=== PATIENT | female | born 1940 ===

== ENCOUNTER 2020-08-08 08:00 | Outpatient (REF) | payer MEDICARE, SELFPAY ==
--- NOTE | 2020-08-08 09:08 | XR_ITS ---
EXAMINATION: XR KNEE, LEFT XR KNEE, RIGHT CLINICAL INFORMATION: Pain in the knees COMPARISON: 08/18/2018 TECHNIQUE: 3 upright views of each knee FINDINGS: Left knee: No fracture or subluxation. There is mild medial compartment joint space narrowing. Small marginal osteophytes of the medial and patellofemoral compartments. No joint effusion. Vascular calcifications noted. Right knee: No fracture or subluxation. There is moderate medial compartment joint space narrowing. Tricompartmental marginal osteophytes. No joint effusion. The soft tissues are unremarkable. XR/XR knee RT 3V IMPRESSION: Degenerative changes of both knees as detailed above. Most prominently at the right knee with moderate medial compartment joint space narrowing.
--- NOTE | 2020-08-08 09:08 | XR_ITS ---
EXAMINATION: XR KNEE, LEFT XR KNEE, RIGHT CLINICAL INFORMATION: Pain in the knees COMPARISON: 08/18/2018 TECHNIQUE: 3 upright views of each knee FINDINGS: Left knee: No fracture or subluxation. There is mild medial compartment joint space narrowing. Small marginal osteophytes of the medial and patellofemoral compartments. No joint effusion. Vascular calcifications noted. Right knee: No fracture or subluxation. There is moderate medial compartment joint space narrowing. Tricompartmental marginal osteophytes. No joint effusion. The soft tissues are unremarkable. XR/XR knee LT 3V IMPRESSION: Degenerative changes of both knees as detailed above. Most prominently at the right knee with moderate medial compartment joint space narrowing.
[2020-08-08 09:41] LABS: MANUAL DIFF FLAG NO
[2020-08-08 09:43] LABS: Basophils Percent Auto 0.3 % (0-2); Eosinophils Absolute Auto 0.1 X10*3/uL (0.0-0.4); Eosinophils Percent Auto 1.7 % (0-4); Hematocrit 34.6 % (37-47); Hemoglobin 10.8 g/dl (12.0-16.0); Imm Gran Abs Auto 0.01 X10*3/uL (0.00-0.03); Imm Gran Pct Auto 0.1 % (0.0-0.4); Lymphocytes Absolute Auto 2.4 X10*3/uL (1.2-4.9); Lymphocytes Percent Auto 30.8 % (20-40); Mean Corpuscular HGB Conc 31.2 g/dl (31.0-35.0); Mean Corpuscular Hemoglobin 28.6 pg (27.0-33.0); Mean Corpuscular Volume 91.5 fL (80-98); Monocytes Absolute Auto 0.6 X10*3/uL (0.1-1.2); Neutrophils Absolute Auto 4.7 X10*3/uL (2.0-8.3); Neutrophils Percent Auto 59.1 % (45-73); Platelet Count 295 X10*3/uL (160-400); Red Blood Count 3.78 X10*6/uL (4.20-5.50); Red Cell Distribution Width 14.8 % (11.0-16.0); White Blood Count 7.9 X10*3/uL (4.8-10.8)
[2020-08-08 10:40] LABS: Erythrocyte Sedimentation Rate 32 MM/HR (0-20)
[2020-08-08 10:46] LABS: Alanine Aminotransferase 21 U/L (0-31); Albumin Level 4.1 g/dL (3.5-5.0); Alkaline Phosphatase 90 U/L (39-117); Anion Gap 13 (12-20); Aspartate Amino Transferase 16 U/L (5-31); Bilirubin Total 0.3 mg/dL (0.0-1.0); Blood Urea Nitrogen 25 mg/dL (9-16); C Reactive Protein 0.19 mg/dL (< or = 0.50); Calcium 8.7 mg/dL (8.4-10.2); Carbon Dioxide 24 mmol/L (22-29); Chloride 109 mmol/L (96-108); Estimated Glomerular Filt Rate 39; Glucose Random 129 mg/dL (60-115); Potassium 4.5 mmol/l (3.3-5.1); Rheumatoid Factor < 15.0 IU/mL (<15.0); Sodium 141 mmol/L (135-145); Total Protein 7.4 g/dL (6.5-8.0)
[2020-08-09 08:51] LABS: Lyme Abs Screen <0.90 index
[2020-08-09 15:21] LABS: Cyclic Citrullinated Peptide 19 UNITS
== END 2020-08-08 08:01 | disposition home or self-care (01) ==
LOC: HO.LAB 08:00
PROVIDERS: PCP Internal Medicine Geriatric Medicine; Referring Provider Internal Medicine Geriatric Medicine; Visit Provider Student in an Organized Health Care Education/Training Program
DX: M25.561 Pain in right knee (principal); M25.562 Pain in left knee; G89.29 Other chronic pain; M25.50 Pain in unspecified joint
CPT/HCPCS: 36415; 73562; 80053; 85025; 85652; 86140; 86200; 86431; 86618; 99202

== ENCOUNTER → 2020-08-22 10:39 | Outpatient (BNVA) | payer MEDICARE, SELFPAY | PROVIDERS: PCP Internal Medicine Geriatric Medicine; Visit Provider Student in an Organized Health Care Education/Training Program | DX: M17.11 Unilateral primary osteoarthritis, right knee (principal) | CPT/HCPCS: 20610; 99211 ==

== ENCOUNTER → 2020-08-27 09:44 | Outpatient (BNVA) | payer MEDICARE, SELFPAY | PROVIDERS: PCP Internal Medicine Geriatric Medicine; Visit Provider Surgery | DX: L72.11 Pilar cyst (principal) | CPT/HCPCS: 99202 ==

== ENCOUNTER 2020-08-29 09:42 | Outpatient (REF) | payer MEDICARE, SELFPAY ==
[2020-08-29 09:56] VITALS: BP 154/83; PULSE 99; RESP 16; TEMP 36.9; O2SAT 99
[2020-08-29 10:06] VITALS: BMI 35.0
[2020-08-29 10:22] VITALS: BP 136/69; PULSE 90; RESP 16; O2SAT 98
--- NOTE | 2020-08-29 11:58 | PM.OP ---
Brief Operative Note Date of Service: 08/29/20 Pre-op diagnosis: Cyst left scalp Post-op diagnosis: same Procedure: Excision of cyst left scalp Implants: None Surgeon: Gregory Erickson MD Anesthesia: local Estimated blood loss (mL): 2 Pathology: other (Cyst left scalp) Condition: stable Disposition: other (Home)
--- NOTE | 2020-08-29 11:59 | W.PM.OPN ---
Operative Note Operative Note Date of Service: 08/29/20 Narrative: Preoperative diagnosis: Cyst left scalp Postoperative diagnosis: Same Procedure: Excision of cyst left scalp Surgeon: Gregory Erickson MD Anesthesia: Local Indications for procedure: 80-year-old female with a cyst of the left scalp located above the left ear which is increasing in size and causing irritation with her classes. Operative findings: 1.5 cm round noninfected Pilar cyst Specimen: Cyst left scalp Estimated blood loss: 2 mL Complications: None Procedure details: Patient was brought to the minor surgery suite and placed in a supine position. The site of surgery was confirmed by the patient and informed consent confirmed. The patient's left scalp was prepped with Betadine directly over the cyst. This was then draped in a sterile fashion. Local anesthesia consisting 1% lidocaine with epinephrine was then infiltrated over the cyst in a transverse fashion. Incision was then made with a 15 blade and carried out through subcutaneous tissue up to the cyst wall. Sharp dissection was then used to dissect the cyst from the surrounding subcutaneous tissue. The specimen was sent to pathology for further examination. Skin was closed using interrupted 4 0 nylon sutures. Bacitracin was then applied. The patient tolerated the procedure well and was discharged to home in stable condition.
== END 2020-08-29 09:43 | disposition home or self-care (01) ==
LOC: HO.MS 09:42
PROVIDERS: PCP Internal Medicine Geriatric Medicine; Visit Provider Surgery
PROC: (CPT 11422; principal; 2020-08-29 10:00)
DX: L72.11 Pilar cyst (principal)
CPT/HCPCS: 11422; 88304

== ENCOUNTER → 2020-09-05 15:19 | Outpatient (BNVA) | payer MEDICARE, SELFPAY | PROVIDERS: PCP Internal Medicine Geriatric Medicine; Visit Provider Surgery | DX: L72.11 Pilar cyst (principal) | CPT/HCPCS: 99212 ==

== ENCOUNTER 2020-10-02 09:01 | Outpatient (REF) | payer MEDICARE, SELFPAY ==
--- NOTE | 2020-10-02 09:07 | MM_ITS ---
EXAMINATION: MM SCREENING DIGITAL MAMMOGRAPHY, BILATERAL CLINICAL INFORMATION: Screening. Asymptomatic. Due for yearly exam. History right breast cancer 2008. COMPARISON: Mammography: 07/20/2019, 07/07/2018, 07/05/2017 TECHNIQUE: Digital mammography is performed in craniocaudal and mediolateral oblique views along with computer-aided detection (CAD). Additional exaggerated right CC view is provided. Technically challenging exam, tailored to patient capabilities and with full field digital mammography. FINDINGS: There are scattered areas of fibroglandular density (ACR BI-RADS breast composition Category b). There are post therapy changes on the right with reduced breast size and chronic stable scarring and dystrophic calcification in the scar. There is minor motion artifact on the right MLO view. The left breast parenchymal pattern is similar to prior exams. Neither breast shows interval mass or developing density or abnormal calcifications. Left axillary node stable. No significant changes from prior exams. MM/MM screening mammo BI IMPRESSION: No significant changes from prior study. Post therapy changes right breast. ASSESSMENT: BI-RADS 2: Benign RECOMMENDATION: Routine annual mammography screening. This patient's information was entered into a reminder system with a target due date for their next mammogram.
== END 2020-10-02 09:02 | disposition home or self-care (01) ==
LOC: HO.MAMMO 09:01
PROVIDERS: Visit Provider Internal Medicine Geriatric Medicine
DX: Z12.31 Encounter for screening mammogram for malignant neoplasm of breast (principal)
CPT/HCPCS: 77067

== ENCOUNTER → 2021-01-07 09:09 | Outpatient (BNVA) | payer MEDICARE, SELFPAY | PROVIDERS: Visit Provider Student in an Organized Health Care Education/Training Program | DX: M17.11 Unilateral primary osteoarthritis, right knee (principal) | CPT/HCPCS: 20610; 99212 ==

== ENCOUNTER → 2021-05-06 09:08 | Outpatient (BNVA) | payer MEDICARE, SELFPAY | PROVIDERS: PCP Internal Medicine Geriatric Medicine; Visit Provider Student in an Organized Health Care Education/Training Program | DX: M17.11 Unilateral primary osteoarthritis, right knee (principal) | CPT/HCPCS: 99212 ==

== ENCOUNTER 2021-10-16 09:44 | Outpatient (REF) | payer MEDICARE, SELFPAY ==
--- NOTE | ~2021-10-16 | MM_ITS ---
MM/MM tomosynthesis screening BI IMPRESSION: There are no significant changes from prior study. ASSESSMENT: BI-RADS 2: Benign RECOMMENDATION: Routine annual mammography screening. This patient's information was entered into a reminder system with a target due date for their next mammogram. EXAMINATION: MM SCREENING DIGITAL BREAST TOMOSYNTHESIS, BILATERAL CLINICAL INFORMATION: Screening. Asymptomatic. Status post right breast lumpectomy. COMPARISON: Mammography: October 02, 2020 and studies dating back to March 21, 2014 TECHNIQUE: Digital breast tomosynthesis is performed in both the craniocaudal and mediolateral oblique views along with computer-aided detection (CAD). Synthesized 2D images are generated from the tomosynthesis. FINDINGS: There are scattered areas of fibroglandular density (ACR BI-RADS breast composition Category b). There are no new significant masses, abnormal calcifications, or other abnormalities. Postsurgical change is noted within the upper outer aspect of the right breast.
== END 2021-10-16 09:45 | disposition home or self-care (01) ==
LOC: HO.MAMMO 09:44
PROVIDERS: PCP Internal Medicine; Visit Provider Internal Medicine
DX: Z12.31 Encounter for screening mammogram for malignant neoplasm of breast (principal)
CPT/HCPCS: 77063; 77067

== ENCOUNTER 2022-08-03 09:31 | Outpatient (REF) | payer OTHER, SELFPAY ==
[2022-08-03 10:12] LABS: MANUAL DIFF FLAG NO
[2022-08-03 10:53] LABS: Basophils Percent Auto 0.4 % (0-2); Eosinophils Absolute Auto 0.3 X10*3/uL (0.0-0.4); Eosinophils Percent Auto 2.9 % (0-4); Hematocrit 40.3 % (37.0-47.0); Hemoglobin 12.7 g/dl (12.0-16.0); Imm Gran Abs Auto 0.03 X10*3/uL (0.00-0.03); Imm Gran Pct Auto 0.3 % (0.0-0.4); Lymphocytes Absolute Auto 3.2 X10*3/uL (1.2-4.9); Lymphocytes Percent Auto 34.7 % (20-40); Mean Corpuscular HGB Conc 31.5 g/dl (31.0-35.0); Mean Corpuscular Hemoglobin 28.3 pg (27.0-33.0); Mean Corpuscular Volume 89.8 fL (80.0-98.0); Mean Platelet Volume 10.4 fL (9.4-12.3); Monocytes Absolute Auto 0.8 X10*3/uL (0.1-1.2); Monocytes Percent Auto 8.5 % (2-11); Neutrophils Absolute Auto 4.9 x10*3/uL (2.0-8.3); Neutrophils Percent Auto 53.2 % (45-73); Platelet Count 290 X10*3/uL (160-400); Red Blood Count 4.49 X10*6/uL (4.20-5.50); Red Cell Distribution Width 14.4 % (11.0-16.0); White Blood Count 9.3 X10*3/uL (4.8-10.8)
[2022-08-03 10:59] LABS: Appearance Urine Hazy; Color Urine Yellow; Glucose Urine UA Negative (Negative); Leukocyte Esterase Urine Small (1+) (Negative); Nitrite Urine Positive (Negative); Specific Gravity - Urine 1.015 (1.005-1.025); UMIC TRIGGER UA YES; Urine Blood Negative (Negative); Urine Ketones Negative (Negative); Urine Protein Trace mg/dL (Neg-Trace)
[2022-08-03 11:04] LABS: Estimated Average Glucose 123 mg/dL; Hemoglobin A1c % 5.9 %
[2022-08-03 11:20] LABS: Creatinine Urine 83.86 mg/dL; Total Protein Urine Random 25 mg/dL (<12)
[2022-08-03 11:21] LABS: Bacteria Urine 4+ (None Seen); Hyaline Casts Urine 0-2 /LPF (0-2); RBC Urine 0-2 /HPF (0-2); WBC Urine >50 /HPF (0-5)
[2022-08-03 11:37] LABS: Anion Gap 18 (12-20); Blood Urea Nitrogen 30 mg/dL (9-16); Calcium 9.4 mg/dL (8.4-10.2); Carbon Dioxide 23 mmol/L (22-29); Chloride 107 mmol/L (96-108); Estimated Glomerular Filt Rate 33; Iron 93 mcg/dL (30-160); Percent Iron Saturation 27 % (15-50); Potassium 4.5 mmol/L (3.3-5.1); Sodium 143 mmol/L (135-145); Total Iron Binding Capacity 342 mcg/dL (228-428); Unsaturated Iron Binding 249 ug/dL; Uric Acid 7.5 mg/dL (2.4-5.7)
[2022-08-03 12:09] LABS: Ferritin 36 ng/mL (10-250)
[2022-08-03 13:36] LABS: Vitamin D 25-OH Total 52.1 ng/mL (>30)
[2022-08-04 12:16] LABS: Calcium (PTHI) 9.3 mg/dL (8.6-10.4); PTHI 114 pg/mL (16-77)
== END 2022-08-03 09:32 | disposition home or self-care (01) ==
LOC: HO.LAB 09:31
PROVIDERS: PCP Internal Medicine; Visit Provider Physician Assistant
DX: N18.31 Chronic kidney disease, stage 3a (principal); D63.1 Anemia in chronic kidney disease; E55.9 Vitamin D deficiency, unspecified; E11.29 Type 2 diabetes mellitus with other diabetic kidney complication
CPT/HCPCS: 36415; 80051; 81001; 82306; 82310; 82565; 82728; 83036; 83540; 83970; 84156; 84520; 84550; 85025

== ENCOUNTER 2022-10-09 12:28 | Inpatient (IN) | payer OTHER, SELFPAY ==
--- NOTE | ~2022-10-09 | XR_ITS ---
EXAMINATION: XR CHEST CLINICAL INFORMATION: Cough, shortness of breath COMPARISON: None TECHNIQUE: 2 views of the chest were obtained. FINDINGS: Linear streaky opacities at each lung base have the appearance of subsegmental atelectasis. The right lower border of the cardiomediastinal silhouette is slightly ill-defined, likely from presence of the paracardiac fat pad and atelectasis within the middle lobe. The right diaphragm is mildly elevated. No pleural effusion. There is a somewhat vague subpleural opacity of the right lateral lung base. There appear to be calcified lymph nodes at the right hilum. Cardiac silhouette is mildly enlarged. There is atherosclerotic calcification of the aorta. Pulmonary vascular pattern is normal. Moderate multilevel discovertebral degenerative change of the thoracolumbar spine. XR/XR chest 2V IMPRESSION: * Subsegmental atelectasis within the lung bases. Also, there is a nonspecific vague opacity of the lateral right lung base. If the patient has Covid infection, then this could be a manifestation of viral pneumonia. * Mild cardiomegaly. * There are likely old calcified lymph nodes at the right hilum.
--- NOTE | 2022-10-09 13:13 | ED_ITS ---
HPI - URI/Sore Throat General Chief Complaint: Upper Respiratory Symptoms <Zahida Steele CNP - Last Filed: 10/09/22 13:20> Stated Complaint: cough <Zahida Steele CNP - Last Filed: 10/09/22 13:20> Time Seen by Provider: 10/09/22 13:25 <Zahida Steele CNP - Last Filed: 10/09/22 13:20> Source: patient, family and metal furrer <Marcia Gusman NP - Last Filed: 16:47> Mode of arrival: ambulatory <Marcia Gusman NP - Last Filed: 10/09/22 16:47> Limitations: language barrier <Marcia Gusman NP - Last Filed: 10/09/22 16:47> History of Present Illness HPI Narrative: 82 yo female with history of hypertension, chronic kidney disease, diabetes who presents with cough for 6 weeks. Patient tried [id number] medications 1st with no relief. Patient was seen by her primary care doctor and prescribed azithromycin and Augmentin on September 23. Patient completed the azithromycin. She has been taking the Augmentin once daily since September 23. She was unaware that it was supposed to be twice daily. She did follow-up with her primary on October 03 and was prescribed doxycycline b.i.d.. Patient has been taking this once daily. Patient reports continued cough with chest congestion. No shortness of breath, fevers, leg swelling, leg pain, chest pain. <Marcia Gusman NP - Last Filed: 10/09/22 16:47> Related Data Home Medications: Home Medications Medication Instructions Recorded Confirmed aspirin 81 mg tablet,delayed 81 mg PO DAILY 08/08/20 05/06/21 release (Enteric Coated Aspirin) atorvastatin 10 mg tablet 10 mg PO DAILY 08/08/20 05/06/21 carvedilol 25 mg tablet 25 mg PO BID 08/08/20 05/06/21 cholecalciferol (vitamin D3) 25 25 mcg PO DAILY 08/08/20 05/06/21 mcg (1,000 unit) capsule diltiazem HCl 90 mg tablet 90 mg PO TID 08/08/20 05/06/21 fluticasone propionate 50 1 spray intranasal DAILY 08/08/20 05/06/21 mcg/actuation nasal spray,suspension (Allergy Relief (fluticasone)) lisinopril 40 mg tablet (Zestril) 40 mg PO DAILY 08/08/20 05/06/21 pantoprazole 20 mg tablet,delayed 20 mg PO DAILY 08/08/20 05/06/21 release blood sugar diagnostic #10 ea 08/27/20 08/27/20 lancets 28 gauge #100 ea 08/27/20 08/27/20 meclizine 12.5 mg tablet 12.5 mg PO DAILY PRN 05/06/21 05/06/21 torsemide 5 mg tablet 5 mg PO DAILY 05/06/21 05/06/21 acetaminophen 325 mg tablet 650 mg PO Q6H PRN Pain 10/09/22 10/09/22 albuterol sulfate 90 mcg/actuation 2 puff inhalation Q6H PRN 10/09/22 10/09/22 aerosol inhaler (ProAir HFA) Shortness Of Breath aspirin 81 mg tablet,delayed 81 mg PO DAILY 10/09/22 10/09/22 release atorvastatin 20 mg tablet 20 mg PO DAILY 10/09/22 10/09/22 carvedilol 25 mg tablet 25 mg PO BID 10/09/22 10/09/22 diltiazem HCl 90 mg tablet 90 mg PO TID 10/09/22 10/09/22 doxycycline hyclate 100 mg tablet 100 mg PO BID 10/09/22 10/09/22 empagliflozin 10 mg tablet 10 mg PO DAILY 10/09/22 10/09/22 (Jardiance) ferrous sulfate 324 mg (65 mg 324 mg PO DAILY 10/09/22 10/09/22 iron) tablet,delayed release lisinopril 40 mg tablet 40 mg PO DAILY 10/09/22 10/09/22 omeprazole 20 mg tablet,delayed 20 mg PO DAILY@0630 10/09/22 10/09/22 release Previous Rx's Medication Instructions Recorded acetaminophen 650 mg 650 mg PO Q8H PRN pain #90 tabs 05/06/21 tablet,extended release (Tylenol Arthritis Pain) cefuroxime axetil 500 mg tablet 500 mg PO BID 4 days #8 tabs 10/12/22 guaifenesin 600 mg tablet, 600 mg PO BID #10 tabs 10/12/22 extended release 12 hr (Mucus Relief ER) <Zahida Steele CNP - Last Filed: 10/09/22 13:20> Allergies/Adverse Reactions: Allergies Allergy/AdvReac Type Severity Reaction Status Date / Time No Known Allergies Allergy Verified 10/12/22 16:59 [No Known Allergies*] <Zahida Steele CNP - Last Filed: 10/09/22 13:20> Review of Systems Review of Systems: Yes all other systems are reviewed and are negative <Marcia Gusman NP - Last Filed: 10/09/22 16:47> Constitutional: Constitutional: Reports no additional constitutional complaints, Denies body ache(s), Denies chills, Denies fever(s), Denies hea dache(s) and Denies weakness <Marcia Gusman NP - Last Filed: 10/09/22 16:47> Eyes: Eyes: Reports no additional eye complaints and Denies change in vision <Marcia Gusman NP - Last Filed: 10/09/22 16:47> ENT: Reports system reviewed and no additional complaints, except as documented, Denies dizziness, Denies headache(s), Denies nasal congestion, Denies nasal discharge and Denies neck pain <Marcia Gusman NP - Last Filed: 10/09/22 16:47> Cardiovascular: Cardiovascular: Reports no additional cardiovascular complaints, Denies chest pain, Denies leg edema and Denies dyspnea <Marcia Gusman NP - Last Filed: 10/09/22 16:47> Respiratory: Respiratory: Reports no additional respiratory complaints, Reports cough and Denies dyspnea <Marcia Gusman NP - Last Filed: 10/09/22 16:47> Gastrointestinal: Gastrointestinal: Reports no additional gastrointestinal complaints, Denies abdominal pain, Denies diarrhea, Denies nausea and Denies vomiting <Marcia Gusman NP - Last Filed: 10/09/22 16:47> Genitourinary: Genitourinary: Reports no additional female genitourinary complaints and Denies urinary incontinence <Marcia Gusman NP - Last Filed: 10/09/22 16:47> Musculoskeletal: Musculoskeletal: Reports no additional musculoskeletal complaints, Denies back pain, Denies arthralgias, Denies joint swelling, Denies neck pain, Denies numbness and Denies tingling <Marcia Gusman NP - Last Filed: 10/09/22 16:47> Integumentary/Breasts: Skin/Breast: Reports system reviewed and no additional complaints, except as docu and Denies rash <Marcia Gusman NP - Last Filed: 10/09/22 16:47> Neurologic: Reports system reviewed and no additional complaints, except as documented, Denies Abnormal speech present, Denies dizziness, Denies headache(s), Denies numbness, Denies tingling and Denies weakness <Marcia Gusman NP - Last Filed: 10/09/22 16:47> [facility] Past Medical History Attestation statement: The following information was validated with the patient. <Marcia Gusman NP - Last Filed: 10/09/22 16:47> Source: old records reviewed and nursing notes reviewed <Marcia Gusman NP - Last Filed: 10/09/22 16:47> Medical History: Medical History Bilateral knee pain Breast cancer Depression Hypertension <Zahida Steele CNP - Last Filed: 10/09/22 13:20> Surgical History: Surgical History History of partial mastectomy of right breast Hx of cataract surgery <Zahida Steele CNP - Last Filed: 10/09/22 13:20> Family History Family History: Family History Father No problems noted. Mother No problems noted. <Zahida Steele CNP - Last Filed: 10/09/22 13:20> Social History Social History: Social History (System 10/12/22 @ 16:59 by Ekaterina Kemp) Household Members: None Housing: Apartment Do you presently have visiting nurse or other home services: Yes Alcohol intake: never Patient Tobacco Use Status: Never used Tobacco e-Cigarette/Vaping Use: Never Used service: No Current occupational status: retired <Zahida Steele CNP - Last Filed: 10/09/22 13:20> Physical Exam Vital Signs: Vital Signs: Last Vital Signs Temp 97.6 F 10/12/22 08:00 Pulse 81 10/12/22 08:00 Resp 18 10/12/22 08:00 BP 166/83 H 10/12/22 08:00 Pulse Ox 96 10/12/22 08:00 O2 Del Method 10/12/22 08:00 O2 Flow Rate 1 10/12/22 04:00 BMI result Body Mass Index 32.2 <Zahida Steele CNP - Last Filed: 10/09/22 13:20> Vital Signs: Last Vital Signs Temp 97.6 F 10/12/22 08:00 Pulse 81 10/12/22 08:00 Resp 18 10/12/22 08:00 BP 166/83 H 10/12/22 08:00 Pulse Ox 96 10/12/22 08:00 O2 Del Method 10/12/22 08:00 O2 Flow Rate 1 10/12/22 04:00 BMI result Body Mass Index 32.2 <Marcia Gusman NP - Last Filed: 10/09/22 16:47> Vital Signs: Last Vital Signs Temp 97.6 F 10/12/22 08:00 Pulse 81 10/12/22 08:00 Resp 18 10/12/22 08:00 BP 166/83 H 10/12/22 08:00 Pulse Ox 96 10/12/22 08:00 O2 Del Method 10/12/22 08:00 O2 Flow Rate 1 10/12/22 04:00 BMI result Body Mass Index 32.2 <Calderon Laureano MD - Last Filed: 10/19/22 18:51> Const: General: cooperative, healthy appearing, comfortable and no acute distress <Marcia Gusman NP - Last Filed: 10/09/22 16:47> Orientation/consciousness: patient oriented x3 <Marcia Gusman NP - Last Filed: 10/09/22 16:47> Limitations: no limitations <Marcia Gusman NP - Last Filed: 10/09/22 16:47> HEENT: Head: Yes normal to inspection <Marcia Gusman INDUSTRIAL ROOFER HELPER - Last Filed: 10/09/22 16:47> Ears: hearing grossly normal bilaterally <Marcia Gusman INDUSTRIAL ROOFER HELPER - Last Filed: 10/09/22 16:47> General nose exam: Normal external nose present <Marcia Gusman INDUSTRIAL ROOFER HELPER - Last Filed: 10/09/22 16:47> Face and sinus: Yes normal facial exam <Marcia Gusman, INDUSTRIAL ROOFER HELPER - Last Filed: 10/09/22 16:47> Mouth: Normal oral and palatal mucosa present <Marcia Gusman INDUSTRIAL ROOFER HELPER - Last Filed: 10/09/22 16:47> Throat: Yes posterior oropharynx normal <Marcia Gusman INDUSTRIAL ROOFER HELPER - Last Filed: 10/09/22 16:47> Eyes: General: appearance normal, both eyes and all related structures <Marcia Gusman INDUSTRIAL ROOFER HELPER - Last Filed: 10/09/22 16:47> Pupils: Equal, round and reactive pupils present <Marcia Gusman INDUSTRIAL ROOFER HELPER - Last Filed: 10/09/22 16:47> Neck: Neck: Yes normal visual inspection <Marcia Gusman INDUSTRIAL ROOFER HELPER - Last Filed: 10/09/22 16:47> Chest: Chest palpation & inspection: normal inspection of the chest <Marcia Gusman INDUSTRIAL ROOFER HELPER - Last Filed: 10/09/22 16:47> Resp: Other: + congested cough <Marcia Gusman INDUSTRIAL ROOFER HELPER - Last Filed: 10/09/22 16:47> Effort & Inspection: normal respiratory effort and Actively coughing <Marcia Gusman INDUSTRIAL ROOFER HELPER - Last Filed: 10/09/22 16:47> Auscultation: rhonchi <Marcia Gusman INDUSTRIAL ROOFER HELPER - Last Filed: 10/09/22 16:47> Cardio: Rate: regular rate <Marcia Gusman INDUSTRIAL ROOFER HELPER - Last Filed: 10/09/22 16:47> Rhythm: regular rhythm <Marcia Gusman INDUSTRIAL ROOFER HELPER - Last Filed: 10/09/22 16:47> Peripheral pulses: Peripheral pulses 2+ throughout <Marcia Gusman INDUSTRIAL ROOFER HELPER - Last Filed: 10/09/22 16:47> GI: Inspection: Yes normal to inspection <Marciamarcia Gusman INDUSTRIAL ROOFER HELPER - Last Filed: 10/09/22 16:47> Palpation (GI): Soft to palpation and nontender <Marcia Gusman, INDUSTRIAL ROOFER HELPER - Last Filed: 10/09/22 16:47> Auscultation: normal bowel sounds <Marcia Gusman INDUSTRIAL ROOFER HELPER - Last Filed: 10/09/22 16:47> Back/Spine/Pelvis: Thoracic/Lumbar Spine: thoracic and lumbar spine normal to inspection <Marciaawlly Gusman, INDUSTRIAL ROOFER HELPER - Last Filed: 10/09/22 16:47> Skin: General skin exam: no rashes or lesions noted <Marcia Gusman INDUSTRIAL ROOFER HELPER - Last Filed: 10/09/22 16:47> Neuro: General: patient oriented x3, no focal motor deficits and normal sensation to monofilament <Marcia Gusman INDUSTRIAL ROOFER HELPER - Last Filed: 10/09/22 16:47> Cranial nerves: Yes Equal, round and reactive pupils present <Marcia Gusman, INDUSTRIAL ROOFER HELPER - Last Filed: 10/09/22 16:47> Cognition (Neuro): normal cognition <Marcia Gusman INDUSTRIAL ROOFER HELPER - Last Filed: 10/09/22 16:47> Speech: No Abnormal speech present <Marciawally Gusman INDUSTRIAL ROOFER HELPER - Last Filed: 10/09/22 16:47> Gait exam (Neuro): Normal gait present <Marcia Gusman INDUSTRIAL ROOFER HELPER - Last Filed: 10/09/22 16:47> Motor exam (neuro): 5/5 motor strength present throughout <Marciamarcia Gusman, INDUSTRIAL ROOFER HELPER - Last Filed: 10/09/22 16:47> Extrem: General: Yes normal to inspection, Yes no pedal edema and Yes no calf tenderness <Marcia Gusman INDUSTRIAL ROOFER HELPER - Last Filed: 10/09/22 16:47> Course Course Course Narrative: This is an RME: Additional HPI, ROS, PE not included below will be deferred to primary provider. Patient is an 82-year-old female who presents emergency department for evaluation of cough. Onset was 7 weeks ago. She has been to the doctor's twice a since this started, states she has had blood work, urinalysis, and chest x-ray. At the first visit she was given antibiotics. Associated with chills and intermittent shortness of breath. Denies fevers, chest pain. Denies sick contacts. Denies vaccination for COVID-19 or influenza. Plan: viral testing, chest x-ray, labs, ekg <Zahida Steele CNP - Last Filed: 10/09/22 13:20> Reevaluation(s) Reevaluation #1: 1440-labs show creatinine 1.8, BUN 40. Hemoglobin 9.2/28.7. Previous on other patient record (patient with multiple account numbers-pedro wong) hgb 12.7/hct 40.3, BUN 30, creatinine 1.50. Slightly worsened renal function which may be secondary to mild dehydration or multiple antibiotic use. Patient be given 500 mL of normal saline and will reassess renal function. Mild anemia likely iron deficient. Per daughter patient was informed of this several weeks ago by her primary care doctor and iron tablets were sent into the pharmacy but she has not started this yet. Patient does report her stools are black at times. Rectal exam was done which shows brown stool. Will send occult card. <Marcia Gusman NP - Last Filed: 10/09/22 16:47> Reevaluation #2: 1500- Will perform ambulatory pulse oximeter <Marcia Gusman NP - Last Filed: 10/09/22 16:47> Reevaluation #3: 1515-patient ambulated several steps and desaturated to 88-89% on room air. Patient brought back to the room and placed on supplemental oxygen. Plan for admission to the hospital. At this time infection is suspected. Blood cultures and lactic acid ordered. Antibiotics ordered. <Marcia uGsman NP - Last Filed: 10/09/22 16:47> Medications Administered Discontinued Medications Generic Name Dose Route Start Last Admin Trade Name Irvingq PRN Reason Stop Dose Admin Aspirin 81 mg 10/10/22 09:00 10/12/22 08:58 Aspirin Enteric Coated 81 Mg Tablet. PO 81 mg DAILY ZACH Administration Atorvastatin Calcium 20 mg 10/10/22 09:00 10/12/22 08:58 Atorvastatin Calcium 20 Mg Tablet PO 20 mg DAILY ZACH Administration Carvedilol 25 mg 10/09/22 21:00 10/12/22 08:59 Carvedilol 25 Mg Tablet PO 25 mg BID ZACH Administration Protocol Diltiazem HCl 90 mg 10/09/22 21:00 10/12/22 08:59 Diltiazem Hcl 30 Mg Tablet PO 90 mg TID ZACH Administration Protocol Docusate Sodium 100 mg 10/09/22 17:12 10/10/22 09:22 Docusate Sodium 100 Mg Capsule PO 100 mg DAILY PRN Administration Constipation Empagliflozin 10 mg 10/10/22 09:00 10/12/22 08:58 Empagliflozin 10 Mg Tablet PO 10 mg DAILY ZACH Administration Ferrous Sulfate 324 mg 10/10/22 09:00 10/12/22 08:59 Ferrous Sulfate 324 Mg Tablet. PO 324 mg DAILY ZACH Administration Guaifenesin 5 ml 10/10/22 08:52 10/12/22 08:59 Guaifenesin 100 Mg/5 Ml Liquid PO 5 ml Q4H PRN Administration Cough Heparin Sodium (Porcine) 5,000 unit 10/09/22 18:00 10/12/22 06:02 Heparin Sodium,Porcine 5,000 Unit/Ml Vial SUBCUT 5,000 unit Q12H ZACH Administration Sodium Chloride 500 mls @ 999 mls/hr 10/09/22 14:33 10/09/22 15:20 Ns IV 10/09/22 15:03 Infused .Q31M STA Infusion Ceftriaxone Sodium 2 gm/ 50 mls @ 100 mls/hr 10/09/22 15:12 10/09/22 16:41 Sodium Chloride IV 10/09/22 15:41 Infused ONCE ONE Infusion Azithromycin 500 mg/ Sodium 250 mls @ 125 mls/hr 10/09/22 15:12 10/09/22 18: 41 Chloride IV 10/09/22 17:11 Infused ONCE ONE Infusion Ceftriaxone Sodium 1 gm/ 50 mls @ 100 mls/hr 10/10/22 16:00 10/11/22 16:42 Sodium Chloride IV Infused Q24H ZACH Infusion Insulin Human Lispro 0 unit 10/09/22 21:00 10/12/22 07:35 Insulin Lispro 100 Unit/Ml 3 Ml Vial SUBCUT Not Given QIDACHS [facility] Protocol Omeprazole 20 mg 10/10/22 06:30 10/12/22 06:03 Omeprazole 20 Mg Capsule. PO 20 mg DAILY@0630 ZACH Administration Sodium Chloride 3 ml 10/10/22 00:00 10/12/22 07:35 0.9 % Sodium Chloride Flush 3 Ml Syringe IVFLUSH Not Given QSHIFT [facility] <Zahida Kaplan Ivette, COMMUNITY OUTREACH COORDINATOR - Last Filed: 10/09/22 13:20> Medications Administered Discontinued Medications Generic Name Dose Route Start Last Admin Trade Name Maged PRN Reason Stop Dose Admin Aspirin 81 mg 10/10/22 09:00 10/12/22 08:58 Aspirin Enteric Coated 81 Mg Tablet. PO 81 mg DAILY ZACH Administration Atorvastatin Calcium 20 mg 10/10/22 09:00 10/12/22 08:58 Atorvastatin Calcium 20 Mg Tablet PO 20 mg DAILY ZACH Administration Carvedilol 25 mg 10/09/22 21:00 10/12/22 08:59 Carvedilol 25 Mg Tablet PO 25 mg BID ZACH Administration Protocol Diltiazem HCl 90 mg 10/09/22 21:00 10/12/22 08:59 Diltiazem Hcl 30 Mg Tablet PO 90 mg TID ZACH Administration Protocol Docusate Sodium 100 mg 10/09/22 17:12 10/10/22 09:22 Docusate Sodium 100 Mg Capsule PO 100 mg DAILY PRN Administration Constipation Empagliflozin 10 mg 10/10/22 09:00 10/12/22 08:58 Empagliflozin 10 Mg Tablet PO 10 mg DAILY ZACH Administration Ferrous Sulfate 324 mg 10/10/22 09:00 10/12/22 08:59 Ferrous Sulfate 324 Mg Tablet. PO 324 mg DAILY ZACH Administration Guaifenesin 5 ml 10/10/22 08:52 10/12/22 08:59 Guaifenesin 100 Mg/5 Ml Liquid PO 5 ml Q4H PRN Administration Cough Heparin Sodium (Porcine) 5,000 unit 10/09/22 18:00 10/12/22 06:02 Heparin Sodium,Porcine 5,000 Unit/Ml Vial SUBCUT 5,000 unit Q12H ZACH Administration Sodium Chloride 500 mls @ 999 mls/hr 10/09/22 14:33 10/09/22 15:20 Ns IV 10/09/22 15:03 Infused .Q31M STA Infusion Ceftriaxone Sodium 2 gm/ 50 mls @ 100 mls/hr 10/09/22 15:12 10/09/22 16:41 Sodium Chloride IV 10/09/22 15:41 Infused ONCE ONE Infusion Azithromycin 500 mg/ Sodium 250 mls @ 125 mls/hr 10/09/22 15:12 10/09/22 18:41 Chloride IV 10/09/22 17:11 Infused ONCE ONE Infusion Ceftriaxone Sodium 1 gm/ 50 mls @ 100 mls/hr 10/10/22 16:00 10/11/22 16:42 Sodium Chloride IV Infused Q24H ZACH Infusion Insulin Human Lispro 0 unit 10/09/22 21:00 10/12/22 07:35 Insulin Lispro 100 Unit/Ml 3 Ml Vial SUBCUT Not Given QIDACHS [facility] Protocol Omeprazole 20 mg 10/10/22 06:30 10/12/22 06:03 Omeprazole 20 Mg Capsule. PO 20 mg DAILY@0630 [facility] Administration Sodium Chloride 3 ml 10/10/22 00:00 10/12/22 07:35 0.9 % Sodium Chloride Flush 3 Ml Syringe IVFLUSH Not Given QSHIFT [facility] <Marcia Gusman INDUSTRIAL ROOFER HELPER - Last Filed: 10/09/22 16:47> Medications Administered Discontinued Medications Generic Name Dose Route Start Last Admin Trade Name Freq PRN Reason Stop Dose Admin Aspirin 81 mg 10/10/22 09:00 10/12/22 08:58 Aspirin Enteric Coated 81 Mg Tablet. PO 81 mg DAILY ZACH Administration Atorvastatin Calcium 20 mg 10/10/22 09:00 10/12/22 08:58 Atorvastatin Calcium 20 Mg Tablet PO 20 mg DAILY ZACH Administration Carvedilol 25 mg 10/09/22 21:00 10/12/22 08:59 Carvedilol 25 Mg Tablet PO 25 mg BID ZACH Administration Protocol Diltiazem HCl 90 mg 10/09/22 21:00 10/12/22 08:59 Diltiazem Hcl 30 Mg Tablet PO 90 mg TID [facility] Administration Protocol Docusate Sodium 100 mg 10/09/22 17:12 10/10/22 09:22 Docusate Sodium 100 Mg Capsule PO 100 mg DAILY PRN Administration Constipation Empagliflozin 10 mg 10/10/22 09:00 10/12/22 08:58 Empagliflozin 10 Mg Tablet PO 10 mg DAILY [facility] Administration Ferrous Sulfate 324 mg 10/10/22 09:00 01/23/23 08:59 Ferrous Sulfate 324 Mg Tablet. PO 324 mg DAILY ZACH Administration Guaifenesin 5 ml 10/10/22 08:52 10/12/22 08:59 Guaifenesin 100 Mg/5 Ml Liquid PO 5 ml Q4H PRN Administration Cough Heparin Sodium (Porcine) 5,000 unit 10/09/22 18:00 10/12/22 06:02 Heparin Sodium,Porcine 5,000 Unit/Ml Vial SUBCUT 5,000 unit Q12H ZACH Administration Sodium Chloride 500 mls @ 999 mls/hr 10/09/22 14:33 10/09/22 15:20 Ns IV 10/09/22 15:03 Infused .Q31M STA Infusion Ceftriaxone Sodium 2 gm/ 50 mls @ 100 mls/hr 10/09/22 15:12 10/09/22 16:41 Sodium Chloride IV 10/09/22 15:41 Infused ONCE ONE Infusion Azithromycin 500 mg/ Sodium 250 mls @ 125 mls/hr 10/09/22 15:12 10/09/22 18: 41 Chloride IV 10/09/22 17:11 Infused ONCE ONE Infusion Ceftriaxone Sodium 1 gm/ 50 mls @ 100 mls/hr 10/10/22 16:00 10/11/22 16:42 Sodium Chloride IV Infused Q24H ZACH Infusion Insulin Human Lispro 0 unit 10/09/22 21:00 10/12/22 07:35 Insulin Lispro 100 Unit/Ml 3 Ml Vial SUBCUT Not Given QIDACHS [facility] Protocol Omeprazole 20 mg 10/10/22 06:30 10/12/22 06:03 Omeprazole 20 Mg Capsule. PO 20 mg DAILY@0630 ZACH Administration Sodium Chloride 3 ml 10/10/22 00:00 10/12/22 07:35 0.9 % Sodium Chloride Flush 3 Ml Syringe IVFLUSH Not Given QSHIFT [facility] <Calderon Laureano MD - Last Filed: 10/19/22 18:51> Medical Decision Making Medical Decision Making MDM Narrative: 82-year-old female here with several weeks of cough despite multiple courses of antibiotics. Patient is still on Augmentin 875 and doxycycline 100 mg. Prescribes twice daily but patient has been taking once daily. No fever, shortness of breath, chest pain, leg swelling or leg pain. On arrival vital stable. Congested cough with rhonchi noted. Will obtain labs, EKG, chest x- ray, COVID and flu testing <Marcia Gusman NP - Last Filed: 10/09/22 16:47> Differential Diagnosis Differential Diagnoses: The differential diagnosis associated with the presentation includes <Marcia Gusman NP - Last Filed: 10/09/22 16:47> congestive heart failure Low concern for PE <Marcia Gusman NP - Last Filed: 10/09/22 16:47> Admission/Observation Consideration of admission/observation: Escalation of care including admission/observation considered <Marcia Gusman NP - Last Filed: 10/09/22 16:47> Patient with multiple rounds of antibiotics with continued pneumonia on x- ray, continued symptoms and with hypoxia with ambulation. Anticipate admission <Marcia Gusman NP - Last Filed: 10/09/22 16:47> Consult Healthcare Provider Management of the patient was discussed with: Hospitalist <Marcia Gusman NP - Last Filed: 10/09/22 16:47> Spoke to Hospitalist who accepted admission ([facility]) <Marcia Gusman NP - Last Filed: 10/09/22 16:47> Lab Data MDM Lab Attestation statement: I reviewed the patient's lab results. <Marcia Gusman NP - Last Filed: 10/09/22 16:47> Result Diagrams: 10/09/22 13:32 10/09/22 13:32 <Zahida Steele CNP - Last Filed: 10/09/22 13:20> Labs: Lab Results 10/09/22 10/09/22 10/09/22 Range/Units 13:32 13:32 13:32 WBC 7.4 (4.8-10.8) X10*3/uL RBC 3.29 L (4.20-5.50) X10*6/uL Hgb 9.2 L (12.0-16.0) g/dl Hct 28.7 L (37.0-47.0) % MCV 87.2 (80.0-98.0) fL MCH 28.0 (27.0-33.0) pg MCHC 32.1 (31.0-35.0) g/dl RDW 15.5 (11.0-16.0) % Plt Count 466 H (160-400) X10*3/uL MPV 9.7 (9.4-12.3) fL Immature Gran % (Auto) 0.4 (0.0-0.4) % Neut % (Auto) 55.0 (45-73) % Lymph % (Auto) 31.1 (20-40) % [place] % (Auto) 11.5 H (2-11) % Eos % (Auto) 1.6 (0-4) % Baso % (Auto) 0.4 (0-2) % Lymph # (Auto) 2.3 (1.2-4.9) X10*3/uL [place] # (Auto) 0.9 (0.1-1.2) X10*3/uL Eos # (Auto) 0.1 (0.0-0.4) X10*3/uL Baso # (Auto) 0.0 (0.0-0.2) X10*3/uL Abs Immat Gran (auto) 0.03 (0.00-0.03) X10*3/uL Absolute Neuts (auto) 4.0 (2.0-8.3) x10*3/uL Absolute Nucleated RBC 0.000 (0.0-0.012) X10*3/uL Nucleated RBC % (auto) 0.0 (0.0-0.2) /100WBC Sodium 138 (135-145) mmol/L Potassium 4.2 (3.3-5.1) mmol/L Chloride 109 H (96-108) mmol/L Carbon Dioxide 22 (22-29) mmol/L Anion Gap 11 L (12-20) BUN 41 H (9-16) mg/dL Creatinine 1.83 H (0.5-1.4) mg/dL Estim Creat Clear Calc 18.1 Estimated GFR 26 POC Glucose (60-115) mg/dL Random Glucose 176 H (60-115) mg/dL Lactic Acid (0.5-2.0) mmol/L Calcium 8.7 (8.4-10.2) mg/dL Total Bilirubin 0.3 (0.0-1.0) mg/dL AST 13 (5-31) U/L ALT 14 (0-31) U/L Alkaline Phosphatase 55 (39-117) U/L Troponin I High Sens (<3.5-17.0) ng/L B-Natriuretic Peptide 27 (<100) pg/mL Total Protein 7.0 (6.5-8.0) g/dL Albumin 3.2 L (3.5-5.0) g/dL Stool Occult Blood (NEGATIVE) COVID-19 ([place]) (Negative) COVID-19 Clin Com Influenza Type A ([facility]REC[facility]) (Negative) Influenza Type B ([facility]RECIA) (Negative) Influenza A & B Note 10/09/22 10/09/22 10/09/22 Range/Units 13:32 13:32 13:32 WBC (4.8-10.8) X10*3/uL RBC (4.20-5.50) X10*6/uL Hgb (12.0-16.0) g/dl Hct (37.0-47.0) % MCV (80.0-98.0) fL MCH (27.0-33.0) pg MCHC (31.0-35.0) g/dl RDW (11.0-16.0) % Plt Count (160-400) X10*3/uL MPV (9.4-12.3) fL Immature Gran % (Auto) (0.0-0.4) % Neut % (Auto) (45-73) % Lymph % (Auto) (20-40) % [place] % (Auto) (2-11) % Eos % (Auto) (0-4) % Baso % (Auto) (0-2) % Lymph # (Auto) (1.2-4.9) X10*3/uL [place] # (Auto) (0.1-1.2) X10*3/uL Eos # (Auto) (0.0-0.4) X10*3/uL Baso # (Auto) (0.0-0.2) X10*3/uL Abs Immat Gran (auto) (0.00-0.03) X10*3/uL Absolute Neuts (auto) (2.0-8.3) x10*3/uL Absolute Nucleated RBC (0.0-0.012) X10*3/uL Nucleated RBC % (auto) (0.0-0.2) /100WBC Sodium (135-145) mmol/L Potassium (3.3-5.1) mmol/L Chloride (96-108) mmol/L Carbon Dioxide (22-29) mmol/L Anion Gap (12-20) BUN (9-16) mg/dL Creatinine (0.5-1.4) mg/dL Estim Creat Clear Calc Estimated GFR POC Glucose (60-115) mg/dL Random Glucose (60-115) mg/dL Lactic Acid (0.5-2.0) mmol/L Calcium (8.4-10.2) mg/dL Total Bilirubin (0.0-1.0) mg/dL AST (5-31) U/L ALT (0-31) U/L Alkaline Phosphatase (39-117) U/L Troponin I High Sens < 3.5 (<3.5-17.0) ng/L B-Natriuretic Peptide (<100) pg/mL Total Protein (6.5-8.0) g/dL Albumin (3.5-5.0) g/dL Stool Occult Blood (NEGATIVE) COVID-19 ([place]) Negative (Negative) COVID-19 Clin Com See Note Influenza Type A ([facility]) Negative (Negative) Influenza Type B ([facility]) Negative (Negative) Influenza A & B Note See Note 10/09/22 10/09/22 10/09/22 Range/Units 15:04 15:33 16:01 WBC (4.8-10.8) X10*3/uL RBC (4.20-5.50) X10*6/uL Hgb (12.0-16.0) g/dl Hct (37.0-47.0) % MCV (80.0-98.0) fL MCH (27.0-33.0) pg MCHC (31.0-35.0) g/dl RDW (11.0-16.0) % Plt Count (160-400) X10*3/uL MPV (9.4-12.3) fL Immature Gran % (Auto) (0.0-0.4) % Neut % (Auto) (45-73) % Lymph % (Auto) (20-40) % [place] % (Auto) (2-11) % Eos % (Auto) (0-4) % Baso % (Auto) (0-2) % Lymph # (Auto) (1.2-4.9) X10*3/uL [place] # (Auto) (0.1-1.2) X10*3/uL Eos # (Auto) (0.0-0.4) X10*3/uL Baso # (Auto) (0.0-0.2) X10*3/uL Abs Immat Gran (auto) (0.00-0.03) X10*3/uL Absolute Neuts (auto) (2.0-8.3) x10*3/uL Absolute Nucleated RBC (0.0-0.012) X10*3/uL Nucleated RBC % (auto) (0.0-0.2) /100WBC Sodium (135-145) mmol/L Potassium (3.3-5.1) mmol/L Chloride (96-108) mmol/L Carbon Dioxide (22-29) mmol/L Anion Gap (12-20) BUN (9-16) mg/dL Creatinine (0.5-1.4) mg/dL Estim Creat Clear Calc Estimated GFR POC Glucose 100 (60-115) mg/dL Random Glucose (60-115) mg/dL Lactic Acid 0.6 (0.5-2.0) mmol/L Calcium (8.4-10.2) mg/dL Total Bilirubin (0.0-1.0) mg/dL AST (5-31) U/L ALT (0-31) U/L Alkaline Phosphatase (39-117) U/L Troponin I High Sens (<3.5-17.0) ng/L B-Natriuretic Peptide (<100) pg/mL Total Protein (6.5-8.0) g/dL Albumin (3.5-5.0) g/dL Stool Occult Blood NEGATIVE (NEGATIVE) COVID-19 ([place]) (Negative) COVID-19 Clin Com Influenza Type A ([facility]) (Negative) Influenza Type B ([facility]) (Negative) Influenza A & B Note <Zahida Steele CNP - Last Filed: 10/09/22 13:20> Lab Results 10/09/22 10/09/22 10/09/22 Range/Units 13:32 13:32 13:32 WBC 7.4 (4.8-10.8) X10*3/uL RBC 3.29 L (4.20-5.50) X10*6/uL Hgb 9.2 L (12.0-16.0) g/dl Hct 28.7 L (37.0-47.0) % MCV 87.2 (80.0-98.0) fL MCH 28.0 (27.0-33.0) pg MCHC 32.1 (31.0-35.0) g/dl RDW 15.5 (11.0-16.0) % Plt Count 466 H (160-400) X10*3/uL MPV 9.7 (9.4-12.3) fL Immature Gran % (Auto) 0.4 (0.0-0.4) % Neut % (Auto) 55.0 (45-73) % Lymph % (Auto) 31.1 (20-40) % [place] % (Auto) 11.5 H (2-11) % Eos % (Auto) 1.6 (0-4) % Baso % (Auto) 0.4 (0-2) % Lymph # (Auto) 2.3 (1.2-4.9) X10*3/uL [place] # (Auto) 0.9 (0.1-1.2) X10*3/uL Eos # (Auto) 0.1 (0.0-0.4) X10*3/uL Baso # (Auto) 0.0 (0.0-0.2) X10*3/uL Abs Immat Gran (auto) 0.03 (0.00-0.03) X10*3/uL Absolute Neuts (auto) 4.0 (2.0-8.3) x10*3/uL Absolute Nucleated RBC 0.000 (0.0-0.012) X10*3/uL Nucleated RBC % (auto) 0.0 (0.0-0.2) /100WBC Sodium 138 (135-145) mmol/L Potassium 4.2 (3.3-5.1) mmol/L Chloride 109 H (96-108) mmol/L Carbon Dioxide 22 (22-29) mmol/L Anion Gap 11 L (12-20) BUN 41 H (9-16) mg/dL Creatinine 1.83 H (0.5-1.4) mg/dL Estim Creat Clear Calc 18.1 Estimated GFR 26 POC Glucose (60-115) mg/dL Random Glucose 176 H (60-115) mg/dL Lactic Acid (0.5-2.0) mmol/L Calcium 8.7 (8.4-10.2) mg/dL Total Bilirubin 0.3 (0.0-1.0) mg/dL AST 13 (5-31) U/L ALT 14 (0-31) U/L Alkaline Phosphatase 55 (39-117) U/L Troponin I High Sens (<3.5-17.0) ng/L B-Natriuretic Peptide 27 (<100) pg/mL Total Protein 7.0 (6.5-8.0) g/dL Albumin 3.2 L (3.5-5.0) g/dL Stool Occult Blood (NEGATIVE) COVID-19 ([place]) (Negative) COVID-19 Clin Com Influenza Type A ([facility]) (Negative) Influenza Type B ([place]) (Negative) Influenza A & B Note 10/09/22 10/09/22 10/09/22 Range/Units 13:32 13:32 13:32 WBC (4.8-10.8) X10*3/uL RBC (4.20-5.50) X10*6/uL Hgb (12.0-16.0) g/dl Hct (37.0-47.0) % MCV (80.0-98.0) fL MCH (27.0-33.0) pg MCHC (31.0-35.0) g/dl RDW (11.0-16.0) % Plt Count (160-400) X10*3/uL MPV (9.4-12.3) fL Immature Gran % (Auto) (0.0-0.4) % Neut % (Auto) (45-73) % Lymph % (Auto) (20-40) % [place] % (Auto) (2-11) % Eos % (Auto) (0-4) % Baso % (Auto) (0-2) % Lymph # (Auto) (1.2-4.9) X10*3/uL [place] # (Auto) (0.1-1.2) X10*3/uL Eos # (Auto) (0.0-0.4) X10*3/uL Baso # (Auto) (0.0-0.2) X10*3/uL Abs Immat Gran (auto) (0.00-0.03) X10*3/uL Absolute Neuts (auto) (2.0-8.3) x10*3/uL Absolute Nucleated RBC (0.0-0.012) X10*3/uL Nucleated RBC % (auto) (0.0-0.2) /100WBC Sodium (135-145) mmol/L Potassium (3.3-5.1) mmol/L Chloride (96-108) mmol/L Carbon Dioxide (22-29) mmol/L Anion Gap (12-20) BUN (9-16) mg/dL Creatinine (0.5-1.4) mg/dL Estim Creat Clear Calc Estimated GFR POC Glucose (60-115) mg/dL Random Glucose (60-115) mg/dL Lactic Acid (0.5-2.0) mmol/L Calcium (8.4-10.2) mg/dL Total Bilirubin (0.0-1.0) mg/dL AST (5-31) U/L ALT (0-31) U/L Alkaline Phosphatase (39-117) U/L Troponin I High Sens < 3.5 (<3.5-17.0) ng/L B-Natriuretic Peptide (<100) pg/mL Total Protein (6.5-8.0) g/dL Albumin (3.5-5.0) g/dL Stool Occult Blood (NEGATIVE) COVID-19 ([place]) Negative (Negative) COVID-19 Clin Com See Note Influenza Type A ([facility]) Negative (Negative) Influenza Type B ([place]) Negative (Negative) Influenza A & B Note See Note 10/09/22 10/09/22 10/09/22 Range/Units 15:04 15:33 16:01 WBC (4.8-10.8) X10*3/uL RBC (4.20-5.50) X10*6/uL Hgb (12.0-16.0) g/dl Hct (37.0-47.0) % MCV (80.0-98.0) fL MCH (27.0-33.0) pg MCHC (31.0-35.0) g/dl RDW (11.0-16.0) % Plt Count (160-400) X10*3/uL MPV (9.4-12.3) fL Immature Gran % (Auto) (0.0-0.4) % Neut % (Auto) (45-73) % Lymph % (Auto) (20-40) % [place] % (Auto) (2-11) % Eos % (Auto) (0-4) % Baso % (Auto) (0-2) % Lymph # (Auto) (1.2-4.9) X10*3/uL [place] # (Auto) (0.1-1.2) X10*3/uL Eos # (Auto) (0.0-0.4) X10*3/uL Baso # (Auto) (0.0-0.2) X10*3/uL Abs Immat Gran (auto) (0.00-0.03) X10*3/uL Absolute Neuts (auto) (2.0-8.3) x10*3/uL Absolute Nucleated RBC (0.0-0.012) X10*3/uL Nucleated RBC % (auto) (0.0-0.2) /100WBC Sodium (135-145) mmol/L Potassium (3.3-5.1) mmol/L Chloride (96-108) mmol/L Carbon Dioxide (22-29) mmol/L Anion Gap (12-20) BUN (9-16) mg/dL Creatinine (0.5-1.4) mg/dL Estim Creat Clear Calc Estimated GFR POC Glucose 100 (60-115) mg/dL Random Glucose (60-115) mg/dL Lactic Acid 0.6 (0.5-2.0) mmol/L Calcium (8.4-10.2) mg/dL Total Bilirubin (0.0-1.0) mg/dL AST (5-31) U/L ALT (0-31) U/L Alkaline Phosphatase (39-117) U/L Troponin I High Sens (<3.5-17.0) ng/L B-Natriuretic Peptide (<100) pg/mL Total Protein (6.5-8.0) g/dL Albumin (3.5-5.0) g/dL Stool Occult Blood NEGATIVE (NEGATIVE) COVID-19 ([place]) (Negative) COVID-19 Clin Com Influenza Type A ([place]) (Negative) Influenza Type B ([place]) (Negative) Influenza A & B Note <Marcia Highesvin, [employer] - Last Filed: 10/09/22 16:47> Lab Results 10/09/22 10/09/22 10/09/22 Range/Units 13:32 13:32 13:32 WBC 7.4 (4.8-10.8) X10*3/uL RBC 3.29 L (4.20-5.50) X10*6/uL Hgb 9.2 L (12.0-16.0) g/dl Hct 28.7 L (37.0-47.0) % MCV 87.2 (80.0-98.0) fL MCH 28.0 (27.0-33.0) pg MCHC 32.1 (31.0-35.0) g/dl RDW 15.5 (11.0-16.0) % Plt Count 466 H (160-400) X10*3/uL MPV 9.7 (9.4-12.3) fL Immature Gran % (Auto) 0.4 (0.0-0.4) % Neut % (Auto) 55.0 (45-73) % Lymph % (Auto) 31.1 (20-40) % [place] % (Auto) 11.5 H (2-11) % Eos % (Auto) 1.6 (0-4) % Baso % (Auto) 0.4 (0-2) % Lymph # (Auto) 2.3 (1.2-4.9) X10*3/uL [place] # (Auto) 0.9 (0.1-1.2) X10*3/uL Eos # (Auto) 0.1 (0.0-0.4) X10*3/uL Baso # (Auto) 0.0 (0.0-0.2) X10*3/uL Abs Immat Gran (auto) 0.03 (0.00-0.03) X10*3/uL Absolute Neuts (auto) 4.0 (2.0-8.3) x10*3/uL Absolute Nucleated RBC 0.000 (0.0-0.012) X10*3/uL Nucleated RBC % (auto) 0.0 (0.0-0.2) /100WBC Sodium 138 (135-145) mmol/L Potassium 4.2 (3.3-5.1) mmol/L Chloride 109 H (96-108) mmol/L Carbon Dioxide 22 (22-29) mmol/L Anion Gap 11 L (12-20) BUN 41 H (9-16) mg/dL Creatinine 1.83 H (0.5-1.4) mg/dL Estim Creat Clear Calc 18.1 Estimated GFR 26 POC Glucose (60-115) mg/dL Random Glucose 176 H (60-115) mg/dL Lactic Acid (0.5-2.0) mmol/L Calcium 8.7 (8.4-10.2) mg/dL Total Bilirubin 0.3 (0.0-1.0) mg/dL AST 13 (5-31) U/L ALT 14 (0-31) U/L Alkaline Phosphatase 55 (39-117) U/L Troponin I High Sens (<3.5-17.0) ng/L B-Natriuretic Peptide 27 (<100) pg/mL Total Protein 7.0 (6.5-8.0) g/dL Albumin 3.2 L (3.5-5.0) g/dL Stool Occult Blood (NEGATIVE) COVID-19 ([place]) (Negative) COVID-19 Clin Com Influenza Type A ([place]) (Negative) Influenza Type B ([place]) (Negative) Influenza A & B Note 10/09/22 10/09/22 10/09/22 Range/Units 13:32 13:32 13:32 WBC (4.8-10.8) X10*3/uL RBC (4.20-5.50) X10*6/uL Hgb (12.0-16.0) g/dl Hct (37.0-47.0) % MCV (80.0-98.0) fL MCH (27.0-33.0) pg MCHC (31.0-35.0) g/dl RDW (11.0-16.0) % Plt Count (160-400) X10*3/uL MPV (9.4-12.3) fL Immature Gran % (Auto) (0.0-0.4) % Neut % (Auto) (45-73) % Lymph % (Auto) (20-40) % [place] % (Auto) (2-11) % Eos % (Auto) (0-4) % Baso % (Auto) (0-2) % Lymph # (Auto) (1.2-4.9) X10*3/uL [place] # (Auto) (0.1-1.2) X10*3/uL Eos # (Auto) (0.0-0.4) X10*3/uL Baso # (Auto) (0.0-0.2) X10*3/uL Abs Immat Gran (auto) (0.00-0.03) X10*3/uL Absolute Neuts (auto) (2.0-8.3) x10*3/uL Absolute Nucleated RBC (0.0-0.012) X10*3/uL Nucleated RBC % (auto) (0.0-0.2) /100WBC Sodium (135-145) mmol/L Potassium (3.3-5.1) mmol/L Chloride (96-108) mmol/L Carbon Dioxide (22-29) mmol/L Anion Gap (12-20) BUN (9-16) mg/dL Creatinine (0.5-1.4) mg/dL Estim Creat Clear Calc Estimated GFR POC Glucose (60-115) mg/dL Random Glucose (60-115) mg/dL Lactic Acid (0.5-2.0) mmol/L Calcium (8.4-10.2) mg/dL Total Bilirubin (0.0-1.0) mg/dL AST (5-31) U/L ALT (0-31) U/L Alkaline Phosphatase (39-117) U/L Troponin I High Sens < 3.5 (<3.5-17.0) ng/L B-Natriuretic Peptide (<100) pg/mL Total Protein (6.5-8.0) g/dL Albumin (3.5-5.0) g/dL Stool Occult Blood (NEGATIVE) COVID-19 ([place]) Negative (Negative) COVID-19 Clin Com See Note Influenza Type A ([place]) Negative (Negative) Influenza Type B ([place]) Negative (Negative) Influenza A & B Note See Note 10/09/22 10/09/22 10/09/22 Range/Units 15:04 15:33 16:01 WBC (4.8-10.8) X10*3/uL RBC (4.20-5.50) X10*6/uL Hgb (12.0-16.0) g/dl Hct (37.0-47.0) % MCV (80.0-98.0) fL MCH (27.0-33.0) pg MCHC (31.0-35.0) g/dl RDW (11.0-16.0) % Plt Count (160-400) X10*3/uL MPV (9.4-12.3) fL Immature Gran % (Auto) (0.0-0.4) % Neut % (Auto) (45-73) % Lymph % (Auto) (20-40) % [place] % (Auto) (2-11) % Eos % (Auto) (0-4) % Baso % (Auto) (0-2) % Lymph # (Auto) (1.2-4.9) X10*3/uL [place] # (Auto) (0.1-1.2) X10*3/uL Eos # (Auto) (0.0-0.4) X10*3/uL Baso # (Auto) (0.0-0.2) X10*3/uL Abs Immat Gran (auto) (0.00-0.03) X10*3/uL Absolute Neuts (auto) (2.0-8.3) x10*3/uL Absolute Nucleated RBC (0.0-0.012) X10*3/uL Nucleated RBC % (auto) (0.0-0.2) /100WBC Sodium (135-145) mmol/L Potassium (3.3-5.1) mmol/L Chloride (96-108) mmol/L Carbon Dioxide (22-29) mmol/L Anion Gap (12-20) BUN (9-16) mg/dL Creatinine (0.5-1.4) mg/dL Estim Creat Clear Calc Estimated GFR POC Glucose 100 (60-115) mg/dL Random Glucose (60-115) mg/dL Lactic Acid 0.6 (0.5-2.0) mmol/L Calcium (8.4-10.2) mg/dL Total Bilirubin (0.0-1.0) mg/dL AST (5-31) U/L ALT (0-31) U/L Alkaline Phosphatase (39-117) U/L Troponin I High Sens (<3.5-17.0) ng/L B-Natriuretic Peptide (<100) pg/mL Total Protein (6.5-8.0) g/dL Albumin (3.5-5.0) g/dL Stool Occult Blood NEGATIVE (NEGATIVE) COVID-19 ([place]) (Negative) COVID-19 Clin Com Influenza Type A ([place]) (Negative) Influenza Type B ([place]) (Negative) Influenza A & B Note <Calderon Laureano MD - Last Filed: 10/19/22 18:51> Independent Interpretation I performed an independent interpretation of an: EKG and Plain X-Ray (X-ray consistent with pneumonia-independently interpreted) <Marcia Gusman NP - Last Filed: 10/09/22 16:47> Interpretation: I independently reviewed the EKG which shows normal sinus rhythm with a rate of 70, normal FL interval, normal QRS, normal QT <Marcia Gusman NP - Last Filed: 10/09/22 16:47> Radiology Impression Discussion of test interpretation with radiology: I have reviewed the radiologist's reading. <Marcia Gusman NP - Last Filed: 10/09/22 16:47> Radiologist Impression: FINDINGS: Linear streaky opacities at each lung base have the appearance of subsegmental atelectasis. The right lower border of the cardiomediastinal silhouette is slightly ill-defined, likely from presence of the paracardiac fat pad and atelectasis within the middle lobe. The right diaphragm is mildly elevated. No pleural effusion. There is a somewhat vague subpleural opacity of the right lateral lung base. There appear to be calcified lymph nodes at the right hilum. Cardiac silhouette is mildly enlarged. There is atherosclerotic calcification of the aorta. Pulmonary vascular pattern is normal. Moderate multilevel discovertebral degenerative change of the thoracolumbar spine. XR/XR chest 2V IMPRESSION: *? Subsegmental atelectasis within the lung bases. Also, there is a nonspecific vague opacity of the lateral right lung base. If the patient has Covid infection, then this could be a manifestation of viral pneumonia. *? Mild cardiomegaly. *? There are likely old calcified lymph nodes at the right hilum. <Marcia Gusman NP - Last Filed: 10/09/22 16:47> Attestation Attending Attestation: Her review the documentation in chart for this patient and was seen primarily by the nurse practitioner/PA. I agree with the assessment and plan. <Calderon Laureano MD - Last Filed: 10/19/22 18:51> Discharge Plan Discharge Clinical Impression: Pneumonia, Hypoxia, Anemia, Acute on chronic renal failure <Zahida Steele CNP - Last Filed: 10/09/22 13:20> Patient Disposition: Admitted As Inpatient <Zahida Steele CNP - Last Filed: 10/09/22 13:20> Interventions: Admission Worksheet (ED) Last Done: 10/09/22 18:47 <Zahida Steele CNP - Last Filed: 10/09/22 13:20> Discharge Date/Time: 10/09/22 18:48 <Zahida Steele CNP - Last Filed: 10/09/22 13:20>
[2022-10-09 13:14] VITALS: BP 131/56; PULSE 74; RESP 20; TEMP 36.8; O2SAT 96; BMI 32.2
--- NOTE | 2022-10-09 13:19 | ECG_ITS ---
Test Reason : SHORTNESS OF BREATH Blood Pressure : / mmHG Vent. Rate : 070 BPM Atrial Rate : 070 BPM P-R Int : 164 ms QRS Dur : 088 ms QT Int : 400 ms P-R-T Axes : 022 -06 018 degrees QTc Int : 432 ms Normal sinus rhythm Moderate voltage criteria for LVH, may be normal variant ( R in aVL , Tee product ) Borderline ECG No previous ECGs available Referred By: Zahida Steele Electronically Signed By:VICENTE BELTRAN MD
[2022-10-09 13:43] LABS: MANUAL DIFF FLAG NO
[2022-10-09 13:46] LABS: Basophils Percent Auto 0.4 % (0-2); Eosinophils Absolute Auto 0.1 X10*3/uL (0.0-0.4); Eosinophils Percent Auto 1.6 % (0-4); Hematocrit 28.7 % (37.0-47.0); Hemoglobin 9.2 g/dl (12.0-16.0); Imm Gran Abs Auto 0.03 X10*3/uL (0.00-0.03); Imm Gran Pct Auto 0.4 % (0.0-0.4); Lymphocytes Absolute Auto 2.3 X10*3/uL (1.2-4.9); Lymphocytes Percent Auto 31.1 % (20-40); Mean Corpuscular HGB Conc 32.1 g/dl (31.0-35.0); Mean Corpuscular Volume 87.2 fL (80.0-98.0); Mean Platelet Volume 9.7 fL (9.4-12.3); Monocytes Absolute Auto 0.9 X10*3/uL (0.1-1.2); Monocytes Percent Auto 11.5 % (2-11); Platelet Count 466 X10*3/uL (160-400); Red Blood Count 3.29 X10*6/uL (4.20-5.50); Red Cell Distribution Width 15.5 % (11.0-16.0); White Blood Count 7.4 X10*3/uL (4.8-10.8)
[2022-10-09 14:00] LABS: COVID-19 Test Negative (Negative); IDNOW Serial# 16C4AD1C; IDNOW Serial# BCCEAD1C; Influenza A Negative (Negative); Influenza B2 Negative (Negative)
--- NOTE | 2022-10-09 14:00 | PC.NURSE ---
pt reports non-productive cough with chest congestion x6 wks. she was started on Augmentin on 09/23. she was seen by pcp on 10/03 and was started on Doxycycline. pt has hx of ckd, htn, diabetes. she denies sob/fever. no leg swelling/leg pain, no cp. pt is accompanied by her grand-daughter. 20g iv inserted to RAC. meds given as documented.
[2022-10-09 14:05] VITALS: BP 141/71; PULSE 68; RESP 20; TEMP 36.9; O2SAT 95
[2022-10-09 14:17] LABS: Alanine Aminotransferase 14 U/L (0-31); Albumin Level 3.2 g/dL (3.5-5.0); Alkaline Phosphatase 55 U/L (39-117); Anion Gap 11 (12-20); Aspartate Amino Transferase 13 U/L (5-31); Bilirubin Total 0.3 mg/dL (0.0-1.0); Blood Urea Nitrogen 41 mg/dL (9-16); Calcium 8.7 mg/dL (8.4-10.2); Carbon Dioxide 22 mmol/L (22-29); Chloride 109 mmol/L (96-108); Creatinine Clr Calc Pharmacy 18.1; Estimated Glomerular Filt Rate 26; Glucose Random 176 mg/dL (60-115); Potassium 4.2 mmol/L (3.3-5.1); Sodium 138 mmol/L (135-145)
[2022-10-09 14:22] LABS: B Type Natriuretic Peptide 27 pg/mL (<100)
[2022-10-09 14:25] LABS: Troponin-I High Sensitivity < 3.5 ng/L (<3.5-17.0)
[2022-10-09] MEDS: 0.9 % Sodium Chloride 500 ML 999 ML IV (14:48)
[2022-10-09 15:15] LABS: OBS Int Ctl Valid YES; OBS1 NEGATIVE (NEGATIVE)
[2022-10-09 15:37] LABS: Glucose, Whole Blood 100 mg/dL (60-115)
[2022-10-09] MEDS: cefTRIAXone sodium 2 GM in 0.9 % Sodium Chloride 50 ML IV (16:06)
--- NOTE | 2022-10-09 16:06 | PM.IMHP ---
History of Present Illness Date of Service: 10/09/22 Attending physician on admission: [facility] Chief Complaint: Cough x6 weeks Pt is a 82-year-old female with a PMH significant for?CKD, HTN, asthma, and adg-rzypszr-azpxtbqax diabetes who presents to the ED with?6 weeks of persistent, productive cough and SOB with exertion. Pt is Albanian speaking only, translation services used. Patient states that her symptoms began around the middle of August of last year when she developed a wet, occasionally-productive cough. Patient initially tried geee-oah-djcmpkz therapies to no effect. Patient then visited her PCP who diagnosed her with pneumonia and prescribed azithromycin and Augmentin. Patient completed her azithromycin without a problem, however she was only taking her Augmentin once a day rather than twice a day. Her symptoms did not improve but persisted. Patient return to her PCP on 10/03 and was then prescribed doxycycline, however she was again confused with her medication instructions and was only taking her pills once a day rather than twice a day. Pt again did not receive any relief from this course of abx. Pt does not complain of any other acute concerns. No chest pain/pressure, palpitations. No lightheadness or dizziness. No fever, chills, nausea, vomiting. No abdominal pain. In the ED patient was afebrile with RR of 20, satting 96% on RA. Labs were significant for WBC WNL, 9.2/28.7 (below baseline of 11/34), creatinine of 1.83 (above baseline of 1.5), lactic acid WNL. Patient tested negative for COVID, and influenza types A and B. stool was negative for occult blood. CXR showed subsegmental atelectasis within the lung bases and nonspecific vague opacity in the lateral right lung base. EKG showed normal sinus rhythm without any evidence of acute ischemia. Pt was treated with IVF and ceftriaxone. Pt will be admitted to the hospital for IV abx treatment of pneumonia that failed outpatient therapy x2. Review of Systems Review of Systems: Productive cough x6 weeks Shortness of breath No chest pain/pressure, palpitations Denies fever, chills, nausea, vomiting No abdominal pain Yes all other systems are reviewed and are negative [facility] Social History Patient Tobacco Use Status: Never used Tobacco Smoked in Last 30 Days: No Use of substances other than those prescribed or required for medical reasons: No Advance Directives: No Advance Directives Information Provided: Yes Nutrition Risks: No Nutritional Risk Meds Allergies Allergy/AdvReac Type Severity Reaction Status Date / Time No Known Allergies Allergy Verified 10/09/22 13:20 Active Medications: Current Medications Azithromycin 500 mg/ Sodium (Chloride) 250 mls @ 125 mls/hr IV ONCE ONE Stop: 10/09/22 17:11 Pharmacy Consult (Consult Rx Perform Med Rec) 1 each MISCELLANE ONCE PRN PRN Reason: Consult order Home Medications Medication Instructions Recorded Confirmed Last Taken Type acetaminophen 325 mg tablet 650 mg PO Q6H PRN Pain 10/09/22 10/09/22 Unknown History albuterol sulfate 90 mcg/actuation 2 puff inhalation Q6H PRN 10/09/22 10/09/22 Unknown History aerosol inhaler (ProAir HFA) Shortness Of Breath amoxicillin 875 mg-potassium 1 tab PO BID 10/09/22 10/09/22 Unknown History clavulanate 125 mg tablet aspirin 81 mg tablet,delayed 81 mg PO DAILY 10/09/22 10/09/22 Unknown History release atorvastatin 20 mg tablet 20 mg PO DAILY 10/09/22 10/09/22 Unknown History carvedilol 25 mg tablet 25 mg PO BID 10/09/22 10/09/22 Unknown History diltiazem HCl 90 mg tablet 90 mg PO TID 10/09/22 10/09/22 Unknown History doxycycline hyclate 100 mg tablet 100 mg PO BID 10/09/22 10/09/22 Unknown History empagliflozin 10 mg tablet 10 mg PO DAILY 10/09/22 10/09/22 Unknown History (Jardiance) ferrous sulfate 324 mg (65 mg 324 mg PO DAILY 10/09/22 10/09/22 Unknown History iron) tablet,delayed release lisinopril 40 mg tablet 40 mg PO DAILY 10/09/22 10/09/22 Unknown History omeprazole 20 mg tablet,delayed 20 mg PO DAILY@0630 10/09/22 10/09/22 Unknown History release Physical Exam Vital Signs and Narrative: Vital Signs: Last Vital Signs Temp 98.4 F 10/09/22 14:05 Pulse 68 10/09/22 14:05 Resp 20 10/09/22 14:05 BP 141/71 H 10/09/22 14:05 Pulse Ox 95 10/09/22 14:05 O2 Del Method 10/09/22 14:05 BMI result Body Mass Index 32.2 Constitutional: Alert, in no acute distress. Mental Status: Oriented to person, place and time. Eyes: Pupils are equal, round, and reactive to light. Ear, Nose, and Throat: Oropharynx clear, mucous membranes moist. Ears and nose without deformities. Trachea midline. Respiratory: Diffuse expiratory rhonchi throughout lung scruggs. Cardiovascular: S1, S2 regular. No murmurs, rubs, or gallops. Gastrointestinal: Abdomen soft, non-tender, non-distended. Normal bowel sounds. Neurologic: Cranial nerves II-XI are grossly intact. No focal neurological deficits. Moves all extremities spontaneously. Skin: No rashes or lesions noted. Musculoskeletal: No cyanosis or clubbing. Extremities: No edema. Psychiatric: Normal mood and affect. Results Labs 10/09/22 13:32 10/09/22 13:32 Labs: Laboratory Results - last 24 hr 10/09/22 10/09/22 10/09/22 13:32 13:32 13:32 MCV 87.2 MCH 28.0 MCHC 32.1 RDW 15.5 Plt Count 466 H MPV 9.7 Immature Gran % (Auto) 0.4 Neut % (Auto) 55.0 Lymph % (Auto) 31.1 [place] % (Auto) 11.5 H Eos % (Auto) 1.6 Baso % (Auto) 0.4 Lymph # (Auto) 2.3 [place] # (Auto) 0.9 Eos # (Auto) 0.1 Baso # (Auto) 0.0 Abs Immat Gran (auto) 0.03 Absolute Neuts (auto) 4.0 Absolute Nucleated RBC 0.000 Nucleated RBC % (auto) 0.0 Anion Gap 11 L Estim Creat Clear Calc 18.1 Estimated GFR 26 POC Glucose Random Glucose 176 H Calcium 8.7 Total Bilirubin 0.3 AST 13 ALT 14 Alkaline Phosphatase 55 Troponin I High Sens B-Natriuretic Peptide 27 Total Protein 7.0 Albumin 3.2 L Stool Occult Blood COVID-19 ([place]) COVID-19 Clin Com Influenza Type A ([place]) Influenza Type B ([place]REC[place]) Influenza A & B Note 10/09/22 10/09/22 10/09/22 13:32 13:32 13:32 MCV MCH MCHC RDW Plt Count MPV Immature Gran % (Auto) Neut % (Auto) Lymph % (Auto) [place] % (Auto) Eos % (Auto) Baso % (Auto) Lymph # (Auto) [place] # (Auto) Eos # (Auto) Baso # (Auto) Abs Immat Gran (auto) Absolute Neuts (auto) Absolute Nucleated RBC Nucleated RBC % (auto) Anion Gap Estim Creat Clear Calc Estimated GFR POC Glucose Random Glucose Calcium Total Bilirubin AST ALT Alkaline Phosphatase Troponin I High Sens < 3.5 B-Natriuretic Peptide Total Protein Albumin Stool Occult Blood COVID-19 ([place]) Negative COVID-19 Clin Com See Note Influenza Type A ([place]) Negative Influenza Type B ([place]) Negative Influenza A & B Note See Note 10/09/22 10/09/22 15:04 15:33 MCV MCH MCHC RDW Plt Count MPV Immature Gran % (Auto) Neut % (Auto) Lymph % (Auto) [place] % (Auto) Eos % (Auto) Baso % (Auto) Lymph # (Auto) [place] # (Auto) Eos # (Auto) Baso # (Auto) Abs Immat Gran (auto) Absolute Neuts (auto) Absolute Nucleated RBC Nucleated RBC % (auto) Anion Gap Estim Creat Clear Calc Estimated GFR POC Glucose 100 Random Glucose Calcium Total Bilirubin AST ALT Alkaline Phosphatase Troponin I High Sens B-Natriuretic Peptide Total Protein Albumin Stool Occult Blood NEGATIVE COVID-19 ([place]) COVID-19 Clin Com Influenza Type A ([place]) Influenza Type B ([place]) Influenza A & B Note Imaging Radiologist's Impressions: Impressions Chest X-Ray 10/09/22 14:08 IMPRESSION: * Subsegmental atelectasis within the lung bases. Also, there is a nonspecific vague opacity of the lateral right lung base. If the patient has Covid infection, then this could be a manifestation of viral pneumonia. * Mild cardiomegaly. * There are likely old calcified lymph nodes at the right hilum. Assessment and Plan (1) Pneumonia: Status: Acute (2) Acute on chronic renal failure: Status: Acute Plan Pt is a 82-year-old female with a PMH significant for?CKD, HTN, asthma, and hxf-dosbfvi-zbuhqwgyf diabetes who presents to the ED with?6 weeks of persistent, productive cough and SOB with exertion. Pt was treated with IVF and ceftriaxone. Pt will be admitted to the hospital for IV abx treatment of pneumonia that failed outpatient therapy x2. Pneumonia Patient failed two outpatient courses of antibiotics due to noncompliance with correct dosing Ceftriaxone 1g qd, day 09/24 Titrate nasal cannula O2>90, wean as tolerated CKD Creatinine at 1.83, slightly above baseline of 1.6 Patient received IVF in ED Hold lisinopril Monitor labs in a.m. Anemia, chronic Current H&H 9.2/28.7, slightly below baseline of Stool negative for occult blood Patient denies lightheadedness, dizziness Monitor labs in the a.m. [id number] DM Continue Jardiance GERD Continue omeprazole HLD Continue home meds HTN Hold lisinopril, continue all other meds Full Code Attending:?Dr. Dockery DVT Prophylaxis: Heparin Pt will require a hospitalization of at least two nights for treatment of?pneumonia wiht IV abx that failed 2 rounds of outpatient therapy. Time Spent With Patient Time: Total time managing care of this patient today ____ minutes. Quality Stroke Does the patient have a stroke diagnosis?: No VTE Prior VTE?: No VTE Risk Level:: Medical - moderate - high VTE Device Contraindication: Treatment Not Indicated VTE Drug Contraindication: N/A - Med Ordered
--- NOTE | 2022-10-09 16:19 | PC.NURSE ---
azithromycin late, awaiting ceftriaxone to be finished
[2022-10-09 16:24] LABS: Lactic Acid 0.6 mmol/L (0.5-2.0)
--- NOTE | 2022-10-09 16:30 | PHA.MEDREC ---
Pharmacy Consult ? Medication Reconciliation Pharmacy has completed the medication reconciliation. Packing Machine Inspector services used. Patient poor historian. Knew what some meds are for but unable to name them. Had antibiotic and proair inhaler at bedside. Got number for her MANAGER PROTEIN Mary (sp?) [phone] who was able to name some medications but not all because she was not at her house with the bottles. I asked about what pharmacy she uses and she told me [facility] but nothing came up on the claim history. I called [facility] and they found a similar profile with a different as 38 under Vivian Tapia but address matched. Pharmacist went through list with current medications and strengths.
[2022-10-09] MEDS: Azithromycin 500 MG in 0.9 % Sodium Chloride 250 ML 125 MG IV (16:45)
[2022-10-09 17:26] VITALS: BP 140/64; PULSE 78; RESP 18; TEMP 37.1; O2SAT 94
[2022-10-09 19:46] VITALS: BP 140/72; PULSE 69; RESP 17; TEMP 36.3; O2SAT 98
[2022-10-09 20:37] LABS: Glucose, Whole Blood 89 mg/dL (60-115)
[2022-10-09] MEDS: Heparin Sodium,Porcine 5,000 UNIT/ML VIAL 5000 UNIT SUBCUT (20:53)
[2022-10-09] MEDS: carvediloL 25 MG TABLET PO (20:54)
[2022-10-09] MEDS: dilTIAZem HCL 30 MG TABLET 90 MG PO (20:54)
[2022-10-10] VITALS (7 sets, daily range): BP systolic 132–157; BP diastolic 61–71; PULSE 65–80; RESP 15–18; TEMP 36.3–36.9; O2SAT 95–98
[2022-10-10 06:19] LABS: Hematocrit 29.6 % (37.0-47.0); Hemoglobin 9.5 g/dl (12.0-16.0); Mean Corpuscular HGB Conc 32.1 g/dl (31.0-35.0); Mean Corpuscular Hemoglobin 27.6 pg (27.0-33.0); Mean Platelet Volume 9.8 fL (9.4-12.3); Platelet Count 450 X10*3/uL (160-400); Red Blood Count 3.44 X10*6/uL (4.20-5.50); Red Cell Distribution Width 15.8 % (11.0-16.0); White Blood Count 7.2 X10*3/uL (4.8-10.8)
[2022-10-10] MEDS: Heparin Sodium,Porcine 5,000 UNIT/ML VIAL 5000 UNIT SUBCUT ×2 (06:33→17:33)
[2022-10-10] MEDS: Omeprazole 20 MG CAPSULE.DR PO (06:33)
[2022-10-10 06:37] LABS: Anion Gap 14 (12-20); Blood Urea Nitrogen 33 mg/dL (9-16); Calcium 8.7 mg/dL (8.4-10.2); Carbon Dioxide 22 mmol/L (22-29); Chloride 113 mmol/L (96-108); Creatinine Clr Calc Pharmacy 22.4; Estimated Glomerular Filt Rate 34; Glucose Random 95 mg/dL (60-115); Potassium 4.6 mmol/L (3.3-5.1); Sodium 144 mmol/L (135-145)
[2022-10-10] MEDS: 0.9 % Sodium Chloride Flush 3 ML SYRINGE IVFLUSH ×3 (06:38→15:30)
--- NOTE | 2022-10-10 07:39 | HO.PM.IMPN ---
Subjective Subjective Date of Service: 10/10/22 Interval History: F/u on PNA interval history: no sob, no fever, productive cough Review of Systems no fever no sob Physical Exam Vital Signs: Vital Signs: Last Vital Signs Temp 97.4 F 10/10/22 04:00 Pulse 70 10/10/22 04:00 Resp 17 10/10/22 04:00 BP 134/70 10/10/22 04:00 Pulse Ox 95 10/10/22 04:00 O2 Del Method 10/10/22 04:00 O2 Flow Rate 2 10/10/22 04:00 BMI result Body Mass Index 32.2 Const: Other: General: AO X 3, no acute distress Resp: CTA bilateral CVS: S1,S2,RRR GI: +BS, NT, no distention Skin: No rash Neuro: motor grossly intact Psych: appropriate affect Objective Data Active Medications Albuterol Sulfate (Albuterol Sulfate 90 Mcg 8 Gm Inhaler) 2 puff INHALE Q6H PRN PRN Reason: Shortness Of Breath Aspirin (Aspirin Enteric Coated 81 Mg Tablet.) 81 mg PO DAILY [facility] Atorvastatin Calcium (Atorvastatin Calcium 20 Mg Tablet) 20 mg PO DAILY [facility] Carvedilol (Carvedilol 25 Mg Tablet) 25 mg PO BID [facility]; Protocol Last Admin: 10/09/22 20:54 Dose: 25 mg Documented By: LINA Dextrose (Dextrose 50 % 25 Gm/50 Ml Syringe) 25 gm IVPUSH Q15M PRN; Protocol PRN Reason: per Hypoglycemia Standing Ord. Diltiazem HCl (Diltiazem Hcl 30 Mg Tablet) 90 mg PO TID [facility]; Protocol Last Admin: 10/09/22 20:54 Dose: 90 mg Documented By: LINA Docusate Sodium (Docusate Sodium 100 Mg Capsule) 100 mg PO DAILY PRN PRN Reason: Constipation Empagliflozin (Empagliflozin 10 Mg Tablet) 10 mg PO DAILY [facility] Ferrous Sulfate (Ferrous Sulfate 324 Mg Tablet.) 324 mg PO DAILY [facility] Glucose (Glucose Gel 15 Gm Gel..Gram.) 15 gm PO Q15M PRN; Protocol PRN Reason: per Hypoglycemia Standing Ord. Heparin Sodium (Porcine) (Heparin Sodium,Porcine 5,000 Unit/Ml Vial) 5,000 unit SUBCUT Q12H [facility] Last Admin: 10/10/22 06:33 Dose: 5,000 unit Documented By: HERON Ceftriaxone Sodium 1 gm/ (Sodium Chloride) 50 mls @ 100 mls/hr IV Q24H [facility] Insulin Human Lispro (Insulin Lispro 100 Unit/Ml 3 Ml Vial) 0 unit SUBCUT QIDACHS [facility]; Protocol Last Admin: 10/09/22 20:48 Dose: Not Given Documented By: LINA Non-Admin Reason: No Insulin Coverage Omeprazole (Omeprazole 20 Mg Capsule.) 20 mg PO DAILY@0630 [facility] Last Admin: 10/10/22 06:33 Dose: 20 mg Documented By: HERON Ondansetron HCl (Ondansetron Hcl 4 Mg/2 Ml Vial) 4 mg IVPUSH Q8H PRN PRN Reason: Nausea and Vomiting Pharmacy Consult (Consult Rx Perform Med Rec) 1 each MISCELLANE ONCE PRN PRN Reason: Consult order Sodium Chloride (0.9 % Sodium Chloride Flush 3 Ml Syringe) 3 ml IVFLUSH QSHIFT [facility] Last Admin: 10/10/22 06:38 Dose: 3 ml Documented By: HERON Labs 10/10/22 05:52 10/10/22 05:52 Labs: Laboratory Results - last 24 hr 10/09/22 10/09/22 10/09/22 13:32 13:32 13:32 MCV 87.2 MCH 28.0 MCHC 32.1 RDW 15.5 Plt Count 466 H MPV 9.7 Immature Gran % (Auto) 0.4 Neut % (Auto) 55.0 Lymph % (Auto) 31.1 [place] % (Auto) 11.5 H Eos % (Auto) 1.6 Baso % (Auto) 0.4 Lymph # (Auto) 2.3 [place] # (Auto) 0.9 Eos # (Auto) 0.1 Baso # (Auto) 0.0 Abs Immat Gran (auto) 0.03 Absolute Neuts (auto) 4.0 Absolute Nucleated RBC 0.000 Nucleated RBC % (auto) 0.0 Anion Gap 11 L Estim Creat Clear Calc 18.1 Estimated GFR 26 POC Glucose Random Glucose 176 H Lactic Acid Calcium 8.7 Total Bilirubin 0.3 AST 13 ALT 14 Alkaline Phosphatase 55 Troponin I High Sens B-Natriuretic Peptide 27 Total Protein 7.0 Albumin 3.2 L Stool Occult Blood COVID-19 ([place]) COVID-19 Clin Com Influenza Type A ([place]) Influenza Type B ([place]) Influenza A & B Note 10/09/22 10/09/22 10/09/22 13:32 13:32 13:32 MCV MCH MCHC RDW Plt Count MPV Immature Gran % (Auto) Neut % (Auto) Lymph % (Auto) [place] % (Auto) Eos % (Auto) Baso % (Auto) Lymph # (Auto) [place] # (Auto) Eos # (Auto) Baso # (Auto) Abs Immat Gran (auto) Absolute Neuts (auto) Absolute Nucleated RBC Nucleated RBC % (auto) Anion Gap Estim Creat Clear Calc Estimated GFR POC Glucose Random Glucose Lactic Acid Calcium Total Bilirubin AST ALT Alkaline Phosphatase Troponin I High Sens < 3.5 B-Natriuretic Peptide Total Protein Albumin Stool Occult Blood COVID-19 ([place]) Negative COVID-19 Clin Com See Note Influenza Type A ([place]) Negative Influenza Type B ([place]) Negative Influenza A & B Note See Note 10/09/22 10/09/22 10/09/22 15:04 15:33 16:01 MCV MCH MCHC RDW Plt Count MPV Immature Gran % (Auto) Neut % (Auto) Lymph % (Auto) [place] % (Auto) Eos % (Auto) Baso % (Auto) Lymph # (Auto) [place] # (Auto) Eos # (Auto) Baso # (Auto) Abs Immat Gran (auto) Absolute Neuts (auto) Absolute Nucleated RBC Nucleated RBC % (auto) Anion Gap Estim Creat Clear Calc Estimated GFR POC Glucose 100 Random Glucose Lactic Acid 0.6 Calcium Total Bilirubin AST ALT Alkaline Phosphatase Troponin I High Sens B-Natriuretic Peptide Total Protein Albumin Stool Occult Blood NEGATIVE COVID-19 ([place]) COVID-19 Clin Com Influenza Type A ([place]) Influenza Type B ([place]) Influenza A & B Note 10/09/22 10/10/22 10/10/22 20:33 05:52 05:52 MCV 86.0 MCH 27.6 MCHC 32.1 RDW 15.8 Plt Count 450 H MPV 9.8 Immature Gran % (Auto) Neut % (Auto) Lymph % (Auto) [place] % (Auto) Eos % (Auto) Baso % (Auto) Lymph # (Auto) [place] # (Auto) Eos # (Auto) Baso # (Auto) Abs Immat Gran (auto) Absolute Neuts (auto) Absolute Nucleated RBC 0.000 Nucleated RBC % (auto) 0.0 Anion Gap 14 Estim Creat Clear Calc 22.4 Estimated GFR 34 POC Glucose 89 Random Glucose 95 Lactic Acid Calcium 8.7 Total Bilirubin AST ALT Alkaline Phosphatase Troponin I High Sens B-Natriuretic Peptide Total Protein Albumin Stool Occult Blood COVID-19 ([place]) COVID-19 Clin Com Influenza Type A ([place]) Influenza Type B ([place]) Influenza A & B Note Assessment and Plan (1) Pneumonia: Status: Acute (2) Hypoxia: Status: Acute (3) Acute on chronic renal failure: Status: Acute Plan Pt is a 82-year-old female with a PMH significant for?CKD, HTN, asthma, and vqv-sssdltt-pefaukoga diabetes who presents to the ED with?6 weeks of persistent, productive cough and SOB with exertion. Pt was treated with IVF and ceftriaxone. Pt will be admitted to the hospital for IV abx treatment of pneumonia that failed outpatient therapy x2. Pneumonia Patient failed two outpatient courses of antibiotics due notfollowing directions properly Ceftriaxone 1g qd, day 2 Titrate nasal cannula O2>90, wean as tolerated CKD 3 with MEGAN Creatinine at 1.83, slightly above baseline of 1.6 and now 1.4 Patient received IVF in ED Hold lisinopril Anemia, chronic Current H&H 9.2/28.7, slightly below baseline of Stool negative for occult blood [id number] DM Continue Jardiance, SSI GERD Continue omeprazole HLD Continue home meds HTN Hold lisinopril, continue all other meds Full Code DVT Prophylaxis: Heparin Need for inpatient: treatment of?pneumonia wiht IV abx that failed 2 rounds of outpatient therapy. Time Spent With Patient Time: Total time managing care of this patient today ____ minutes. Quality Stroke Does the patient have a stroke diagnosis?: No VTE Prior VTE?: No VTE Risk Level:: Medical - moderate - high VTE Device Contraindication: Treatment Not Indicated VTE Drug Contraindication: N/A - Med Ordered
[2022-10-10 08:07] LABS: Glucose, Whole Blood 104 mg/dL (60-115)
[2022-10-10] MEDS: guaiFENesin 100 MG/5 ML LIQUID PO ×2 (09:12→15:24)
[2022-10-10] MEDS: Aspirin Enteric Coated 81 MG TABLET.DR PO (09:12)
[2022-10-10] MEDS: dilTIAZem HCL 30 MG TABLET 90 MG PO ×3 (09:12→21:24)
[2022-10-10] MEDS: Empagliflozin 10 MG TABLET PO (09:13)
[2022-10-10] MEDS: Ferrous Sulfate 324 MG TABLET.DR PO (09:13)
[2022-10-10] MEDS: Atorvastatin Calcium 20 MG TABLET PO (09:13)
[2022-10-10] MEDS: carvediloL 25 MG TABLET PO ×2 (09:13→21:24)
[2022-10-10] MEDS: Docusate Sodium 100 MG CAPSULE PO (09:22)
[2022-10-10 11:28] LABS: Glucose, Whole Blood 144 mg/dL (60-115)
[2022-10-10] MEDS: cefTRIAXone sodium 1 GM in 0.9 % Sodium Chloride 50 ML IV (15:24)
[2022-10-10 15:43] LABS: Glucose, Whole Blood 127 mg/dL (60-115)
[2022-10-10 20:53] LABS: Glucose, Whole Blood 130 mg/dL (60-115)
[2022-10-11] VITALS (7 sets, daily range): BP systolic 132–186; BP diastolic 60–88; PULSE 63–72; RESP 16–18; TEMP 36.4–37.1; O2SAT 96–97
[2022-10-11] MEDS: 0.9 % Sodium Chloride Flush 3 ML SYRINGE IVFLUSH ×4 (00:23→19:56)
[2022-10-11] MEDS: Omeprazole 20 MG CAPSULE.DR PO (05:39)
[2022-10-11] MEDS: Heparin Sodium,Porcine 5,000 UNIT/ML VIAL 5000 UNIT SUBCUT ×2 (05:39→17:59)
[2022-10-11 08:32] LABS: Glucose, Whole Blood 95 mg/dL (60-115)
[2022-10-11] MEDS: carvediloL 25 MG TABLET PO ×2 (08:52→19:56)
[2022-10-11] MEDS: dilTIAZem HCL 30 MG TABLET 90 MG PO ×3 (08:52→19:56)
[2022-10-11] MEDS: Aspirin Enteric Coated 81 MG TABLET.DR PO (08:52)
[2022-10-11] MEDS: Atorvastatin Calcium 20 MG TABLET PO (08:52)
[2022-10-11] MEDS: Empagliflozin 10 MG TABLET PO (08:52)
[2022-10-11] MEDS: Ferrous Sulfate 324 MG TABLET.DR PO (08:52)
[2022-10-11 11:44] LABS: Glucose, Whole Blood 169 mg/dL (60-115)
[2022-10-11] MEDS: Insulin Lispro 100 UNIT/ML 3 ML VIAL SUBCUT (11:59)
[2022-10-11] MEDS: guaiFENesin 100 MG/5 ML LIQUID PO ×3 (12:02→19:56)
[2022-10-11] MEDS: cefTRIAXone sodium 1 GM in 0.9 % Sodium Chloride 50 ML IV (15:37)
--- NOTE | 2022-10-11 15:58 | MHC.CM.PN ---
CM MET WITH PT, SON AND INVESTOR RELATIONS ASSOCIATE/PRIMARY CONTACT, ANANTH. LYE PEEL OPERATOR OFFERED AND DECLINED PT LIVES ALONE AND HAS DAILY INVESTOR RELATIONS ASSOCIATE SERVICES PT USES A ROLLATOR AND HAS GRAB BARS, A COMMODE, AND SHOWER CHAIR PT IS NOT COVID VAX PCP: HAKEEM GOEL PER INVESTOR RELATIONS ASSOCIATE, PT HAS COMPLETED A HCP AND MOLST - COPIES REQUESTED IMM DELIVERED CURRENT DC PLAN IS HOME WITH RESUMPTION OF INVESTOR RELATIONS ASSOCIATE SERVICES INVESTOR RELATIONS ASSOCIATE TO TRANSPORT
[2022-10-11 16:29] LABS: Glucose, Whole Blood 107 mg/dL (60-115)
[2022-10-11 20:29] LABS: Glucose, Whole Blood 150 mg/dL (60-115)
[2022-10-12 04:00] VITALS: BP 140/67; PULSE 68; RESP 15; TEMP 36.9; O2SAT 95
[2022-10-12] MEDS: Heparin Sodium,Porcine 5,000 UNIT/ML VIAL 5000 UNIT SUBCUT (06:02)
[2022-10-12] MEDS: Omeprazole 20 MG CAPSULE.DR PO (06:03)
--- NOTE | 2022-10-12 07:07 | P.DS_ITS ---
DS: Providers Provider Date of Service: 10/12/22 Date of admission: 10/09/22 17:00 Primary care physician: Unknown Physician DS: Diagnosis Discharge Diagnosis (1) Pneumonia: Status: Acute (2) Hypoxia: Status: Acute (3) Acute on chronic renal failure: Status: Acute DS: Summary Hospital Course Hospital Course: Chief Complaint: Cough x6 weeks Pt is a 82-year-old female with a PMH significant for?CKD, HTN, asthma, and zvw-rwbagjf-eookwefrh diabetes who presents to the ED with?6 weeks of persistent, productive cough and SOB with exertion. Pt is Upper Sorbian speaking only, translation services used. Patient states that her symptoms began around the middle of August of last year when she developed a wet, occasionally- productive cough.? Patient initially tried udey-tzw-rdpafrs therapies to no effect.? Patient then visited her PCP who diagnosed her with pneumonia and prescribed azithromycin and Augmentin.? Patient completed her azithromycin without a problem, however she was only taking her Augmentin once a day rather than twice a day.? Her symptoms did not improve but persisted.? Patient return to her PCP on 10/03 and was then prescribed doxycycline, however she was again confused with her medication instructions and was only taking her pills once a day rather than twice a day. Pt again did not receive any relief from this course of abx. Pt does not complain of any other acute concerns. No chest pain/pressure, palpitations. No lightheadness or dizziness. No fever, chills, nausea, vomiting. No abdominal pain. In the ED patient was afebrile with RR of 20, satting 96% on RA. Labs were significant for WBC WNL, 9.2/28.7 (below baseline of 11/34), creatinine of 1.83 (above baseline of 1.5), lactic acid WNL.? Patient tested negative for COVID, and influenza types A and B. stool was negative for occult blood. CXR showed subsegmental atelectasis within the lung bases and nonspecific vague opacity in the lateral right lung base.? EKG showed normal sinus rhythm without any evidence of acute ischemia. Pt was treated with IVF and ceftriaxone. Pt will be admitted to the hospital for IV abx treatment of pneumonia that failed outpatient therapy x2. Hospital course:Essentially this 82-year-old female with a PMH significant for?CKD, HTN, asthma, and swb-yruddil-ostpgyfqa diabetes who presents to the ED with?6 weeks of persistent, productive cough and SOB, worse with exertion. She has been for pneumonia on outpatient basis twice with Augmentin and Doxycyline but failed to take them twice daily and was taken it daily. CXR showed persistent pneumonia so she was treated with IV Ceftriaxone and admitted, she was also noted to have acute on chronic renal failure insuficiencyh. Pneumonia--Treated with IV ceftriaxone and for 3 days and will change to Ceftin for 4 more day and additional should complete the course of Doxycyline. She is not hypoxic, no fever, there is persistent cough and will be given Mucinex . CKD 3 with MEGAN--resolvedd after IVF Creatinine was 1.83, slightly above baseline of 1.6 and now 1.48, Lisinopril was on hold but will be restarted. chronic iron deficiency Anemia, chronic Current H&H 9.2/28.7, slightly below baseline of Stool negative for occult blood Wfe-pobpnuw-eodmwuejj DM resume home meds GERD Continue omeprazole HLD Continue home meds HTN restart Lisinopril Time Spent with Patient Time attestation: Total time managing care of this patient today ____ minutes. Discharge coordination time: Greater than 30 minutes Quality: Safe Use of Opioids Does Pt have an Active Cancer Diagnosis on the Problem List?: No Quality: Stroke Does the patient have a stroke diagnosis?: No Physical Exam Vital Signs: Vital Signs: Last Vital Signs Temp 98.4 F 10/12/22 04:00 Pulse 68 10/12/22 04:00 Resp 15 10/12/22 04:00 BP 140/67 H 10/12/22 04:00 Pulse Ox 95 10/12/22 04:00 O2 Del Method 10/12/22 04:00 O2 Flow Rate 1 10/12/22 04:00 BMI result Body Mass Index 32.2 DS: Data Data Completed and Pending Labs on day of discharge: Laboratory Results - last 24 hr 10/11/22 10/11/22 10/11/22 08:06 11:35 16:19 POC Glucose 95 169 H 107 10/11/22 20:08 POC Glucose 150 H Preliminary micro results at discharge 10/09/22 16:01 Blood Culture - Preliminary Blood - Venous No growth after 48 hours. 10/09/22 16:02 Blood Culture - Preliminary Blood - Venous No growth after 48 hours. Discharge Plan Discharge Anticipated Discharge Date/Time: 10/12/22 07:04 Patient Disposition: Home Health Service Discharge Diagnosis: Pneumonia, acute on chronic renal failure Referrals: Physician,Unknown J [Primary Care Provider] - 1 Week Discharge Medications: New cefuroxime axetil 500 mg tablet 500 mg PO BID 4 Days Qty: 8 0RF guaifenesin [Mucus Relief ER] 600 mg tablet extended release 12hr 600 mg PO BID Qty: 10 0RF Continued carvedilol 25 mg Tablet 25 mg PO BID Rx Instructions: must administer with a meal/food acetaminophen 325 mg Tablet 650 mg PO Q6H PRN (Reason: Pain) atorvastatin 20 mg Tablet 20 mg PO DAILY aspirin 81 mg Tablet,Delayed Release (Dr/Ec) 81 mg PO DAILY lisinopril 40 mg Tablet 40 mg PO DAILY doxycycline hyclate 100 mg Tablet 100 mg PO BID diltiazem HCl 90 mg Tablet 90 mg PO TID ferrous sulfate 324 mg (65 mg iron) Tablet,Delayed Release (Dr/Ec) 324 mg PO DAILY omeprazole 20 mg Tablet,Delayed Release (Dr/Ec) 20 mg PO DAILY@0630 Jardiance 10 mg Tablet 10 mg PO DAILY albuterol sulfate [ProAir HFA] 90 mcg/actuation Hfa Aerosol Inhaler 2 puff INHALATION Q6H PRN (Reason: Shortness Of Breath) Discontinued amoxicillin-pot clavulanate [Augmentin] 875-125 mg Tablet 1 tab PO BID Discharge Orders: Discharge Order (Routine); Ordered 10/12/22 Ordered By: Mart Dockery Diet: Advance to usual diet Activity on Discharge: As tolerated Stand Alone Forms: Patient Portal Discharge page Care Plan Goals: recovery from pneumonia Health Concerns: pneumonia, renal failure, Plan of Treatment: continue taking doxycyline as directed, take Cefuroxime as directed to treat pneumonia and follow up with your Doctor in a week Assessment: as above Discharge Date/Time: 10/12/22 10:34
[2022-10-12 07:33] LABS: Glucose, Whole Blood 84 mg/dL (60-115)
[2022-10-12 08:00] VITALS: BP 166/83; PULSE 81; RESP 18; TEMP 36.4; O2SAT 96
[2022-10-12 08:05] LABS: Anion Gap 13 (12-20); Blood Urea Nitrogen 26 mg/dL (9-16); Calcium 9.1 mg/dL (8.4-10.2); Carbon Dioxide 22 mmol/L (22-29); Chloride 111 mmol/L (96-108); Creatinine Clr Calc Pharmacy 23.2; Estimated Glomerular Filt Rate 35; Glucose Random 88 mg/dL (60-115); Potassium 4.4 mmol/L (3.3-5.1); Sodium 142 mmol/L (135-145)
[2022-10-12] MEDS: Aspirin Enteric Coated 81 MG TABLET.DR PO (08:58)
[2022-10-12] MEDS: Empagliflozin 10 MG TABLET PO (08:58)
[2022-10-12] MEDS: Atorvastatin Calcium 20 MG TABLET PO (08:58)
[2022-10-12] MEDS: carvediloL 25 MG TABLET PO (08:59)
[2022-10-12] MEDS: guaiFENesin 100 MG/5 ML LIQUID PO (08:59)
[2022-10-12] MEDS: Ferrous Sulfate 324 MG TABLET.DR PO (08:59)
[2022-10-12] MEDS: dilTIAZem HCL 30 MG TABLET 90 MG PO (08:59)
== END 2022-10-12 10:34 | disposition home health service (06) | DRG 194 ==
LOC: HO.ED 15:20 → HO.EDOVER 17:24 → HO.S3 17:29
PROVIDERS: Nurse Practitioner Family; Admitting Provider Student in an Organized Health Care Education/Training Program; Emergency Provider Emergency Medicine; PCP Internal Medicine; Visit Provider Internal Medicine
DX: J18.9 Pneumonia, unspecified organism (principal); N17.9 Acute kidney failure, unspecified; T36.0X6A Underdosing of penicillins, initial encounter; T36.1X6A Underdosing of cephalosporins and other beta-lactam antibiotics, initial encounter; I12.9 Hypertensive chronic kidney disease with stage 1 through stage 4 chronic kidney disease, or unspecified chronic kidney disease; N18.30 Chronic kidney disease, stage 3 unspecified; K21.9 Gastro-esophageal reflux disease without esophagitis; E78.5 Hyperlipidemia, unspecified; D63.1 Anemia in chronic kidney disease; D50.9 Iron deficiency anemia, unspecified; R09.02 Hypoxemia; E11.22 Type 2 diabetes mellitus with diabetic chronic kidney disease; Z20.822 Contact with and (suspected) exposure to COVID-19; Z91.138 Patient's unintentional underdosing of medication regimen for other reason; Z28.310 Unvaccinated for COVID-19; Z79.82 Long term (current) use of aspirin; Z79.51 Long term (current) use of inhaled steroids; Z79.84 Long term (current) use of oral hypoglycemic drugs; Z79.899 Other long term (current) drug therapy
CPT/HCPCS: 36415; 71046; 80048; 80053; 82272; 82947; 83605; 83880; 84484; 85025; 85027; 87040; 87502; 87635; 93005; 99285; J0456; J0696; J1643

== ENCOUNTER 2022-10-20 09:51 | Outpatient (REF) | payer OTHER, SELFPAY ==
--- NOTE | ~2022-10-20 | MM_ITS ---
EXAMINATION: MM SCREENING DIGITAL BREAST TOMOSYNTHESIS, BILATERAL CLINICAL INFORMATION: Screening. Asymptomatic. Right breast cancer status post lumpectomy, 2006. COMPARISON: Mammography: 10/16/2021, 10/02/2020, 07/20/2019 07/07/2018, 07/05/2017 TECHNIQUE: Digital breast tomosynthesis is performed in both the craniocaudal and mediolateral oblique views along with computer-aided detection (CAD). Synthesized 2D images are generated from the tomosynthesis. Additional exaggerated right CC view is provided. FINDINGS: There are scattered areas of fibroglandular density (ACR BI-RADS breast composition Category b). There are post therapy changes on the right with reduced breast size, chronic scarring, and benign dystrophic calcification within the scar. Bilateral vascular calcifications are again seen. There is no significant mass or interval architectural abnormality or developing density. Small circumscribed nodular asymmetry central left breast on MLO view is similar to prior remote studies. The axilla are unremarkable. No significant changes. MM/MM tomosynthesis screening BI IMPRESSION: -No mammographic evidence of malignancy. -Post therapy changes right breast. ASSESSMENT: BI-RADS 2: Benign RECOMMENDATION: Routine annual mammography screening. This patient's information was entered into a reminder system with a target due date for their next mammogram.
== END 2022-10-20 09:52 | disposition home or self-care (01) ==
LOC: HO.MAMMO 09:51
PROVIDERS: Visit Provider Internal Medicine
DX: Z12.31 Encounter for screening mammogram for malignant neoplasm of breast (principal)
CPT/HCPCS: 77063; 77067

== ENCOUNTER 2023-06-15 11:32 | Outpatient (REF) | payer OTHER, SELFPAY ==
[2023-06-15 13:04] LABS: MANUAL DIFF FLAG NO
[2023-06-15 13:13] LABS: Basophils Percent Auto 0.3 % (0-2); Eosinophils Absolute Auto 0.1 X10*3/uL (0.0-0.4); Eosinophils Percent Auto 1.4 % (0-4); Hematocrit 35.8 % (37.0-47.0); Hemoglobin 11.4 g/dl (12.0-16.0); Imm Gran Abs Auto 0.01 X10*3/uL (0.00-0.03); Imm Gran Pct Auto 0.1 % (0.0-0.4); Lymphocytes Absolute Auto 2.7 X10*3/uL (1.2-4.9); Lymphocytes Percent Auto 33.5 % (20-40); Mean Corpuscular HGB Conc 31.8 g/dl (31.0-35.0); Mean Corpuscular Hemoglobin 27.8 pg (27.0-33.0); Mean Corpuscular Volume 87.3 fL (80.0-98.0); Mean Platelet Volume 10.8 fL (9.4-12.3); Monocytes Absolute Auto 0.7 X10*3/uL (0.1-1.2); Monocytes Percent Auto 9.1 % (2-11); Neutrophils Absolute Auto 4.4 x10*3/uL (2.0-8.3); Neutrophils Percent Auto 55.6 % (45-73); Platelet Count 283 X10*3/uL (160-400); Red Cell Distribution Width 15.8 % (11.0-16.0); White Blood Count 7.9 X10*3/uL (4.8-10.8)
[2023-06-15 14:04] LABS: Erythrocyte Sedimentation Rate 87 MM/HR (0-20)
[2023-06-15 14:06] LABS: Alanine Aminotransferase 18 U/L (0-31); Albumin Level 3.9 g/dL (3.5-5.0); Alkaline Phosphatase 50 U/L (39-117); Anion Gap 14 (12-20); Aspartate Amino Transferase 18 U/L (5-31); Bilirubin Total 0.4 mg/dL (0.0-1.0); Blood Urea Nitrogen 26 mg/dL (9-16); C Reactive Protein 9.49 mg/dL (< or = 0.50); Calcium 9.2 mg/dL (8.4-10.2); Carbon Dioxide 25 mmol/L (22-29); Chloride 107 mmol/L (96-108); Estimated Glomerular Filt Rate 32; Glucose Random 127 mg/dL (60-115); Potassium 4.6 mmol/L (3.3-5.1); Sodium 141 mmol/L (135-145); Total Protein 7.8 g/dL (6.5-8.0); Uric Acid 5.9 mg/dL (2.4-5.7)
== END 2023-06-15 11:33 | disposition home or self-care (01) ==
LOC: HO.HHCL 11:32
PROVIDERS: Visit Provider General Practice
DX: M1A.0710 Idiopathic chronic gout, right ankle and foot, without tophus (tophi) (principal)
CPT/HCPCS: 36415; 80053; 84550; 85025; 85652; 86140

== ENCOUNTER 2023-07-27 14:00 | Inpatient (IN) | payer OTHER, SELFPAY ==
[2023-07-27 14:09] VITALS: BP 142/82; BP 152/73; PULSE 64; PULSE 67; RESP 15; TEMP 36.7; O2SAT 98; BMI 30.3
[2023-07-27 14:22] LABS: MANUAL DIFF FLAG NO
[2023-07-27 14:23] LABS: Basophils Percent Auto 0.1 % (0-2); Hematocrit 43.7 % (37.0-47.0); Hemoglobin 12.2 g/dl (12.0-16.0); Imm Gran Abs Auto 0.04 X10*3/uL (0.00-0.03); Imm Gran Pct Auto 0.4 % (0.0-0.4); Lymphocytes Absolute Auto 2.1 X10*3/uL (1.2-4.9); Lymphocytes Percent Auto 23.4 % (20-40); Mean Corpuscular HGB Conc 27.9 g/dl (31.0-35.0); Mean Corpuscular Hemoglobin 27.9 pg (27.0-33.0); Mean Corpuscular Volume 99.8 fL (80.0-98.0); Monocytes Absolute Auto 0.7 X10*3/uL (0.1-1.2); Monocytes Percent Auto 7.5 % (2-11); Neutrophils Absolute Auto 6.3 x10*3/uL (2.0-8.3); Neutrophils Percent Auto 68.6 % (45-73); Red Blood Count 4.38 X10*6/uL (4.20-5.50); Red Cell Distribution Width 16.1 % (11.0-16.0); White Blood Count 9.2 X10*3/uL (4.8-10.8)
--- NOTE | 2023-07-27 14:28 | ED_ITS ---
HPI - Recheck/Abnormal Lab/Rx General Chief Complaint: Recheck/Abnormal Lab/Rx Stated Complaint: ABN LABS PER EMS Time Seen by Provider: 07/27/23 14:14 Source: patient and family Mode of arrival: EMS Limitations: other (Poor historian) History of Present Illness HPI narrative: Patient comes to the emergency room via ambulance from home. Patient comes in accompanied by her VNA. For the last 2 days, patient has been having diarrhea, no abdominal pain, no nausea vomiting or diarrhea, no fever chills, patient complaining of chronic dysuria for several weeks. Patient has VNA called the patient's physician who sent a animal care technician to the patient's home to do lab work. They receive a phone call to inform them that her sodium is 126 and they recommended to bring the patient to the hospital. Patient states a lower than the diarrhea, she feels well. Denies bloody stools. Patient has not taking any medication for diarrhea Related Data Home Medications Medication Instructions Recorded Confirmed aspirin 81 mg tablet,delayed 81 mg PO DAILY 08/08/20 05/06/21 release (Enteric Coated Aspirin) atorvastatin 10 mg tablet 10 mg PO DAILY 08/08/20 05/06/21 carvedilol 25 mg tablet 25 mg PO BID 08/08/20 05/06/21 cholecalciferol (vitamin D3) 25 25 mcg PO DAILY 08/08/20 05/06/21 mcg (1,000 unit) capsule diltiazem HCl 90 mg tablet 90 mg PO TID 08/08/20 05/06/21 fluticasone propionate 50 1 spray intranasal DAILY 08/08/20 05/06/21 mcg/actuation nasal spray,suspension (Allergy Relief (fluticasone)) lisinopril 40 mg tablet (Zestril) 40 mg PO DAILY 08/08/20 05/06/21 pantoprazole 20 mg tablet,delayed 20 mg PO DAILY 08/08/20 05/06/21 release blood sugar diagnostic #10 ea 08/27/20 08/27/20 lancets 28 gauge #100 ea 08/27/20 08/27/20 meclizine 12.5 mg tablet 12.5 mg PO DAILY PRN 05/06/21 05/06/21 torsemide 5 mg tablet 5 mg PO DAILY 05/06/21 05/06/21 acetaminophen 325 mg tablet 650 mg PO Q6H PRN Pain 01/20/23 01/20/23 albuterol sulfate 90 mcg/actuation 2 puff inhalation Q6H PRN 10/09/22 10/09/22 aerosol inhaler (ProAir HFA) Shortness Of Breath aspirin 81 mg tablet,delayed 81 mg PO DAILY 10/09/22 10/09/22 release atorvastatin 20 mg tablet 20 mg PO DAILY 10/09/22 10/09/22 carvedilol 25 mg tablet 25 mg PO BID 10/09/22 10/09/22 diltiazem HCl 90 mg tablet 90 mg PO TID 10/09/22 10/09/22 doxycycline hyclate 100 mg tablet 100 mg PO BID 10/09/22 10/09/22 empagliflozin 10 mg tablet 10 mg PO DAILY 10/09/22 10/09/22 (Jardiance) ferrous sulfate 324 mg (65 mg 324 mg PO DAILY 10/09/22 10/09/22 iron) tablet,delayed release lisinopril 40 mg tablet 40 mg PO DAILY 10/09/22 10/09/22 omeprazole 20 mg tablet,delayed 20 mg PO DAILY@0630 10/09/22 10/09/22 release Previous Rx's Medication Instructions Recorded acetaminophen 650 mg 650 mg PO Q8H PRN pain #90 tabs 05/06/21 tablet,extended release (Tylenol Arthritis Pain) cefuroxime axetil 500 mg tablet 500 mg PO BID 4 days #8 tabs 10/12/22 guaifenesin 600 mg tablet, 600 mg PO BID #10 tabs 10/12/22 extended release 12 hr (Mucus Relief ER) Allergies Allergy/AdvReac Type Severity Reaction Status Date / Time No Known Allergies Allergy Verified 10/12/22 16:59 [No Known Allergies*] Review of Systems 2 Review of Systems: Constitutional : No Weight loss, No Fever, No Chills, No Night Sweats, No Fatigue, No Malaise ENT/Mouth : No Hearing loss, No Ear Pain, No Nasal Congestion, No Sinus Pain, No Hoarseness, No sore throat, No Rhinorrhea, No Swallowing Difficulty Eyes: No Eye Pain, No Swelling, No Redness, No Foreign Body, No Discharge, No Vision Changes Cardiovascular : No Chest Pain, No SOB, No Dyspnea on Exertion, No Orthopnea, No Edema, No Palpitations Respiratory : No Cough, No Sputum, No Wheezing, No Smoke Exposure, No Dyspnea Gastrointestinal : No Nausea, No Vomiting, complaining of Diarrhea, No Constipation, No abdominal Pain, No Hematochezia, No Melena Genitourinary : no irregular bleeding, No Dysuria, No Urinary Frequency, No Hematuria, No Urinary Incontinence, No Urgency, No Flank Pain, No Urinary Flow Changes, No Hesitancy Musculoskeletal : No joint pain, No Myalgias, No Joint Swelling Skin : No Skin Lesions, No rash Neuro : No Weakness, No Numbness, No Paresthesias, No Loss of Consciousness, No Dizziness, No Headache Psych : No Anxiety/Panic, No Depression, No SI/HI/AH/VH, No Social Issues, Heme/Lymph: No Bruising, No Bleeding,No Lymphadenopathy Endocrine : No Polyuria, No Polydipsia, No Temperature Intolerance PMFSH Past Medical History Medical History Breast CA Vertigo Diabetes HTN (hypertension) CKD (chronic kidney disease) Breast CA Vertigo Diabetes HTN (hypertension) CKD (chronic kidney disease) Breast cancer Depression Hypertension Bilateral knee pain Surgical History History of partial mastectomy of right breast Hx of cataract surgery Family History Family History Father No problems noted. Mother No problems noted. Social History Social History (System 10/12/22 @ 16:59 by Ekaterina Kemp) Household Members: None Housing: Apartment Do you presently have visiting nurse or other home services: Yes Alcohol intake: never Patient Tobacco Use Status: Never used Tobacco Smoked in Last 30 Days: No e-Cigarette/Vaping Use: Never Used Use of substances other than those prescribed or required for medical reasons: No Advance Directives: No service: No Current occupational status: retired Physical Exam 2 Vital Signs: Vital Signs: Last Vital Signs Temp 98.7 F 07/27/23 15:49 Pulse 57 07/27/23 15:49 Resp 18 07/27/23 15:49 BP 107/62 07/27/23 15:49 Pulse Ox 98 07/27/23 15:49 O2 Del Method Room Air 07/27/23 15:49 BMI result Body Mass Index 30.3 Const: Other: Appearance: Alert. Oriented X3. No acute distress. Well-appearing Eyes: Pupils equal, round and reactive to light. ENT: Pharynx normal. Neck: Normal inspection. Neck supple. No lymph nodes noted. No crepitus CVS: Normal heart rate and rhythm. Pulses normal. Normal S1 and S2 Respiratory: No respiratory distress. Breath sounds normal. No Wheezing. No rales Abdomen: Soft and nontender. No rigidity. No distention. Skin: Skin warm and dry. Normal skin color. Normal skin turgor. Extremities: No lower extremity edema. No Lacerations. No Rash Neuro: Oriented X 3. No motor deficit. No sensory deficit. Moving all extremities. No slurred speech. CN 2 through 12 grossly intact Psych: calm, cooperative, normal affect Course Course Course Narrative: -all of patient's labs pending -patient receiving IV fluids, p.o. loperamide Medications Administered Generic Name Dose Route Start Last Admin Trade Name Freq PRN Reason Stop Dose Admin Sodium Chloride 1,000 mls @ 250 mls/hr 07/27/23 14:45 07/27/23 15:56 Ns IVCONT 07/27/23 18:44 250 mls/hr .Q4H ZACH Administration Discontinued Medications Generic Name Dose Route Start Last Admin Trade Name Freq PRN Reason Stop Dose Admin Loperamide HCl 4 mg 07/27/23 14:33 07/27/23 15:56 Loperamide Hcl 2 Mg Capsule PO 07/27/23 14:34 4 mg ONCE ONE Administration Medical Decision Making Medical Decision Making [facility] Narrative: -my interpretation of labs: Patient's creatinine is at baseline. However, patient's sodium is 126. Patient is slowly being hydrated. Patient will be admitted -I discussed the patient with Dr. Cordero Differential Diagnosis Differential Diagnoses: The differential diagnosis associated with the presentation includes (Diarrhea, dehydration, hyponatremia) Admission/Observation Consideration of admission/observation: Escalation of care including admission/observation considered Consult Healthcare Provider Management of the patient was discussed with: Hospitalist Lab Data [facility] Lab Attestation statement: I reviewed the patient's lab results. 07/27/23 14:18 07/27/23 14:54 Labs: Lab Results 07/27/23 07/27/23 07/27/23 Range/Units 14:18 14:54 15:58 WBC 9.2 (4.8-10.8) X10*3/uL RBC 4.38 (4.20-5.50) X10*6/uL Hgb 12.2 (12.0-16.0) g/dl Hct 43.7 D (37.0-47.0) % MCV 99.8 H (80.0-98.0) fL MCH 27.9 (27.0-33.0) pg MCHC 27.9 L (31.0-35.0) g/dl RDW 16.1 H (11.0-16.0) % Plt Count TNP MPV TNP Immature Gran % (Auto) 0.4 (0.0-0.4) % Neut % (Auto) 68.6 (45-73) % Lymph % (Auto) 23.4 (20-40) % [place] % (Auto) 7.5 (2-11) % Eos % (Auto) 0.0 (0-4) % Baso % (Auto) 0.1 (0-2) % Lymph # (Auto) 2.1 (1.2-4.9) X10*3/uL [place] # (Auto) 0.7 (0.1-1.2) X10*3/uL Eos # (Auto) 0.0 (0.0-0.4) X10*3/uL Baso # (Auto) 0.0 (0.0-0.2) X10*3/uL Abs Immat Gran (auto) 0.04 H (0.00-0.03) X10*3/uL Absolute Neuts (auto) 6.3 (2.0-8.3) x10*3/uL Absolute Nucleated RBC 0.000 (0.0-0.012) X10*3/uL Nucleated RBC % (auto) 0.0 (0.0-0.2) /100WBC Sodium 126 L (135-145) mmol/L Potassium 5.0 (3.3-5.1) mmol/L Chloride 103 (96-108) mmol/L Carbon Dioxide 13 L (22-29) mmol/L Anion Gap 15 (12-20) BUN 56 H (9-16) mg/dL Creatinine 1.69 H (0.5-1.4) mg/dL Estim Creat Clear Calc 18.6 Estimated GFR 29 Random Glucose 129 H (60-115) mg/dL Calcium 9.3 (8.4-10.2) mg/dL Magnesium 2.3 (1.6-2.6) mg/dL Total Bilirubin 0.6 (0.0-1.0) mg/dL AST 25 (5-31) U/L ALT 66 H (0-31) U/L Alkaline Phosphatase 38 L (39-117) U/L Total Protein 6.7 (6.5-8.0) g/dL Albumin 3.6 (3.5-5.0) g/dL Lipase 173 H (8-78) U/L Urine Color Yellow Urine Appearance Clear Urine pH 6.0 (5.0-9.0) Ur Specific [place] 1.020 (1.005-1.025) Urine Protein Negative (Neg-Trace) mg/dL Urine Glucose (UA) 250 H (Negative) mg/dL Urine Ketones Negative (Negative) mg/dL Urine Blood Negative (Negative) Urine Nitrite Negative (Negative) Ur Leukocyte Esterase Negative (Negative) Independent Historian Clinical information obtained from an independent historian. History obtained from or confirmed by: Other (VNA) Critical Care Time Critical Care Time Critical Care Time: Yes Total Critical Care Time: 60 Attestation: I have personally provided critical care time. Time includes review of lab data, radiology results, discussion with consultants, and monitoring for potential decompensation. Intervention performed as documented. Discharge Plan Discharge Clinical Impression: Acute hyponatremia, Acute dehydration, Diarrhea Patient Disposition: Admitted As Inpatient Prescriptions: No Action carvedilol 25 mg Tablet 25 mg PO BID Rx Instructions: must administer with a meal/food acetaminophen 325 mg Tablet 650 mg PO Q6H PRN (Reason: Pain) atorvastatin 20 mg Tablet 20 mg PO DAILY aspirin 81 mg Tablet,Delayed Release (Dr/Ec) 81 mg PO DAILY lisinopril 40 mg Tablet 40 mg PO DAILY doxycycline hyclate 100 mg Tablet 100 mg PO BID diltiazem HCl 90 mg Tablet 90 mg PO TID ferrous sulfate 324 mg (65 mg iron) Tablet,Delayed Release (Dr/Ec) 324 mg PO DAILY omeprazole 20 mg Tablet,Delayed Release (Dr/Ec) 20 mg PO DAILY@0630 Jardiance 10 mg Tablet 10 mg PO DAILY albuterol sulfate [ProAir HFA] 90 mcg/actuation Hfa Aerosol Inhaler 2 puff INHALATION Q6H PRN (Reason: Shortness Of Breath) cefuroxime axetil 500 mg tablet 500 mg PO BID 4 Days Qty: 8 0RF guaifenesin [Mucus Relief ER] 600 mg tablet extended release 12hr 600 mg PO BID Qty: 10 0RF fluticasone propionate [Allergy Relief (fluticasone)] 50 mcg/actuation spray,suspension 1 spray intranasal DAILY Rx Instructions: administer into each nostril diltiazem HCl 90 mg tablet 90 mg PO TID cholecalciferol (vitamin D3) 25 mcg (1,000 unit) capsule 25 mcg PO DAILY pantoprazole 20 mg tablet,delayed release (DR/EC) 20 mg PO DAILY aspirin [Enteric Coated Aspirin] 81 mg tablet,delayed release (DR/EC) 81 mg PO DAILY lisinopril [Zestril] 40 mg tablet 40 mg PO DAILY carvedilol 25 mg tablet 25 mg PO BID Rx Instructions: must administer with a meal/food atorvastatin 10 mg tablet 10 mg PO DAILY (DME) FreeStyle Lite Strips Strip See Rx Instructions Not Applicable .MEDSUPPLY Qty: 10 Rx Instructions: As directed (DME) lancets 28 gauge misc See Rx Instructions topical DAILY Qty: 100 Rx Instructions: As directed torsemide 5 mg tablet 5 mg PO DAILY meclizine 12.5 mg tablet 12.5 mg PO DAILY PRN acetaminophen [Tylenol Arthritis Pain] 650 mg tablet extended release 650 mg PO Q8H PRN (Reason: pain) Qty: 90 3RF
[2023-07-27 15:25] LABS: Alanine Aminotransferase 66 U/L (0-31); Albumin Level 3.6 g/dL (3.5-5.0); Alkaline Phosphatase 38 U/L (39-117); Anion Gap 15 (12-20); Aspartate Amino Transferase 25 U/L (5-31); Bilirubin Total 0.6 mg/dL (0.0-1.0); Blood Urea Nitrogen 56 mg/dL (9-16); Calcium 9.3 mg/dL (8.4-10.2); Carbon Dioxide 13 mmol/L (22-29); Chloride 103 mmol/L (96-108); Creatinine Clr Calc Pharmacy 18.6; Estimated Glomerular Filt Rate 29; Glucose Random 129 mg/dL (60-115); Lipase 173 U/L (8-78); Magnesium 2.3 mg/dL (1.6-2.6); Sodium 126 mmol/L (135-145); Total Protein 6.7 g/dL (6.5-8.0)
[2023-07-27 15:49] VITALS: BP 107/62; PULSE 57; RESP 18; TEMP 37.1; O2SAT 98
[2023-07-27] MEDS: 0.9 % Sodium Chloride 1,000 ML 250 ML IVCONT (15:56)
[2023-07-27] MEDS: Loperamide HCl 2 MG CAPSULE 4 MG PO (15:56)
--- NOTE | 2023-07-27 16:01 | PC.NURSE ---
pt transported from ED11 to ED17. this RN resumed care of pt at this time. vss and up to date at this time. medications administered per provider order. urine obtained and sent to lab by tech. respirations remain even and unlabored at this time. call rm placed within reach.
[2023-07-27 16:14] LABS: Appearance Urine Clear; Color Urine Yellow; Glucose Urine UA 250 mg/dL (Negative); Leukocyte Esterase Urine Negative (Negative); Nitrite Urine Negative (Negative); Urine Blood Negative (Negative); Urine Ketones Negative (Negative); Urine Protein Negative (Neg-Trace)
[2023-07-27 18:15] VITALS: BP 152/84; PULSE 83; RESP 16; O2SAT 99
[2023-07-27 18:21] LABS: Osmolality Urine 520 mosm/kg (373-1093)
--- NOTE | 2023-07-27 18:22 | PC.NURSE ---
labs obtained and sent to lab. family bedside. call rm placed within reach.
--- NOTE | 2023-07-27 18:28 | PM.IMHP ---
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 The patient reports feeling well until yesterday when she started to have multiple watery bowel movements with No chest pain, palpitations, SOB, nausea, vomiting, but she reported urinary symptoms of dysurea for few weeks now. In ED she was found to have low sodium level with signs of dehydration. admitted for further evaluation and treatment. Review of Systems Review of Systems: Yes all other systems are reviewed and are negative [facility], [facility] Medical History Breast CA Vertigo Diabetes HTN (hypertension) CKD (chronic kidney disease) Breast CA Vertigo Diabetes HTN (hypertension) CKD (chronic kidney disease) Breast cancer Depression Hypertension Bilateral knee pain Family History Father No problems noted. Mother No problems noted. Surgical History History of partial mastectomy of right breast Hx of cataract surgery Social History Household Members: None Housing: Apartment Do you presently have visiting nurse or other home services: Yes Alcohol intake: never Patient Tobacco Use Status: Never used Tobacco Smoked in Last 30 Days: No e-Cigarette/Vaping Use: Never Used Use of substances other than those prescribed or required for medical reasons: No Advance Directives: No service: No Current occupational status: retired [employer] Allergies Allergy/AdvReac Type Severity Reaction Status Date / Time No Known Allergies Allergy Verified 10/12/22 16:59 [No Known Allergies*] Active Medications: Current Medications Acetaminophen (Acetaminophen 325 Mg Tablet) 650 mg PO Q6H PRN PRN Reason: Pain, Mild (Pain Scale 1-3) Enoxaparin Sodium (Enoxaparin Sodium 30 Mg/0.3 Ml Syringe) 30 mg SUBCUT Q24H ZACH Sodium Chloride (Ns) 1,000 mls @ 250 mls/hr IVCONT .Q4H ZACH Stop: 07/27/23 18:44 Last Admin: 07/27/23 15:56 Dose: 250 mls/hr Sodium Chloride (Ns) 1,000 mls @ 75 mls/hr IVCONT .[id number] [facility] Ondansetron HCl (Ondansetron Hcl 4 Mg/2 Ml Vial) 4 mg IVPUSH Q8H PRN PRN Reason: Nausea and Vomiting Sodium Chloride (0.9 % Sodium Chloride Flush 3 Ml Syringe) 3 ml IVFLUSH QSHIFT [facility] Home Medications Medication Instructions Recorded Confirmed Last Taken Type fluticasone propionate 50 1 spray intranasal DAILY 08/08/20 05/06/21 Unknown History mcg/actuation nasal spray,suspension (Allergy Relief (fluticasone)) pantoprazole 20 mg tablet,delayed 20 mg PO DAILY 08/08/20 05/06/21 Unknown History release blood sugar diagnostic #10 ea 08/27/20 08/27/20 Unknown History lancets 28 gauge #100 ea 08/27/20 08/27/20 Unknown History meclizine 12.5 mg tablet 12.5 mg PO DAILY PRN 05/06/21 05/06/21 Unknown History acetaminophen 325 mg tablet 650 mg PO Q6H PRN Pain 10/09/22 10/09/22 Unknown History albuterol sulfate 90 mcg/actuation 2 puff inhalation Q6H PRN 10/09/22 10/09/22 Unknown History aerosol inhaler (ProAir HFA) Shortness Of Breath atorvastatin 20 mg tablet 20 mg PO DAILY 10/09/22 10/09/22 Unknown History carvedilol 25 mg tablet 25 mg PO BID 10/09/22 10/09/22 Unknown History diltiazem HCl 90 mg tablet 90 mg PO TID 10/09/22 10/09/22 Unknown History empagliflozin 10 mg tablet 10 mg PO DAILY 10/09/22 10/09/22 Unknown History (Jardiance) ferrous sulfate 324 mg (65 mg 324 mg PO DAILY 10/09/22 10/09/22 Unknown History iron) tablet,delayed release lisinopril 40 mg tablet 40 mg PO DAILY 10/09/22 10/09/22 Unknown History Physical Exam Vital Signs and Narrative: Vital Signs: Last Vital Signs Temp 98.7 F 07/27/23 15:49 Pulse 57 07/27/23 15:49 Resp 18 07/27/23 15:49 BP 107/62 07/27/23 15:49 Pulse Ox 98 07/27/23 15:49 O2 Del Method Room Air 07/27/23 15:49 BMI result Body Mass Index 30.3 Const: Other: Constitutional : Awake, interactive, not in distress Neck : Normal inspection, Supple Cardiovascular : RRR, no JVP, no lower extremity edema Respiratory : good bilateral air entry, no crackles, wheezes or rhonchi Gastrointestinal: soft, lax, Normal bowel sounds, Non tender Skin : Warm, Dry Neurological : Alert & oriented , No focal deficit Results Labs 07/27/23 14:18 07/27/23 14:54 Labs: Laboratory Results - last 24 hr 07/27/23 07/27/23 07/27/23 14:18 14:54 15:58 MCV 99.8 H MCH 27.9 MCHC 27.9 L RDW 16.1 H Plt Count TNP MPV TNP Immature Gran % (Auto) 0.4 Neut % (Auto) 68.6 Lymph % (Auto) 23.4 [place] % (Auto) 7.5 Eos % (Auto) 0.0 Baso % (Auto) 0.1 Lymph # (Auto) 2.1 [place] # (Auto) 0.7 Eos # (Auto) 0.0 Baso # (Auto) 0.0 Abs Immat Gran (auto) 0.04 H Absolute Neuts (auto) 6.3 Absolute Nucleated RBC 0.000 Nucleated RBC % (auto) 0.0 Anion Gap 15 Estim Creat Clear Calc 18.6 Estimated GFR 29 Random Glucose 129 H Calcium 9.3 Magnesium 2.3 Total Bilirubin 0.6 AST 25 ALT 66 H Alkaline Phosphatase 38 L Total Protein 6.7 Albumin 3.6 Lipase 173 H Urine Color Yellow Urine Appearance Clear Urine pH 6.0 Ur Specific [place] 1.020 Urine Protein Negative Urine Glucose (UA) 250 H Urine Ketones Negative Urine Blood Negative Urine Nitrite Negative Ur Leukocyte Esterase Negative Urine Osmolality 520 Ur Random Sodium 46.0 Assessment and Plan (1) Diarrhea: Qualifiers: Diarrhea type: unspecified type Qualified Code(s): R19.7 - Diarrhea, unspecified Status: Acute (2) Acute dehydration: Status: Acute (3) Acute hyponatremia: Status: Acute Plan An 82-year-old female with a PMH of?CKD, HTN, asthma, and DMII among others who presents 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 Acute hyponatremia from diarrhea Na of 126 Urine electrolytes pending and Osm IVF replacement follow BMP{ goal of 6-8 change in Na level Metabolic acidosis 2/2 Diarrhea IVF for now consider NaHCo3 replacement follow BMP Dysurea seems chronic No evidence of infection Diarrhea No clear infection but can not rule it out; viral vs bacterial check stool panel and WBCs consider imodium if negative WBCs Continue rest of home medications once Med rec is done. DVT PPx Lovenox The patient will need at least 2 nights of hospital stay for treatment of acute hyponatremia with slow correction and diarrhea evaluation. Quality Stroke Does the patient have a stroke diagnosis?: No VTE Prior VTE?: No VTE Risk Level:: Medical - moderate - high VTE Device Contraindication: Treatment Not Indicated VTE Drug Contraindication: N/A - Med Ordered
[2023-07-27 18:37] LABS: Anion Gap 13 (12-20); Blood Urea Nitrogen 46 mg/dL (9-16); Carbon Dioxide 13 mmol/L (22-29); Chloride 108 mmol/L (96-108); Creatinine Clr Calc Pharmacy 22.6; Estimated Glomerular Filt Rate 36; Glucose Random 101 mg/dL (60-115); Potassium 4.4 mmol/L (3.3-5.1); Sodium 130 mmol/L (135-145)
--- NOTE | 2023-07-27 18:39 | PHA.MEDREC ---
Pharmacy Consult ? Medication Reconciliation Pharmacy has completed the medication reconciliation. Patient visiting nurse confirm medications. Patient no longer on diuretics Letty Cuello, CésarD
--- NOTE | 2023-07-27 19:05 | PC.NURSE ---
Pt A&Ox3, denies any pain. IV fluids running per MAR. Pt assisted to bedside commode with stand by assist. Family present at bedside, updated with plan of care.
[2023-07-27] MEDS: 0.9 % Sodium Chloride 1,000 ML 75 ML IVCONT (19:32)
[2023-07-27 20:02] VITALS: BP 152/84; PULSE 63; RESP 16; O2SAT 98
[2023-07-27 21:22] LABS: Glucose, Whole Blood 112 mg/dL (60-115)
--- NOTE | 2023-07-27 21:57 | PC.NURSE ---
RN to RN report given to Enma, Pt will be transported to room 369, Pt aware of plan.
[2023-07-27] MEDS: Enoxaparin Sodium 30 MG/0.3 ML SYRINGE SUBCUT (22:13)
[2023-07-27 23:12] VITALS: BMI 32.4
[2023-07-27 23:39] VITALS: BP 158/82; PULSE 72; RESP 18; TEMP 36.7; O2SAT 98
[2023-07-28 04:22] VITALS: BP 130/75; PULSE 79; RESP 18; TEMP 36.8; O2SAT 99
[2023-07-28 06:31] LABS: MANUAL DIFF FLAG NO
[2023-07-28 06:43] LABS: Hematocrit 39.5 % (37.0-47.0); Hemoglobin 11.9 g/dl (12.0-16.0); Imm Gran Abs Auto 0.03 X10*3/uL (0.00-0.03); Imm Gran Pct Auto 0.4 % (0.0-0.4); Lymphocytes Absolute Auto 1.5 X10*3/uL (1.2-4.9); Lymphocytes Percent Auto 19.8 % (20-40); Mean Corpuscular HGB Conc 30.1 g/dl (31.0-35.0); Mean Corpuscular Hemoglobin 27.5 pg (27.0-33.0); Mean Corpuscular Volume 91.4 fL (80.0-98.0); Mean Platelet Volume 10.3 fL (9.4-12.3); Monocytes Absolute Auto 0.7 X10*3/uL (0.1-1.2); Neutrophils Absolute Auto 5.5 x10*3/uL (2.0-8.3); Neutrophils Percent Auto 70.8 % (45-73); Platelet Count 156 X10*3/uL (160-400); Red Blood Count 4.32 X10*6/uL (4.20-5.50); Red Cell Distribution Width 15.8 % (11.0-16.0); White Blood Count 7.8 X10*3/uL (4.8-10.8)
[2023-07-28 06:59] LABS: Anion Gap 13 (12-20); Blood Urea Nitrogen 39 mg/dL (9-16); Calcium 8.7 mg/dL (8.4-10.2); Carbon Dioxide 19 mmol/L (22-29); Chloride 108 mmol/L (96-108); Creatinine Clr Calc Pharmacy 21.6; Estimated Glomerular Filt Rate 33; Glucose Random 98 mg/dL (60-115); Potassium 4.5 mmol/L (3.3-5.1); Sodium 135 mmol/L (135-145)
[2023-07-28 07:08] LABS: Glucose, Whole Blood 94 mg/dL (60-115)
[2023-07-28 07:19] VITALS: BP 151/64; PULSE 68; RESP 18; TEMP 36.1; O2SAT 98
[2023-07-28 08:50] VITALS: BP 151/64; PULSE 68; O2SAT 98
[2023-07-28] MEDS: Empagliflozin 10 MG TABLET PO (08:55)
[2023-07-28] MEDS: carvediloL 25 MG TABLET PO (08:55)
[2023-07-28] MEDS: lisinopriL 40 MG TABLET PO (08:55)
[2023-07-28] MEDS: Atorvastatin Calcium 20 MG TABLET PO (08:55)
[2023-07-28] MEDS: Ferrous Sulfate 324 MG TABLET.DR PO (08:55)
[2023-07-28] MEDS: 0.9 % Sodium Chloride Flush 3 ML SYRINGE IVFLUSH ×2 (09:01→16:10)
--- NOTE | 2023-07-28 10:40 | P.PNIM_ITS ---
Subjective Subjective Date of Service: 07/28/23 Interval History: diarrhea resolved Physical Exam 2 Vital Signs: Vital Signs: Last Vital Signs Temp 96.9 F 07/28/23 07:19 Pulse 68 07/28/23 08:50 Resp 18 07/28/23 07:19 BP 151/64 H 07/28/23 08:50 Pulse Ox 98 07/28/23 08:50 O2 Del Method Room Air 07/28/23 07:19 BMI result Body Mass Index 32.4 General: AO X 3, no acute distress Resp: CTA bilateral, no accessory muscles used CVS: S1,S2,RRR GI: soft, non tender, non distended Neuro: motor grossly intact, alert Psych: appropriate affect, appropriate insight Objective Data Active Medications Acetaminophen (Acetaminophen 325 Mg Tablet) 650 mg PO Q6H PRN PRN Reason: Pain, Mild (Pain Scale 1-3) Albuterol Sulfate (Albuterol Sulfate 90 Mcg 8 Gm Inhaler) 2 puff INHALE Q6H PRN PRN Reason: Shortness Of Breath Atorvastatin Calcium (Atorvastatin Calcium 20 Mg Tablet) 20 mg PO DAILY [facility] Last Admin: 07/28/23 08:55 Dose: 20 mg Documented By: MABEL Carvedilol (Carvedilol 25 Mg Tablet) 25 mg PO BID [facility]; Protocol Last Admin: 07/28/23 08:55 Dose: 25 mg Documented By: MABEL Diltiazem HCl (Diltiazem Hcl 30 Mg Tablet) 90 mg PO TID [facility]; Protocol Empagliflozin (Empagliflozin 10 Mg Tablet) 10 mg PO DAILY [facility] Last Admin: 07/28/23 08:55 Dose: 10 mg Documented By: MABEL Enoxaparin Sodium (Enoxaparin Sodium 30 Mg/0.3 Ml Syringe) 30 mg SUBCUT Q24H [facility] Last Admin: 07/27/23 22:13 Dose: 30 mg Documented By: JOSHUA Ferrous Sulfate (Ferrous Sulfate 324 Mg Tablet.) 324 mg PO DAILY [facility] Last Admin: 07/28/23 08:55 Dose: 324 mg Documented By: MABEL Fluticasone Propionate (Fluticasone Propionate Nasal 16 Gm [place]) 1 spray NOSTRIL-B DAILY PRN PRN Reason: Allergy Symptoms Insulin Human Lispro (Insulin Lispro 100 Unit/Ml 3 Ml Vial) 0 unit SUBCUT QIDACHS [facility]; Protocol Last Admin: 07/28/23 08:17 Dose: Not Given Documented By: MABEL Non-Admin Reason: No Insulin Coverage Lisinopril (Lisinopril 40 Mg Tablet) 40 mg PO DAILY [facility]; Protocol Last Admin: 07/28/23 08:55 Dose: 40 mg Documented By: MABEL Meclizine HCl (Meclizine Hcl 12.5 Mg Tablet) 12.5 mg PO DAILY PRN PRN Reason: Dizziness Omeprazole (Omeprazole 20 Mg Capsule.Dr) 20 mg PO DAILY@0630 [facility] Ondansetron HCl (Ondansetron Hcl 4 Mg/2 Ml Vial) 4 mg IVPUSH Q8H PRN PRN Reason: Nausea and Vomiting Sodium Chloride (0.9 % Sodium Chloride Flush 3 Ml Syringe) 3 ml IVFLUSH QSHIFT [facility] Last Admin: 07/28/23 09:01 Dose: 3 ml Documented By: MABEL Labs 07/28/23 06:21 07/28/23 06:21 Labs: Laboratory Results - last 24 hr 07/27/23 07/27/23 07/27/23 14:18 14:54 15:58 MCV 99.8 H MCH 27.9 MCHC 27.9 L RDW 16.1 H Plt Count TNP MPV TNP Immature Gran % (Auto) 0.4 Neut % (Auto) 68.6 Lymph % (Auto) 23.4 [place] % (Auto) 7.5 Eos % (Auto) 0.0 Baso % (Auto) 0.1 Lymph # (Auto) 2.1 [place] # (Auto) 0.7 Eos # (Auto) 0.0 Baso # (Auto) 0.0 Abs Immat Gran (auto) 0.04 H Absolute Neuts (auto) 6.3 Absolute Nucleated RBC 0.000 Nucleated RBC % (auto) 0.0 Anion Gap 15 Estim Creat Clear Calc 18.6 Estimated GFR 29 POC Glucose Random Glucose 129 H Calcium 9.3 Magnesium 2.3 Total Bilirubin 0.6 AST 25 ALT 66 H Alkaline Phosphatase 38 L Total Protein 6.7 Albumin 3.6 Lipase 173 H Urine Color Yellow Urine Appearance Clear Urine pH 6.0 Ur Specific [place] 1.020 Urine Protein Negative Urine Glucose (UA) 250 H Urine Ketones Negative Urine Blood Negative Urine Nitrite Negative Ur Leukocyte Esterase Negative Urine Osmolality 520 Ur Random Sodium 46.0 07/27/23 07/27/23 07/28/23 18:20 21:17 06:21 MCV 91.4 D MCH 27.5 MCHC 30.1 L RDW 15.8 Plt Count 156 L D MPV 10.3 Immature Gran % (Auto) 0.4 Neut % (Auto) 70.8 Lymph % (Auto) 19.8 L [place] % (Auto) 9.0 Eos % (Auto) 0.0 Baso % (Auto) 0.0 Lymph # (Auto) 1.5 [place] # (Auto) 0.7 Eos # (Auto) 0.0 Baso # (Auto) 0.0 Abs Immat Gran (auto) 0.03 Absolute Neuts (auto) 5.5 Absolute Nucleated RBC 0.000 Nucleated RBC % (auto) 0.0 Anion Gap 13 13 Estim Creat Clear Calc 22.6 21.6 Estimated GFR 36 33 POC Glucose 112 Random Glucose 101 98 Calcium 8.0 L D 8.7 D Magnesium Total Bilirubin AST ALT Alkaline Phosphatase Total Protein Albumin Lipase Urine Color Urine Appearance Urine pH Ur Specific [place] Urine Protein Urine Glucose (UA) Urine Ketones Urine Blood Urine Nitrite Ur Leukocyte Esterase Urine Osmolality Ur Random Sodium 07/28/23 07:01 MCV MCH MCHC RDW Plt Count MPV Immature Gran % (Auto) Neut % (Auto) Lymph % (Auto) [place] % (Auto) Eos % (Auto) Baso % (Auto) Lymph # (Auto) [place] # (Auto) Eos # (Auto) Baso # (Auto) Abs Immat Gran (auto) Absolute Neuts (auto) Absolute Nucleated RBC Nucleated RBC % (auto) Anion Gap Estim Creat Clear Calc Estimated GFR POC Glucose 94 Random Glucose Calcium Magnesium Total Bilirubin AST ALT Alkaline Phosphatase Total Protein Albumin Lipase Urine Color Urine Appearance Urine pH Ur Specific [place] Urine Protein Urine Glucose (UA) Urine Ketones Urine Blood Urine Nitrite Ur Leukocyte Esterase Urine Osmolality Ur Random Sodium Assessment and Plan (1) Diarrhea: Status: Acute Plan 82F PMH CKDIII, hypertension, mild intermittent asthma, diabetes presented with weakness and diarrhea found to have hyponatremia and metabolic acidosis Acute hyponatremia and acute metabolic acidosis due to diarrhea Diarrhea appears to be self limited No bowel movements today, feels better, sodium back to normal, acidosis much improved Hypertension Lisinopril, carvedilol, diltiazem Mild intermittent asthma Albuterol as needed Diabetes Insulin CKD 3 Stable weakness pt recommending str DVT prophylaxis with Lovenox Full code Reason continued hospitalization: Awaiting reheab Quality Stroke Does the patient have a stroke diagnosis?: No VTE Prior VTE?: No VTE Risk Level:: Medical - moderate - high VTE Device Contraindication: Treatment Not Indicated VTE Drug Contraindication: N/A - Med Ordered
--- NOTE | 2023-07-28 10:44 | MHC.CM.PN ---
Addendum entered by Bridget Beckham 07/28/23 11:17: Patient discharged today. New [facility] for SN. [facility] will provide home PT. Patients son will provide transportation home. He will arrive after work @ 4:30pm Original Note: IMM 07/28/23 Patient lives by herself. A copy of Pts HCP has been requested. She receives assist with ADLs from her DIL/FORENSIC ACCOUNTANT thru [facility]. PT rec STR. Per Family, patient will rehab at home with [facility] ( preference obtained, [facility] is 1st choice). DP Home w services. Patients son will transport home.
--- NOTE | 2023-07-28 10:46 | PM.DS ---
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 The patient reports feeling well until yesterday when she started to have multiple watery bowel movements with No chest pain, palpitations, SOB, nausea, vomiting, but she reported urinary symptoms of dysurea for few weeks now. In ED she was found to have low sodium level with signs of dehydration. admitted for further evaluation and treatment. hospital course: Patient was admitted for acute hyponatremia and acute metabolic acidosis due to diarrhea. Diarrhea was self-limiting and resolved. She no further bowel movements. Sodium returned to normal in acidosis improved. This should continue to be monitored as outpatient and lab should be repeated in several days. For hypertension was continue lisinopril, carvedilol, diltiazem. For mild intermittent asthma she remained stable. For diabetes she was continue insulin. For CKD 3 her labs remained stable. Due to weakness she was seen by physical therapy recommended short-term rehab, however, patient has decline, will go home with services Time Attestation Discharge coordination time: Greater than 30 minutes Quality: Safe Use of Opioids Does Pt have an Active Cancer Diagnosis on the Problem List?: No Quality: Stroke Does the patient have a stroke diagnosis?: No Physical Exam Vital Signs: Vital Signs: Last Vital Signs Temp 96.9 F 07/28/23 07:19 Pulse 68 07/28/23 08:50 Resp 18 07/28/23 07:19 BP 151/64 H 07/28/23 08:50 Pulse Ox 98 07/28/23 08:50 O2 Del Method Room Air 07/28/23 07:19 BMI result Body Mass Index 32.4 General: AO X 3, no acute distress Resp: CTA bilateral, no accessory muscles used CVS: S1,S2,RRR GI: soft, non tender, non distended Neuro: motor grossly intact, alert Psych: appropriate affect, appropriate insight DS: Data Data Completed and Pending Labs on day of discharge: Laboratory Results - last 24 hr 07/27/23 07/27/23 07/27/23 14:18 14:54 15:58 WBC 9.2 RBC 4.38 Hgb 12.2 Hct 43.7 D MCV 99.8 H MCH 27.9 MCHC 27.9 L RDW 16.1 H Plt Count TNP MPV TNP Immature Gran % (Auto) 0.4 Neut % (Auto) 68.6 Lymph % (Auto) 23.4 [place] % (Auto) 7.5 Eos % (Auto) 0.0 Baso % (Auto) 0.1 Lymph # (Auto) 2.1 [place] # (Auto) 0.7 Eos # (Auto) 0.0 Baso # (Auto) 0.0 Abs Immat Gran (auto) 0.04 H Absolute Neuts (auto) 6.3 Absolute Nucleated RBC 0.000 Nucleated RBC % (auto) 0.0 Sodium 126 L Potassium 5.0 Chloride 103 Carbon Dioxide 13 L Anion Gap 15 BUN 56 H Creatinine 1.69 H Estim Creat Clear Calc 18.6 Estimated GFR 29 POC Glucose Random Glucose 129 H Calcium 9.3 Magnesium 2.3 Total Bilirubin 0.6 AST 25 ALT 66 H Alkaline Phosphatase 38 L Total Protein 6.7 Albumin 3.6 Lipase 173 H Urine Color Yellow Urine Appearance Clear Urine pH 6.0 Ur Specific [place] 1.020 Urine Protein Negative Urine Glucose (UA) 250 H Urine Ketones Negative Urine Blood Negative Urine Nitrite Negative Ur Leukocyte Esterase Negative Urine Osmolality 520 Ur Random Sodium 46.0 07/27/23 07/27/23 07/28/23 18:20 21:17 06:21 WBC 7.8 RBC 4.32 Hgb 11.9 L Hct 39.5 MCV 91.4 D MCH 27.5 MCHC 30.1 L RDW 15.8 Plt Count 156 L D MPV 10.3 Immature Gran % (Auto) 0.4 Neut % (Auto) 70.8 Lymph % (Auto) 19.8 L [place] % (Auto) 9.0 Eos % (Auto) 0.0 Baso % (Auto) 0.0 Lymph # (Auto) 1.5 [place] # (Auto) 0.7 Eos # (Auto) 0.0 Baso # (Auto) 0.0 Abs Immat Gran (auto) 0.03 Absolute Neuts (auto) 5.5 Absolute Nucleated RBC 0.000 Nucleated RBC % (auto) 0.0 Sodium 130 L 135 Potassium 4.4 4.5 Chloride 108 108 Carbon Dioxide 13 L 19 L Anion Gap 13 13 BUN 46 H 39 H Creatinine 1.39 1.51 H Estim Creat Clear Calc 22.6 21.6 Estimated GFR 36 33 POC Glucose 112 Random Glucose 101 98 Calcium 8.0 L D 8.7 D Magnesium Total Bilirubin AST ALT Alkaline Phosphatase Total Protein Albumin Lipase Urine Color Urine Appearance Urine pH Ur Specific [place] Urine Protein Urine Glucose (UA) Urine Ketones Urine Blood Urine Nitrite Ur Leukocyte Esterase Urine Osmolality Ur Random Sodium 07/28/23 07:01 WBC RBC Hgb Hct MCV MCH MCHC RDW Plt Count MPV Immature Gran % (Auto) Neut % (Auto) Lymph % (Auto) [place] % (Auto) Eos % (Auto) Baso % (Auto) Lymph # (Auto) [place] # (Auto) Eos # (Auto) Baso # (Auto) Abs Immat Gran (auto) Absolute Neuts (auto) Absolute Nucleated RBC Nucleated RBC % (auto) Sodium Potassium Chloride Carbon Dioxide Anion Gap BUN Creatinine Estim Creat Clear Calc Estimated GFR POC Glucose 94 Random Glucose Calcium Magnesium Total Bilirubin AST ALT Alkaline Phosphatase Total Protein Albumin Lipase Urine Color Urine Appearance Urine pH Ur Specific [place] Urine Protein Urine Glucose (UA) Urine Ketones Urine Blood Urine Nitrite Ur Leukocyte Esterase Urine Osmolality Ur Random Sodium Discharge Plan Discharge Anticipated Discharge Date/Time: 07/28/23 10:45 Patient Disposition: Home Health Service Discharge Diagnosis: hyponatremia, diarrhea Referrals: Physician,Unknown J [Primary Care Provider] - 1 Week Discharge Medications: Continued carvedilol 25 mg Tablet 25 mg PO BID Rx Instructions: must administer with a meal/food acetaminophen 325 mg Tablet 650 mg PO Q6H PRN (Reason: Pain) atorvastatin 20 mg Tablet 20 mg PO DAILY lisinopril 40 mg Tablet 40 mg PO DAILY diltiazem HCl 90 mg Tablet 90 mg PO TID ferrous sulfate 324 mg (65 mg iron) Tablet,Delayed Release (Dr/Ec) 324 mg PO DAILY Jardiance 10 mg Tablet 10 mg PO DAILY albuterol sulfate [ProAir HFA] 90 mcg/actuation Hfa Aerosol Inhaler 2 puff INHALATION Q6H PRN (Reason: Shortness Of Breath) fluticasone propionate [Allergy Relief (fluticasone)] 50 mcg/actuation spray,suspension 1 spray intranasal DAILY PRN (Reason: Allergy Symptoms) Rx Instructions: administer into each nostril pantoprazole 20 mg tablet,delayed release (DR/EC) 20 mg PO DAILY (DME) blood sugar diagnostic Strip See Rx Instructions Not Applicable .MEDSUPPLY Qty: 10 Rx Instructions: As directed (DME) lancets 28 gauge misc See Rx Instructions topical DAILY Qty: 100 Rx Instructions: As directed meclizine 12.5 mg tablet 12.5 mg PO DAILY PRN (Reason: Dizziness) Discharge Orders: Discharge Order (Routine); Ordered 07/28/23 Ordered By: Dov Farias Diet: Advance to usual diet Activity on Discharge: As tolerated Stand Alone Forms: Patient Portal Discharge page Other Ambulatory Orders: Basic Metabolic Panel (Routine) Timeframe: 3 Days Facility: [facility] - Location: Laboratory Ordered By: Dov Farias Care Plan Goals: recovery Health Concerns: diarreha, low sodium, acidosis Plan of Treatment: check labs in a few days Assessment: see above
--- NOTE | 2023-07-28 11:09 | P.F2F_ITS ---
Service Date Service Date: 07/28/23 Encounter Date of encounter: 07/28/23 Reasons for Services Signs and symptoms assessed: weakneess Reason for halfway: medication management, medication treatment and teach disease management Reason for physical therapy: home safety and mobility, therapeutic exercises and gait/transfer training Homebound: Leaving the home is medically contraindicated at this time without the asist of a device and/or another person due th the listed conditions above and below. Reason homebound: unsteady gait / fall risk Certification: Based on the above findings, I certify that this patient is confined to the home and needs intermittent halfway care, physical therapy and/or speech therapy, or continues to need occupational therapy. The patient is under my care, and I have initiated the establishment of the plan of care. The patient will be followed by a physician who will periodically review the plan of care. Time Spent With Patient Time: Total time managing care of this patient today ____ minutes.
[2023-07-28] MEDS: dilTIAZem HCL 30 MG TABLET 90 MG PO (11:17)
[2023-07-28 11:34] LABS: Glucose, Whole Blood 152 mg/dL (60-115)
[2023-07-28] MEDS: Insulin Lispro 100 UNIT/ML 3 ML VIAL SUBCUT (11:56)
[2023-07-28 15:39] VITALS: BP 116/59; PULSE 61; RESP 18; TEMP 36.6; O2SAT 98
[2023-07-28 16:23] LABS: Glucose, Whole Blood 145 mg/dL (60-115)
== END 2023-07-28 17:35 | disposition home health service (06) | DRG 641 ==
LOC: HO.ED 18:04 → HO.EDOVER 18:27 → HO.S3 21:11
PROVIDERS: Physician Assistant Medical; Admitting Provider Student in an Organized Health Care Education/Training Program; Emergency Provider Emergency Medicine; PCP General Practice; Visit Provider Internal Medicine
DX: E87.1 Hypo-osmolality and hyponatremia (principal); E86.0 Dehydration; E87.20 Acidosis, unspecified; I12.9 Hypertensive chronic kidney disease with stage 1 through stage 4 chronic kidney disease, or unspecified chronic kidney disease; N18.30 Chronic kidney disease, stage 3 unspecified; E11.22 Type 2 diabetes mellitus with diabetic chronic kidney disease; J45.20 Mild intermittent asthma, uncomplicated; Z79.899 Other long term (current) drug therapy
CPT/HCPCS: 36415; 80048; 80053; 81003; 82947; 83690; 83735; 83935; 84300; 85025; 97161; 99285; J1650

== ENCOUNTER → 2023-07-27 18:15 | Outpatient (BNV) | payer OTHER, SELFPAY | PROVIDERS: Admitting Provider Student in an Organized Health Care Education/Training Program; Emergency Provider Emergency Medicine; Visit Provider Student in an Organized Health Care Education/Training Program | DX: R19.7 Diarrhea, unspecified (principal); N18.30 Chronic kidney disease, stage 3 unspecified | CPT/HCPCS: 99223; 99239; G0180 ==

== ENCOUNTER 2023-08-06 12:23 | Outpatient (REF) | payer OTHER, MEDICAID, SELFPAY ==
[2023-08-06 13:44] LABS: Anion Gap 11 (12-20); Blood Urea Nitrogen 47 mg/dL (9-16); Carbon Dioxide 19 mmol/L (22-29); Chloride 110 mmol/L (96-108); Estimated Glomerular Filt Rate 26; Glucose Random 151 mg/dL (60-115); Potassium 4.4 mmol/L (3.3-5.1); Sodium 136 mmol/L (135-145)
== END 2023-08-06 12:24 | disposition home or self-care (01) ==
LOC: HO.HHCL 12:23
PROVIDERS: Referring Provider Internal Medicine; Visit Provider Internal Medicine
DX: R19.7 Diarrhea, unspecified (principal); E11.22 Type 2 diabetes mellitus with diabetic chronic kidney disease; N18.30 Chronic kidney disease, stage 3 unspecified
CPT/HCPCS: 36415; 80048

== ENCOUNTER 2023-08-19 09:38 | Outpatient (REF) | payer OTHER, MEDICAID, SELFPAY ==
[2023-08-19 12:13] LABS: Anion Gap 12 (12-20); Blood Urea Nitrogen 30 mg/dL (9-16); Calcium 8.7 mg/dL (8.4-10.2); Carbon Dioxide 21 mmol/L (22-29); Chloride 106 mmol/L (96-108); Estimated Glomerular Filt Rate 34; Glucose Random 158 mg/dL (60-115); Potassium 4.3 mmol/L (3.3-5.1); Sodium 135 mmol/L (135-145)
== END 2023-08-19 09:39 | disposition home or self-care (01) ==
LOC: HO.HHCL 09:38
PROVIDERS: Visit Provider Internal Medicine
DX: R19.7 Diarrhea, unspecified (principal)
CPT/HCPCS: 36415; 80048

== ENCOUNTER 2023-08-21 02:32 | Emergency (ER) | payer OTHER, SELFPAY ==
[2023-08-21 02:47] VITALS: BP 122/70; BP 123/61; PULSE 62; PULSE 68; RESP 18; TEMP 36.9; O2SAT 94; O2SAT 96; BMI 32.2
[2023-08-21 02:51] LABS: Glucose, Whole Blood 153 mg/dL (60-115)
[2023-08-21 02:59] VITALS: BP 123/61; PULSE 64; RESP 16; TEMP 36.9; O2SAT 94
[2023-08-21 03:18] LABS: MANUAL DIFF FLAG NO
[2023-08-21 03:19] LABS: Basophils Percent Auto 0.1 % (0-2); Eosinophils Percent Auto 0.6 % (0-4); Hemoglobin 10.2 g/dl (12.0-16.0); Imm Gran Abs Auto 0.05 X10*3/uL (0.00-0.03); Imm Gran Pct Auto 0.7 % (0.0-0.4); Lymphocytes Absolute Auto 1.8 X10*3/uL (1.2-4.9); Lymphocytes Percent Auto 25.3 % (20-40); Mean Corpuscular Hemoglobin 28.5 pg (27.0-33.0); Mean Platelet Volume 10.5 fL (9.4-12.3); Monocytes Absolute Auto 0.7 X10*3/uL (0.1-1.2); Monocytes Percent Auto 10.1 % (2-11); Neutrophils Absolute Auto 4.5 x10*3/uL (2.0-8.3); Neutrophils Percent Auto 63.2 % (45-73); Platelet Count 191 X10*3/uL (160-400); Red Blood Count 3.58 X10*6/uL (4.20-5.50); Red Cell Distribution Width 17.7 % (11.0-16.0); White Blood Count 7.2 X10*3/uL (4.8-10.8)
[2023-08-21 03:35] LABS: Alanine Aminotransferase 29 U/L (0-31); Albumin Level 3.3 g/dL (3.5-5.0); Alkaline Phosphatase 35 U/L (39-117); Anion Gap 15 (12-20); Aspartate Amino Transferase 13 U/L (5-31); Bilirubin Total 0.4 mg/dL (0.0-1.0); Blood Urea Nitrogen 41 mg/dL (9-16); Calcium 8.8 mg/dL (8.4-10.2); Carbon Dioxide 18 mmol/L (22-29); Chloride 108 mmol/L (96-108); Creatinine Clr Calc Pharmacy 16.8; Estimated Glomerular Filt Rate 25; Glucose Random 154 mg/dL (60-115); Potassium 4.8 mmol/L (3.3-5.1); Sodium 136 mmol/L (135-145); Total Protein 6.1 g/dL (6.5-8.0)
--- OUTSIDE RECORDS SUMMARY | 2023-08-21 03:52 | XMS_ITS | Continuity of Care Document ---
Author Name Unknown Organization [facility] Address [address] [place] [id number]- Care Team Providers Care Online Merchandising Specialist Name Role Phone Mati Giordano MD Primary Care Physician [phone] Encounter [facility] [place] Date(s): 09/04/21 - 10/04/21 [facility] [address] [place] [address]- Allergies, Adverse Reactions, Alerts No Known Medication Allergies Immunizations Given and Recorded Vaccine Date Status Refusal Reason pneumococcal 23-valent vaccine 03/09/16 Recorded pneumococcal 23-valent vaccine 06/22/14 Recorded tetanus/diphtheria/pertussis, acel(Tdap) 03/09/16 Recorded influenza virus vaccine, inactivated 06/22/14 Enrrique rded Medications allopurinol 100 mg oral tablet 100 mg, 1, tablet, By Mouth, Daily, # 90 tablet, Refills 0, Tot. Refills 0, Maintenance, 06/13/21 10:23:00 EDT, Route to Pharmacy Electronically, [facility]/pharmacy #[id number], 144.78, cm, 06/13/21 10:03:00 EDT, Height, 71, kg, 04/30/21 8:38:00 EDT, Dry Weight Start Date: 06/13/21 Status: Ordered aspirin 81 mg oral delayed release tablet 81 mg, 1, tablet, By Mouth, Daily, Refills 0, Maintenance, 08/12/20 9:42:00 EST, Partial fill upon patient request Start Date: 08/12/20 Status: Ordered atorvastatin 20 mg oral tablet 1 tablet = 20 mg, By Mouth, Daily, # 90 tablet, 3 Refills, Maintenance, 02/04/21 13:33:00 EDT, Tablet, [id number] Start Date: 02/04/21 Status: Ordered azelastine-fluticasone nasal 2 times a day, 0 Refills, Maintenance, 08/12/20 9:40:00 EST, Partial fill upon patient request Start Date: 08/12/20 Status: Ordered carvedilol 25 mg oral tablet 25 mg, 1, tablet, By Mouth, 2 times a day, # 180 tablet, Refills 0, Maintenance, 01/31/21 10:50:00 EDT, Partial fill upon patient request if the prescription is for a schedule II opioid drug. Start Date: 01/31/21 Status: Ordered Clobetasol (Eqv-Temovate E) 0.05% topical cream Topically, 2 times a day, 0 Refills, Maintenance, 08/12/20 9:42:00 EST, Partial fill upon patient request Start Date: 08/12/20 Status: Ordered diltiazem 90 mg oral tablet See Instructions, TAKE 1 TABLET BY MOUTH THREE TIMES A DAY, # 270 tablet, Refills 0, Instructions Replace Required Details, Route to Pharmacy Electronically, [facility] STORE [id number], 144.78, cm, 06/13/21 10:03:00 EDT, Height, 71, kg, 04/30/21 8:38:00 EDT, Dry... Start Date: 06/25/21 Status: Ordered Estrace Vaginal Cream 0.1 mg/g See Instructions, 1 Gm Vaginally twice a week, # 42.5 Gm, 0 Refills, Maintenance, 05/30/21 13:19:00EDT, [facility]/pharmacy #[id number], Partial fill upon patient request if the prescription is for a schedule IIopioid drug., 144.78, cm, 05/22/21 10:29:00 EDT, He... Start Date: 05/30/21 Status: Ordered Estrace Vaginal Cream 0.1 mg/g = 1 Gm, Vaginally, Every Wednesday and , # 42.5 Gm, 3 Refills, Maintenance, 09/30/21 9:49:00 EST, [facility]/pharmacy #[id number], Partial fill upon patient request if the prescription is for a schedule II opioid drug., 144.78, cm, 08/20/21 10:02:00 EST, Heig... Start Date: 09/30/21 Status: Ordered ferrous fumarate 325 mg oral tablet 1 tablet = 325 mg, By Mouth, Daily, # 90 tablet, 0 Refills, Maintenance, 09/10/21 12:38:00 EST, Tablet, [facility]/pharmacy #[id number], 144.78, cm, 08/20/21 10:02:00 EST, Height, 71, kg, 04/30/21 8:38:00 EDT, Dry Weight Start Date: 09/10/21 Status: Ordered fluticasone 0.005% topical ointment Topically, 2 times a day, 0 Refills, Maintenance, 08/12/20 9:41:00 EST, Partial fill upon patient request Start Date: 08/12/20 Status: Ordered gabapentin 100 mg oral capsule 100 mg, 1, capsule, By Mouth, 3 times a day, Take 1 capsule daily for 3 days then increase to 2x a day for 3 days then 1 capsule 3 times a day., # 90 capsule, Refills 1, Tot. Refills 1, Maintenance, 07/28/21 11:57:00 EST, Route to Pharmacy Electronica... Start Date: 07/28/21 Status: Ordered meclizine 12.5 mg oral tablet 1 tablet = 12.5 mg, By Mouth, 3 times a day, PRN for dizziness, # 60 tablet, 0 Refills, Maintenance, 03/05/21 15:02:00 EDT, Tablet, [facility]/pharmacy #[id number], 149, cm, 03/05/21 14:05:00 EDT, Height, 74.5, kg, 03/05/21 9:09:00 EDT, Dry Weight Start Date: 03/05/21 Status: Ordered minoxidil 5% topical solution 1 mL = 0.05 Gm, Topically, 2 times a day, # 120 mL, 0 Refills, Maintenance, 03/05/21 15:02:00 EDT, Solution, [facility]/pharmacy #[id number], Partial fill upon patient request if the prescription is for a schedule II opioid drug., 1 mL Topically 2 times a day, 149... Start Date: 03/05/21 Status: Ordered pantoprazole 40 mg oral delayed release tablet 1 tablet, By Mouth, Daily, # 90 tablet, 0 Refills, 144.78, cm, 08/20/21 10:02:00 EST, Height, 71, kg, 04/30/21 8:38:00 EDT, Dry Weight Start Date: 09/01/21 Status: Ordered ProAir HFA 90 mcg/inh inhalation aerosol 1 puffs, Inhalation, 4 times a day, PRN as needed for wheezing, # 18 Gm, 0 Refills, Maintenance, 01/31/21 10:51:00 EDT, Aerosol, Partial fill upon patient request if the prescription is for a schedule II opioid drug. Start Date: 01/31/21 Status: Ordered tiZANidine 2 mg oral tablet 1, tablet, By Mouth, Every 8 hours, PRN, # 90 tablet, Refills 0, NEEDED FOR MUSCLE SPASMS, [facility] Electronically, [place] STORE [id number], 144.78, cm, 08/20/21 10:02:00 EST, Height, 71, kg, 04/30/21 8:38:00 EDT, Dry Weight Start Date: 09/22/21 Status: Ordered torsemide 20 mg oral tablet = 20 mg, one BID, 0 Refills, Maintenance, 05/22/21 10:34:00 EDT, Partial fill upon patient request if the prescription is for a schedule II opioid drug. Start Date: 05/22/21 Status: Ordered Tylenol Extra Strength 500 mg oral tablet 1 tablet = 500 mg, By Mouth, Every 4 hours, PRN as needed for fever, # 24 tablet, 0 Refills, Maintenance, 08/12/20 9:40:00 EST, Tablet, Partial fill upon patient request Start Date: 08/12/20 Status: Ordered Zestril 40 mg oral tablet 1 tablet = 40 mg, By Mouth, Daily, 0 Refills, Maintenance, 08/12/20 9:42:00 EST, Partial fill upon patient request Start Date: 08/12/20 Status: Ordered Problem List Condition Effective Dates Status Health Status Inform ant Anemia(Confirmed) Active Asthma(Confirmed) Active Benign hypertension(Confirmed) Active Benign positional vertigo(Confirmed) Active Chest pain(Confirmed) Active Chronic back pain(Confirmed) Active CKD (chronic kidney disease)(Confirmed) Active Controlled diabetes mellitus with hyperglycemia(Confirmed) Active Ecchymosis(Confirmed) Active Gallstone(Confirmed) Active GERD (gastroesophageal reflu x disease)(Confirmed) Active Generalized pain(Confirmed) Active Gout(Confirmed) Active History of cancer of right breast(Confirmed) Active Hyperlipidemia(Confirmed) Active Hair loss(Confirmed) Active Lumbar radiculitis(Confirmed) Active Polyarthralgia(Confirmed) Active Myofascial pain(Confirmed) Active RUQ pain(Confirmed) Active T2DM (type 2 diabetes mellitus)(Confirmed) Active Social History Social History Type Response Smoking Status Never (less than 100 in lifetime) entered on: 01/31/21 Sex
--- OUTSIDE RECORDS SUMMARY | 2023-08-21 03:52 | XMS_ITS | Continuity of Care Document ---
Author Name Unknown Organization [facility] Address [address] [place] [id number]- Care Team Providers Care Flooring Machine Feeder Name Role Phone Giuliana WINTER, Mati Miranda Primary Care Physician Encounter [facility] [place] Date(s): 04/23/21 - 08/07/[address] [id number] Attending Physician: Tomas JENSEN, Sylvia Maldonado Admitting Physician: Tomas JENSEN, Sylvia Maldonado Referring Physician: Tomas JENSEN, Sylvia Maldonado Allergies, Adverse Reactions, Alerts No Known Medication [...] 06/13/21 10:23:00 EDT, Route to Pharmacy Electronically, [facility]/pharmacy #[id number], 144.78, cm, 06/13/21 10:03:00 EDT, Height, [...] Daily, # 90 tablet, 3 Refills, Maintenance, 05/18/21 13:33:00 EDT, Tablet, [facility]/pharmacy #[id number] Start Date: 02/04/21 Status: Ordered azelastine-fluticasone [...] Replace Required Details, Route to Pharmacy Electronically, [facility] STORE [id number], 144.78, cm, 06/13/21 10:03:00 EDT, Height, 71, kg, 04/30/21 8:38:00 EDT, Dry... Start Date: 06/25/21 Status: Ordered Estrace Vaginal Cream 0.1 mg/g See Instructions, 1 Gm Vaginally twice a week, # 42.5 Gm, 0 Refills, Maintenance, 05/30/21 13:19:00EDT, [facility]/pharmacy #[id number], Partial fill upon patient request if the prescription is for a schedule IIopioid drug., 144.78, cm, 05/22/21 10:29:00 EDT, He... Start Date: 05/30/21 Status: Ordered fluticasone 0.005% topical ointment Topically, 2 times a day, 0 Refills, Maintenance, 08/12/20 9:41:00 EST, Partial fill upon patient request Start Date: 08/12/20 Status: Ordered furosemide 20 mg oral tablet 20 mg, 1, tablet, By Mouth, 2 times a day, Refills 0, Maintenance, 05/02/21 14:05:00 EDT, Partial fill upon patient request if the prescription is for a schedule II opioid drug. Start Date: 05/02/21 Status: Ordered gabapentin 100 mg oral capsule [...] 0 Refills, Maintenance, 03/05/21 15:02:00 EDT, Tablet, [facility]/pharmacy #[id number], 149, cm, 03/05/21 14:05:00 EDT, Height, 74.5, kg, 03/05/21 9:09:00 EDT, Dry Weight Start Date: 03/05/21 Status: Ordered minoxidil 5% topical solution 1 mL = 0.05 Gm, Topically, 2 times a day, # 120 mL, 0 Refills, Maintenance, 03/05/21 15:02:00 EDT, Solution, [facility]/pharmacy #[id number], Partial fill upon patient request if the prescription is for a schedule II opioid drug., 1 mL Topically 2 times a day, 149... Start Date: 03/05/21 Status: Ordered nitrofurantoin macrocrystals 50 mg oral capsule 1 capsule = 50 mg, By Mouth, Daily, for 30 days, # 30 capsule, 2 Refills, Acute 08/28/21 13:16:00 EST, 05/30/21 13:16:00 EDT, [id number], Partial fill upon patient request if the prescriptionis for a schedule II opioid drug., 144.78, cm, 0... Start Date: 05/30/21 Stop Date: 08/28/21 Status: Ordered pantoprazole 40 mg oral delayed release tablet 1 tablet = 40 mg, By Mouth, Daily, # 90 tablet, 1 Refills, Maintenance, 03/05/21 15:07:00 EDT, EC Tablet, 149, cm, 03/05/21 14:05:00 EDT, Height, 74.5, kg, 03/05/21 9:09:00 EDT, Dry Weight Start Date: 03/05/21 Status: Ordered ProAir HFA 90 mcg/inh inhalation aerosol 1 puffs, Inhalation, 4 times a day, PRN as needed for wheezing, # 18 Gm, 0 Refills, Maintenance, 01/31/21 10:51:00 EDT, Aerosol, Partial fill upon patient request if the prescription is for a schedule II opioid drug. Start Date: 01/31/21 Status: Ordered simethicone 125 mg oral capsule 1 capsule = 125 mg, By Mouth, 4 times a day, Take after meals and at bedtime, # 120 capsule, 1 Refills, Maintenance, 03/05/21 15:02:00 EDT, Capsule, [facility]/pharmacy #[id number], 149, cm, 03/05/21 14:05:00 EDT, Height, 74.5, kg, 03/05/21 9:09:00 EDT, Dry Weight Start Date: 03/05/21 Status: Ordered tiZANidine 2 mg oral tablet 1, tablet, By Mouth, Every 8 hours, PRN, # 90 tablet, Refills 0, NEEDED FOR MUSCLE SPASMS, [facility] Electronically, [facility] [id number], 144.78, cm, 07/28/21 10:38:00 EST, Height, 71, kg, 04/30/21 8:38:00 EDT, Dry Weight Start Date: 07/29/21 Status: Ordered torsemide 20 mg oral tablet [...] Effective Dates Status Health Status Inform ant Asthma(Confirmed) Active Benign hypertension(Confirmed) Active Benign positional [...]
--- OUTSIDE RECORDS SUMMARY | 2023-08-21 03:52 | XMS_ITS | Continuity of Care Document ---
Author Name Unknown Organization [facility] Address [address] [place] [id number]- Care Team Providers Care Food Service Lead Name Role Phone Martha Suazo MD Primary Care Physician [place] [facility] [place] [facility] [place] 07/21[place]23 - 08/20/23 [facility] [address] [place] [id number]- Attending Physician: Admtr, Adama Admitting Physician: Admtr, Ar8 Referring Physician: Admtr, Ar8 Allergies, Adverse Reactions, Alerts No Known Medication Allergies Immunizations Given and Recorded Vaccine Date Status Refusal Reason pneumococcal 23-valent vaccine 03/09/16 Recorded pneumococcal 23-valent vaccine 06/22/14 Recorded tetanus/diphtheria/pertussis, acel(Tdap) 03/09/16 Recorded influenza virus vaccine, inactivated 06/22/14 Enrrique rded Medications Albuterol (Eqv-ProAir HFA) 90 mcg/inh inhalation aerosol 2 puffs, Inhalation, Every 6 hours, # 8.5 each, 0 Refills, Maintenance, 10/19/22 7:08:00 EST, [id number], 25, INHALE 2 PUFFS BY MOUTH EVERY 6 HOURS, 144, cm, 10/15/22 9:33:00 EST, Height, 71, kg, 04/30/21 8:38:00 EDT, Dry Weight Start Date: 10/19/22 Status: Ordered atorvastatin 20 mg oral tablet 1 tablet, By Mouth, Daily, # 90 tablet, 1 Refills, Maintenance, 04/13/23 14:24:00 EDT, [id number], 144, cm, 04/01/23 10:43:00 EDT, Height, 71, kg, 04/30/21 8:38:00 EDT, Dry Weight Start Date: 04/13/23 Status: Ordered azelastine-fluticasone nasal 2 times a [...] opioid drug. Start Date: 01/31/21 Status: Ordered Ciclodan 8% topical solution 1 application, Topically, Daily, # 6.6 mL, 2 Refills, Maintenance, 10/19/22 11:30:00 EST, Solution,[facility]/pharmacy #[id number], 1 application Topically Daily, 144, cm, 10/15/22 9:33:00 EST, Height, 71, kg, 04/30/21 8:38:00 EDT, Dry Weight Start Date: 10/19/22 Status: Ordered clotrimazole 1% topical solution 1 application, Topically, 2 times a day, # 120 mL, 1 Refills, Maintenance, 10/15/22 10:12:00 EST, Solution, [facility], 144, cm, 10/15/22 9:33:00 EST, Height, 71, kg, 04/30/21 8:38:00 EDT, Dry Weight Start Date: 10/15/22 Status: Ordered diclofenac 3% topical gel 1 application, Topically, 2 times a day, # 100 Gm, 3 Refills, Maintenance, 01/15/22 13:11:00 EDT, Gel, [facility]/pharmacy #[id number], 1 application Topically 2 times a day, 144, cm, 01/15/22 12:37:00 EDT, Height, 71, kg, 04/30/21 8:38:00 EDT, Dry Weight Start Date: 01/15/22 Status: Ordered diltiazem 90 mg oral tablet See Instructions, TAKE 1 TABLET BY MOUTH THREE TIMES A DAY, # 270 tablet, Refills 0, Instructions Replace Required Details, Route to Pharmacy Electronically, [facility] STORE [id number], 144.78, cm, 06/13/21 10:03:00 EDT, Height, 71, kg, 04/30/21 8:38:00 EDT, Dry... Start Date: 06/25/21 Status: Ordered Estrace Vaginal Cream 0.1 mg/g = 1 Gm, Vaginally, Every Wednesday and , # 42.5 Gm, 2 Refills, Maintenance, 12/16/21 9:44:00 EDT, [facility]/pharmacy #[id number], 144.78, cm, 10/10/21 10:44:00 EST, Height, 71, kg, 04/30/21 8:38:00 EDT, DryWeight Start Date: 12/16/21 Status: Ordered Freestyle Lite Lancets See Instructions, # 30 each, Refills 0, Tot. Refills 0, Maintenance, use as directed for diabetic testing, check blood sugars once per day, 11/27/21 18:52:00 EST, Supply, 144.78, cm, 10/10/21 10:44:00 EST, Height, 71, kg, 04/30/21 8:38:00 EDT, Dry Weight Start Date: 11/27/21 Status: Ordered FREESTYLE LITE TEST STRIP FREESTYLE LITE TEST STRIP, See Instructions, # 50 Unknown, 0 Refills, CHECK BLOOD SUGAR ONCE PER DAY, 144, cm, 01/15/22 12:37:00 EDT, Height, 71, kg, 04/30/21 8:38:00 EDT, Dry Weight Start Date: 01/19/22 Status: Ordered Freestyle Lite Test Strips See Instructions, # 30 each, Refills 0, Tot. Refills 0, Maintenance, Check blood sugar once per day, 11/27/21 18:52:00 EST, Supply, 144.78, cm, 10/10/21 10:44:00 EST, Height, 71, kg, 04/30/21 8:38:00EDT, Dry Weight Start Date: 11/27/21 Status: Ordered Jardiance 10 mg oral tablet 1 tablet = 10 mg, By Mouth, Daily in AM, # 30 tablet, 0 Refills, Maintenance, 08/26/22 14:09:00 EST, Tablet, Partial fill upon patient request if the prescription is for a schedule II opioid drug. Start Date: 08/26/22 Status: Ordered meclizine 25 mg oral tablet 1 tablet = 25 mg, By Mouth, 3 times a day, PRN for dizziness, # 30 tablet, 0 Refills, Maintenance, 10/15/22 10:12:00 EST, Tablet, [facility], 144, cm, 10/15/22 9:33:00 EST, Height, 71, kg, 04/30/21 8:38:00 EDT, Dry Weight Start Date: 10/15/22 Status: Ordered pantoprazole 40 mg oral delayed release tablet 1 tablet, By Mouth, Daily, # 90 tablet, 0 Refills, 02/22/23 10:52:00 EDT, Resent Rx. from 12/16/21, 144, cm, 12/08/22 8:37:00 EDT, Height, 71, kg, 04/30/21 8:38:00 EDT, Dry Weight Start Date: 02/22/23 Status: Ordered Tylenol Extra Strength 500 mg oral tablet 1 tablet = 500 mg, By Mouth, Every 4 hours, PRN as needed for pain, # 100 tablet, 1 Refills, Maintenance, 02/22/23 10:52:00 EDT, Tablet, [facility]/pharmacy #[id number], 144, cm, 12/08/22 8:37:00 EDT, Height, 71,kg, 04/30/21 8:38:00 EDT, Dry Weight Start Date: 02/22/23 Status: Ordered Zestril 40 mg oral tablet 1 tablet = 40 mg, By Mouth, Daily, # 30 tablet, 0 Refills, Maintenance, 12/29/22 16:03:00 EDT, Tablet, [facility]/pharmacy #[id number], Partial, 144, cm, 12/08/22 8:37:00 EDT, Height, 71, kg, 04/30/21 8:38:00 EDT, Dry Weight Start Date: 12/29/22 Status: Ordered Problem List Condition Confirmation Course Effective Dates Status H ealth Status Informant Anemia Confirmed Active Arthritis of knee, right Confirmed Active Asthma Confirmed Active Atrophic vaginitis Confirmed Active Benign hypertension Confirmed Active Benign positional vertigo Confirmed Active Chest pain Confirmed Active Chronic back pain Confirmed Active CKD (chronic kidney disease) Confirmed Active Controlled diabetes mellitus with hyperglycemia Confirmed Active Ecchymosis Confirmed Active Gallstone Confirmed Active GERD (gastroesophageal reflux disease) Confirmed Active Generalized pain Confirmed Active Gout Confirmed Active History of cancer of right breast Confirmed Active Hyperlipidemia Confirmed Active Hair loss Confirmed Active Low back pain radiating to right leg Confirmed Active Lumbar radiculitis Confirmed Active Polyarthralgia Confirmed Active Myofascial pain Confirmed Active Obese class I Confirmed Active Onychomycosis Confirmed Active Pneumonia Confirmed Active RUQ pain Confirmed Active T2DM (type 2 diabetes mellitus) Confirmed Active Vertigo Confirmed Active Social History Social History Type Response Smoking Status Never (less than 100 in lifetime) entered on: 01/31/21 Sex Patient Care team information Care Team Personnel Name: Laura Johnson Position: [facility] Outreach Member Role: Lifetime Consulting Physician Name: Martha Suazo MD Position: [facility] Physician - Primary Care Member Role: PCP Address: Address: [address] [place] [address], [address] [place] [address]- Care Team Related Persons Name: ANANTH ROSARIO Address: [address] [place] [address]
--- OUTSIDE RECORDS SUMMARY | 2023-08-21 03:52 | XMS_ITS | Continuity of Care Document ---
Author Name Unknown Organization [facility] Address Unknown Care Team Providers Care Tailing Hand Name Role Phone Mati Giordano MD Primary Care Physician Encounter [facility] [place] Date(s): 05/23/21 - 07/19/21 [facility] Attending Physician: Lavon Pak Referring Physician: Mati Giordano MD Allergies, Adverse Reactions, Alerts No Known Medication [...] 06/13/21 10:23:00 EDT, Route to Pharmacy Electronically, [facility]/pharmacy #[id number], 144.78, cm, 06/13/21 10:03:00 EDT, Height, [...] Refills, Maintenance, 02/04/21 13:33:00 EDT, Tablet, [id number] Start Date: 02/04/21 Status: Ordered azelastine-fluticasone nasal [...] Replace Required Details, Route to Pharmacy Electronically, [facility] STORE [id number], 144.78, cm, 06/13/21 10:03:00 EDT, Height, 71, kg, 04/30/21 8:38:00 EDT, Dry... Start Date: 06/25/21 Status: Ordered Estrace Vaginal Cream 0.1 mg/g See Instructions, 1 Gm Vaginally twice a week, # 42.5 Gm, 0 Refills, Maintenance, 05/30/21 13:19:00EDT, [facility]/pharmacy #[id number], Partial fill upon patient request if [...] opioid drug. Start Date: 05/02/21 Status: Ordered meclizine 12.5 mg oral tablet 1 tablet = 12.5 mg, By Mouth, 3 times a day, PRN for dizziness, # 60 tablet, 0 Refills, Maintenance, 03/05/21 15:02:00 EDT, Tablet, [facility]/pharmacy #[id number], 149, cm, 03/05/21 14:05:00 EDT, Height, 74.5, kg, 03/05/21 9:09:00 EDT, Dry Weight Start Date: 03/05/21 Status: Ordered minoxidil 5% topical solution 1 mL = 0.05 Gm, Topically, 2 times a day, # 120 mL, 0 Refills, Maintenance, 03/05/21 15:02:00 EDT, Solution, [facility]/pharmacy #[id number], Partial fill upon patient request if [...] 1 Refills, Maintenance, 03/05/21 15:02:00 EDT, Capsule, [facility]/pharmacy #[id number], 149, cm, 03/05/21 14:05:00 EDT, Height, 74.5, kg, 03/05/21 9:09:00 EDT, Dry Weight Start Date: 03/05/21 Status: Ordered tiZANidine 2 mg oral tablet 1, tablet, By Mouth, Every 8 hours, PRN, # 90 tablet, Refills 0, NEEDED FOR MUSCLE SPASMS, [facility], [facility] [id number], 144.78, cm, 06/13/21 10:03:00 EDT, Height, 71, kg, 04/30/21 8:38:00 EDT, Dry Weight Start Date: 07/02/21 Status: Ordered torsemide 20 mg oral tablet [...] pain(Confirmed) Active CKD (chronic kidney disease)(Confirmed) Active Coughing(Confirmed) Active Ecchymosis(Confirmed) Active Gallstone(Confirmed) Active GERD (gastroesophageal reflu x disease)(Confirmed) Active Gout(Confirmed) Active History of cancer of right breast(Confirmed) Active Hyperlipidemia(Confirmed) Active Urinary frequency(Confirmed) Active Hair loss(Confirmed) Active Lumbar radiculitis(Confirmed) Active Polyarthralgia(Confirmed) Active Myofascial pain(Confirmed) Active RUQ pain(Confirmed) Active Edema(Confirmed) Active T2DM (type 2 diabetes mellitus)(Confirmed) Active Urinary incontinence(Confirmed) Active Social History Social History Type Response Smoking Status Never (less than 100 in lifetime) entered on: 01/31/21 Sex
--- OUTSIDE RECORDS SUMMARY | 2023-08-21 03:52 | XMS_ITS | Continuity of Care Document ---
Author Name Unknown Organization [facility] Address [address] [place] [address]- Care Team Providers Care Aircraft Quality Control Inspector Name Role Phone Mati Giordano MD Primary Care Physician Encounter [facility] [place] Date(s): 03/14/21 - 07/03/[address] [address] Discharge Disposition: A-D/C Home Attending Physician: Mati Giordano MD Admitting Physician: Mati Giordano MD Referring Physician: Mati Giordano MD Allergies, Adverse [...] 06/13/21 10:23:00 EDT, Route to Pharmacy Electronically, [facility]/pharmacy #[id number], 144.78, cm, 06/13/21 10:03:00 EDT, Height, [...] 3 Refills, Maintenance, 02/04/21 13:33:00 EDT, Tablet, [facility]/pharmacy #[id number] Start Date: 02/04/21 Status: Ordered azelastine-fluticasone [...] Replace Required Details, Route to Pharmacy Electronically, [facility] STORE [id number], 144.78, cm, 06/13/21 10:03:00 EDT, Height, 71, kg, 04/30/21 8:38:00 EDT, Dry... Start Date: 06/25/21 Status: Ordered Estrace Vaginal Cream 0.1 mg/g See Instructions, 1 Gm Vaginally twice a week, # 42.5 Gm, 0 Refills, Maintenance, 05/30/21 13:19:00EDT, [facility]/pharmacy #[id number], Partial fill upon patient request if [...] 0 Refills, Maintenance, 03/05/21 15:02:00 EDT, Tablet, [facility]/pharmacy #[id number], 149, cm, 03/05/21 14:05:00 EDT, Height, 74.5, kg, 03/05/21 9:09:00 EDT, Dry Weight Start Date: 03/05/21 Status: Ordered minoxidil 5% topical solution 1 mL = 0.05 Gm, Topically, 2 times a day, # 120 mL, 0 Refills, Maintenance, 03/05/21 15:02:00 EDT, Solution, [id number], Partial fill upon patient request [...] a schedule II opioid drug., 144.78, cm, 090... Start Date: 05/30/21 Stop Date: 08/28/21 Status: [...] 1 Refills, Maintenance, 03/05/21 15:02:00 EDT, Capsule, [facility]/pharmacy #[id number], 149, cm, 03/05/21 14:05:00 EDT, Height, 74.5, kg, 03/05/21 9:09:00 EDT, Dry Weight Start Date: 03/05/21 Status: Ordered tiZANidine 2 mg oral tablet 1, tablet, By Mouth, Every 8 hours, PRN, # 90 tablet, Refills 0, NEEDED FOR MUSCLE SPASMS, [facility], [facility] STORE [id number], 144.78, cm, 06/13/21 10:03:00 EDT, Height, 71, [...]
--- OUTSIDE RECORDS SUMMARY | 2023-08-21 03:52 | XMS_ITS | Continuity of Care Document ---
Author Name Unknown Organization [facility] Henry mccarthys [facility] Address [address], 4t [place] [address]- Care Team Providers Care Insurance Licensing Supervisor Name Role Phone Mati Giordano MD Primary Care Physician [phone] [place] [facility] [place](s[place] 09/30/21 - 10/30/21 [facility] Henry M[facility] [address], [address]th [place] [address]- Attending Physician: Adama Adhikari Admitting Physician: AdmAdama moroe Referring Physician: AdmtrAdama Allergies, Adverse Reactions, Alerts No Known Medication [...] 06/13/21 10:23:00 EDT, Route to Pharmacy Electronically, [facility]/pharmacy #[id number], 144.78, cm, 06/13/21 10:03:00 EDT, [...] 3 Refills, Maintenance, 02/04/21 13:33:00 EDT, Tablet, [facility]/pharmacy #[id number] Start Date: 02/04/21 Status: Ordered azelastine-fluticasone [...] Replace Required Details, Route to Pharmacy Electronically, [facility] STORE [id number], 144.78, cm, 06/13/21 10:03:00 EDT, Height, 71, kg, 04/30/21 8:38:00 EDT, Dry... Start Date: 06/25/21 Status: Ordered Estrace Vaginal Cream 0.1 mg/g See Instructions, 1 Gm Vaginally twice a week, # 42.5 Gm, 0 Refills, Maintenance, 05/30/21 13:19:00EDT, [facility]/pharmacy #[id number], Partial fill upon patient request if the prescription is for a schedule IIopioid drug., 144.78, cm, 05/22/21 10:29:00 EDT, He... Start Date: 05/30/21 Status: Ordered Estrace Vaginal Cream 0.1 mg/g = 1 Gm, Vaginally, Every Wednesday and , # 42.5 Gm, 3 Refills, Maintenance, 09/30/21 9:49:00 EST, [facility]/pharmacy #[id number], Partial fill upon patient request if the prescription is for a schedule II opioid drug., 144.78, cm, 12/01/21 10:02:00 EST, Heig... Start Date: 09/30/21 Status: Ordered ferrous fumarate 325 mg oral tablet 1 tablet = 325 mg, By Mouth, Daily, # 90 tablet, 0 Refills, Maintenance, 09/10/21 12:38:00 EST, Tablet, [facility]/pharmacy #[id number], 144.78, cm, 08/20/21 10:02:00 EST, Height, [...] 0 Refills, Maintenance, 03/05/21 15:02:00 EDT, Tablet, [facility]/pharmacy #[id number], 149, cm, 03/05/21 14:05:00 EDT, Height, 74.5, kg, 03/05/21 9:09:00 EDT, Dry Weight Start Date: 03/05/21 Status: Ordered minoxidil 5% topical solution 1 mL = 0.05 Gm, Topically, 2 times a day, # 120 mL, 0 Refills, Maintenance, 03/05/21 15:02:00 EDT, Solution, [facility]/pharmacy #[id number], Partial fill upon patient request [...] tablet, Refills 0, NEEDED FOR MUSCLE SPASMS, [facility] Electronically, [facility] STORE [id number], 144.78, cm, 10/10/21 10:44:00 EST, Height, 71, kg, 04/30/21 8:38:00 EDT, Dry Weight Start Date: 10/23/21 Status: Ordered torsemide 20 mg oral tablet [...]
--- OUTSIDE RECORDS SUMMARY | 2023-08-21 03:52 | XMS_ITS | Continuity of Care Document ---
Author Name Unknown Organization [facility] Address [address] [place] [address]- Care Team Providers Care Production Recorder Name Role Phone Mati Giordano MD Primary Care Physician [place] [facility] [place](s): 04/18/21 - 05/18/21 [facility] [address] [place] [address]- Attending Physician: Adama Adhikari Admitting Physician: Adama Adhikari Referring Physician: Admtr, [id number] Allergies, Adverse Reactions, Alerts No Known Medication Allergies Medications aspirin 81 mg oral delayed release tablet 81 mg, 1, tablet, By Mouth, Daily, Refills 0, Maintenance, 08/12/20 9:42:00 EST, Partial fill upon patient request Start Date: 08/12/20 Status: Ordered atorvastatin 20 mg oral tablet 1 tablet = 20 mg, By Mouth, Daily, # 90 tablet, 3 Refills, Maintenance, 02/04/21 13:33:00 EDT, Tablet, [id number] Start Date: 02/04/21 Status: Ordered azelastine-fluticasone nasal [...] Status: Ordered diltiazem 90 mg oral tablet 90 mg, 1, tablet, By Mouth, 3 times a day, # 120 tablet, Refills 0, Maintenance, 01/31/21 10:50:00 EDT, Partial fill upon patient request if the prescription is for a schedule II opioid drug. Start Date: 01/31/21 Status: Ordered fluticasone 0.005% topical ointment Topically, [...] 0 Refills, Maintenance, 03/05/21 15:02:00 EDT, Tablet, [facility]/pharmacy #[id number], 149, cm, 03/05/21 14:05:00 EDT, Height, 74.5, kg, 03/05/21 9:09:00 EDT, Dry Weight Start Date: 03/05/21 Status: Ordered minoxidil 5% topical solution 1 mL = 0.05 Gm, Topically, 2 times a day, # 120 mL, 0 Refills, Maintenance, 03/05/21 15:02:00 EDT, Solution, [facility]/pharmacy #[id number], Partial fill upon patient request if [...] 1 Refills, Maintenance, 03/05/21 15:02:00 EDT, Capsule, [id number], 149, cm, 03/05/21 14:05:00 EDT, Height, 74.5, kg, 03/05/21 9:09:00 EDT, Dry Weight Start Date: 03/05/21 Status: Ordered tiZANidine 2 mg oral tablet 1, tablet, By Mouth, Every 8 hours, PRN, # 90 tablet, Refills 0, Tot. Refills 0, Maintenance, NEEDED FOR MUSCLE SPASMS, 05/02/21 16:07:00 EDT, Route to [facility] Electronically, [facility], 144.78, cm, 05/02/21 12:53:00 EDT, Height, 71, kg, 08... Start Date: 05/02/21 Status: Ordered Tylenol Extra Strength 500 mg [...] Benign hypertension(Confirmed) Active Benign positional vertigo(Confirmed) Active Chronic back pain(Confirmed) Active CKD (chronic kidney disease)(Confirmed) Active Coughing(Confirmed) Active GERD (gastroesophageal reflu x disease)(Confirmed) Active Gout(Confirmed) Active History of cancer of right breast(Confirmed) Active Hyperlipidemia(Confirmed) Active Urinary frequency(Confirmed) Active Hair loss(Confirmed) Active Lumbar radiculitis(Confirmed) Active Myofascial pain(Confirmed) Active RUQ pain(Confirmed) Active Edema(Confirmed) Active T2DM (type 2 diabetes mellitus)(Confirmed) Active Urinary incontinence(Confirmed) Active Social History Social History Type Response Smoking Status Never (less than 100 in lifetime) entered on: 01/31/21 Sex
--- OUTSIDE RECORDS SUMMARY | 2023-08-21 03:52 | XMS_ITS | Continuity of Care Document ---
Author Name Unknown Organization [facility] Address [address] [place] [address]- Care Team Providers Care Hospital Account Liaison Name Role Phone Name Shayne WINTER Primary Care Physician [phone] Encounter [facility] [place] Date(s): 10/18/19 - 01/04/20 [facility] [address] [place], [place] [id number]- [facility] Attending Physician: Dejuan Herrera MD Admitting Physician: Dejuan Herrera MD Referring Physician: Shayne Michelle MD Referring Physician: Alden Rene
--- OUTSIDE RECORDS SUMMARY | 2023-08-21 03:52 | XMS_ITS | Continuity of Care Document ---
Author Name Unknown Organization [facility] ford [facility] Address [address], [address]t [place] [address]- Care Team Providers Care Paper Cup Machine Tender Name Role Phone Mati Giordano MD Primary Care Physician [facility] [id number] Date(s): 03/19/21 - 06/29/21 [facility] Henrynano MabryBluPandas [facility] [address] 4th [address] [place], [place] [address] Attending Physician: Michelle Kemp MD Admitting Physician: Michelle Kemp MD Referring Physician: Mati Giordano MD Allergies, [...] 06/13/21 10:23:00 EDT, Route to Pharmacy Electronically, [facility]/pharmacy #[id number], 144.78, cm, 06/13/21 10:03:00 EDT, Height, 71, [...] 3 Refills, Maintenance, 02/04/21 13:33:00 EDT, Tablet, [facility]/pharmacy #[id number] Start Date: 02/04/21 Status: Ordered azelastine-fluticasone [...] Replace Required Details, Route to Pharmacy Electronically, [facility] STORE [id number], 144.78, cm, 06/13/21 10:03:00 EDT, Height, 71, kg, 04/30/21 8:38:00 EDT, Dry... Start Date: 06/25/21 Status: Ordered Estrace Vaginal Cream 0.1 mg/g See Instructions, 1 Gm Vaginally twice a week, # 42.5 Gm, 0 Refills, Maintenance, 05/30/21 13:19:00EDT, [facility]/pharmacy #[id number], Partial fill upon patient request [...] 0 Refills, Maintenance, 03/05/21 15:02:00 EDT, Tablet, [facility]/pharmacy #[id number], 149, cm, 03/05/21 14:05:00 EDT, [...] 1 Refills, Maintenance, 03/05/21 15:02:00 EDT, Capsule, [facility]/pharmacy #[id number], 149, cm, 03/05/21 14:05:00 EDT, Height, 74.5, kg, 03/05/21 9:09:00 EDT, Dry Weight Start Date: 03/05/21 Status: Ordered tiZANidine 2 mg oral tablet 1, tablet, By Mouth, Every 8 hours, PRN, # 90 tablet, Refills 0, [facility] STORE [id number], 144.78, cm, 05/22/21 10:29:00 EDT, Height, 71, kg, 04/30/21 8:38:00 EDT, Dry Weight Start Date: 05/31/21 Status: Ordered torsemide 20 mg oral tablet [...]
--- OUTSIDE RECORDS SUMMARY | 2023-08-21 03:52 | XMS_ITS | Continuity of Care Document ---
Author Name Unknown Organization [facility] Address [address] [place] [address]- Care Team Providers Care Wellness Assistant Name Role Phone Name Shayne WINTER Primary Care Physician [phone] [id number] Date(s[facility] 08/29/20 - 09/28/20 [facility] [address] [place] [address] Medications allopurinol 300 mg oral tablet 300 mg, 1, tablet, By Mouth, Daily, Refills 0, Maintenance, 08/12/20 9:40:00 EST, Partial fill uponpatient request Start Date: 08/12/20 Status: Ordered aspirin 81 mg oral delayed release tablet 81 mg, 1, tablet, By Mouth, Daily, Refills 0, Maintenance, 08/12/20 9:42:00 EST, Partial fill upon patient request Start Date: 08/12/20 Status: Ordered atorvastatin 10 mg oral tablet 1 tablet = 10 mg, By Mouth, Daily, 0 Refills, Maintenance, 08/12/20 9:43:00 EST, Partial fill upon patient request Start Date: 08/12/20 Status: Ordered azelastine-fluticasone nasal 2 times a day, 0 Refills, Maintenance, 08/12/20 9:40:00 EST, Partial fill upon patient request Start Date: 08/12/20 Status: Ordered carvedilol 3.125 mg oral tablet 3.125 mg, 1, tablet, By Mouth, 2 times a day, # 60 tablet, Refills 0, Maintenance, 08/12/20 9:43:00EST, Partial fill upon patient request Start Date: 08/12/20 Status: Ordered Clobetasol (Eqv-Temovate E) 0.05% topical cream Topically, 2 times a day, 0 Refills, Maintenance, 08/12/20 9:42:00 EST, Partial fill upon patient request Start Date: 08/12/20 Status: Ordered Dilantin 30 mg oral capsule, extended release 1 capsule = 30 mg, By Mouth, Daily at bedtime, # 90 capsule, 0 Refills, Maintenance, 08/12/20 9:41:00 EST, CR Capsule, Partial fill upon patient request Start Date: 08/12/20 Status: Ordered fluticasone 0.005% topical ointment Topically, 2 times a day, 0 Refills, Maintenance, 08/12/20 9:41:00 EST, Partial fill upon patient request Start Date: 08/12/20 Status: Ordered hydrochlorothiazide 25 mg oral tablet 25 mg, 1, tablet, By Mouth, Daily, # 90 tablet, Refills 0, Maintenance, 08/12/20 9:43:00 EST, Partial fill upon patient request Start Date: 08/12/20 Status: Ordered pantoprazole 20 mg oral delayed release tablet 1 tablet = 20 mg, By Mouth, Daily, # 90 tablet, 0 Refills, Maintenance, 08/12/20 9:42:00 EST, CR Tablet Start Date: 08/12/20 Status: Ordered traMADol 50 mg oral tablet 1 tablet = 50 mg, By Mouth, Every 4 hours, PRN for pain, # 60 tablet, 0 Refills, Maintenance, 08/12/20 9:43:00 EST, Tablet, Partial fill upon patient request Start Date: 08/12/20 Status: Ordered Tylenol Extra Strength 500 mg [...] Effective Dates Status Health Status Inform ant Lumbar radiculitis(Confirmed) Active Myofascial pain(Confirmed) Active
--- OUTSIDE RECORDS SUMMARY | 2023-08-21 03:52 | XMS_ITS | Continuity of Care Document ---
Author Name Unknown Organization [facility] Address Unknown Care Team Providers Care Dialysis Nurse Name Role Phone Mati Giordano MD Primary Care Physician [id number] Date(s): 07/02/21 - 08/01/21 [facility] Attending Physician: Adama Adhikari Admitting Physician: Adama Adhikari Referring Physician: Adama Adhikari Allergies, Adverse Reactions, Alerts No Known Medication [...] 06/13/21 10:23:00 EDT, Route to Pharmacy Electronically, [facility]/pharmacy #[id number], 144.78, cm, 06/13/21 10:03:00 EDT, Height, [...] Refills, Maintenance, 02/04/21 13:33:00 EDT, Tablet, [facility] Start Date: 02/04/21 Status: Ordered azelastine-fluticasone nasal [...] Replace Required Details, Route to [facility] Electronically, [facility], 144.78, cm, 06/13/21 10:03:00 EDT, Height, 71, kg, 04/30/21 8:38:00 EDT, Dry... Start Date: 06/25/21 Status: Ordered Estrace Vaginal Cream 0.1 mg/g See Instructions, 1 Gm Vaginally twice a week, # 42.5 Gm, 0 Refills, Maintenance, 05/30/21 13:19:00EDT, [facility]/pharmacy #[id number], Partial fill upon patient request if [...] 0 Refills, Maintenance, 03/05/21 15:02:00 EDT, Tablet, [facility]/pharmacy #[id number], 149, cm, 03/05/21 14:05:00 EDT, Height, 74.5, kg, 03/05/21 9:09:00 EDT, Dry Weight Start Date: 03/05/21 Status: Ordered minoxidil 5% topical solution 1 mL = 0.05 Gm, Topically, 2 times a day, # 120 mL, 0 Refills, Maintenance, 03/05/21 15:02:00 EDT, Solution, [facility]/pharmacy #[id number], Partial fill upon patient request if the prescription is for a schedule II opioid drug., 1 mL Topically 2 times a day, 149... Start Date: 03/05/21 Status: Ordered nitrofurantoin macrocrystals 50 mg oral capsule 1 capsule = 50 mg, By Mouth, Daily, for 30 days, # 30 capsule, 2 Refills, Acute 08/28/21 13:16:00 EST, 05/30/21 13:16:00 EDT, [facility]/pharmacy #[id number], Partial fill upon patient request if [...] 1 Refills, Maintenance, 03/05/21 15:02:00 EDT, Capsule, [facility]/pharmacy #[id number], 149, cm, 03/05/21 14:05:00 EDT, Height, 74.5, kg, 03/05/21 9:09:00 EDT, Dry Weight Start Date: 03/05/21 Status: Ordered tiZANidine 2 mg oral tablet 1, tablet, By Mouth, Every 8 hours, PRN, # 90 tablet, Refills 0, NEED[facility] SPASMS[facility] ST[facility] 28576, 144.78, cm, 07/28/21 10:38:00 EST, Height, 71, [...]
--- OUTSIDE RECORDS SUMMARY | 2023-08-21 03:52 | XMS_ITS | Continuity of Care Document ---
Author Name Unknown Organization [facility] Address [address] [place] [address]- Care Team Providers Care Coke Worker Name Role Phone Mati Giordano MD Primary Care Physician [phone] Encounter [facility] [place] Date(s): 04/03/21 - 05/03/[address] [address] Attending Physician: Adama Adhikari Admitting Physician: AdmtrAdama Referring Physician: Admtr, [id number] Allergies, Adverse Reactions, [...] Refills, Maintenance, 02/04/21 13:33:00 EDT, Tablet, [id number] Start Date: 02/04/21 Status: Ordered azelastine-fluticasone nasal [...] 0 Refills, Maintenance, 03/05/21 15:02:00 EDT, Tablet, [facility]/pharmacy #[id number], 149, cm, 03/05/21 14:05:00 EDT, Height, 74.5, kg, 03/05/21 9:09:00 EDT, Dry Weight Start Date: 03/05/21 Status: Ordered minoxidil 5% topical solution 1 mL = 0.05 Gm, Topically, 2 times a day, # 120 mL, 0 Refills, Maintenance, 03/05/21 15:02:00 EDT, Solution, [facility]/pharmacy #[id number], Partial fill upon patient request [...] EDT, Route to Pharmacy Electronically, [facility], 144.78, cm, 05/02/21 12:53:00 EDT, Height, 71, kg, 08/... Start Date: 05/02/21 Status: Ordered Tylenol Extra [...]
--- OUTSIDE RECORDS SUMMARY | 2023-08-21 03:52 | XMS_ITS | Continuity of Care Document ---
Author Name Unknown Organization [facility] Henry mccarthys [facility] Address [address], 4t [place] [address]- Care Team Providers Care Personal Care Aide Name Role Phone Mati Giordano MD Primary Care Physician Encounter [facility] [place] Date(s): 04/30/21 - 05/30/21 [facility] Henry [facility] [address]th [place] [address]- Allergies, Adverse Reactions, Alerts No Known Medication Allergies Immunizations Given and Recorded Vaccine Date Status Refusal Reason pneumococcal 23-valent vaccine 03/09/16 Recorded pneumococcal 23-valent vaccine 06/22/14 Recorded tetanus/diphtheria/pertussis, acel(Tdap) 03/09/16 Recorded influenza virus vaccine, inactivated 06/22/14 Enrrique rded Medications aspirin 81 mg oral delayed release tablet 81 mg, 1, tablet, By Mouth, Daily, Refills 0, Maintenance, 08/12/20 9:42:00 EST, Partial fill upon patient request Start Date: 08/12/20 Status: Ordered atorvastatin 20 mg oral tablet 1 tablet = 20 mg, By Mouth, Daily, # 90 tablet, 3 Refills, Maintenance, 02/04/21 13:33:00 EDT, Tablet, [id number] Start Date: 02/04/21 Status: Ordered azelastine-fluticasone nasal [...] opioid drug. Start Date: 01/31/21 Status: Ordered Estrace Vaginal Cream 0.1 mg/g See Instructions, 1 Gm Vaginally twice a week, # 42.5 Gm, 0 Refills, Maintenance, 05/30/21 13:19:00EDT, [facility]/pharmacy #[id number], Partial fill upon patient request [...] opioid drug. Start Date: 05/02/21 Status: Ordered Macrobid macrocrystals-monohydrate 100 mg oral capsule 1 capsule = 100 mg, By Mouth, 2 times a day, for 5 days, # 10 capsule, 0 Refills, Acute 06/04/21 13:15:00 EDT, 05/30/21 13:15:00 EDT, [facility]/pharmacy #[id number], Partial fill upon patient request if the prescription is for a schedule II opioid drug., 144.78,... Start Date: 05/30/21 Stop Date: 06/04/21 Status: Ordered meclizine 12.5 mg oral tablet 1 tablet = 12.5 mg, By Mouth, 3 times a day, PRN for dizziness, # 60 tablet, 0 Refills, Maintenance, 03/05/21 15:02:00 EDT, Tablet, [facility]/pharmacy #[id number], 149, cm, 03/05/21 14:05:00 EDT, Height, 74.5, kg, 03/05/21 9:09:00 EDT, Dry Weight Start Date: 03/05/21 Status: Ordered minoxidil 5% topical solution 1 mL = 0.05 Gm, Topically, 2 times a day, # 120 mL, 0 Refills, Maintenance, 03/05/21 15:02:00 EDT, Solution, [facility]/pharmacy #[id number], Partial fill upon patient request [...] Refills, Maintenance, 03/05/21 15:02:00 EDT, Capsule, [facility]/pharmacy #[id number], 149, cm, 03/05/21 14:05:00 EDT, Height, 74.5, kg, 03/05/21 9:09:00 EDT, Dry Weight Start Date: 03/05/21 Status: Ordered tiZANidine 2 mg oral tablet 1, tablet, By Mouth, Every 8 hours, PRN, # 90 tablet, Refills 0, Tot. Refills 0, Maintenance, NEEDED FOR MUSCLE SPASMS, 05/02/21 16:07:00 EDT, Route to Pharmacy Electronically, [facility] STORE 25970, 144.78, cm, 05/02/21 12:53:00 EDT, Height, 71, kg, 08/... Start Date: 05/02/21 Status: Ordered torsemide 20 mg oral tablet [...] CKD (chronic kidney disease)(Confirmed) Active Coughing(Confirmed) Active Gallstone(Confirmed) Active GERD (gastroesophageal reflu x [...]
--- OUTSIDE RECORDS SUMMARY | 2023-08-21 03:53 | XMS_ITS | Continuity of Care Document ---
Author Name Unknown Organization [facility] Address [address] [place] [address]- Care Team Providers Care Molder Punch Name Role Phone Mati Giordano MD Primary Care Physician Encounter [facility] Date(s): 12/08/22 - 01/07/23 [facility] [address] [place] [phone]- Attending Physician: Adama Adhikari Admitting Physician: AdmtrAdama Referring Physician: Admtr, Adama Allergies, Adverse Reactions, Alerts No Known Medication Allergies Immunizations Given and Recorded Vaccine Date Status Refusal Reason pneumococcal 23-valent vaccine 03/09/16 Recorded pneumococcal 23-valent vaccine 06/22/14 Recorded tetanus/diphtheria/pertussis, acel(Tdap) 03/09/16 Recorded influenza virus vaccine, inactivated 06/22/14 Enrrique rded Medications Albuterol (Eqv-ProAir HFA) 90 mcg/inh inhalation aerosol 2 puffs, Inhalation, Every 6 hours, # 8.5 each, 0 Refills, Maintenance, 10/19/22 7:08:00 EST, [id number], 25, INHALE 2 PUFFS BY MOUTH EVERY 6 HOURS, 144, cm, 10/15/22 9:33:00 EST, Height, 71, kg, 04/30/21 8:38:00 EDT, Dry Weight Start Date: 10/19/22 Status: Ordered aspirin 81 mg oral delayed release tablet 81 mg, 1, tablet, By Mouth, Daily, Refills 0, Maintenance, 08/12/20 9:42:00 EST, Partial fill upon patient request Start Date: 08/12/20 Status: Ordered atorvastatin 20 mg oral tablet 1 tablet, By Mouth, Daily, # 90 tablet, 1 Refills, Maintenance, 12/23/22 4:27:00 EDT, [id number], 144, cm, 12/08/22 8:37:00 EDT, Height, 71, kg, 04/30/21 8:38:00 EDT, Dry Weight Start Date: 12/23/22 Status: Ordered azelastine-fluticasone nasal 2 times a day, 0 Refills, Maintenance, 08/12/20 9:40:00 EST, Partial fill upon patient request Start Date: 08/12/20 Status: Ordered Azithromycin 5 Day Dose Pack 250 mg oral tablet 1 pack/packet, By Mouth, Once, # 6 tablet, 0 Refills, Soft Stop, 09/23/22 15:12:00 EST, Tablet, [facility]/pharmacy #[id number], Partial fill upon patient request if the prescription is for a schedule II opioid drug., 144, cm, 09/23/22 14:54:00 EST, Height, 71, kg... Start Date: 09/23/22 Status: Ordered carvedilol 25 mg oral tablet 25 mg, 1, tablet, By Mouth, 2 times a day, # 180 tablet, Refills 0, Maintenance, 01/31/21 10:50:00 EDT, Partial fill upon patient request if the prescription is for a schedule II opioid drug. Start Date: 01/31/21 Status: Ordered Ciclodan 8% topical solution 1 application, Topically, Daily, # 6.6 mL, 2 Refills, Maintenance, 10/19/22 11:30:00 EST, Solution,[facility]/pharmacy #[id number], 1 application Topically Daily, 144, cm, 10/15/22 9:33:00 EST, Height, 71, kg, 04/30/21 8:38:00 EDT, Dry Weight Start Date: 10/19/22 Status: Ordered Clobetasol (Eqv-Temovate E) 0.05% topical cream Topically, 2 times a day, 0 Refills, Maintenance, 08/12/20 9:42:00 EST, Partial fill upon patient request Start Date: 08/12/20 Status: Ordered clotrimazole 1% topical solution 1 application, Topically, 2 times a day, # 120 mL, 1 Refills, Maintenance, 10/15/22 10:12:00 EST, Solution, [facility], 144, cm, 10/15/22 9:33:00 EST, Height, 71, kg, 04/30/21 8:38:00 EDT, Dry Weight Start Date: 10/15/22 Status: Ordered diclofenac 3% topical gel 1 application, Topically, 2 times a day, # 100 Gm, 3 Refills, Maintenance, 01/15/22 13:11:00 EDT, Gel, [facility]/pharmacy #[id number], 1 application Topically 2 times a day, 144, cm, 01/15/22 12:37:00 EDT, Height, 71, kg, 04/30/21 8:38:00 EDT, Dry Weight Start Date: 01/15/22 Status: Ordered diltiazem 90 mg oral tablet See Instructions, TAKE 1 TABLET BY MOUTH THREE TIMES A DAY, # 270 tablet, Refills 0, Instructions Replace Required Details, Route to Pharmacy Electronically, [id number], 144.78, cm, 06/13/21 10:03:00 EDT, Height, 71, kg, 04/30/21 8:38:00 EDT, Dry... Start Date: 06/25/21 Status: Ordered Estrace Vaginal Cream 0.1 mg/g = 1 Gm, Vaginally, Every Wednesday and , # 42.5 Gm, 2 Refills, Maintenance, 12/16/21 9:44:00 EDT, [facility]/pharmacy #[id number], 144.78, cm, 10/10/21 10:44:00 EST, Height, 71, kg, 04/30/21 8:38:00 EDT, DryWeight Start Date: 12/16/21 Status: Ordered Ferrets 325 mg oral tablet See Instructions, TAKE 1 TABLET BY MOUTH EVERY DAY, # 90 tablet, 1 Refills, Maintenance, 12/26/22 13:28:00 EDT, [id number], 144, cm, 12/08/22 8:37:00 EDT, Height, 71, kg, 04/30/21 8:38:00 EDT, Dry Weight Start Date: 12/26/22 Status: Ordered fluticasone 0.005% topical ointment Topically, 2 times a day, 0 Refills, Maintenance, 08/12/20 9:41:00 EST, Partial fill upon patient request Start Date: 11/23/20 Status: Ordered Freestyle Lite Lancets See Instructions, [...] Dry Weight Start Date: 11/27/21 Status: Ordered gabapentin 100 mg oral capsule 100 mg, 1, capsule, By Mouth, 3 times a day, Take 1 capsule daily for 3 days then increase to 2x a day for 3 days then 1 capsule 3 times a day., # 90 capsule, Refills 1, Tot. Refills 1, Maintenance, 07/28/21 11:57:00 EST, Route to Pharm[facility]... Start Date: 07/28/21 Status: Ordered Jardiance 10 mg oral tablet 1 tablet = 10 mg, By Mouth, Daily in AM, # 30 tablet, 0 Refills, Maintenance, 08/26/22 14:09:00 EST, Tablet, Partial fill upon patient request if the prescription is for a schedule II opioid drug. Start Date: 08/26/22 Status: Ordered Lyrica 25 mg oral capsule 1 capsule = 25 mg, By Mouth, 2 times a day, # 60 capsule, 3 Refills, Maintenance, 01/15/22 13:11:00EDT, Capsule, [facility]/pharmacy #[id number], 144, cm, 01/15/22 12:37:00 EDT, Height, 71, kg, 04/30/21 8:38:00 EDT, Dry Weight Start Date: 01/15/22 Status: Ordered meclizine 12.5 mg oral tablet 1 tablet = 12.5 mg, By Mouth, 3 times a day, PRN for dizziness, # 60 tablet, 0 Refills, Maintenance, 03/05/21 15:02:00 EDT, Tablet, [facility]/pharmacy #[id number], 149, cm, 03/05/21 14:05:00 EDT, Height, 74.5, kg, 03/05/21 9:09:00 EDT, Dry Weight Start Date: 03/05/21 Status: Ordered meclizine 25 mg oral tablet 1 tablet = 25 mg, By Mouth, 3 times a day, PRN for dizziness, # 30 tablet, 0 Refills, Maintenance, 10/15/22 10:12:00 EST, Tablet, [facility], 144, cm, 10/15/22 9:33:00 EST, Height, 71, kg, 04/30/21 8:38:00 EDT, Dry Weight Start Date: 10/15/22 Status: Ordered minoxidil 5% topical solution 1 mL = 0.05 Gm, Topically, 2 times a day, # 120 mL, 0 Refills, Maintenance, 03/05/21 15:02:00 EDT, Solution, [facility]/pharmacy #[id number], Partial fill upon patient request if the prescription is for a schedule II opioid drug., 1 mL Topically 2 times a day, 149... Start Date: 03/05/21 Status: Ordered pantoprazole 40 mg oral delayed release tablet 1 tablet, By Mouth, Daily, # 90 tablet, 0 Refills, 12/29/22 14:32:00 EDT, Resent Rx. from 12/16/21, 144, cm, 12/08/22 8:37:00 EDT, Height, 71, kg, 04/30/21 8:38:00 EDT, Dry Weight Start Date: 12/29/22 Status: Ordered Tylenol Extra Strength 500 mg [...] 0 Refills, Maintenance, 12/29/22 16:03:00 EDT, Tablet, [id number], Partial, 144, cm, 12/08/22 8:37:00 EDT, [...] Care Team Personnel Name: Laura Johnson Position: [facility] Outreach Member Role: Lifetime Consulting Physician Name: Mati Giordano MD Position: [facility] Primary Care Physician Member Role: PCP Address: Address: [address] [place] [address], [address] [place] [address]- Care Team Related Persons Name: GRUBBSANANTH YAN Address: home [address] [place] [address] [place] [address]
--- OUTSIDE RECORDS SUMMARY | 2023-08-21 03:53 | XMS_ITS | Continuity of Care Document ---
Author Name Unknown Organization [facility] Address [address] [place] [address]- Care Team Providers Care Laundry Aide Name Role Phone Mati Giordano MD Primary Care Physician Encounter [facility] Date(s): 04/29/22 - 05/29/22 [facility] [address] [place] [address]- Attending Physician: AdmAdama moore Admitting Physician: Admtr, [id number] Referring Physician: Admtr, [id number] Allergies, Adverse Reactions, [...] Daily, # 90 tablet, 3 Refills, Maintenance, 12/16/21 9:43:00 EDT, Tablet, [id number], 144.78, cm, 10/10/21 10:44:00 EST, Height, 71, kg, 04/30/21 8:38:00 EDT, Dry Weight Start Date: 12/16/21 Status: Ordered azelastine-fluticasone nasal 2 times a [...] patient request Start Date: 08/12/20 Status: Ordered diclofenac 3% topical gel 1 application, Topically, 2 times a day, # 100 Gm, 3 Refills, Maintenance, 01/15/22 13:11:00 EDT, Gel, [facility]/pharmacy #[id number], 1 application Topically 2 times a day, 144, cm, 01/15/22 12:37:00 EDT, Height, 71, kg, 04/30/21 8:38:00 EDT, Dry Weight Start Date: 01/15/22 Status: Ordered diltiazem 90 mg oral tablet See Instructions, TAKE 1 TABLET BY MOUTH THREE TIMES A DAY, # 270 tablet, Refills 0, Instructions Replace Required Details, Route to Pharmacy Electronically, [id number], 144.78, cm, 06/13/21 10:03:00 EDT, Height, 71, kg, 04/30/21 8:38:00 EDT, Dry... Start Date: 06/25/21 Status: Ordered Estrace Vaginal Cream 0.1 mg/g = 1 Gm, Vaginally, Every Wednesday and , # 42.5 Gm, 2 Refills, Maintenance, 12/16/21 9:44:00 EDT, [facility]/pharmacy #[id number], 144.78, cm, 10/10/21 10:44:00 EST, Height, 71, kg, 04/30/21 8:38:00 EDT, DryWeight Start Date: 12/16/21 Status: Ordered fluticasone 0.005% topical ointment Topically, 2 times a day, 0 Refills, Maintenance, 08/12/20 9:41:00 EST, Partial fill upon patient request Start Date: 08/12/20 Status: Ordered Freestyle Lite Lancets See Instructions, [...] Pharm[facility]... Start Date: 07/28/21 Status: Ordered Lyrica 25 mg oral capsule 1 capsule = 25 mg, By Mouth, 2 times a day, # 60 capsule, 3 Refills, Maintenance, 01/15/22 13:11:00EDT, Capsule, [facility]/pharmacy #[id number], 144, cm, 01/15/22 12:37:00 EDT, Height, 71, kg, 04/30/21 8:38:00 EDT, Dry Weight Start Date: 01/15/22 Status: Ordered meclizine 12.5 mg oral tablet 1 tablet = 12.5 mg, By Mouth, 3 times a day, PRN for dizziness, # 60 tablet, 0 Refills, Maintenance, 03/05/21 15:02:00 EDT, Tablet, [facility]/pharmacy #[id number], 149, cm, 03/05/21 14:05:00 EDT, Height, 74.5, kg, 03/05/21 9:09:00 EDT, Dry Weight Start Date: 03/05/21 Status: Ordered minoxidil 5% topical solution 1 mL = 0.05 Gm, Topically, 2 times a day, # 120 mL, 0 Refills, Maintenance, 03/05/21 15:02:00 EDT, Solution, [facility]/pharmacy #[id number], Partial fill upon patient request if the prescription is for a schedule II opioid drug., 1 mL Topically 2 times a day, 149... Start Date: 03/05/21 Status: Ordered pantoprazole 40 mg oral delayed release tablet 1 tablet, By Mouth, Daily, # 90 tablet, 3 Refills, 12/22/21 10:30:00 EDT, Resent Rx. from 12/16/21, 144.78, cm, 12/17/21 10:04:00 EDT, Height, 71, kg, 04/30/21 8:38:00 EDT, Dry Weight Start Date: 12/22/21 Status: Ordered ProAir HFA 90 mcg/inh inhalation aerosol 1 puffs, Inhalation, 4 times a day, PRN as needed for wheezing, # 18 Gm, 0 Refills, Maintenance, 01/31/21 10:51:00 EDT, Aerosol, Partial fill upon patient request if the prescription is for a schedule II opioid drug. Start Date: 01/31/21 Status: Ordered Tylenol Extra Strength 500 mg [...] Status Inform ant Anemia(Confirmed) Active Asthma(Confirmed) Active Atrophic vaginitis(Confirmed) Active Benign hypertension(Confirmed) Active Benign positional vertigo(Confirmed) Active Chest pain(Confirmed) Active Chronic back pain(Confirmed) Active CKD (chronic kidney disease)(Confirmed) Active Controlled diabetes mellitus with hyperglycemia(Confirmed) Active Ecchymosis(Confirmed) Active Gallstone(Confirmed) Active GERD (gastroesophageal reflu x disease)(Confirmed) Active Generalized pain(Confirmed) Active Gout(Confirmed) Active History of cancer of right breast(Confirmed) Active Hyperlipidemia(Confirmed) Active Hair loss(Confirmed) Active Low back pain radiating to r ight leg(Confirmed) Active Lumbar radiculitis(Confirmed) Active Polyarthralgia(Confirmed) Active Myofascial pain(Confirmed) Active Obese class I(Confirmed) Active RUQ pain(Confirmed) Active T2DM (type 2 diabetes mellitus)(Confirmed) Active Social History Social History Type Response Smoking Status Never (less than 100 in lifetime) entered on: 01/31/21 Sex Care Team Personnel Name: Mati Giordano MD Address: [address] [place] [address], [address]
--- OUTSIDE RECORDS SUMMARY | 2023-08-21 03:53 | XMS_ITS | Continuity of Care Document ---
Author Name Unknown Organization [facility] Address [address] [place] [address]- Care Team Providers Care Credit Processor Name Role Phone Mati Giordano MD Primary Care Physician [phone] [id number] - 09[facility]04[facility] [address] [place] [address]- Allergies, Adverse Reactions, Alerts No Known Medication [...] 3 Refills, Maintenance, 12/16/21 9:43:00 EDT, Tablet, [facility]/pharmacy #[id number], 144.78, cm, 10/10/21 10:44:00 EST, [...] 3 Refills, Maintenance, 01/15/22 13:11:00 EDT, Gel, [facility]/pharmacy #[id number], 1 application Topically 2 times a day, 144, cm, 01/15/22 12:37:00 EDT, Height, 71, kg, 04/30/21 8:38:00 EDT, Dry Weight Start Date: 01/15/22 Status: Ordered diltiazem 90 mg oral tablet See Instructions, TAKE 1 TABLET BY MOUTH THREE TIMES A DAY, # 270 tablet, Refills 0, Instructions Replace Required Details, Route to Pharmacy Electronically, [facility] 32482, 144.78, cm, 06/13/21 10:03:00 EDT, Height, 71, kg, 04/30/21 8:38:00 EDT, Dry... Start Date: 06/25/21 Status: Ordered Estrace Vaginal Cream 0.1 mg/g = 1 Gm, Vaginally, Every Wednesday and , # 42.5 Gm, 2 Refills, Maintenance, 12/16/21 9:44:00 EDT, [facility]/pharmacy #[id number], 144.78, cm, 10/10/21 10:44:00 EST, [...] capsule, 3 Refills, Maintenance, 01/15/22 13:11:00EDT, Capsule, [id number], 144, cm, 01/15/22 12:37:00 EDT, Height, 71, kg, 04/30/21 8:38:00 EDT, Dry Weight Start Date: 01/15/22 Status: Ordered meclizine 12.5 mg oral tablet 1 tablet = 12.5 mg, By Mouth, 3 times a day, PRN for dizziness, # 60 tablet, 0 Refills, Maintenance, 03/05/21 15:02:00 EDT, Tablet, [facility]/pharmacy #2071, 149, cm, 03/05/21 14:05:00 EDT, Height, 74.5, kg, 03/05/21 9:09:00 EDT, Dry Weight Start Date: 03/05/21 Status: Ordered minoxidil 5% topical solution 1 mL = 0.05 Gm, Topically, 2 times a day, # 120 mL, 0 Refills, Maintenance, 03/05/21 15:02:00 EDT, Solution, [facility]/pharmacy #[id number], Partial fill upon patient request [...] Date: 08/12/20 Status: Ordered Problem List Condition Confirmation Course Effective Dates Status H ealth Status Informant Anemia Confirmed Active Asthma Confirmed Active Atrophic vaginitis [...] Confirmed Active Obese class I Confirmed Active RUQ pain Confirmed Active T2DM (type 2 diabetes mellitus) Confirmed Active Social History Social History Type Response Smoking Status Never (less than 100 in lifetime) entered on: 01/31/21 Sex Patient Care team information Care Team Personnel Name: Laura Johnson Position: [facility] Outreach Member Role: Lifetime Consulting Physician Name: Mati Giordano MD Position: [facility] Primary Care Physician Member Role: PCP Address: Address: [address] [place] [address], [address] [place] [address]- Care Team Related Persons Name: ANANTH GRUBBS Address: home [address] [place] [address]
--- OUTSIDE RECORDS SUMMARY | 2023-08-21 03:53 | XMS_ITS | Continuity of Care Document ---
Author Name Unknown Organization [facility] ter Address [address] [place] [address]- Care Team Providers Care Quality Control Tech Raw Materials Name Role Phone Mati Giordano MD Primary Care Physician Encounter [facility] [id number] Date(s): 03/20/21 - 06/12/[address] [address] Attending Physician: Michelle Kemp MD Admitting Physician: Michelle Kemp MD Allergies, Adverse Reactions, Alerts No Known [...] Refills, Maintenance, 02/04/21 13:33:00 EDT, Tablet, [id number] Start Date: 02/04/21 Status: Ordered azelastine-fluticasone nasal [...] 42.5 Gm, 0 Refills, Maintenance, 05/30/21 13:19:00EDT, [facility]/pharmacy #[id number], Partial fill upon patient request [...] Refills, Maintenance, 03/05/21 15:02:00 EDT, Tablet, [facility]/pharmacy #[id number], 149, cm, 03/05/21 14:05:00 EDT, [...] NEEDED FOR MUSCLE SPASMS, [facility] Electronically, [facility] 26267, 144.78, cm, 05/22/21 10:29:00 EDT, Height, 71, [...] 2 diabetes mellitus)(Confirmed) Active Urinary incontinence(Confirmed) Active Vital Signs Most recent to oldest [Reference Range]: 1 Height 144.78 cm (05/02/21 12:53 PM) Weight 70.45 kg (05/02/21 12:53 PM) Body Mass Index [18.5-24.99] 33.61 *>HHI* (05/02/21 12:53 PM) Social History Social History Type Response Smoking Status Never (less than 100 in lifetime) entered on: 01/31/21 Sex
--- OUTSIDE RECORDS SUMMARY | 2023-08-21 03:53 | XMS_ITS | Continuity of Care Document ---
Author Name Unknown Organization [facility] Address Unknown Care Team Providers Care Gasket Maker Name Role Phone Mati Giordano MD Primary Care Physician Encounter [facility] [id number] Date(s): 06/03/21 - 08/01/21 [facility] Attending Physician: Lavon Pak [...] Electronically, [facility] 40868, 144.78, cm, 06/13/21 10:03:00 EDT, Height, 71, [...] Refills, Maintenance, 03/05/21 15:02:00 EDT, Solution, [facility]/pharmacy #[id number], Partial fill upon patient request if the prescription is for a schedule II opioid drug., 1 mL Topically 2 times a day, 149... Start Date: 03/05/21 Status: Ordered nitrofurantoin macrocrystals 50 mg oral capsule 1 capsule = 50 mg, By Mouth, Daily, for 30 days, # 30 capsule, 2 Refills, Acute 08/28/21 13:16:00 EST, 05/30/21 13:16:00 EDT, [facility]/pharmacy #[id number], Partial [...] Electronically, [facility] 61884, 144.78, cm, 07/28/21 10:38:00 EST, Height, 71, [...]
--- OUTSIDE RECORDS SUMMARY | 2023-08-21 03:53 | XMS_ITS | Continuity of Care Document ---
Author Name Unknown Organization [facility] Address [address] [place] [address]- Care Team Providers Care French Comber Name Role Phone Name Shayne WINTER Primary Care Physician [phone] Encounter [facility] Date(s): 12/05/19 - 12/15/19 [facility] [address] [place] [address]- [facility] Attending Physician: Adama Adhikari Admitting Physician: Adama Adhikari Referring Physician: Adama Adhikari
--- OUTSIDE RECORDS SUMMARY | 2023-08-21 03:53 | XMS_ITS | Continuity of Care Document ---
Author Name Unknown Organization [facility] Address [address] [place] [address]- Care Team Providers Care Junior Systems Analyst Name Role Phone Mati Giordano MD Primary Care Physician [phone] Encounter [facility] Date(s): 12/04/22 - 03/06/23 [facility] [address] [place] [address]- Attending Physician: Fred Cole MD Admitting Physician: Fred Cole MD Allergies, Adverse Reactions, Alerts No Known [...] Refills, Maintenance, 10/19/22 7:08:00 EST, [facility], 25, INHALE 2 PUFFS BY MOUTH EVERY [...] Refills, Soft Stop, 09/23/22 15:12:00 EST, Tablet, [facility]/pharmacy #[id number], Partial fill upon patient request [...] mL, 2 Refills, Maintenance, 10/19/22 11:30:00 EST, Solution,[facility]/pharmacy #[id number], 1 application Topically Daily, 144, [...] 1 Refills, Maintenance, 10/15/22 10:12:00 EST, Solution, [facility], 144, cm, 10/15/22 9:33:00 EST, Height, 71, kg, 04/30/21 8:38:00 EDT, Dry Weight Start Date: 10/15/22 Status: Ordered diclofenac 3% topical gel 1 application, Topically, 2 times a day, # 100 Gm, 3 Refills, Maintenance, 01/15/22 13:11:00 EDT, Gel, [facility]/pharmacy #[id number], 1 application Topically 2 times a day, 144, cm, 01/15/22 12:37:00 EDT, Height, 71, kg, 04/30/21 8:38:00 EDT, Dry Weight Start Date: 01/15/22 Status: Ordered diltiazem 90 mg oral tablet See Instructions, TAKE 1 TABLET BY MOUTH THREE TIMES A DAY, # 270 tablet, Refills 0, Instructions Replace Required Details, Route to Pharmacy Electronically, [facility] 11386, 144.78, cm, 06/13/21 10:03:00 EDT, Height, 71, kg, 04/30/21 8:38:00 EDT, Dry... Start Date: 06/25/21 Status: Ordered Estrace Vaginal Cream 0.1 mg/g = 1 Gm, Vaginally, Every Wednesday and , # 42.5 Gm, 2 Refills, Maintenance, 12/16/21 9:44:00 EDT, [facility]/pharmacy #[id number], 144.78, cm, 10/10/21 10:44:00 EST, Height, 71, kg, 04/30/21 8:38:00 EDT, DryWeight Start Date: 12/16/21 Status: Ordered Ferrets 325 mg oral tablet See Instructions, TAKE 1 TABLET BY MOUTH EVERY DAY, # 90 tablet, 1 Refills, Maintenance, 12/26/22 13:28:00 EDT, [facility] 02[facility], 144, cm, 12/08/22 8:37:00 EDT, Height, 71, [...] capsule, 3 Refills, Maintenance, 01/15/22 13:11:00EDT, Capsule, [facility]/pharmacy #2071, 144, cm, 01/15/22 12:37:00 EDT, Height, 71, kg, 04/30/21 8:38:00 EDT, Dry Weight Start Date: 01/15/22 Status: Ordered meclizine 12.5 mg oral tablet 1 tablet = 12.5 mg, By Mouth, 3 times a day, PRN for dizziness, # 60 tablet, 0 Refills, Maintenance, 03/05/21 15:02:00 EDT, Tablet, [facility]/pharmacy #[id number], 149, cm, 03/05/21 14:05:00 EDT, Height, 74.5, kg, 03/05/21 9:09:00 EDT, Dry Weight Start Date: 03/05/21 Status: Ordered meclizine 25 mg oral tablet 1 tablet = 25 mg, By Mouth, 3 times a day, PRN for dizziness, # 30 tablet, 0 Refills, Maintenance, 10/15/22 10:12:00 EST, Tablet, [facility], 144, cm, 10/15/22 9:33:00 EST, Height, 71, kg, 04/30/21 8:38:00 EDT, Dry Weight Start Date: 10/15/22 Status: Ordered minoxidil 5% topical solution 1 mL = 0.05 Gm, Topically, 2 times a day, # 120 mL, 0 Refills, Maintenance, 03/05/21 15:02:00 EDT, Solution, [facility]/pharmacy #[id number], Partial fill upon patient request [...] 1 Refills, Maintenance, 02/22/23 10:52:00 EDT, Tablet, [id number], 144, cm, 12/08/22 8:37:00 EDT, [...] Care Team Personnel Name: Laura Johnson Position: [facility] Outreach Member Role: Lifetime Consulting Physician Name: Mtai Giordano MD Position: [facility] Physician - Primary Care Member Role: PCP Address: Address: [address] [place] [address], [address] [place] [address]- Care Team Related Persons Name: HUMERA ANANTH KENNEDY Address: home [address] [place] [address] [place] [address]
--- OUTSIDE RECORDS SUMMARY | 2023-08-21 03:53 | XMS_ITS | Continuity of Care Document ---
Author Name Unknown Organization [facility] Address [address] [place] [id number]- Care Team Providers Care Station Installation Supervisor Name Role Phone Mati Giordano MD Primary Care Physician [place] [facility] [place] Date(s): 07/08/21 - 08/07/[address] [id number] Attending Physician: Adama Adhikari Admitting Physician: AdmAdama moore Referring Physician: AdmtrAdama Allergies, Adverse Reactions, Alerts [...] 06/13/21 10:23:00 EDT, Route to Pharmacy Electronically, [facility]/pharmacy #[id number], 144.78, cm, 06/13/21 10:03:00 EDT, [...] 3 Refills, Maintenance, 02/04/21 13:33:00 EDT, Tablet, [facility]/pharmacy #[id number] Start Date: 02/04/21 Status: Ordered [...] Replace Required Details, Route to Pharmacy Electronically, [facility] STORE [id number], 144.78, cm, 06/13/21 10:03:00 EDT, Height, 71, kg, 04/30/21 8:38:00 EDT, Dry... Start Date: 06/25/21 Status: Ordered Estrace Vaginal Cream 0.1 mg/g See Instructions, 1 Gm Vaginally twice a week, # 42.5 Gm, 0 Refills, Maintenance, 05/30/21 13:19:00EDT, [facility]/pharmacy #[id number], Partial fill upon patient request [...] 0 Refills, Maintenance, 03/05/21 15:02:00 EDT, Tablet, [facility]/pharmacy #[id number], 149, cm, 03/05/21 14:05:00 EDT, Height, 74.5, kg, 03/05/21 9:09:00 EDT, Dry Weight Start Date: 03/05/21 Status: Ordered minoxidil 5% topical solution 1 mL = 0.05 Gm, Topically, 2 times a day, # 120 mL, 0 Refills, Maintenance, 03/05/21 15:02:00 EDT, Solution, [facility]/pharmacy #[id number], Partial fill upon patient request if the prescription is for a schedule II opioid drug., 1 mL Topically 2 times a day, 149... Start Date: 03/05/21 Status: Ordered nitrofurantoin macrocrystals 50 mg oral capsule 1 capsule = 50 mg, By Mouth, Daily, for 30 days, # 30 capsule, 2 Refills, Acute 08/28/21 13:16:00 EST, 05/30/21 13:16:00 EDT, [facility]/pharmacy #[id number], Partial fill upon patient request [...] 1 Refills, Maintenance, 03/05/21 15:02:00 EDT, Capsule, [facility]/pharmacy #[id number], 149, cm, 03/05/21 14:05:00 EDT, Height, 74.5, kg, 03/05/21 9:09:00 EDT, Dry Weight Start Date: 03/05/21 Status: Ordered tiZANidine 2 mg oral tablet 1, tablet, By Mouth, Every 8 hours, PRN, # 90 tablet, Refills 0, NEEDED FOR MUSCLE SPASMS, [facility] Electronically, [facility] STORE [id number], 144.78, cm, 07/28/21 10:38:00 EST, Height, 71, [...]
--- OUTSIDE RECORDS SUMMARY | 2023-08-21 03:53 | XMS_ITS | Continuity of Care Document ---
Author Name Unknown Organization [facility] ter Address [address] [place] [id number]- Care Team Providers Care Forging Dies Final Finisher Name Role Phone Giuliana WINTER, Mati Miranda Primary Care Physician Encounter [facility] [id number] Date(s): 06/09/21 - 07/15/[address] [id number] Attending Physician: Tomas JENSEN, Sylvia Maldonado Admitting [...] Pharmacy Electronically, [facility]/pharmacy #[id number], 144.78, cm, 06/13/21 10:03:00 EDT, Height, 71, [...] 3 Refills, Maintenance, 02/04/21 13:33:00 EDT, Tablet, [facility]/pharmacy #[id number] Start Date: 02/04/21 Status: Ordered [...] Electronically, [facility] STORE [id number], 144.78, cm, 06/13/21 10:03:00 EDT, Height, 71, [...] Acute 08/28/21 13:16:00 EST, 05/30/21 13:16:00 EDT, [facility]/pharmacy #[id number], Partial [...] 1 Refills, Maintenance, 03/05/21 15:02:00 EDT, Capsule, [facility]/pharmacy #[id number], 149, cm, 03/05/21 14:05:00 EDT, Height, 74.5, kg, 03/05/21 9:09:00 EDT, Dry Weight Start Date: 03/05/21 Status: Ordered tiZANidine 2 mg oral tablet 1, tablet, By Mouth, Every 8 hours, PRN, # 90 tablet, Refills 0, NEEDED FOR MUSCLE SPASMS, [facility] Electronically, [facility] STORE [id number], 144.78, cm, 06/13/21 10:03:00 EDT, Height, 71, [...]
--- OUTSIDE RECORDS SUMMARY | 2023-08-21 03:53 | XMS_ITS | Continuity of Care Document ---
Author Name Unknown Organization [facility] Address [address] [place] [id number]- Care Team Providers Care Beater Out Name Role Phone Mati Giordano MD Primary Care Physician Encounter [facility] [id number] Date(s): 08/05/22 - 09/04/22 [facility] [address] [place] [id number]- Allergies, Adverse Reactions, Alerts No Known Medication [...] 3 Refills, Maintenance, 01/15/22 13:11:00 EDT, Gel, [facility]/pharmacy #[id number], 1 application Topically 2 times a day, 144, cm, 01/15/22 12:37:00 EDT, Height, 71, kg, 04/30/21 8:38:00 EDT, Dry Weight Start Date: 01/15/22 Status: Ordered diltiazem 90 mg oral tablet See Instructions, TAKE 1 TABLET BY MOUTH THREE TIMES A DAY, # 270 tablet, Refills 0, Instructions Replace Required Details, Route to Pharmacy Electronically, [facility] STORE [id number], 144.78, cm, 06/13/21 10:03:00 EDT, Height, 71, kg, 04/30/21 8:38:00 EDT, Dry... Start Date: 06/25/21 Status: Ordered Estrace Vaginal Cream 0.1 mg/g = 1 Gm, Vaginally, Every Wednesday and , # 42.5 Gm, 2 Refills, Maintenance, 12/16/21 9:44:00 EDT, [facility]/pharmacy #[id number], 144.78, cm, 10/10/21 10:44:00 EST, [...] Care Team Personnel Name: Laura Johnson Position: [facility] Outreach Member Role: Lifetime Consulting Physician Name: Mati Giordano MD Position: [facility] Primary Care Physician Member Role: PCP Address: Address: [address] [place] [address], [address] [place] [address]- Care Team Related Persons Name: ANANTH GRUBBS Address: home [address] [place] [address]
--- NOTE | 2023-08-21 04:22 | ED.RECABL ---
HPI - Recheck/Abnormal Lab/Rx General Chief Complaint: Recheck/Abnormal Lab/Rx Stated Complaint: HYPERGLYCEMIA Time Seen by Provider: 08/21/23 03:54 Source: patient Mode of arrival: ambulatory Limitations: no limitations History of Present Illness HPI narrative: Patient history of diabetes had a cortisone shot 3 months ago since then noticed her blood sugar elevated today earlier she checked her blood sugar was 299 at 22:00 patient is on Jardiance 10 mg daily and supposed take insulin before meals but she is not taking it Related Data Home Medications Medication Instructions Recorded Confirmed fluticasone propionate 50 1 spray intranasal DAILY PRN 08/08/20 07/27/23 mcg/actuation nasal Allergy Symptoms spray,suspension (Allergy Relief (fluticasone)) pantoprazole 20 mg tablet,delayed 20 mg PO DAILY 08/08/20 07/27/23 release blood sugar diagnostic #10 ea 08/27/20 08/27/20 lancets 28 gauge #100 ea 08/27/20 08/27/20 meclizine 12.5 mg tablet 12.5 mg PO DAILY PRN Dizziness 05/06/21 07/27/23 acetaminophen 325 mg tablet 650 mg PO Q6H PRN Pain 10/09/22 07/27/23 albuterol sulfate 90 mcg/actuation 2 puff inhalation Q6H PRN 10/09/22 07/27/23 aerosol inhaler (ProAir HFA) Shortness Of Breath atorvastatin 20 mg tablet 20 mg PO DAILY 10/09/22 07/27/23 carvedilol 25 mg tablet 25 mg PO BID 10/09/22 07/27/23 diltiazem HCl 90 mg tablet 90 mg PO TID 10/09/22 07/27/23 empagliflozin 10 mg tablet 10 mg PO DAILY 10/09/22 07/27/23 (Jardiance) ferrous sulfate 324 mg (65 mg 324 mg PO DAILY 10/09/22 07/27/23 iron) tablet,delayed release lisinopril 40 mg tablet 40 mg PO DAILY 10/09/22 07/27/23 Allergies Allergy/AdvReac Type Severity Reaction Status Date / Time No Known Allergies Allergy Verified 10/12/22 16:59 [No Known Allergies*] Review of Systems Review of Systems: Yes all other systems are reviewed and are negative PMFSH Past Medical History Medical History Breast CA Vertigo Diabetes HTN (hypertension) CKD (chronic kidney disease) Breast CA Vertigo Diabetes HTN (hypertension) CKD (chronic kidney disease) Breast cancer Depression Hypertension Bilateral knee pain Surgical History History of partial mastectomy of right breast Hx of cataract surgery Family History Family History Father No problems noted. Mother No problems noted. Social History Social History Household Members: None Housing: Apartment Do you presently have visiting nurse or other home services: Yes (health careers instructor services) Alcohol intake: never Patient Tobacco Use Status: Never used Tobacco Smoked in Last 30 Days: No e-Cigarette/Vaping Use: Never Used Use of substances other than those prescribed or required for medical reasons: No Advance Directives: No Advance Directives Information Provided: Yes service: No Current occupational status: retired Physical Exam Vital Signs: Vital Signs: Last Vital Signs Temp 98.3 F 08/21/23 06:08 Pulse 75 08/21/23 06:08 Resp 17 08/21/23 06:08 BP 126/69 08/21/23 06:08 Pulse Ox 94 08/21/23 06:08 O2 Del Method Room Air 08/21/23 06:08 BMI result Body Mass Index 32.2 Appearance: Alert. Oriented X3. No acute distress. Eyes: No pallor / icterus ENT: Pharynx normal. Oral Mucosa moist Neck: Normal inspection. Neck supple. CVS: Normal heart rate and rhythm. Pulses normal. Respiratory: No respiratory distress. Equal air entry bilateral, no wheezing/rales/rhonchi Abdomen: Soft and nontender. Bowel sounds are present, no mass palpable, no CVA tenderness Skin: Skin warm and dry. Normal skin color. Normal skin turgor. Extremities: No lower extremity edema. No calf tenderness Neuro: Oriented X 3. No motor deficit. Medical Decision Making Medical Decision Making MDM Narrative: Patient with normal blood glucose range in the ER on Jardiance supposed to take insulin as needed before meals but she is not taking it HbA1c order advised to follow with PCP Patient HbA1ac was 7.1 Differential Diagnosis Differential Diagnoses: The differential diagnosis associated with the presentation includes Hyperglycemia Admission/Observation Consideration of admission/observation: Escalation of care including admission/observation considered Lab Data MDM Lab Attestation statement: I reviewed the patient's lab results. 08/21/23 03:14 08/21/23 03:14 Labs: Lab Results 08/21/23 08/21/23 08/21/23 Range/Units 02:46 03:14 04:43 WBC 7.2 (4.8-10.8) X10*3/uL RBC 3.58 L (4.20-5.50) X10*6/uL Hgb 10.2 L (12.0-16.0) g/dl Hct 34.0 L (37.0-47.0) % MCV 95.0 (80.0-98.0) fL MCH 28.5 (27.0-33.0) pg MCHC 30.0 L (31.0-35.0) g/dl RDW 17.7 H (11.0-16.0) % Plt Count 191 (160-400) X10*3/uL MPV 10.5 (9.4-12.3) fL Immature Gran % (Auto) 0.7 H (0.0-0.4) % Neut % (Auto) 63.2 (45-73) % Lymph % (Auto) 25.3 (20-40) % [place] % (Auto) 10.1 (2-11) % Eos % (Auto) 0.6 (0-4) % Baso % (Auto) 0.1 (0-2) % Lymph # (Auto) 1.8 (1.2-4.9) X10*3/uL [place] # (Auto) 0.7 (0.1-1.2) X10*3/uL Eos # (Auto) 0.0 (0.0-0.4) X10*3/uL Baso # (Auto) 0.0 (0.0-0.2) X10*3/uL Abs Immat Gran (auto) 0.05 H (0.00-0.03) X10*3/uL Absolute Neuts (auto) 4.5 (2.0-8.3) x10*3/uL Absolute Nucleated RBC 0.000 (0.0-0.012) X10*3/uL Nucleated RBC % (auto) 0.0 (0.0-0.2) /100WBC Sodium 136 (135-145) mmol/L Potassium 4.8 (3.3-5.1) mmol/L Chloride 108 (96-108) mmol/L Carbon Dioxide 18 L (22-29) mmol/L Anion Gap 15 (12-20) BUN 41 H (9-16) mg/dL Creatinine 1.93 H (0.5-1.4) mg/dL Estim Creat Clear Calc 16.8 Estimated GFR 25 POC Glucose 153 H 136 H (60-115) mg/dL Random Glucose 154 H (60-115) mg/dL Estimat Average Glucose 157 mg/dL Hemoglobin A1c % 7.1 H (<6.0) % Calcium 8.8 (8.4-10.2) mg/dL Total Bilirubin 0.4 (0.0-1.0) mg/dL AST 13 (5-31) U/L ALT 29 (0-31) U/L Alkaline Phosphatase 35 L (39-117) U/L Total Protein 6.1 L (6.5-8.0) g/dL Albumin 3.3 L (3.5-5.0) g/dL Discharge Plan Discharge Clinical Impression: Diabetes mellitus with hyperglycemia Patient Disposition: Home, Self-Care Instructions: Diabetic Hyperglycemia (ED) Additional Instructions: Check Your glucometer as your blood sugar was normal in our ER Avoid sweet food Drink plenty of fluids Follow-up with PCP Continue Jardiance and take insulin as prescribed by your PCP before meals Revise chavis gluc?metro ya que chavis nivel de az?car en chung era normal en nuestra guille de emergencias. Evite los alimentos dulces Beber mucho l?quido Seguimiento con PCP Contin?e con Jardiance y tome la insulina recetada por chavis PCP antes de las comidas. Prescriptions: No Action carvedilol 25 mg Tablet 25 mg PO BID Rx Instructions: must administer with a meal/food acetaminophen 325 mg Tablet 650 mg PO Q6H PRN (Reason: Pain) atorvastatin 20 mg Tablet 20 mg PO DAILY lisinopril 40 mg Tablet 40 mg PO DAILY diltiazem HCl 90 mg Tablet 90 mg PO TID ferrous sulfate 324 mg (65 mg iron) Tablet,Delayed Release (Dr/Ec) 324 mg PO DAILY Jardiance 10 mg Tablet 10 mg PO DAILY albuterol sulfate [ProAir HFA] 90 mcg/actuation Hfa Aerosol Inhaler 2 puff INHALATION Q6H PRN (Reason: Shortness Of Breath) fluticasone propionate [Allergy Relief (fluticasone)] 50 mcg/actuation spray,suspension 1 spray intranasal DAILY PRN (Reason: Allergy Symptoms) Rx Instructions: administer into each nostril pantoprazole 20 mg tablet,delayed release (DR/EC) 20 mg PO DAILY (DME) blood sugar diagnostic Strip See Rx Instructions Not Applicable .MEDSUPPLY Qty: 10 Rx Instructions: As directed (DME) lancets 28 gauge misc See Rx Instructions topical DAILY Qty: 100 Rx Instructions: As directed meclizine 12.5 mg tablet 12.5 mg PO DAILY PRN (Reason: Dizziness) Print Language: Maltese
[2023-08-21 04:48] LABS: Glucose, Whole Blood 136 mg/dL (60-115)
[2023-08-21 06:08] VITALS: BP 126/69; PULSE 75; RESP 17; TEMP 36.8; O2SAT 94
[2023-08-21 07:37] LABS: Estimated Average Glucose 157 mg/dL; Hemoglobin A1c % 7.1 % (<6.0)
== END 2023-08-21 09:00 | disposition home or self-care (01) ==
PROVIDERS: Emergency Provider Internal Medicine
DX: E11.65 Type 2 diabetes mellitus with hyperglycemia (principal); E11.22 Type 2 diabetes mellitus with diabetic chronic kidney disease; I12.9 Hypertensive chronic kidney disease with stage 1 through stage 4 chronic kidney disease, or unspecified chronic kidney disease; N18.9 Chronic kidney disease, unspecified; Z79.02 Long term (current) use of antithrombotics/antiplatelets; Z79.899 Other long term (current) drug therapy; Z79.4 Long term (current) use of insulin
CPT/HCPCS: 36415; 80053; 82947; 83036; 85025; 99283; 99284

== ENCOUNTER 2023-09-25 17:15 | Emergency (ER) | payer OTHER, SELFPAY ==
--- NOTE | 2023-09-25 17:40 | ED.GENADULT ---
HPI - General Adult General Chief complaint: General Medical Stated complaint: High BGL, L ankle edema, Time Seen by Provider: 09/25/23 17:20 Source: patient, RN notes reviewed, old records reviewed and it coordinator Mode of arrival: EMS Limitations: language barrier History of Present Illness HPI narrative: 83-year-old female with past medical history significant for diabetes, chronic renal disease, presents for evaluation of multiple complaints patient states that her blood sugar at home was over 300. She states that she does not know how to check her sugar with her machine patient complains of bilateral leg swelling left greater than right she reports that she a week and half ago she returned from [place] after a short trip she reports that she occasionally has palpitations at radiate into her back but is not currently experiencing these denies any fevers or chills. She endorses a dry cough Related Data Home Medications Medication Instructions Recorded Confirmed fluticasone propionate 50 1 spray intranasal DAILY PRN 08/08/20 07/27/23 mcg/actuation nasal Allergy Symptoms spray,suspension (Allergy Relief (fluticasone)) pantoprazole 20 mg tablet,delayed 20 mg PO DAILY 08/08/20 07/27/23 release blood sugar diagnostic #10 ea 08/27/20 08/27/20 lancets 28 gauge #100 ea 08/27/20 08/27/20 meclizine 12.5 mg tablet 12.5 mg PO DAILY PRN Dizziness 05/06/21 07/27/23 acetaminophen 325 mg tablet 650 mg PO Q6H PRN Pain 10/09/22 07/27/23 albuterol sulfate 90 mcg/actuation 2 puff inhalation Q6H PRN 10/09/22 07/27/23 aerosol inhaler (ProAir HFA) Shortness Of Breath atorvastatin 20 mg tablet 20 mg PO DAILY 10/09/22 07/27/23 carvedilol 25 mg tablet 25 mg PO BID 10/09/22 07/27/23 diltiazem HCl 90 mg tablet 90 mg PO TID 10/09/22 07/27/23 empagliflozin 10 mg tablet 10 mg PO DAILY 10/09/22 07/27/23 (Jardiance) ferrous sulfate 324 mg (65 mg 324 mg PO DAILY 10/09/22 07/27/23 iron) tablet,delayed release lisinopril 40 mg tablet 40 mg PO DAILY 10/09/22 07/27/23 Allergies Allergy/AdvReac Type Severity Reaction Status Date / Time No Known Allergies Allergy Verified 10/12/22 16:59 [No Known Allergies*] Review of Systems Constitutional: Constitutional: Denies body ache(s), Denies chills, Denies fever(s) and Denies headache(s) ENT: Denies headache(s) Cardiovascular: Cardiovascular: Reports chest pain, Reports leg edema, Reports palpitations and Denies dyspnea Respiratory: Respiratory: Reports cough and Denies dyspnea Gastrointestinal: Gastrointestinal: Denies abdominal pain Musculoskeletal: Musculoskeletal: Reports other ( left leg pain) Integumentary/Breasts: Skin/Breast: Denies rash Neurologic: Denies headache(s) Endocrine: Endocrine: Reports palpitations PMFSH Past Medical History Onset Date is defined in the Problem List Problems that require an onset date and time if occurred within 24 hrs of arrival to the ED Aortic Dissection and Rupture; Neurologic impairment; Cardiopulmonary Arrest; Endotracheal Intubation; Insertion or Replacement of Mechanical Circulatory Assist Device Medical History Breast CA Vertigo Diabetes HTN (hypertension) CKD (chronic kidney disease) Breast CA Vertigo Diabetes HTN (hypertension) CKD (chronic kidney disease) Breast cancer Depression Hypertension Bilateral knee pain Surgical History History of partial mastectomy of right breast Hx of cataract surgery Family History Family History Father No problems noted. Mother No problems noted. Social History Social History Household Members: None Housing: Apartment Do you presently have visiting nurse or other home services: Yes (sheriff's officer services) Alcohol intake: never Patient Tobacco Use Status: Never used Tobacco e-Cigarette/Vaping Use: Never Used Advance Directives: No Advance Directives Information Provided: No service: No Current occupational status: retired Physical Exam ED Vital Signs: Vital Signs - 24 hr 09/25/23 17:47 Temperature 97.3 F Pulse Rate 84 Respiratory Rate 16 Blood Pressure 129/64 Pulse Oximetry 97 Oxygen Delivery Method Room Air BMI result Body Mass Index 33.2 Const General: healthy appearing, comfortable, no acute distress, alert and awake Nutritional Appearance: well nourished Orientation/consciousness: patient oriented x3 HENMT Head: Yes normocephalic and Yes atraumatic Eyes Eyelids: Yes eyelids normal Conjunctivae: conjunctivae normal Sclerae: sclerae normal Corneas: corneas normal EOM: EOMs intact bilaterally Neck Neck: Yes full ROM Resp Effort & Inspection: normal respiratory effort, able to speak in complete sentences, no audible wheezes and not labored Auscultation: clear to auscultation bilaterally Cardio Other: 1-2+ nonpitting edema to left lower extremity. Trace edema to the right lower extremity Rate: regular rate Rhythm: regular rhythm Skin General skin exam: elasticity normal Neuro General: patient oriented x3 Cranial nerves: Yes Bilaterally intact EOM present Cognition (Neuro): normal cognition Extrem Other: Moving all extremities well without any obvious deformities Course Reevaluation(s) Reevaluation #1: patient has mild, asymptomatic hyperglycemia. There is no evidence of diabetic emergency. The patient states that she does not know how to use her insulin pens or her glucometer. Will discharge the patient home with a case management consult to help provide VNA assistance and diabetic Education Time: 23:33 Medical Decision Making Medical Decision Making MDM Narrative: 83-year-old female presents for evaluation of multiple complaints. She complains of leg swelling, this will be worked up with ultrasound as she had a recent flight. Will also get labs, BNP and a chest x-ray to rule out heart failure. She is known to have renal disease. Will check basic labs. The patient also complains of high blood sugar. Her point of care was 196. Further workup as indicated Differential Diagnosis Differential Diagnoses: The differential diagnosis associated with the presentation includes leg swelling Dependent edema Hyperkalemia CHF DVT hyperglycemia DKA less likely Lab Data [facility] Lab Attestation statement: I reviewed the patient's lab results. no leukocytosis, mild anemia. Electrolytes within normal limits, the patient has chronic kidney disease which is consistent with her BUN of 51 and creatinine of 2.05. Sugar is 144. Ultrasound of lower extremities rule out DVT. 09/25/23 20:46 09/25/23 20:46 Labs: Lab Results 09/25/23 09/25/23 Range/Units 17:23 20:46 WBC 10.1 (4.8-10.8) X10*3/uL RBC 3.82 L (4.20-5.50) X10*6/uL Hgb 11.0 L (12.0-16.0) g/dl Hct 34.4 L (37.0-47.0) % MCV 90.1 (80.0-98.0) fL MCH 28.8 (27.0-33.0) pg MCHC 32.0 (31.0-35.0) g/dl RDW 16.5 H (11.0-16.0) % Plt Count 220 (160-400) X10*3/uL MPV 10.3 (9.4-12.3) fL Immature Gran % (Auto) 0.5 H (0.0-0.4) % Neut % (Auto) 63.1 (45-73) % Lymph % (Auto) 28.9 (20-40) % [place] % (Auto) 7.2 (2-11) % Eos % (Auto) 0.2 (0-4) % Baso % (Auto) 0.1 (0-2) % Lymph # (Auto) 2.9 (1.2-4.9) X10*3/uL [place] # (Auto) 0.7 (0.1-1.2) X10*3/uL Eos # (Auto) 0.0 (0.0-0.4) X10*3/uL Baso # (Auto) 0.0 (0.0-0.2) X10*3/uL Abs Immat Gran (auto) 0.05 H (0.00-0.03) X10*3/uL Absolute Neuts (auto) 6.4 (2.0-8.3) x10*3/uL Absolute Nucleated RBC 0.000 (0.0-0.012) X10*3/uL Nucleated RBC % (auto) 0.0 (0.0-0.2) /100WBC PT 10.6 L (11.1-13.3) SEC INR 0.9 (0.9-1.1) Sodium 139 (135-145) mmol/L Potassium 3.5 D (3.3-5.1) mmol/L Chloride 101 (96-108) mmol/L Carbon Dioxide 27 (22-29) mmol/L Anion Gap 15 (12-20) BUN 51 H (9-16) mg/dL Creatinine 2.05 H (0.5-1.4) mg/dL Estim Creat Clear Calc 18.4 Estimated GFR 23 POC Glucose 196 H (60-115) mg/dL Random Glucose 144 H (60-115) mg/dL Calcium 9.1 (8.4-10.2) mg/dL Total Bilirubin 0.4 (0.0-1.0) mg/dL AST 18 (5-31) U/L ALT 25 (0-31) U/L Alkaline Phosphatase 38 L (39-117) U/L Troponin I High Sens 5.6 D (<3.5-17.0) ng/L B-Natriuretic Peptide 70 (<100) pg/mL Total Protein 6.6 (6.5-8.0) g/dL Albumin 3.8 (3.5-5.0) g/dL Urine Color Yellow Urine Appearance Clear Urine pH 7.5 (5.0-9.0) Ur Specific [place] <= 1.005 (1.005-1.025) Urine Protein Negative (Neg-Trace) mg/dL Urine Glucose (UA) 500 H (Negative) mg/dL Urine Ketones Negative (Negative) mg/dL Urine Blood Negative (Negative) Urine Nitrite Negative (Negative) Ur Leukocyte Esterase Negative (Negative) Urine RBC 0-2 (0-2) /HPF Urine WBC 0-5 (0-5) /HPF Ur Squamous Epith Cells 0-2 (0-2) /HPF Urine Bacteria None Seen (None Seen) Hyaline Casts 0-2 (0-2) /LPF Influenza Type A (PCR) NEGATIVE (Negative) Influenza Type B (PCR) NEGATIVE (Negative) RSV RNA Qual (PCR) NEGATIVE (Negative) SARS-CoV-2 RNA (RT-PCR) NEGATIVE (Negative) Independent Interpretation I performed an independent interpretation of an: Plain X-Ray ( no focal infiltrates) Radiology Impression Discussion of test interpretation with radiology: I have reviewed the radiologist's reading. ( No evidence of DVT demonstrated) Radiologist Impression: x-ray shows hyperinflated lungs with bibasilar atelectasis. No acute intrathoracic disease Discharge Plan Discharge Clinical Impression: Acute hyperglycemia, Left leg swelling Patient Disposition: Home, Self-Care Instructions: Diabetic Hyperglycemia (ED), Leg Edema (ED) Additional Instructions: your workup in the emergency department today was reassuring. You do have chronic kidney disease. Follow-up with your primary doctor. Elevate your legs above her heart while resting to help reduce swelling a case management consult was placed to help provide visiting nurse assistance and education on how to use your glucometer and your insulin pen you will likely receive a phone call on Wednesday to help set that up. Prescriptions: No Action carvedilol 25 mg Tablet 25 mg PO BID Rx Instructions: must administer with a meal/food acetaminophen 325 mg Tablet 650 mg PO Q6H PRN (Reason: Pain) atorvastatin 20 mg Tablet 20 mg PO DAILY lisinopril 40 mg Tablet 40 mg PO DAILY diltiazem HCl 90 mg Tablet 90 mg PO TID ferrous sulfate 324 mg (65 mg iron) Tablet,Delayed Release (Dr/Ec) 324 mg PO DAILY Jardiance 10 mg Tablet 10 mg PO DAILY albuterol sulfate [ProAir HFA] 90 mcg/actuation Hfa Aerosol Inhaler 2 puff INHALATION Q6H PRN (Reason: Shortness Of Breath) fluticasone propionate [Allergy Relief (fluticasone)] 50 mcg/actuation spray,suspension 1 spray intranasal DAILY PRN (Reason: Allergy Symptoms) Rx Instructions: administer into each nostril pantoprazole 20 mg tablet,delayed release (DR/EC) 20 mg PO DAILY (DME) blood sugar diagnostic Strip See Rx Instructions Not Applicable .MEDSUPPLY Qty: 10 Rx Instructions: As directed (DME) lancets 28 gauge misc See Rx Instructions topical DAILY Qty: 100 Rx Instructions: As directed meclizine 12.5 mg tablet 12.5 mg PO DAILY PRN (Reason: Dizziness)
[2023-09-25 17:47] VITALS: BP 129/64; PULSE 84; RESP 16; TEMP 36.3; O2SAT 97; BMI 33.2
--- NOTE | 2023-09-25 18:45 | PC.NURSE ---
patient moved to bed 20, ultrasound at bedside
[2023-09-25 23:42] VITALS: BP 129/76; PULSE 77; RESP 14; TEMP 36.7; O2SAT 95
--- NOTE | 2023-09-26 11:31 | MHC.CM.ED ---
Received case management consult overnight to arrange VNA for patient. Patient was already d/c'd home. Referral made in [facility]. [facility] accept patient.
== END 2023-09-25 23:54 | disposition home or self-care (01) ==
PROVIDERS: Emergency Provider Emergency Medicine; PCP General Practice
DX: R60.0 Localized edema (principal); E11.65 Type 2 diabetes mellitus with hyperglycemia; E11.22 Type 2 diabetes mellitus with diabetic chronic kidney disease; I12.9 Hypertensive chronic kidney disease with stage 1 through stage 4 chronic kidney disease, or unspecified chronic kidney disease; N18.9 Chronic kidney disease, unspecified; Z20.822 Contact with and (suspected) exposure to COVID-19; Z20.828 Contact with and (suspected) exposure to other viral communicable diseases
CPT/HCPCS: 0241U; 71045; 80053; 81001; 82947; 83880; 84484; 85025; 85610; 93005; 93970; 99284; 99285

== ENCOUNTER → 2023-09-25 17:36 | Outpatient (BNV) | payer OTHER, SELFPAY | PROVIDERS: Emergency Provider Emergency Medicine; PCP General Practice; Visit Provider Internal Medicine Cardiovascular Disease | DX: R94.31 Abnormal electrocardiogram [ECG] [EKG] (principal) | CPT/HCPCS: 93010 ==

== ENCOUNTER 2023-11-05 09:31 | Outpatient (REF) | payer OTHER, SELFPAY ==
[2023-11-05 11:13] LABS: MANUAL DIFF FLAG NO
[2023-11-05 11:20] LABS: Appearance Urine Clear; Color Urine Yellow; Glucose Urine UA 250 mg/dL (Negative); Leukocyte Esterase Urine Moderate (2+) (Negative); Nitrite Urine Negative (Negative); PH 6.5 (5.0-9.0); Specific Gravity - Urine 1.015 (1.005-1.025); UMIC TRIGGER UA YES; Urine Blood Negative (Negative); Urine Ketones Negative (Negative); Urine Protein Negative (Neg-Trace)
[2023-11-05 11:26] LABS: Bacteria Urine 4+ (None Seen); Hyaline Casts Urine 0-2 /LPF (0-2); RBC Urine 0-2 /HPF (0-2); Squamous Epithelial Cell Urine 0-2 /HPF (0-2); WBC Urine >50 /HPF (0-5)
[2023-11-05 11:36] LABS: Anion Gap 12 (12-20); Blood Urea Nitrogen 31 mg/dL (9-16); Calcium 9.4 mg/dL (8.4-10.2); Carbon Dioxide 27 mmol/L (22-29); Chloride 111 mmol/L (96-108); Estimated Glomerular Filt Rate 30; Parathyroid Hormone Intact 215.7 pg/mL (8.7-77.1); Potassium 4.6 mmol/L (3.3-5.1); Sodium 145 mmol/L (135-145); Uric Acid 6.9 mg/dL (2.4-5.7)
[2023-11-05 11:51] LABS: Vitamin D 25-OH Total 63.9 ng/mL (>30)
[2023-11-05 12:04] LABS: Basophils Percent Auto 0.2 % (0-2); Eosinophils Absolute Auto 0.1 X10*3/uL (0.0-0.4); Eosinophils Percent Auto 1.1 % (0-4); Hematocrit 35.9 % (37.0-47.0); Hemoglobin 11.3 g/dl (12.0-16.0); Imm Gran Abs Auto 0.04 X10*3/uL (0.00-0.03); Imm Gran Pct Auto 0.4 % (0.0-0.4); Lymphocytes Absolute Auto 3.8 X10*3/uL (1.2-4.9); Lymphocytes Percent Auto 41.9 % (20-40); Mean Corpuscular HGB Conc 31.5 g/dl (31.0-35.0); Mean Corpuscular Hemoglobin 29.7 pg (27.0-33.0); Mean Corpuscular Volume 94.2 fL (80.0-98.0); Mean Platelet Volume 10.5 fL (9.4-12.3); Monocytes Absolute Auto 0.7 X10*3/uL (0.1-1.2); Monocytes Percent Auto 7.9 % (2-11); Neutrophils Absolute Auto 4.4 x10*3/uL (2.0-8.3); Neutrophils Percent Auto 48.5 % (45-73); Platelet Count 273 X10*3/uL (160-400); Red Blood Count 3.81 X10*6/uL (4.20-5.50); Red Cell Distribution Width 13.8 % (11.0-16.0); White Blood Count 9.1 X10*3/uL (4.8-10.8)
[2023-11-05 12:24] LABS: Total Protein Urine Random 15 mg/dL (<12)
== END 2023-11-05 09:32 | disposition home or self-care (01) ==
LOC: HO.HHCL 09:31
PROVIDERS: Visit Provider Physician Assistant
DX: N18.31 Chronic kidney disease, stage 3a (principal); E55.9 Vitamin D deficiency, unspecified
CPT/HCPCS: 36415; 80051; 81001; 82306; 82310; 82565; 83970; 84156; 84520; 84550; 85025

== ENCOUNTER 2023-12-30 09:10 | Outpatient (REF) | payer OTHER, SELFPAY ==
--- NOTE | ~2023-12-30 | MM_ITS ---
EXAMINATION: MM SCREENING DIGITAL BREAST TOMOSYNTHESIS, BILATERAL CLINICAL INFORMATION: Screening. Asymptomatic. 83-year-old female, Right breast cancer status post lumpectomy, 2006. COMPARISON: Mammography: 10/20/2022, 10/16/2021, 10/02/2020, 07/20/2019 07/07/2018, 07/05/2017 TECHNIQUE: Digital breast tomosynthesis is performed in both the craniocaudal and mediolateral oblique views along with computer-aided detection (CAD). Synthesized 2D images are generated from the tomosynthesis. In addition, an added right 3-D full-field exaggerated lateral CC view, as well as added right 3-D MLO view were provided. FINDINGS: There are scattered areas of fibroglandular density (ACR BI-RADS breast composition Category b). There are post therapy changes on the right with reduced breast size, chronic scarring, and benign dystrophic calcification within the scar. Bilateral vascular calcifications are again seen. There is no significant mass or interval architectural abnormality or developing density. Small circumscribed nodular asymmetry central left breast on MLO view is similar to prior remote studies. Similar retroareolar left duct ectasia noted. The axilla are unremarkable. No significant changes. MM/MM tomosynthesis screening BI IMPRESSION: -No mammographic evidence of malignancy. -Stable post therapeutic changes to the right breast. ASSESSMENT: BI-RADS BI-RADS 2 - Benign Findings RECOMMENDATION: Routine annual mammography screening. 1 year F/U This examination should not preclude the clinical evaluation of a suspicious palpable abnormality. This patient's information was entered into a reminder system with a target due date for their next mammogram.
== END 2023-12-30 09:11 | disposition home or self-care (01) ==
LOC: HO.MAMMO 09:10
PROVIDERS: PCP General Practice; Visit Provider General Practice
DX: Z12.31 Encounter for screening mammogram for malignant neoplasm of breast (principal)
CPT/HCPCS: 77063; 77067

== ENCOUNTER → 2023-12-30 10:00 | Outpatient (BNV) | payer OTHER, SELFPAY | PROVIDERS: PCP General Practice; Visit Provider Radiology Diagnostic Radiology | DX: Z12.31 Encounter for screening mammogram for malignant neoplasm of breast (principal) | CPT/HCPCS: 77063; 77067 ==

== ENCOUNTER 2024-05-08 16:28 | Outpatient (REF) | payer OTHER, SELFPAY ==
[2024-05-08 18:17] LABS: Alanine Aminotransferase 17 U/L (0-31); Albumin Level 3.9 g/dL (3.5-5.0); Alkaline Phosphatase 48 U/L (39-117); Anion Gap 15 (12-20); Aspartate Amino Transferase 19 U/L (5-31); Bilirubin Direct 0.1 mg/dL (0.0-0.5); Bilirubin Total 0.4 mg/dL (0.0-1.0); Blood Urea Nitrogen 24 mg/dL (9-16); C Reactive Protein 1.16 mg/dL (< or = 0.50); Calcium 9.2 mg/dL (8.4-10.2); Carbon Dioxide 22 mmol/L (22-29); Chloride 111 mmol/L (96-108); Cholesterol 149 mg/dL (<200); Estimated Glomerular Filt Rate 33; Glucose Random 130 mg/dL (60-115); HDL Cholesterol 36 mg/dL (>40); LDL Cholesterol Calculated 78 mg/dL (<100); Potassium 4.5 mmol/L (3.3-5.1); Sodium 143 mmol/L (135-145); Total Protein 7.2 g/dL (6.5-8.0); Triglycerides 176 mg/dL (<150)
[2024-05-08 18:23] LABS: B Type Natriuretic Peptide 75 pg/mL (<100)
== END 2024-05-08 16:29 | disposition home or self-care (01) ==
LOC: HO.HHCL 16:28
PROVIDERS: Emergency Medicine; Referring Provider General Practice; Visit Provider Internal Medicine
DX: R60.0 Localized edema (principal); E11.22 Type 2 diabetes mellitus with diabetic chronic kidney disease; N18.30 Chronic kidney disease, stage 3 unspecified; E78.2 Mixed hyperlipidemia; L26 Exfoliative dermatitis
CPT/HCPCS: 36415; 80048; 80061; 80076; 83880; 86140

== ENCOUNTER 2024-06-06 12:22 | Outpatient (REF) | payer OTHER, SELFPAY | END 2024-06-06 12:23 | disposition home or self-care (01) | LOC: HO.HHCLNP 12:22 | PROVIDERS: Visit Provider Internal Medicine | DX: R30.0 Dysuria (principal) | CPT/HCPCS: 87086 ==

== ENCOUNTER 2024-07-25 08:32 | Outpatient (REF) | payer OTHER, SELFPAY ==
[2024-07-25 08:55] LABS: MANUAL DIFF FLAG NO
[2024-07-25 09:23] LABS: Basophils Percent Auto 0.2 % (0-2); Eosinophils Absolute Auto 0.3 X10*3/uL (0.0-0.4); Eosinophils Percent Auto 3.7 % (0-4); Hematocrit 34.4 % (37.0-47.0); Hemoglobin 10.5 g/dl (12.0-16.0); Imm Gran Abs Auto 0.03 X10*3/uL (0.00-0.03); Imm Gran Pct Auto 0.4 % (0.0-0.4); Lymphocytes Absolute Auto 3.4 X10*3/uL (1.2-4.9); Lymphocytes Percent Auto 40.7 % (20-40); Mean Corpuscular HGB Conc 30.5 g/dl (31.0-35.0); Mean Corpuscular Hemoglobin 26.1 pg (27.0-33.0); Mean Corpuscular Volume 85.4 fL (80.0-98.0); Mean Platelet Volume 9.8 fL (9.4-12.3); Monocytes Absolute Auto 0.9 X10*3/uL (0.1-1.2); Monocytes Percent Auto 10.3 % (2-11); Neutrophils Absolute Auto 3.7 x10*3/uL (2.0-8.3); Neutrophils Percent Auto 44.7 % (45-73); Platelet Count 311 X10*3/uL (160-400); Red Blood Count 4.03 X10*6/uL (4.20-5.50); Red Cell Distribution Width 16.3 % (11.0-16.0); White Blood Count 8.4 X10*3/uL (4.8-10.8)
[2024-07-25 09:30] LABS: Appearance Urine Clear; Color Urine Yellow; Glucose Urine UA >=1000 mg/dL (Negative); Leukocyte Esterase Urine Moderate (2+) (Negative); Nitrite Urine Negative (Negative); Specific Gravity - Urine 1.015 (1.005-1.025); UMIC TRIGGER UA YES; Urine Blood Trace (Negative); Urine Ketones Negative (Negative); Urine Protein 30 (1+) mg/dL (Neg-Trace)
[2024-07-25 09:38] LABS: Bacteria Urine 2+ (None Seen); Hyaline Casts Urine 0-2 /LPF (0-2); WBC Urine >50 /HPF (0-5)
[2024-07-25 10:09] LABS: Anion Gap 11 (12-20); Blood Urea Nitrogen 25 mg/dL (9-16); Calcium 9.3 mg/dL (8.4-10.2); Carbon Dioxide 25 mmol/L (22-29); Chloride 110 mmol/L (96-108); Estimated Glomerular Filt Rate 34; Potassium 4.5 mmol/L (3.3-5.1); Sodium 141 mmol/L (135-145); Uric Acid 5.4 mg/dL (2.4-5.7)
[2024-07-25 10:10] LABS: Parathyroid Hormone Intact 116.5 pg/mL (8.7-77.1)
[2024-07-25 10:24] LABS: Vitamin D 25-OH Total 44.4 ng/mL (>30)
[2024-07-25 11:16] LABS: Creatinine Urine 50.89 mg/dL; Protein/Creatinine Ratio, Ur 0.57 (<0.2); Total Protein Urine Random 29 mg/dL (<12)
== END 2024-07-25 08:33 | disposition home or self-care (01) ==
LOC: HO.LAB 08:32
PROVIDERS: PCP Internal Medicine; Visit Provider Physician Assistant
DX: N18.31 Chronic kidney disease, stage 3a (principal); E55.9 Vitamin D deficiency, unspecified
CPT/HCPCS: 36415; 80051; 81001; 82306; 82310; 82565; 82570; 83970; 84156; 84520; 84550; 85025

== ENCOUNTER 2024-08-29 08:20 | Outpatient (AMB) | payer OTHER, SELFPAY ==
[2024-08-29 08:41] VITALS: BP 132/72; BMI 28.2
--- NOTE | 2024-08-29 08:41 | MHC.OFFVIS ---
Vital Signs 08/29/24 08:41 Height 5 ft Weight 144 lb 6.444 oz BMI 28.2 BP 132/72 Blood Pressure Location Lt brachial Position Sitting Intake Visit Reasons: osteoporosis/CM APT Intake Note: Patient presents for follow up on osteoporosis. Final Inspector And Tester Name: DAughter Grant Accompanied by: Daughter Allergies No Known Allergies [No Known Allergies*] Allergy (Verified 08/29/24 08:46) HPI HPI osteoporosis/CM APT: Details: Denies any new fractures. She continues to have chronic lower back pain. She has seen pain management in the past close t 3 years ago and received corticosteroid injections but it caused hyperglycemia which is the reason for her stopping. She completed physical therapy without benefit. She declined spinal stimulator when it was offered to her. She continues to use Tylenol as needed for pain without benefit. Last Prolia was given to patient 04/26/2024 at the [facility] Medical History Breast CA Vertigo Diabetes HTN (hypertension) CKD (chronic kidney disease) Breast CA Vertigo Diabetes HTN (hypertension) CKD (chronic kidney disease) Breast cancer Depression Hypertension Bilateral knee pain Surgical History History of partial mastectomy of right breast Hx of cataract surgery Family History Father No problems noted. Mother No problems noted. Social History Household Members: None Housing: Apartment Do you presently have visiting nurse or other home services: Yes (disposal man services) Alcohol intake: never Patient Tobacco Use Status: Never used Tobacco e-Cigarette/Vaping Use: Never Used service: No Current occupational status: retired Review of Systems Const All systems reviewed & are unremarkable except as noted in HPI and below Physical Exam Vital Signs: Last Vital Signs BP 132/72 08/29/24 08:41 BMI result Body Mass Index 28.2 Const Other: General: Comfortable Skin: No lesions seen MSK: Tender to palpate lumbar spinous process and paraspinal muscles. Limited lumbar flexion. Assessment & Plan Assessment & Plan (1) Osteoporosis: Comment: Patient initially diagnosed with osteopenia with high fracture restarted on Prolia 10/09/2021 then developed osteoporosis. She recently received Prolia 05/09/2024. Bone density is due 11/09/2024. Code(s): M81.0 - Age-related osteoporosis without current pathological fracture Category: Medical Plan: I will arrange for patient to have bone density at [facility] 11/09/2024 with labs same day prior to next prolia Requesting all bone densities from [facility] Continue calcium and vitamin-D supplement daily . She drinks 3 glasses of milk daily RTC November. She will need Prolia SC after follow-up visit. (2) Other intermodal customer service (current) drug therapy: Code(s): Z79.899 - Other shelter (current) drug therapy Category: Medical Plan: see above (3) Osteoarthritis of right knee: Comment: Pain is uncontrolled. Failed cortisone injections and Euflexxa 11/09/2021. Contraindication to oral NSAIDs due to CKD. Pain is uncontrolled with Tylenol Code(s): M17.11 - Unilateral primary osteoarthritis, right knee Category: Medical Plan: We discussed medical management. She will talk to pain management about TENs unit She will continue to use Tylenol as needed (4) Chronic back pain: Comment: Pain is uncontrolled after physical therapy. Code(s): M54.9 - Dorsalgia, unspecified; G89.29 - Other chronic pain Category: Medical Plan: She will communicate with pain management at [facility] about getting a home TENs unit Orders: Orders Calcium 2 Months Z79.899 - Other shelter (current) drug therapy Creatinine 2 Months Z79.60 - termite control representative (current) use of unspecified immunomodulators and immunosuppressants Vitamin D 25-OH Total 2 Months Z79.899 - Other intermodal customer service (current) drug therapy Albumin Level 2 Months M81.0 - Age-related osteoporosis without current pathological fracture, Z79.899 - Other intermodal customer service (current) drug therapy XR DEXA axial skeleton 2 Months M81.0 - Age-related osteoporosis without current pathological fracture, Z79.899 - Other shelter (current) drug therapy Coding Level of Care Code Est Pt Level 3 (62642) Complex EM visit Add On G2211 Diagnoses Osteoporosis M81.0 Other intermodal customer service (current) drug therapy Z79.899 Osteoarthritis of right knee M17.11 Chronic back pain M54.9; G89.29
== END 2024-08-29 09:18 | disposition home or self-care (01) ==
PROVIDERS: PCP General Practice; Visit Provider Internal Medicine Rheumatology
DX: M81.0 Age-related osteoporosis without current pathological fracture (principal); Z79.899 Other long term (current) drug therapy; M17.11 Unilateral primary osteoarthritis, right knee; M54.9 Dorsalgia, unspecified; G89.29 Other chronic pain
CPT/HCPCS: 99213; G2211

== ENCOUNTER → 2024-08-29 08:20 | Outpatient (BNVA) | payer OTHER, SELFPAY | PROVIDERS: PCP General Practice; Visit Provider Internal Medicine Rheumatology | DX: M81.0 Age-related osteoporosis without current pathological fracture (principal); M17.11 Unilateral primary osteoarthritis, right knee; M54.9 Dorsalgia, unspecified; G89.29 Other chronic pain; Z79.899 Other long term (current) drug therapy | CPT/HCPCS: 99212 ==

== ENCOUNTER → 2024-09-22 08:36 | Outpatient (REF) | payer OTHER, SELFPAY ==
--- NOTE | 2024-09-22 08:41 | CA_ITS ---
Transthoracic Echocardiogram Patient (Last, First, Middle): Sosa Correa, Gender: Female Date of : 1940 Age: 84 Procedure Date: 09/22/2024 Procedure Type: Transthoracic Echocardiogram Location: OP Height: 152.4 cm Weight: 65.32 kg BSA: 1.62 m2 Heart Rate: 69 bpm BP: 132 / 72 mmHg [employer]munition [employer] Ii Laborer: SB Referring MD: Rosalba Louis MD [id number] Application Developer: Gato Zazueta MD Symptoms: I51.89 DIASTOLIC DYSFUNCTION Study Quality: Fair but adequate ECG Rhythm: Sinus Conclusions: - 1. Normal LV ejection fraction 55-60% with impaired relaxation filling pattern with elevated filling pressures 2. Cardiac valvular Dopplers within normal limits 3. Upper limits of normal ascending aortic size 4. No gross pericardial effusion Findings Left Ventricle Normal left ventricular size, thickness, and systolic function. The visually estimated ejection fraction is between 55-60%. Spectral Doppler is indicative of an impaired relaxation filling pattern. Elevated filling pressures. E/E prime ratio is >15, consistent with elevated filling pressures. Atria The left atrium is normal in size. Interatrial shunt cannot be excluded. Aortic Valve The aortic valve structure and function is likely normal. There is no aortic valve stenosis. There is no aortic valve regurgitation. Mitral Valve Likely normal mitral valve structure and function. There is no mitral valve regurgitation. There is no mitral valve stenosis. Pulmonic Valve The pulmonic valve was not well visualized. Tricuspid Valve Likely normal tricuspid valve structure and function. Tricuspid regurgitation envelope is inadequate for calculation of right ventricular systolic pressure. Normal right atrial pressure. Great Vessels All visible segments of the aorta are normal in size. The pulmonary artery was not well visualized. Venous The inferior vena cava is normal in size. Pericardium/Pleural There is no evidence of pericardial effusion. Prior Study Comparison no previous study in the last 5 years for comparison Measurements 2D Linear Measurements IVSd: 0.86 0.6-0.9/0.6-1.0 cm LVIDd: 4.72 3.9-5.3/4.2-5.9 cm LVIDd Index: 2.91 2.4-3.2/2.2-3.1 cm/m2 LVIDs: 3.36 2.0-3.6 cm LVPWd: 0.95 0.7-1.1 cm LA Diam: 3.30 2.7-3.8/3.0-4.0 cm LAIDs Index: 2.04 1.5-2.3 cm/m2 LV Mass: 226.09 67-162/88-224 g LV Mass Index: 139.56 43-95/49-115 g/m2 LVOT Diam: 2.20 3.0+(-)1.3 cm 2D Systolic Function EF 4C: 63.50 >55% EF 2C: 47.70 >55% EF BiP: 54.70 >55% Mitral Valve MV Pk E: 0.74 MV PK A: 1.09 MV Decel Time: 305.00 E/A: 0.70 E'Lateral: 3.92 E'Medial: 3.92 E/E' Med: 18.90 E/E' Lat: 18.90 PHT: 89.00 MVA PHT: 2.47 Decel Stewart: 2.43 Aortic Valve AoV Pk Gilson: 1.26 AoV Pk Grad: 6.00 RAMIRO: 3.09 LVOT LVOT Pk Gilson: 0.99 LVOT Mn Gilson: 0.67 LVOT VTI: 0.21 LVOT Pk Grad: 4.00 LVOT Mn Grad: 2.00 LVOT Diam: 2.20 LVOT Area: 3.80 Diastolic Function MV Pk E: 0.74 MV Pk A: 1.09 E/A: 0.70 E'Medial: 3.92 E/E' Med: 18.90 E' Laterial: 3.92 E/E' Lat: 18.90 Right Ventricle TAPSE (mm): 20.70 TVS' Gilson: 15.90 Tricuspid Valve RA Press: 3.00 Great Vessels Aorta Sinus of Valsalva: 3.10 2.0-3.5 cm Ao Asc: 3.60 2.1-3.4 cm Pulmonary Veins Pulm Vein S/D 1.50 Pulmonary Valve PV Pk Gilson: 0.86 Peak PV Grad: 3.00 Updated in Other Vendor System with Status of Final Gato Zazueta MD electronically signed on 09/23/2024 2:00:00 PM with status of Final
== END ==
LOC: HO.CARD 08:36
PROVIDERS: PCP General Practice; Visit Provider Internal Medicine
DX: I51.89 Other ill-defined heart diseases (principal)
CPT/HCPCS: 93306

== ENCOUNTER → 2024-09-22 08:41 | Outpatient (BNV) | payer OTHER, SELFPAY | PROVIDERS: PCP General Practice; Visit Provider Internal Medicine Cardiovascular Disease | DX: I51.89 Other ill-defined heart diseases (principal) | CPT/HCPCS: 93306 ==

== ENCOUNTER 2024-11-01 08:24 | Outpatient (REF) | payer OTHER, SELFPAY ==
--- NOTE | ~2024-11-01 | MM_ITS ---
EXAMINATION: DXA BONE DENSITY AXIAL HISTORY: Estrogen deficiency TECHNIQUE: [employer] Dual energy absorptiometry (DEXA) of the lumbar spine, total left hip, and femoral neck was performed. COMPARISON: Comparison is made with the prior examination dated 10/11/2019. FINDINGS: The bone mineral density of the lumbar spine is 1.036 with a T-score of -1.2, and a Z-score of 0.7. This represents a BMD change of 3.6% compared to the prior exam. This is statistically significant. The bone mineral density of the left total hip is 0.851 with a T-score of -1.2, and a Z-score of 1.1. This represents BMD change of -5.0% compared to the prior exam. This is statistically significant. The bone mineral density of the left femoral neck is 0.781 with a T-score of -1.9, and a Z-score of 0.6. This represents BMD change of 2.0% compared to the prior exam. MM/XR DEXA axial skeleton IMPRESSION: Based on bone mineral density, and according to World Health Organization (WHO) criteria, the diagnosis is consistent with osteopenia. All bone density values are in grams per centimeter squared (g/cm2). Statistically, 68% of repeat scans fall within 1 SD (+/- 0.010 g/cm2 for AP spine L1-L4) and 1 SD (+/- 0.012 g/cm2 for femur total) FRAX is a trademark of the [employer] Metabolic Bone Disease, a World Health Organization (WHO) Collaborating Center. Electronically signed by: Bert Leon MD 11/01/2024 09:18 AM [facility]
--- OUTSIDE RECORDS SUMMARY | 2024-11-01 08:58 | XMS_ITS | Encounter Summary ---
Author Organization [facility], Address [address] [place] [address] Phone Care Team Providers Care Mission Assessment Specialist Name Role Phone Mati Giordano MD Primary Care Provider [phone] Encounter Details Date Type Department Care Team (Late st Contact Info) Description 12/16/2021 Documentation Only [facility], [address] [place] [address] Roger Harrison MD [address] [place] [address] [place] [address] Social History Tobacco Use Types Packs/Day Years Used Date Smoking Tobacco: Never Alcohol Use Standard Drinks/Week Comments No 0 (1 standard drink = 0.6 oz pur e alcohol) Comments Unknown Sex and Gender Information Value Date Recorded Sex Assigned at Not on file Legal Sex Female 4:33 PM EST Gender Identity Not on file Sexual Orientation Not on file documented as of this encounter Plan of Treatment Upcoming Encounters Date Type Department Care Team (Late st Contact Info) Description 01/24/2025 2:45 PM EDT Office Visit [facility] [address] [place] [address] Jose Luis Lei MD [address] [place] [address] [place] [address] documented as of this encounter Visit Diagnoses Not on filedocumented in this encounter Care Teams Mission Assessment Specialist Relationship Specialty Start Date End Date Mati Giordano MD [address] [place] [address], [address] [place], [place] PCP - General Internal Medicine 03/30/23 documented as of this encounter
--- OUTSIDE RECORDS SUMMARY | 2024-11-01 08:58 | XMS_ITS | Encounter Summary ---
Author Organization [facility] Address [address] [place] [address] Phone Care Team Providers Care Supervisor Bleach Plant Name Role Phone Mati Giordano MD Primary Care Provider [phone] Encounter Details Date Type Department Care Team (Late st Contact Info) Description 10/24/2021 Orders Only [facility] [address] [place] [address] Roger Harrison MD [address] [place] [address] [place] [address] Stage 3a chronic kidney disease (HCC) Social History Tobacco Use Types Packs/Day Years [...] Visit [facility] [address] [place] [address] Jose Luis Lei MD [address] [place] [address] [place] [address] documented as of this encounter Visit Diagnoses Diagnosis Stage 3a chronic kidney disease (HCC) documented in this encounter Care Teams Supervisor Bleach Plant Relationship Specialty Start Date End Date Mati Giordano MD [address] [place] [address], [address] [place], [place] PCP - General Internal Medicine 03/30/23 documented as of this encounter
--- OUTSIDE RECORDS SUMMARY | 2024-11-01 08:58 | XMS_ITS | Encounter Summary ---
Author Organization [facility], Address [address] [place] [address] Phone Care Team Providers Care Jet Handler Name Role Phone Mati Giordano MD Primary Care Provider [phone] Encounter Details Date Type Department Care Team (Late st Contact Info) Description 08/04/2021 Documentation Only [facility], [address] [place] [address] Roger Harrison MD [address] [place] [address] [place] [address] Social History Tobacco Use Types [...] Visit [facility] [address] [place] [address] Jose Luis Lei MD [address] [place] [address] [place] [address] documented as of this encounter Visit Diagnoses Not on filedocumented in this encounter Care Teams Jet Handler Relationship Specialty Start Date End Date Mati Giordano MD [address] [place] [address], [address] [place], [place] PCP - General Internal Medicine 03/30/23 documented as of this encounter
--- OUTSIDE RECORDS SUMMARY | 2024-11-01 08:58 | XMS_ITS | Clinical Summary ---
Author Organization [facility], Address [address] [place] [place] [address] [place] [address] Phone Care Team Providers Care Web Site Manager Name Role Phone Mati Giordano MD Primary Care Provider [phone] Allergies No known active allergies Medications ACETAMINOPHEN EXTRA STRENGTH 500 MG tablet TAKE 1 TABLET BY MOUTH EVERY 7 8 HOURS NEEDED, NO MORE THAN 8 TABS DAILY 0 Active aspirin (ST ANA) 81 MG EC tablet TAKE 1 TAB BY MOUTH DAILY. 8 Active atorvastatin (LIPITOR) 20 MG tablet Take 20 mg by mouth daily 0 Active Calcium Carbonate-Petra min D (CALCIUM-VITAM IN D) 500-200 MG-UNIT tablet Take 500 mg by mouth daily 0 Active carvedilol (COREG) 25 MG tablet Take 25 mg by mouth 2 (two) times a day with meals 0 Active dilTIAZem (CARDIZEM) 90 MG immediate release tablet Take 90 mg by mouth 4 (four) times a day 0 Active ferrous fumarate-vitam in C ER (BIRD-SEQUELS -65) 65-25 MG CR tablet Take 50 mg by mouth daily Do not crush, chew, or split. Active pantoprazole (PROTONIX) 40 MG EC tablet Take 40 mg by mouth 1 (one) time each day 2 Active lisinopril 40 MG tablet TAKE 1 TABLET BY MOUTH EVERY DAY 90 tablet 3 3 Active furosemide (LASIX) 40 MG tablet Take 1 tablet (40 mg total) by mouth if needed (edema) 30 tablet 3 3 Active Jardiance 25 MG tablet TAKE 1 TABLET BY MOUTH EVERY MORNING 90 tablet 3 5 Active Jardiance 25 MG tablet Take by mouth 10/05/19 25 Discontinued Active Problems Problem Noted Date Diagnosed Date Stage 3b chronic kidney disease 08/04/2022 Hypertensive disorder 04/21/2021 Renal disorder due to type 2 diabetes mellitus 0 03/18/2020 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 Needs one in 07/2017 Calculus of gallbladder with out cholecystitis without obstruction 08/03/2016 01/03/2020 Disorder of carotid artery 08/03/2016 0 01/03/2020 Cholangiectasis 07/31/2016 01/03/2020 Edema of lower extremity 07/17/2016 Abduction deformity of foot 05/29/2016 01/03/2020 Bilateral cataracts 05/29/2016 01/03/20 20 Degeneration of thoracic intervertebral disc 6 01/03/2020 Diverticulosis of colon 05/29/201612/19 Microalbuminuria 05/29/2016 04/21/2021 Personal history of breast cancer 05/29/2016 01/03/2020 Overview (01/03/2020): Lumpectomy & axillary nodes removed. Radiation therapy Renal stone 05/29/2016 04/21/2021 Type 2 diabetes mellitus 05/29/201610/2020 Essential (primary) hypertension 03/04/2016 04/21/2021 Essential hypertension 02/24/201604/21 Hyperlipidemia 02/24/2016 01/03/2020 Encounters Date Type Department Care Team Description 10/05/2024 Refill [facility], [address] [place] [address] Morenita Leigh PA from Last 3 Months Immunizations Name Administration Dates Next Due Pneumococcal Polysaccharide 03/09/2016 Tdap 03/09/2016 Family History Medical History Relation Comments Diabetes Child Diabetes Sibling sister Hypertension Sibling sister Kidney disease Sibling sister Relation Status Comments Child Father Mother Sibling Social History Tobacco Use Types Packs/Day Years Used Date Smoking Tobacco: Never Tobacco Cessation:Counseling Given: Not Answered Alcohol Use Standard Drinks/Week Comments No 0 (1 standard drink = 0.6 oz pur e alcohol) Comments Unknown Sex and Gender Information Value Date Recorded Sex Assigned at Not on file Legal Sex Female 4:33 PM EST Gender Identity Not on file Sexual Orientation Not on file Last Filed Vital Signs Vital Sign Reading Time Taken Comments Blood Pressure 128/66 07/26/2024 1:24 PM EST Pulse 78 07/10/2019 12:00 PM EDT Temperature - - Respiratory Rate 16 07/10/2019 12:00 PM EDT Oxygen Saturation - - Inhaled Oxygen Concentration - - Weight 66.5 kg (146 lb 9.6 oz) 07/26/2024 1:24 P M EST Height 149.9 cm (4' 11 ) 07/26/2024 1:24 PM EST Body Mass Index 29.61 07/26/2024 1:24 PM EST Plan of Treatment Upcoming Encounters Date Type Department Care Team (Late st Contact Info) Description 01/24/2025 2:45 PM EDT Office Visit [facility], [address] [place] [address] Jose Luis Lei MD [address] [place] [phone] Health Maintenance Due Date Last Done Comments Pneumococcal Vaccine: 65+ Years (2 of 2 - PCV) 03/09/2017 03/09/2016 Diabetes: Ophthalmology Exam 12/22/2019 Diabetes: Pedal Pulse Checked 12/22/2019 Diabetes: Sensory Foot Exam 12/22/2019 Diabetes: Visual Foot Exam 12/22/2019 Diabetes: Hemoglobin A1C 01/23/2024 024, 03/30/2023, 09/08/2021, Additional history exists Influenza Vaccine (#1) 2024 Hepatitis B Vaccine Aged Out No longe r eligible based on patient's age to complete this topic Procedures Procedure Name Priority Date/Time Associated Diagnosis Comments HEMOGLOBIN A1C Routine 03/30/2023 3:58 PM EDT Stage 3b chronic kidney disease (HCC) Essential (primary) hypertension Edema, not otherwise specified from Last 3 Months or Most Recently Relevant to Health Maintenance Results * (ABNORMAL) Hemoglobin A1c (03/30/2023 3:58 PM EDT) Hemoglobin A1C 6.3(H) (4.0-5.6) % [facility] Comment: MONITORING: In known diabetic patients, hemoglobin A1c targets should be discussed with health care provider. DIAGNOSTIC USE: ??The [place] Diabetes Association (ADA) and the World Health Organization (WHO) recommend the use of HbA1c to diagnose diabetes using a threshold of 6.5%. Patients who have an HbA1c between 5.7% and 6.4% are considered at increased risk for developing diabetes in the future. CAUTION: Falsely low HbA1c results may be observed in patients with hemolytic anemia, homozygous forms of abnormal hemoglobin (e.g. SS, CC, SC), , recent blood loss or hemoglobin F greater than 7%. Fructosamine may be used as an alternate test in these cases. REFERENCE: ADA: Standards of Medical Care in Diabetes 2020, The Journal of Clinical and Applied Research and Education Volume 43, Supplement 1 Testing performed or reported by [facility], a Service of [facility], [address] [place] [id number] Rc Thomas MD, Trust Administrative Assistant EDGAR# [id number] Blood (Blood, Venous) 03/30/2023 3:58 PM EDT 03/30/2023 4:00 PM EDT Morenita MORGAN [facility] BLOOD ORDERABLES Final Re sult [facility] from Last 3 Months or Most Recently Relevant to Health Maintenance Insurance [address] [place] [id number] [facility] ONE CARE DUAL SNP ([id number]) CATHY CHEEK [id number] [place] [id number] [place] [id number] Care Teams Web Site Manager Relationship Specialty Start Date End Date Mati Giordano MD [address] [place] [address], [address] [place], [place] PCP - General Internal Medicine 03/30/23
--- OUTSIDE RECORDS SUMMARY | 2024-11-01 08:58 | XMS_ITS | Encounter Summary ---
Author Organization [facility], Address [address] [place] [address] Phone Care Team Providers Care Live In Companion Name Role Phone Mati Giordano MD Primary Care Provider [phone] Reason for Visit * Reason Comments Med Refill Encounter Details Date Type Department Care Team (Late st Contact Info) Description 07/02/2021 Refill [facility] [address] [place] [address] Roger Harrison MD [address] [place] [address] Social History Tobacco Use Types [...] Office Visit [facility], [address] [place] [address] Joes Luis Lei MD [address] [place] [address] documented as of this encounter Visit Diagnoses Not on filedocumented in this encounter Care Teams Live In Companion Relationship Specialty Start Date End Date Mati Giordano MD [address] [place] [address], [address] [place], [place] PCP - General Internal Medicine 03/30/23 documented as of this encounter
--- OUTSIDE RECORDS SUMMARY | 2024-11-01 08:58 | XMS_ITS | Encounter Summary ---
Author Organization [facility], Address [address] [place] [address] Phone Care Team Providers Care Rehabilitation Case Coordinator Name Role Phone Mati Giordano MD Primary Care Provider [phone] Encounter Details Date Type Department Care Team (Late st Contact Info) Description 10/31/2021 Orders Only [facility] [address] [place] [address] Roger Harrison MD [address] [place] [address] [place] [address] Stage 3a chronic kidney disease [...] Visit [facility] [address] [place] [address] Jose Luis Lei MD [address] [place] [address] [place] [address] documented as of this encounter Visit Diagnoses Diagnosis Stage 3a chronic kidney disease (HCC) documented in this encounter Care Teams Rehabilitation Case Coordinator Relationship Specialty Start Date End Date Mati Giordano MD [address] [place] [address], [address] [place], [place] PCP - General Internal Medicine 03/30/23 documented as of this encounter
--- OUTSIDE RECORDS SUMMARY | 2024-11-01 08:58 | XMS_ITS | Encounter Summary ---
Author Organization [facility] Address [address] [place] [address] Phone Care Team Providers Care Director Of Quality Control Name Role Phone Mati Giordano MD Primary Care Provider [phone] Encounter Details Date Type Department Care Team (Late st Contact Info) Description 11/07/2021 Orders Only [facility] [address] [place] [address] Roger Harrison MD [address] [place] [address] [place] [address] Stage 3a chronic kidney disease [...] Visit [facility] [address] [place] [address] Jose Luis Lei MD [address] [place] [address] [place] [address] documented as of this encounter Visit Diagnoses Diagnosis Stage 3a chronic kidney disease (HCC) documented in this encounter Care Teams Director Of Quality Control Relationship Specialty Start Date End Date Mati Giordano MD [address] [place] [address], [address] [place], [place] PCP - General Internal Medicine 03/30/23 documented as of this encounter
--- OUTSIDE RECORDS SUMMARY | 2024-11-01 08:58 | XMS_ITS | Encounter Summary ---
Author Organization [facility] [place], Address [address] [place] [address] Phone Care Team Providers Care Director Of Business Services Name Role Phone Mati Giordano MD Primary Care Provider [phone] Encounter Details Date Type Department Care Team (Late st Contact Info) Description 12/17/2021 Documentation Only [facility] [place], [address] [place] [address] Roger Harrison MD [address] [place] [address] [place] [address] Social History Tobacco Use Types [...] Visit [facility] [address] [place] [address] Jose Luis Lei MD [address] [place] [address] [place] [address] documented as of this encounter Visit Diagnoses Not on filedocumented in this encounter Care Teams Director Of Business Services Relationship Specialty Start Date End Date Mati Giordano MD [address] [place] [address], [address] [place], [place] PCP - General Internal Medicine 03/30/23 documented as of this encounter
--- OUTSIDE RECORDS SUMMARY | 2024-11-01 08:58 | XMS_ITS | Encounter Summary ---
Author Organization [facility] [place], Address [address] [place] [address] Phone Care Team Providers Care Composite Layup Worker Name Role Phone Mati Giordano MD Primary Care Provider [phone] Encounter Details Date Type Department Care Team (Late st Contact Info) Description 11/14/2021 Orders Only [facility] [address] [place] [address] Roger Harrison MD [address] [place] [address] [place] [address] Stage 3a chronic kidney disease [...] Visit [facility] [address] [place] [address] Jose Luis Lei MD [address] [place] [address] [place] [address] documented as of this encounter Visit Diagnoses Diagnosis Stage 3a chronic kidney disease (HCC) documented in this encounter Care Teams Composite Layup Worker Relationship Specialty Start Date End Date Mati Giordano MD [address] [place] [address], [address] [place], [place] PCP - General Internal Medicine 03/30/23 documented as of this encounter
--- OUTSIDE RECORDS SUMMARY | 2024-11-01 08:58 | XMS_ITS | Encounter Summary ---
Author Organization [facility] [place], Address [address] [place] [address] Phone Care Team Providers Care Ethical Hacker Name Role Phone Mati Giordano MD Primary Care Provider [phone] Encounter Details Date Type Department Care Team (Late st Contact Info) Description 07/26/2024 Documentation Only [facility] [address] [place] [address] Mariah Sal [address] [place] [address] Social History Tobacco Use Types Packs/Day Years [...] Visit [facility] [address] [place] [address] Jose Luis Lei MD [address] [facility] [place] [address] documented as of this encounter Visit Diagnoses Not on filedocumented in this encounter Care Teams Ethical Hacker Relationship Specialty Start Date End Date Mati Giordano MD [address] [place] [address], [address] [place], [place] PCP - General Internal Medicine 03/30/23 documented as of this encounter
--- OUTSIDE RECORDS SUMMARY | 2024-11-01 08:58 | XMS_ITS | Encounter Summary ---
Author Organization [facility] Address [address] [place] [address] Phone Care Team Providers Care Studio Coordinator Name Role Phone Mati Giordano MD Primary Care Provider [phone] Reason for Visit * Reason Comments Med Change Request Encounter Details Date Type Department Care Team (Late st Contact Info) Description 10/24/2021 Refill [facility] [address] [place] [address] Roger Harrison MD [address] [place] [address] [place] [address] Social History Tobacco Use Types [...] Office Visit [facility] [address] [place] [address] Jose Luis Lei MD [address] [facility] [place] [address] documented as of this encounter Visit Diagnoses Not on filedocumented in this encounter Care Teams Studio Coordinator Relationship Specialty Start Date End Date Mati Giordano MD [address] [place] [address], [address] [place], [place] PCP - General Internal Medicine 03/30/23 documented as of this encounter
--- OUTSIDE RECORDS SUMMARY | 2024-11-01 08:59 | XMS_ITS | Encounter Summary ---
Author Organization [facility] Address [address] [place] [address] Phone Care Team Providers Care Historical Site Guide Name Role Phone Mati Giordano MD Primary Care Provider Encounter Details Date Type Department Care Team (Late st Contact Info) Description 11/28/2021 Orders Only [facility] [address] [place] [address] Roger Harrison MD [address] [place] [address] [place] [address] Stage 3a chronic kidney disease [...] Visit [facility] [address] [place] [address] Jose Luis Lei MD [address] [place] [address] [place] [address] documented as of this encounter Visit Diagnoses Diagnosis Stage 3a chronic kidney disease (HCC) documented in this encounter Care Teams Historical Site Guide Relationship Specialty Start Date End Date Mati Giordano MD [address] [place] [address], [address] [place], [place] PCP - General Internal Medicine 03/30/23 documented as of this encounter
--- OUTSIDE RECORDS SUMMARY | 2024-11-01 08:59 | XMS_ITS | Encounter Summary ---
Author Organization [facility] Address [address] [place] [address] Phone Care Team Providers Care Trailer Assembler Name Role Phone Mati Giordano MD Primary Care Provider [phone] Encounter Details Date Type Department Care Team (Late st Contact Info) Description 11/21/2021 Orders Only [facility] [address] [place] [address] Roger Harrison MD [address] [place] [address] [place] [address] Stage 3a chronic kidney disease [...] Visit [facility] [address] [place] [address] Jose Luis Lei MD [address] [place] [address] [place] [address] documented as of this encounter Visit Diagnoses Diagnosis Stage 3a chronic kidney disease (HCC) documented in this encounter Care Teams Trailer Assembler Relationship Specialty Start Date End Date Mati Giordano MD [address] [place] [address], [address] [place], [place] PCP - General Internal Medicine 03/30/23 documented as of this encounter
--- OUTSIDE RECORDS SUMMARY | 2024-11-01 09:00 | XMS_ITS | Encounter Summary ---
Author Organization [facility] [place], Address [address] [place] [address] Phone Care Team Providers Care Cns Name Role Phone Mati Giordano MD Primary Care Provider [phone] Encounter Details Date Type Department Care Team (Late st Contact Info) Description 10/03/2021 Orders Only [facility] [address] [place] [address] Roger Harrison MD [address] [place] [address] [place] [address] Stage 3a chronic kidney disease [...] Visit [facility] [address] [place] [address] Jose Luis Lei MD [address] [place] [address] [place] [address] documented as of this encounter Visit Diagnoses Diagnosis Stage 3a chronic kidney disease (HCC) documented in this encounter Care Teams Cns Relationship Specialty Start Date End Date Mati Giordano MD [address] [place] [address], [address] [place], [place] PCP - General Internal Medicine 03/30/23 documented as of this encounter
--- OUTSIDE RECORDS SUMMARY | 2024-11-01 09:00 | XMS_ITS | Encounter Summary ---
Author Organization [facility] [place], Address [address] [place] [address] Phone Care Team Providers Care Event Executive Name Role Phone Mati Giordano MD Primary Care Provider [phone] Encounter Details Date Type Department Care Team (Late st Contact Info) Description 09/30/2021 Documentation Only [facility] [place], [address] [place] [address] Roger Harrison MD [address] [place] [address] [place] [address] Social History Tobacco Use Types [...] Visit [facility] [address] [place] [address] Jose Luis Lei MD [address] [place] [address] [place] [address] documented as of this encounter Visit Diagnoses Not on filedocumented in this encounter Care Teams Event Executive Relationship Specialty Start Date End Date Mati Giordano MD [address] [place] [address], [address] [place], [place] PCP - General Internal Medicine 03/30/23 documented as of this encounter
--- OUTSIDE RECORDS SUMMARY | 2024-11-01 09:00 | XMS_ITS | Encounter Summary ---
Author Organization [facility] Address [address] [place] [address] Phone Care Team Providers Care Classifier Tender Name Role Phone Mati Giordano MD Primary Care Provider [phone] Encounter Details Date Type Department Care Team (Late st Contact Info) Description 11/02/2022 Documentation Only [facility] [address] [place] [address] Morenita Leigh PA Social History Tobacco Use Types Packs/Day Years [...] Visit [facility] [address] [place] [address] Jose Luis Lei MD [address] [place] [address] [place] [address] documented as of this encounter Visit Diagnoses Not on filedocumented in this encounter Care Teams Classifier Tender Relationship Specialty Start Date End Date Mati Giordano MD [address] [place] [address] [place], [place] PCP - General Internal Medicine 03/30/23 documented as of this encounter
--- OUTSIDE RECORDS SUMMARY | 2024-11-01 09:00 | XMS_ITS | Encounter Summary ---
Author Organization [facility] [place], Address [address] [place] [address] Phone Care Team Providers Care Stamping Die Maker Bench Name Role Phone Mati Giordano MD Primary Care Provider [phone] Encounter Details Date Type Department Care Team (Late st Contact Info) Description 08/25/2021 Documentation Only [facility] [place], [address] [place] [address] Roger Harrison MD [address] [place] [address] [place] [address] Social History Tobacco Use Types [...] [facility] [address] [place] [address] Jose Luis Lei MD [address] [place] [address] [place] [address] documented as of this encounter Visit Diagnoses Not on filedocumented in this encounter Care Teams Stamping Die Maker Bench Relationship Specialty Start Date End Date Mati Giordano MD [address] [place] [address], [address] [place], [place] PCP - General Internal Medicine 03/30/23 documented as of this encounter
--- OUTSIDE RECORDS SUMMARY | 2024-11-01 09:00 | XMS_ITS | Encounter Summary ---
Author Organization [facility] Address [address] [place] [address] Phone Care Team Providers Care Pit Shoveler Name Role Phone Mati Giordano MD Primary Care Provider [phone] Encounter Details Date Type Department Care Team (Late st Contact Info) Description 07/07/2022 Documentation Only [facility] [address] [place] [place] [address] Morenita Liegh PA Social History Tobacco Use Types Packs/Day [...] Visit [facility] [address] [place] [place] [address] Jose Luis Lei MD [address] [place] [address] [place] [address] documented as of this encounter Visit Diagnoses Not on filedocumented in this encounter Care Teams Pit Shoveler Relationship Specialty Start Date End Date Mati Giordano MD [address] [place] [address] [address] [place], [place] PCP - General Internal Medicine 03/30/23 documented as of this encounter
--- OUTSIDE RECORDS SUMMARY | 2024-11-01 09:00 | XMS_ITS | Encounter Summary ---
Author Organization [facility] [place], Address [address] [place] [address] Phone Care Team Providers Care Videotape Recording Engineer Name Role Phone Mati Giordano MD Primary Care Provider Encounter Details Date Type Department Care Team (Late st Contact Info) Description 06/17/2022 Documentation Only [facility] [place], [address] [place] [address] Roger Harrison MD [address] [place] [address] [place] [address] Social History Tobacco Use Types [...] Visit [facility] [address] [place] [address] Jose Luis Lei MD [address] [place] [address] [place] [address] documented as of this encounter Visit Diagnoses Not on filedocumented in this encounter Care Teams Videotape Recording Engineer Relationship Specialty Start Date End Date Mati Giordano MD [address] [place] [address], [address] [place], [place] PCP - General Internal Medicine 03/30/23 documented as of this encounter
--- OUTSIDE RECORDS SUMMARY | 2024-11-01 09:00 | XMS_ITS | Encounter Summary ---
Author Organization [facility] [place], Address [address] [place] [address] Phone Care Team Providers Care Loom Control Chain Builder Name Role Phone aMti Giordano MD Primary Care Provider [phone] Encounter Details Date Type Department Care Team (Late st Contact Info) Description 10/10/2021 Orders Only [facility] [address] [place] [address] Roger Harrison MD [address] [place] [address] [place] [address] Stage 3a chronic kidney disease [...] Visit [facility] [address] [place] [address] Jose Luis Lei MD [address] [place] [address] [place] [address] documented as of this encounter Visit Diagnoses Diagnosis Stage 3a chronic kidney disease (HCC) documented in this encounter Care Teams Loom Control Chain Builder Relationship Specialty Start Date End Date Mati Giordano MD [address] [place] [address], [address] [place], [place] PCP - General Internal Medicine 03/30/23 documented as of this encounter
--- OUTSIDE RECORDS SUMMARY | 2024-11-01 09:00 | XMS_ITS | Encounter Summary ---
Author Organization [facility] Address [address] [place] [address] Phone Care Team Providers Care Gang Investigator Name Role Phone Mati Giordano MD Primary Care Provider [phone] Encounter Details Date Type Department Care Team (Late st Contact Info) Description 08/03/2022 Documentation Only [facility] [address] [place] [address] Morenita Leigh PA Social History [...] [facility] [address] [place] [address] Jose Luis Lei MD [address] [place] [address] [place] [address] documented as of this encounter Visit Diagnoses Not on filedocumented in this encounter Care Teams Gang Investigator Relationship Specialty Start Date End Date Mati Giordano MD [address] [place] [address] [place], [place] PCP - General Internal Medicine 03/30/23 documented as of this encounter
--- OUTSIDE RECORDS SUMMARY | 2024-11-01 09:00 | XMS_ITS | Encounter Summary ---
Author Organization [facility] [place], Address [address] [place] [address] Phone Care Team Providers Care Brim Stitcher Name Role Phone Mati Giordano MD Primary Care Provider [phone] Encounter Details Date Type Department Care Team (Late st Contact Info) Description 09/10/2021 Documentation Only [facility] [place], [address] [place] [address] Roger Harrison MD [address] [place] [address] [place] [address] Social History Tobacco Use Types [...] Visit [facility] [address] [place] [address] Jose Luis Lei MD [address] [place] [address] [place] [address] documented as of this encounter Visit Diagnoses Not on filedocumented in this encounter Care Teams Brim Stitcher Relationship Specialty Start Date End Date Mati Giordano MD [address] [place] [address], [address] [place], [place] PCP - General Internal Medicine 03/30/23 documented as of this encounter
--- OUTSIDE RECORDS SUMMARY | 2024-11-01 09:00 | XMS_ITS | Encounter Summary ---
Author Organization [facility] Address [address] [place] [address] Phone Care Team Providers Care Gas Station Cashier Name Role Phone Mati Giordano MD Primary Care Provider [phone] Encounter Details Date Type Department Care Team (Late st Contact Info) Description 08/05/2022 Documentation Only [facility] [address] [place] [address] Morenita Leigh PA Social History [...] Visit [facility] [address] [place] [address] Jose Luis Lei MD [address] [place] [address] [place] [address] documented as of this encounter Visit Diagnoses Not on filedocumented in this encounter Care Teams Gas Station Cashier Relationship Specialty Start Date End Date Mati Giordano MD [address] [place] [address] [address] [place], [place] PCP - General Internal Medicine 03/30/23 documented as of this encounter
--- OUTSIDE RECORDS SUMMARY | 2024-11-01 09:00 | XMS_ITS | Encounter Summary ---
Author Organization [facility] [place], Address [address] [place] [address] Phone Care Team Providers Care Frame Cleaner Name Role Phone Mati Giordano MD Primary Care Provider [phone] Encounter Details Date Type Department Care Team (Late st Contact Info) Description 10/17/2021 Orders Only [facility] [address] [place] [address] Roger Harrison MD [address] [place] [address] [place] [address] Stage 3a chronic kidney disease [...] Visit [facility] [address] [place] [address] Jose Luis Lei MD [address] [place] [address] [place] [address] documented as of this encounter Visit Diagnoses Diagnosis Stage 3a chronic kidney disease (HCC) documented in this encounter Care Teams Frame Cleaner Relationship Specialty Start Date End Date Mati Giordano MD [address] [place] [address], [address] [place], [place] PCP - General Internal Medicine 03/30/23 documented as of this encounter
--- OUTSIDE RECORDS SUMMARY | 2024-11-01 09:00 | XMS_ITS | Encounter Summary ---
Author Organization [facility] Address [address] [place] [address] Phone Care Team Providers Care Cut Tobacco Bulker Name Role Phone Mati Giordano MD Primary Care Provider [phone] Encounter Details Date Type Department Care Team (Late st Contact Info) Description 12/05/2021 Orders Only [facility] [address] [place] [address] Roger Harrison MD [address] [place] [address] [place] [address] Stage 3a chronic kidney disease [...] [facility] [address] [place] [address] Jose Luis Lei MD [address] [place] [address] [place] [address] documented as of this encounter Visit Diagnoses Diagnosis Stage 3a chronic kidney disease (HCC) documented in this encounter Care Teams Cut Tobacco Bulker Relationship Specialty Start Date End Date Mati Giordano MD [address] [place] [address], [address] [place], [place] PCP - General Internal Medicine 03/30/23 documented as of this encounter
--- OUTSIDE RECORDS SUMMARY | 2024-11-01 09:00 | XMS_ITS | Encounter Summary ---
Author Organization [facility] Address [address] [place] [address] Phone Care Team Providers Care Content Curator Name Role Phone Mati Giordano MD Primary Care Provider [phone] Encounter Details Date Type Department Care Team (Late st Contact Info) Description 12/12/2021 Orders Only [facility] [address] [place] [address] Roger Harrison MD [address] [place] [address] [place] [address] Stage 3a chronic kidney disease [...] [facility] [address] [place] [address] Jose Luis Lei MD [address] [place] [address] [place] [address] documented as of this encounter Procedures Procedure Name Priority Date/Time Associated Diagnosis Comments MAGNESIUM Routine 01/01/2022 9:34 AM EDT Stage 3a chronic kidney disease (HCC) RENAL FUNCTION PANEL Routine 01/01/2022 9:34 AM EDT Stage 3a chronic kidney disease (HCC) documented in this encounter Results * Magnesium (01/01/2022 9:34 AM EDT) Magnesium 2.1 (1.6-2.3) mg/dL [facility] Comment: Testing performed or reported by [facility], a Service of [facility], [address] [place] [address] Jena Marte MD, Relay Tester [facility]# [id number] Blood (Blood, Venous) 01/01/2022 9:34 AM EDT 01/01/2022 9:36 AM EDT Roger Harrison MD LAB BLOOD ORDERABLES Final Resul t [facility] * (ABNORMAL) Renal Function Panel (01/01/2022 9:34 AM EDT) Glucose 83 (70-99) MG/DL [facility] BUN 34(H) (8-23) MG/DL [facility] Creatinine 1.6(H) (0.5-1.0) MG/DL [facility] Sodium 141 (133-145) MMOL/L [facility] Potassium 4.5 (3.6-5.2) MMOL/L [facility] Chloride 102 (98-107) MMOL/L [facility] Bicarbonate (CO2) 29 (22-29) MMOL/L [facility] Anion Gap 10 (4-17) [facility] Albumin 4.1 (3.4-4.8) GM/DL [facility] Calcium 9.5 (8.6-10.5) MG/DL [facility] Phosphorus, Serum 4.0 (2.5-4.5) MG/DL [facility] Est GFR Non 33 ML/MIN/1.7 3 M2 [facility] Comment: Creatinine based estimated glomerular filtration (eGFR) in adults is calculated using the National Kid[employer] recommended 2020 CKD-EPI equation. Estimates GFR from serum creatinine, age and sex. Testing performed or reported by [facility], a Service of [facility], [address] [place] [address] Jena Marte MD, Relay Tester [facility]# [id number] Blood (Blood, Venous) 01/01/2022 9:34 AM EDT 01/01/2022 9:36 AM EDT us Roger Harrison MD LAB BLOOD ORDERABLES Final Resul t [facility] documented in this encounter Visit Diagnoses Diagnosis Stage 3a chronic kidney disease (HCC) documented in this encounter Care Teams Content Curator Relationship Specialty Start Date End Date Mati Giordano MD [address] [place] [address], [address] [place], [place] PCP - General Internal Medicine 03/30/23 documented as of this encounter
--- OUTSIDE RECORDS SUMMARY | 2024-11-01 09:00 | XMS_ITS | Data Portability ---
Author Organization [place] [facility] [facility] [place] [facility] Address [address] [place] [address] Care Team Providers Care Delivery Person Name Role Phone [facility] Referring Provider Assessment Encounter Date Assessment Date Assessment LastModified by Organization Details LastModified Time 07/27/2023 07/27/2023 I have reviewed and agree with the Assessment and Plan as documented by the Plaster Maker. I provided real-time medical direction via phone for this encounter, and was available for additional phone based assistance as needed. Patient seen for multiple episodes of diarrhea. Labs with evidence of significant hyponatremia necessitating inpatient management. Transfer to the ED via EMS. [email or web address] Not available 09/21/2023 13:34:57 09/21/2023 09/21/2023 I provided real -time medical direction via phone for this encounter, and was available for additional phone based assistance as needed. I have reviewed and agree with the Assessment and Plan as documented by the Plaster Maker. Patient given the opportunity to ask questions. via dam operator Advised if develops CP/severe SOB/turning blue/uncontrolle d n/v/d or black/bloody emesis or stool/ AMS/ syncope/severe, uncontrolled leg pain/hi fever unresponsive to APAP to call 911-she verbalized understanding of instructions to the medic. [email or web address] Not available 09/21/2023 22:00:21 Plan of Treatment Reminders Order Date Submit Date Provider Last Modified By Organization Details Last Modified Time Details Appointments None recorded. Lab BMP, serum or plasma 2023 024 [email or web address] 0 [facility], [address] [place] [address], [phone], 22:02:09 Referral None recorded. Procedures None recorded. Surgeries None recorded. Imaging None recorded. Medication Orders furosemide 10 mg/mL injection solution 2023 024 [email or web address] Not available 13:59:59 Patient TargetsNo targets recorded. Patient InstructionsNo instructions recorded. Reason for Referral None Reported. Results Created Date Observation Date Name Description Value Unit Range Abnormal Flag Note LastModifiedBy Organization Detail LastModifiedTime 09/21/1909/21/2023 BMP, serum or plasm a BUN 35 Not Available [facility] [address], [address], 09/21/2023 14:00:05 09/21/1909/21/2023 BMP, serum or plasm a Ca Ionize d calciu m 1.17 Not Available [facility] - [address], [address], 09/21/2023 14:00:05 09/21/1909/21/2023 BMP, serum or plasm a CI- 104 Not Available [facility] [address], [address], 09/21/2023 14:00:05 09/21/19 24 09/21/2023 BMP, serum or plasm a CRE 1.79 Not Available [facility] [address], [address], 09/21/2023 14:00:05 09/21/19 24 09/21/2023 BMP, serum or plasm a GLU 139 Not Available [facility] [address], [address], 09/21/2023 14:00:05 09/21/1909/21/2023 BMP, serum or plasm a K+ 4.4 Not Available [facility] [address], [address], 09/21/2023 14:00:05 09/21/19 24 09/21/2023 BMP, serum or plasm a Na+ 139 Not Available [facility] [address], [address], 09/21/2023 14:00:05 09/21/19 24 09/21/2023 BMP, serum or plasm a tCO2 26 Not Available [facility] [address], [place], [address], 09/21/2023 14:00:05 Result Notes None recorded. Medical Equipment None Reported. Allergies No known drug allergies Medications Name Sig Start Date Stop Date Status Note LastModified by Organization Details LastModified Time furosemide 40 mg tablet active Not Available Not Available No t Available furosemide 10 mg/mL injection solution 60 mg iv x 1 2023 active Not Available Not Available Not Avai lable carvedilol 25 mg tablet active Not Available Not Available No t Available doxycycline hyclate 100 mg capsule active Not Available Not Available Not Available atorvastatin 20 mg tablet TAKE 1 TABLET BY MOUTH EVERY DAY active Not Available Not Available No t Available azithromycin 250 mg tablet active Not Available Not Availabl e Not Available prednisone 20 mg tablet active Not Available Not Available No t Available acetaminophen 500 mg tablet active Not Available Not Availabl e Not Available ciclopirox 8 % topical solution active Not Available Not Available Not Available OneTouch Ultra Test strips TEST BLOOD SUGAR ONCE DAILY active Not Available Not Available No t Available meclizine 25 mg tablet active Not Available Not Available Not Available pantoprazole 40 mg tablet,delayed release active Not Available Not Available Not Available ammonium lactate 12 % topical cream active Not Available Not Availabl e Not Available cefuroxime axetil 500 mg tablet active Not Available Not Available Not Available lisinopril 40 mg tablet active Not Available Not Available No t Available amoxicillin 875 mg-potassium clavulanate 125 mg tablet active Not Available Not Available No t Available Ventolin HFA 90 mcg/actuation aerosol inhaler active Not Available Not Availa ble Not Available diltiazem 90 mg tablet active Not Available Not Available Not Available Ferretts 325 mg (106 mg iron) tablet active Not Available Not Available Not Available Prolia 60 mg/mL subcutaneous syringe active Not Available Not Available Not Available Jardiance 10 mg tablet TAKE 1 TABLET EVERY MORNING active Not Available Not Available No t Available OneTouch Ultra2 Meter TEST BLOOD SUGAR ONCE DAILY active Not Available Not Available No t Available OneTouch Delica Plus Lancet 33 gauge TEST BLOOD SUGAR ONCE DAILY active Not Available Not Available No t Available Vitals Date Recorded Oxygen saturation Oxygen saturation in Arterial blood by Pulse oximetry Respiratory rate Body temperature Heart rate Systolic blood pressure Diastolic blood pressure Provider Name and Address Organization Details Last Updated DateTime 3 98 % 98 % 14 /min 97.9 [degF] 78 /min 148 mm[Hg] 90 mm[Hg] Not Available [facility] - [facility] 3 13:13:03 Date Recorded Oxygen saturation Oxygen saturation in Arterial blood by Pulse oximetry Body height Heart rate Respiratory rate Body weight Body temperature Systolic blood pressure Diastolic blood pressure Provider Name and Address Organization Details Last Updated DateTime 4 96 % 96 % 152.4 cm 78 /min 16 /min 62271.6 4 g 97.7 [degF] 128 mm[Hg] 77 mm[Hg] Not Available [facility] [employer] - production 4 13:57:13 Social History None recorded. Functional Status None recorded. Mental Status None recorded. Family History Nothing Reported. Medical History No medical history recorded. Gynecological HistoryNo gynecological history recorded. Obstetrics History GPAL:G 0 P 0 0 0 0 Past Encounters Encounter ID Performer Location Encounter Start Date Encounter Closed Date Diagnosis/Indication Diagnosis SNOMED-CT Code Diagnosis ICD10 Code Diagnosis Note [id number] Shakeel Knott MD [facility] [address] [place] [phone] 07/27/2023 13:12:54 09/22/2023 15:34:44 Hyponatremia 71123920 E87.1 [id number] Gilda Roth MD [facility] [address] [place] [phone] 09/21/2023 13:57:00 09/22/2023 14:24:43 Peripheral edema 777637276 R60.9 Advised to elevate, resume low-salt diet. Per old record baseline creatinine 1.59 so she was slightly above that but needs extra diuresis. Given 1 dose of 60 of IV Lasix, (patient where she will be urinating much more this evening and night ) And advised to take 2 extra 40 mg(twice her usual oral dosage tomorrow a.m. and to follow-up with PCP 1 4 regarding further instructio ns. She is aware she can call us for another visit if not improving and red flags reviewed Health Concerns Section Related Observation LastModified by Organization Detai ls LastModified Time None Recorded Concern Status LastModified by Organization Details LastModified Time None Recorded Advance Directives Directive None Recorded Payers Encounter Date Sequence Insurance Name Policy Number Policy Harrington Covered Member ID Harrington Member ID Guarantor Name 07/27/2023 1 [facility] - [facility] ON OR AFTER 2022 - DUAL ELIGIBLE - SKILLED NURSING OPTIONS AND ONE CARE (MEDICARE REPLACEMENT/ADV ANTAGE - HMO) Sosa Coleswalter Castaneda [id number] Sosa Coleswalter Castaneda 09/21/2023 1 [facility] - DOS ON OR AFTER 2022 - DUAL ELIGIBLE - SKILLED NURSING OPTIONS AND ONE CARE (MEDICARE REPLACEMENT/ADV ANTAGE - HMO) Sosa Regina Castaneda [id number] Sosa Tapia Leonel Notes Date Note Type Note Provider Name and Address Organization Details Recorded Time 07/27/2023 text/html HPI: Call to Sosa Regina Castaneda , spoke with Robby who is on HIPAA. States pt reporting diarrhea x 1 day. Per pt is having watery dark brown stools. Has hx of constipation, no meds taken for constipation recently. No N/V, fever. Mild abdominal pain. No concerns for possible food poisoning. Pt has produced urine in last 8 hours. Pt daughter in law advised of disposition, prefers [facility] vs [facility]. Clear Triage Protocol Used: Diarrhea (Adult) Protocol-Based Disposition: See in Office or Video Visit Today 1452Positive Triage Question: * Moderate diarrhea (e.g., 4-6 times / day more than normal) and age > 70 .................. .................. .................. .................. .................. .................. .................. ............... CRC Nursing Assessment: Comments: Reviewed. No further information needed to process visit. Shane Boland .................. .................. .................. .................. .................. .................. .................. ............... Baseline Information: Baseline Hb: 11.3 g/dL Baseline HCt: 34% Baseline Creatinine: 1.59 mg/dL .................. .................. .................. .................. .................. .................. .................. ............... Plaster Maker Note From Campos Díaz: Pt reports approx 10 episodes of diarrhea since yesterday. Pt denies hematochezia, ABD discomfort, CP, SOB, WRIGHT, f/n/v. Pt is alert, NAD. VSS. Afebrile. Neuro exam and gait morning. Lungs CTA. Benign ABD exam. No ANGELES. Rapid covid and flu negative. POC labs uploaded, Na 126. [facility] contacted and advised the pt be seen in the ED. Care transferred to [place] ambulance crew. .................. .................. .................. .................. .................. .................. .................. ............... Disposition: Fulfilled Shakeel Knott MD [address] [facility],[address], [place], [phone], [employer] 09/21/2023 13:35:11 09/21/2023 text/html HPI: Member has bilateral edema , right greater than left. Member denies sob/ chest pain . Member just returned from [place]. 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 .................. .................. .................. .................. .................. .................. ............... CRC Nurse Triage Notes (Jacklyn Berumen): Comments: CRC RN DID NOT NEED FURTHER INFO .................. .................. .................. .................. .................. .................. .................. ............... Plaster Maker Note From Campos Díaz: Pt reports recent trip to [place] where she didn? t follow her usual low sodium diet. Pt sts while down there and since returning her legs have been more swollen and painful. Pt denies any CP, SOB, WRIGHT, f/n/v/d. Pt takes furosemide 40 mg qd. Pt is alert, NAD. VSS. Afebrile. Non focal neuro exam. Normal gait. Lungs CTA. Benign ABD exam. +3 edema on left, +2 on right. POC labs uploaded; BUN 35, Crea 1.8, K+ 4.4. Pt treated with furosemide 60 mg IVP and instructed to take 80 mg PO tomorrow. Pt also instructed to f/u with PCP this week, keep legs elevated, return to low sodium diet and to seek emergent medical care for new or worsening sx, which are reviewed with her. .................. .................. .................. .................. .................. .................. .................. ............... Disposition: Fulfilled Gilda Roth MD [address] [facility],[address], [place], [address], [employer] 09/21/2023 22:05:38 OBGyn Episode No OBEpisode recorded.
--- OUTSIDE RECORDS SUMMARY | 2024-11-01 09:00 | XMS_ITS | Encounter Summary ---
Author Organization [facility] Address [address] [place] [address] Phone Care Team Providers Care Radiology Interventional Physician Name Role Phone Mati Giordano MD Primary Care Provider [phone] Encounter Details Date Type Department Care Team (Late st Contact Info) Description 07/22/2022 Documentation Only [facility] [address] [place] [address] Morenita Leigh PA Social History [...] Visit [facility] [address] [place] [address] Jose Luis Lei MD [address] [place] [address] [place] [address] documented as of this encounter Visit Diagnoses Not on filedocumented in this encounter Care Teams Radiology Interventional Physician Relationship Specialty Start Date End Date Mati Gioradno MD [address] [place] [address] [address] [place], [place] PCP - General Internal Medicine 03/30/23 documented as of this encounter
--- OUTSIDE RECORDS SUMMARY | 2024-11-01 09:00 | XMS_ITS | Encounter Summary ---
Author Organization [facility] Address [address] [place] [address] Phone Care Team Providers Care Cloth Printer Helper Name Role Phone Mati Giordano MD Primary Care Provider Encounter Details Date Type Department Care Team (Late st Contact Info) Description 07/22/2022 Documentation Only [facility] [address] [place] [address] Morenita Leigh PA Social History [...] Visit [facility] [address] [place] [address] Jose Luis Lei MD [address] [place] [address] [place] [address] documented as of this encounter Visit Diagnoses Not on filedocumented in this encounter Care Teams Cloth Printer Helper Relationship Specialty Start Date End Date Mati Giordano MD [address] [place] [address] [address] [place], [place] PCP - General Internal Medicine 03/30/23 documented as of this encounter
--- OUTSIDE RECORDS SUMMARY | 2024-11-01 09:00 | XMS_ITS | Encounter Summary ---
Author Organization [facility] [place], Address [address] [place] [address] Phone Care Team Providers Care Circle Beveler Name Role Phone Mati Giordano MD Primary Care Provider [phone] Encounter Details Date Type Department Care Team (Late st Contact Info) Description 08/25/2021 Documentation Only [facility] [place], [address] [address] Roger Harrison MD [address] [place] [address] [place] [address] Social History Tobacco Use Types [...] Visit [facility] [address] [place] [address] Jose Luis Lei MD [address] [place] [address] [place] [address] documented as of this encounter Visit Diagnoses Not on filedocumented in this encounter Care Teams Circle Beveler Relationship Specialty Start Date End Date Mati Giordano MD [address] [place] [address], [address] [place], [place] PCP - General Internal Medicine 03/30/23 documented as of this encounter
--- OUTSIDE RECORDS SUMMARY | 2024-11-01 09:01 | XMS_ITS | Encounter Summary ---
Author Organization [facility] Address [address] [place] [address] Phone Care Team Providers Care Coal Mill Operator Name Role Phone Mati Giordano MD Primary Care Provider [phone] Reason for Visit * Reason Comments Med Refill Encounter Details Date Type Department Care Team (Late st Contact Info) Description 10/05/2024 Refill [facility] [address] [place] [phone] Morenita Leigh PA Social History Tobacco Use [...] Office Visit [facility] [address] [place] [address] Jose Luis Lei MD [address] [place] [address] [place] [phone] documented as of this encounter Visit Diagnoses Not on filedocumented in this encounter Care Teams Coal Mill Operator Relationship Specialty Start Date End Date Mati Giordano MD [address] [place] [address] 201 [place], [place] PCP - General Internal Medicine 03/30/23 documented as of this encounter
--- OUTSIDE RECORDS SUMMARY | 2024-11-01 09:01 | XMS_ITS | Encounter Summary ---
Author Organization [facility] Address [address] [place] [address] Phone Care Team Providers Care Wildlife Rehabilitator Name Role Phone Mati Giordano MD Primary Care Provider [phone] Encounter Details Date Type Department Care Team (Late st Contact Info) Description 08/04/2022 Documentation Only [facility] [address] [place] [address] Morenita Leigh PA Social History [...] Visit [facility] [address] [place] [address] Jose Luis Lei MD [address] [place] [address] [place] [address] documented as of this encounter Visit Diagnoses Not on filedocumented in this encounter Care Teams Wildlife Rehabilitator Relationship Specialty Start Date End Date Mati Giordano MD [address] [place] [address] 201 [place], [place] PCP - General Internal Medicine 03/30/23 documented as of this encounter
--- OUTSIDE RECORDS SUMMARY | 2024-11-01 09:01 | XMS_ITS | Encounter Summary ---
Author Organization [facility] [place], Address [address] [place] [address] Phone Care Team Providers Care Laundry Agent Name Role Phone Mati Giordano MD Primary Care Provider [phone] Encounter Details Date Type Department Care Team (Late st Contact Info) Description 11/02/2023 Documentation Only [facility] [place], [address] [place] [address] Mariah Sal [address] [place] [address] Social History Tobacco Use Types Packs/Day [...] Visit [facility] [address] [place] [address] Jose Luis Lei MD [address] [facility] [address] [place] [address] documented as of this encounter Visit Diagnoses Not on filedocumented in this encounter Care Teams Laundry Agent Relationship Specialty Start Date End Date Mati Giordano MD [address] [place] [address], [address] [place], [place] PCP - General Internal Medicine 03/30/23 documented as of this encounter
--- OUTSIDE RECORDS SUMMARY | 2024-11-01 09:01 | XMS_ITS | Encounter Summary ---
Author Organization [facility] Address [address] [place] [address] Phone Care Team Providers Care Mechanical Test Technician Name Role Phone Mati Giordano MD Primary Care Provider [phone] Encounter Details Date Type Department Care Team (Late st Contact Info) Description 04/15/2023 Documentation Only [facility] [address] [place] [address] Morenita Leigh PA Social History [...] [facility] [address] [place] [place] [address] Jose Luis Lei MD [address] [place] [address] [place] [address] documented as of this encounter Visit Diagnoses Not on filedocumented in this encounter Care Teams Mechanical Test Technician Relationship Specialty Start Date End Date Mati Giordano MD [address] [place] [address] [address] [place], [place] PCP - General Internal Medicine 03/30/23 documented as of this encounter
--- OUTSIDE RECORDS SUMMARY | 2024-11-01 09:01 | XMS_ITS | Encounter Summary ---
Author Organization [facility], Address [address] [place] [address] Phone Care Team Providers Care Scrap Baler Name Role Phone Mati Goirdano MD Primary Care Provider [phone] Encounter Details Date Type Department Care Team (Late st Contact Info) Description 07/25/2024 Documentation Only [facility] [address] [place] [address] Mariah Sal [address] [place] [phone] Social History Tobacco Use Types Packs/Day [...] Visit [facility] [address] [place] [address] Jose Luis Lei MD [address] [place] [address] documented as of this encounter Visit Diagnoses Not on filedocumented in this encounter Care Teams Scrap Baler Relationship Specialty Start Date End Date Mati Giordano MD [address] [place] [address], [address] [place], [place] PCP - General Internal Medicine 03/30/23 documented as of this encounter
--- OUTSIDE RECORDS SUMMARY | 2024-11-01 09:01 | XMS_ITS | Encounter Summary ---
Author Organization [facility], Address [address] [place] [address] Phone Care Team Providers Care Train Director Name Role Phone Mati Giordano MD Primary Care Provider [phone] Encounter Details Date Type Department Care Team (Late st Contact Info) Description 11/10/2023 Documentation Only [facility] [place], [address] [place] [address] Mariah Sal [address] [place] [phone] Social History Tobacco Use Types Packs/Day [...] Visit [facility] [address] [place] [address] Jose Luis Lei MD [address] [facility] [place] [address] documented as of this encounter Visit Diagnoses Not on filedocumented in this encounter Care Teams Train Director Relationship Specialty Start Date End Date Mati Giordano MD [address] [place] [address], [address] [place], [place] PCP - General Internal Medicine 03/30/23 documented as of this encounter
== END 2024-11-01 08:25 | disposition home or self-care (01) ==
LOC: HO.MAMMO 08:24
PROVIDERS: PCP Internal Medicine; Visit Provider Internal Medicine Rheumatology
DX: M81.0 Age-related osteoporosis without current pathological fracture (principal); Z79.899 Other long term (current) drug therapy
CPT/HCPCS: 77080

== ENCOUNTER → 2024-11-01 08:45 | Outpatient (BNV) | payer OTHER, SELFPAY | PROVIDERS: PCP Internal Medicine; Visit Provider Radiology Diagnostic Radiology | DX: E28.39 Other primary ovarian failure (principal) | CPT/HCPCS: 77080 ==

== ENCOUNTER 2024-11-20 09:26 | Outpatient (REF) | payer OTHER, SELFPAY ==
--- NOTE | ~2024-11-20 | XR_ITS ---
EXAMINATION: XR CHEST CLINICAL INFORMATION: cough for 3 weeks COMPARISON: Chest x-ray 09/25/2023 TECHNIQUE: 2 views of the chest were obtained. FINDINGS: The lungs are well-expanded with prominent interstitial markings in both bases likely chronic. No acute consolidation, pleural effusion or pneumothorax. Heart size is normal. Pulmonary vascularity is normal. There is mild scoliosis mid dorsal spine. XR/XR chest 2V IMPRESSION: No acute pulmonary process. Prominent interstitial markings in bilateral lower lobes likely chronic changes. No acute consolidation seen. Electronically signed by: Hugh Sandoval MD 11/20/2024 10:48 AM ABBY
--- OUTSIDE RECORDS SUMMARY | 2024-11-20 10:23 | XMS_ITS | Encounter Summary ---
Author Organization [facility] [place] [facility], Address [address] [place] [address] Phone Care Team Providers Care Nursing Service Director Name Role Phone Mati Giordano MD Primary Care Provider [phone] Encounter Details Date Type Department Care Team (Late st Contact Info) Description 08/25/2021 Documentation Only [facility] [place], [address] [place] [address] Roger Harrison MD [address] [place] [address] [place] [address] Social History Tobacco Use Types [...] Visit [facility] [address] [place] [address] Jose Luis Lei MD [address] [place] [address] [place] [address] documented as of this encounter Visit Diagnoses Not on filedocumented in this encounter Care Teams Nursing Service Director Relationship Specialty Start Date End Date Mati Giordano MD [address] [place] [address], [address] [place], [place] PCP - General Internal Medicine 03/30/23 documented as of this encounter
--- OUTSIDE RECORDS SUMMARY | 2024-11-20 10:23 | XMS_ITS | Encounter Summary ---
Author Organization [facility] Address [address] [place] [address] Phone Care Team Providers Care International Bank Manager Name Role Phone Mati Giordano MD Primary Care Provider [phone] Encounter Details Date Type Department Care Team (Late st Contact Info) Description 08/03/2022 Documentation Only [facility] [address] [place] [address] Morenita Leigh PA Social History [...] Visit [facility] [address] [place] [address] Jose Luis Lei MD [address] [place] [address] [place] [address] documented as of this encounter Visit Diagnoses Not on filedocumented in this encounter Care Teams International Bank Manager Relationship Specialty Start Date End Date Mati Giordano MD [address] [place] [address] [address] [place], [place] PCP - General Internal Medicine 03/30/23 documented as of this encounter
--- OUTSIDE RECORDS SUMMARY | 2024-11-20 10:23 | XMS_ITS | Encounter Summary ---
Author Organization [facility] [place], Address [address] [place] [address] Phone Care Team Providers Care Aircraft Time Clerk Name Role Phone Mati Giordano MD Primary Care Provider [phone] Encounter Details Date Type Department Care Team (Late st Contact Info) Description 08/25/2021 Documentation Only [facility], [address] [place] [place] [address] Roger Harrison MD [address] [place] [address] [place] [address] Social History Tobacco Use Types [...] Visit [facility] [address] [place] [address] Jose Luis Lei MD [address] [place] [address] [place] [address] documented as of this encounter Visit Diagnoses Not on filedocumented in this encounter Care Teams Aircraft Time Clerk Relationship Specialty Start Date End Date Mati Giordano MD [address] [place] [address], [address] [place], [place] PCP - General Internal Medicine 03/30/23 documented as of this encounter
--- OUTSIDE RECORDS SUMMARY | 2024-11-20 10:23 | XMS_ITS | Encounter Summary ---
Author Organization [facility], Address [address] [place] [address] Phone Care Team Providers Care Executive Administrative Assistant Name Role Phone Mati Giordano MD Primary Care Provider [phone] Encounter Details Date Type Department Care Team (Late st Contact Info) Description 07/25/2024 Documentation Only [facility] [address] [place] [address] Mariah Sal [address] [place] [address] Social History Tobacco Use Types Packs/Day [...] Visit [facility] [address] [place] [address] Jose Luis Lei MD [address] [facility] [place] [address] documented as of this encounter Visit Diagnoses Not on filedocumented in this encounter Care Teams Executive Administrative Assistant Relationship Specialty Start Date End Date Mati Giordano MD [address] [place] [address], [address] [place], [place] PCP - General Internal Medicine 03/30/23 documented as of this encounter
--- OUTSIDE RECORDS SUMMARY | 2024-11-20 10:23 | XMS_ITS | Encounter Summary ---
Author Organization [facility] [place], Address [address] [place] [address] Phone Care Team Providers Care Insurance Claims Processor Name Role Phone Mati Giordano MD Primary Care Provider Encounter Details Date Type Department Care Team (Late st Contact Info) Description 09/10/2021 Documentation Only [facility], [address] [place] [address] Roger Harrison MD [address] [place] [address] [place] [address] Social History Tobacco Use Types [...] Visit [facility] [address] [place] [address] Jose Luis Lei MD [address] [place] [address] [place] [address] documented as of this encounter Visit Diagnoses Not on filedocumented in this encounter Care Teams Insurance Claims Processor Relationship Specialty Start Date End Date Mati Giordano MD [address] [place] [address], [address] [place], [place] PCP - General Internal Medicine 03/30/23 documented as of this encounter
--- OUTSIDE RECORDS SUMMARY | 2024-11-20 10:23 | XMS_ITS | Encounter Summary ---
Author Organization [facility], Address [address] [place] [address] Phone Care Team Providers Care Cardio Tech Name Role Phone Mati Giordano MD Primary Care Provider [phone] Encounter Details Date Type Department Care Team (Late st Contact Info) Description 11/02/2023 Documentation Only [facility] [address] [place] [address] Mariah Sal [address] [place] [address] Social History Tobacco Use Types Packs/Day [...] Visit [facility] [address] [place] [address] Jose Luis Lei MD [address] [facility] [place] [address] documented as of this encounter Visit Diagnoses Not on filedocumented in this encounter Care Teams Cardio Tech Relationship Specialty Start Date End Date Mati Giordano MD [address] [place] [address], [address] [place], [place] PCP - General Internal Medicine 03/30/23 documented as of this encounter
--- OUTSIDE RECORDS SUMMARY | 2024-11-20 10:23 | XMS_ITS | Encounter Summary ---
Author Organization [facility], Address [address] [place] [address] Phone Care Team Providers Care Medical Record Assistant Name Role Phone Mati Giordano MD Primary Care Provider [phone] Encounter Details Date Type Department Care Team (Late st Contact Info) Description 08/04/2021 Documentation Only [facility], [address] [place] [address] Roger Harrison MD [address] [place] [address] [place] [address] Social History Tobacco Use Types [...] Visit [facility] [address] [place] [address] Jose Luis Lei MD [address] [place] [address] [place] [address] documented as of this encounter Visit Diagnoses Not on filedocumented in this encounter Care Teams Medical Record Assistant Relationship Specialty Start Date End Date Mati Giordano MD [address] [place] [address], [address] [place], [place] PCP - General Internal Medicine 03/30/23 documented as of this encounter
--- OUTSIDE RECORDS SUMMARY | 2024-11-20 10:23 | XMS_ITS | Encounter Summary ---
Author Organization [facility] Address [address] [place] [address] Phone Care Team Providers Care Coach Tour Driver Name Role Phone Mati Giordano MD Primary Care Provider [phone] Encounter Details Date Type Department Care Team (Late st Contact Info) Description 08/04/2022 Documentation Only [facility] [address] [place] [address] Morenita Leigh PA Social History [...] Visit [facility] [address] [place] [address] Jose Luis Lei MD [address] [place] [address] [place] [address] documented as of this encounter Visit Diagnoses Not on filedocumented in this encounter Care Teams Coach Tour Driver Relationship Specialty Start Date End Date Mati Giordano MD [address] [place] [address] [address] [place], [place] PCP - General Internal Medicine 03/30/23 documented as of this encounter
--- OUTSIDE RECORDS SUMMARY | 2024-11-20 10:23 | XMS_ITS | Clinical Summary ---
Author Organization [employer] Address [address] [facility] [address] [place] [address] Care Team Providers Care Silver Brazer Name Role Phone Rosalba Louis MD Primary Care Provider + Allergies No known active allergies Medications Prolia 60 MG/ML solution prefilled syringe 03/17/20 23 Active fluticasone (Flonase) 50 MCG/ACT nasal spray Administer 1 spray into affected nostril(s) at bed time. 10/03/19 20 Active Blood Glucose Monitoring Suppl (ONE TOUCH ULTRA 2) w/Device kit Use to check blood sugar once daily 1 kit 07/13/20 23 Active Additional Information Patient not taking.Reported on 11/29/2023 furosemide (Lasix) 40 MG tablet TAKE 1 TABLET BY MOUTH NEEDED FOR EDEMA 90 tablet 3 09/22/19 24 Active [facility] Calcium + D3 600-20 MG-MCG tablet Take 1 tablet by mouth in the morning. 08/17/20 23 Active Jardiance 25 MG Take 25 mg by mouth in the morning. 11/03/19 24 Active lisinopril 40 MG tablet TAKE 1 TABLET BY MOUTH EVERY MORNING 90 tablet 3 05/01/20 24 Active famotidine (Pepcid) 20 MG tablet Take 1 tablet (20 mg) by mouth Once per day. 30 tablet 1 05/08/20 24 025 Active levocetirizin e (Xyzal) 5 MG tablet Take 1 tablet (5 mg) by mouth in the evening. 30 tablet 1 05/08/20 24 025 Active Polyvinyl Alcohol-Povid one 5-6 MG/ML solution 1 drop each eye tid 30 mL 05/08/20 24 Active Zinc Oxide (Desitin Rapid Relief) 13 % creamIndicati ons:Dermatiti s of vulva Apply to vulva every night until symptoms resolved. May use once or twice during the day as needed also. 113 g 1 06/06/20 24 Active carvedilol (Coreg) 25 MG tablet TAKE 1 TABLET BY MOUTH TWICE DAILY IN THE MORNING AND IN THE EVENING 180 tablet 3 07/10/20 24 Active dilTIAZem (Cardizem) 90 MG immediate release tablet TAKE 1 TABLET BY MOUTH THREE TIMES DAILY IN THE MORNING, EVENING, AND BEDTIME 270 tablet 3 08/11/20 24 Active pantoprazole (ProtoNix) 40 MG EC tablet TAKE 1 TABLET EVERY MORNING BEFORE BREAKFAST 90 tablet 3 08/25/20 24 Active Emollient (CeraVe Diabetics Dry Skin) cream Apply 1 Application topically if needed each day (Dry skin). 236 mL 3 08/28/20 24 Active neomycin-baci tracin-polymy danny (Neosporin) 5-400-5000 ointment Apply topically 3 times daily. 14.2 g 08/28/20 24 Active albuterol 108 (90 Base) MCG/ACT inhaler INHALE 2 PUFFS BY MOUTH EVERY 6 HOURS 18 g 3 10/18/19 25 Active atorvastatin (Lipitor) 20 MG tablet TAKE 1 TABLET BY MOUTH EVERY EVENING 90 tablet 3 10/23/19 25 Active predniSONE (Deltasone) 20 MG tablet Take 2 tablets (40 mg) by mouth Once per day for 5 days. 10 tablet 11/21/19 25 025 Active Spacer/Aero-H olding Chambers (OptiChamber Genny) misc 1 each every 4 (four) hours if needed (asthma). 1 each 11/21/19 25 Active acetaminophen (Tylenol) 500 MG tablet TAKE 2 TABLETS BY MOUTH EVERY 6 HOURS IF NEEDED FOR MODERATE PAIN OR FEVER. 90 tablet 11/21/19 25 Active atorvastatin (Lipitor) 20 MG tablet Take 1 tablet (20 mg) by mouth in the morning. 90 tablet 3 10/25/19 24 025 Discontinued acetaminophen (Tylenol) 500 MG tablet TAKE 2 TABLETS BY MOUTH EVERY 6 HOURS IF NEEDED FOR MODERATE PAIN OR FEVER. 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 She will fu with me or her PCP in 2-3w to review meds. I told her to stop face creams and use Cerave cream + OTC hydrocortisone cream 1x-2x/d for max 2w Use medrol pack and start Xyzal + Famotidine for H1+ H2 blockade Order labs to ro allergic reaction. Diarrhea 08/06/2023 Assessment & Plan (08/06/2023 2:23 PM EST): Resolved. 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 Worsened by previously uncontrolled DM, now better controlled. Take tylenol prn, didn't tolerate gabapentin due to dizziness. Obesity (BMI 30.0-34.9) 08/05/2018 Urinary incontinence 08/05/2018 H/O: hysterectomy 04/22/2018 History of right mastectomy 04/22/2018 Slow transit constipation 04/21/2017 Urinary frequency 04/21/2017 BPV (benign positional vertigo) 08/21/2016 Overview (06/02/2023): Saw neurology, on diazepam Abnormal MRI of abdomen 08/05/2016 Osteopenia 08/04/2016 Overview (06/02/2023): From DXA scan 07/30/2016. Needs one in 07/2017 Bilateral carotid artery disease 08/03/2016 Calculus of gallbladder with out cholecystitis without obstruction 08/03/2016 Common bile duct dilatation 07/31/2016 RUQ pain 07/31/2016 Bilateral edema of lower extremity 07/17/2016 Cataracts, bilateral 05/29/2016 DDD (degenerative disc disease), thoracic 2015 Assessment & Plan (08/28/2024 5:40 PM EST): Not a candidate for epidural injections or surgery. Declines to be referred again to PT Advised to come to acupuncture, ambulation with walker to prevent falls. Take Tylenol prn, use arnica cream very limited amounts and on small areas due to risk of irritation. Has assistance for ADLs and to prevent accidents at home Diastolic dysfunction 05/29/2016 Overview (06/02/2023): ECHO 06/26/15 Assessment & Plan (08/28/2024 5:38 PM EST): Previously seen by cards until 2014. Order echo and will refer to cardiology. BP is controlled and there's no evidence of arrhythmia today, will continue same meds. Diverticulosis of colon 05/29/2016 Metatarsus valgus, acquired 05/29/2016 Microalbuminuria 05/29/2016 Personal history of breast cancer 05/29/2016 Overview (06/02/2023): Lumpectomy & axillary nodes removed. 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 Noted on CT 12/30/11 Type 2 diabetes mellitus 05/29/2016 Assessment & Plan (08/28/2024 5:41 PM EST): Controlled. A1c is at goal. Continue on dietary rx (takes Jardiance for CKD ) Counseled re more frequent low calorie/carb meals. Check fgtsk prn DM/hypoglycemia sxs only Encouraged physical activity as tolerated. FU in 3 months. Declined Influenza / PCV Assessment & Plan (10/25/2023 1:54 PM EST): Current A1c: 7.1 On Jardiance 10mg, not taking insulin Microalbumin: Foot Exam: Complete at follow up Eye Exam: Discuss at follow up Lipid panel: today ASCVD: Calculate pending updated labs Statin: Yes ASA: No GINA/ARB: Yes Encouraged regular aerobic exercise for improved glycemic control Encouraged daily foot checks Encouraged lean protein snacks and to avoid foods high in sugar and simple carbohydrates Treatment Goals: A1c goal: <7% FBG goal: <130 2 hour post prandial goal: <180 Assessment & Plan (08/06/2023 2:26 PM EST): Borderline controlled, mostly related to recent steroid injections Counseled to start using Humalog TID AC meals Counseled re more frequent low calorie/carb meals. Check fgstk 3-4 times daily Encouraged physical activity as tolerated. FU in PCP Assessment & Plan (07/09/2023 12:48 PM EDT): A1c increased 1 point since last georgie. We discussed with pt about treatment options including adding PO Rx, Humalog AC meals, and cont checking finger sticks 2 daily + low sugar diet Pt elected to cont watchful waiting, checking fingerstick and she will call back if BS is persistently over 200 Fu with PCP in [facility] CKD (chronic kidney disease) stage 3, GFR 30-59 ml/min 03/04/2016 Hyperlipidemia 02/24/2016 Chronic low back pain 03/09/2013 Depressive disorder 03/09/2013 Hypertensive disorder 01/06/2013 Assessment & Plan (10/25/2023 1:52 PM EST): At goal today Continue current medications and monitor at home Maintenance: Carvedilol, Lisinopril, Diltiazem BMP: Lab Results Component Value Date CREATININE 1.47 (H) 08/19/2023 Lipid Panel: due, today ASCVD Risk: Calculate pending updated labs EKG: Obtain baseline at f/u - Aerobic exercise to reduce BP. Initial goal of 30 min walk 3-5x/week. Increase as tolerated. - low-sodium diet (goal: <2g/day) and heart healthy diet such as DASH to reduce BP and prevent ASCVD. - Home BP monitoring 1-2 x day with goal of <140/90. - Seek immediate medical attention for chest pain, palpitations, SOB, syncope, or sudden changes in mental status. - Do not change or discontinue current prescriptions without first consulting health care provider Assessment & Plan (08/06/2023 2:21 PM EST): Repeated is 140/80, no change in medications FU with PCP Encounters Date Type Department Care Team Description 11/20/2024 9:00 AM EST Office Visit [facility] [address] [place] [address] Acute cough (Primary Dx); Acute URI 11/01/2024 Orders Only [facility] External Provider, [facility] 10/22/2024 Refill [facility] [address] [place] [address] Martha Suazo MD 10/18/2024 Refill [facility] [address] [place] [address] Rosalba Louis MD 09/22/2024 Telephone [facility] [address] [place] [address] Rosalba Louis MD November08/31/2024 Telephone [facility] [address] [place] [address] Rosalba Louis MD Durable Medical Equipment 08/30/2024 Telephone [facility] [address] [place] [address] Rosalba Louis MD Housing Form (I called the patient, regarding a reasonable accommodation request from [employer], to have the rugs removed from the patient's apartment. I spoke with Robby, her emergency contact, and informed her that the form cannot be completed, because there is no qualifying diagnosis. Robby stated that the patient is incontinent of urine and feces, and has accidents sometimes, which leaves a bad smell. That is why she does not want an apartment with rugs. [employer] has an apartment av) 08/29/2024 Telephone [facility] [address] [place] [address] Rosalba Louis MD Durable Medical Equipment 08/28/2024 1:30 PM EST Office Visit [facility] [address] [place] [address] Rosalba Louis MD Type 2 diabetes mellitus with stage 3 chronic kidney disease, without long-term current use of insulin, unspecified whether stage 3a or 3b CKD (CMS/HCC) (Primary Dx); Ingrown toenail of left foot; DDD (degenerative disc disease), thoracic; Diastolic dysfunction; Diabetic nephropathy associated with type 2 diabetes mellitus (CMS/HCC) 08/28/2024 Travel 08/24/2024 Telephone [facility] [address] [place] [address] Michelle Alvarez MA Chart prep 08/24/2024 Refill [facility] [address] [place] [address] Martha Suazo MD from Last 3 Months Immunizations Name Administration Dates Next Due Influenza, IIV3, injectable 06/22/2014 Pneumococcal Polysaccharide PPSV23 03/09/2016, TD (adult), 2 Lf tetanus tox oid, preservative free, adsorbed 03/09/2016 Tdap 03/09/2016 Social History Tobacco Use Types Packs/Day Years Used Date Smoking Tobacco: Never Passive Smoke Exposure: Never Smokeless Tobacco: Never Tobacco Cessation:Counseling Given: Not Answered Alcohol Use Standard Drinks/Week Comments Never 0 (1 standard drink = 0.6 oz pur e alcohol) PHQ-2 Answer Date Recorded Patient Health Questionnaire-2 Score 0 06/02/2023 Housing Stability Answer Date Recorded What is your housing situation today? I have tiffany marlow 04/19/[address] you li ve. Do you have problems with any of the following? Pests such as bugs, ants, or mice 04/19/2024 Food Insecurity Answer Date Recorded Within the past 12 months, y ou worried that your food would run out before you got money to buy more: Never True 07/05/2023 Within the past 12 months,th e food you bought just didn't last and you didn't have enough money to get more: Never True Transportation Answer Date Recorded In the past 12 months, has l ack of transportation kept you from medical appts, meetings, work or from getting things needed for daily living? No 04/19/2024 Utilities Answer Date Recorded In the past 12 months, has t he electric, gas, oil or water company threatened to shut off services in your home? No 07/05/2023 Depression Answer Date Recorded Patient Health Questionnaire-2 Score 0 06/02/2023 Internet Access Answer Date Recorded Internet Access Q1 No 05/19/2024 Internet Access Q2 I cannot afford it 05/19/2024 Comments No Sex and Gender Information Value Date Recorded Sex Assigned at Female 07/20/2022 10:15 AM EDT Legal Sex Female 10:15 AM EDT Gender Identity Female 07/20/2022 10:15 AM EDT Sexual Orientation Straight 07/20/2022 10 :15 AM EDT Last Filed Vital Signs Vital Sign Reading Time Taken Comments Blood Pressure 135/69 11/20/2024 8:55 AM EST Pulse 68 11/20/2024 8:55 AM EST Temperature 37 ??C (98.6 ??F) 11/20/2024 8:55 AM EST Respiratory Rate 16 11/20/2024 8:55 AM EST Oxygen Saturation 98% 11/20/2024 8:55 AM EST Inhaled Oxygen Concentration - - Weight 61.9 kg (136 lb 6.4 oz) 11/20/2024 8:55 A M EST Height 147.3 cm (4' 10 ) 08/28/2024 1:17 PM EST Body Mass Index 28.51 08/28/2024 1:17 PM EST Plan of Treatment Upcoming Encounters Date Type Department Care Team (Late st Contact Info) Description 11/29/2024 9:00 AM EDT Office Visit [facility] [address] [place] [address] Rosalba Louis MD [address] [place] [address] 01/29/2025 9:00 AM EDT Office Visit [facility] [address], [place] [phone] Faith Cardenas [address] [place], [place] [phone] Health Maintenance Due Date Last Done Comments Dental X-Ray: Bitewings 1940 Dental X-Ray: Full Mouth 1940 Alcohol/Substance Use Screening 1950 Zoster Vaccines (1 of 2) 1988 RSV Patients and Patients Aged 60 years or older (1 - 1-dose 75+ series) 2013 Pneumococcal Vaccine: 50+ Years (2 of 2 - PCV) 03/09/2017 03/09/2016, 06/22/2014 Dental Oral Exam 01/05/2024 07/05/2023 COVID-19 Vaccine ( - season) 2024 Influenza Vaccine (#1) 2024 06/22/2014 Depression Screening 06/02/2024 06/02/2023, 06/02/20 Dental Prophylaxis 09/15/2024 03/15/2024, 07/05/2023 Diabetes: Hemoglobin A1C 02/26/2025 024, 10/25/2023, 07/09/2023, Additional history exists SDOH Screening 04/19/2025 04/19/2024 Lipid Panel 05/08/2025 05/08/2024, 05/16/2020 Diabetes: Foot Exam 08/28/2025 08/28/2024, 08/28/2024, 08/28/2024, Additional history exists Tobacco Screening 11/20/2025 11/20/2024 DTaP/Tdap/Td Vaccines (2 - Td or Tdap) 03/09/2026 03/09/2016, 03/09/2016 Eye Exam 04/13/2026 04/13/2024, 03/21, 04/13/2024, Additional history exists HIB Vaccines Aged Out No longer eligi ble based on patient's age to complete this topic HPV Vaccines Aged Out No longer eligi ble based on patient's age to complete this topic Hepatitis A Vaccines Aged Out No long er eligible based on patient's age to complete this topic Hepatitis B Vaccines Aged Out No long er eligible based on patient's age to complete this topic IPV Vaccines Aged Out No longer eligi ble based on patient's age to complete this topic Meningococcal Vaccine Aged Out No joshua nikita eligible based on patient's age to complete this topic RSV under 20 months Aged Out No longe r eligible based on patient's age to complete this topic Rotavirus Vaccines Aged Out No longer eligible based on patient's age to complete this topic Goals Goal Patient Goal Type Associated Problems Recent Progress Patient-Stated? Author Blood Pressure < 140/90 Blood Pressure 135/69(2024 8:55 AM EST) No Gypsy Hood Patient will adhere to medication regimen General No Gypsy Hood Hemoglobin A1c < 8 Result Component 6.1( 1:20 PM EST) No Gypsy Hood Procedures Procedure Name Priority Date/Time Associated Diagnosis Comments POCT INFLUENZA B (ID NOW RAPID MOLECULAR) Routine 11/20/2024 9:11 AM EST Acute URI POCT INFLUENZA A (ID NOW RAPID MOLECULAR) Routine 11/20/2024 9:11 AM EST Acute URI POCT RAPID COVID ANTIGEN Routine 11/20/2024 9:11 AM EST Acute URI BD DEXA AXIAL Routine 11/01/2024 8:45 AM EST POCT GLYCATED HEMOGLOBIN, TOTAL Routine 08/28/2024 1:20 PM EST Type 2 diabetes mellitus with stage 3 chronic kidney disease, without long-term current use of insulin, unspecified whether stage 3a or 3b CKD (CMS/HCC) POCT GLUCOSE Routine 08/28/2024 1:18 PM EST Type 2 diabetes mellitus with stage 3 chronic kidney disease, without long-term current use of insulin, unspecified whether stage 3a or 3b CKD (CMS/HCC) LIPID PANEL, STANDARD Routine 05/08/2024 4:30 PM EDT PROPHYLAXIS - ADULT Routine 03/15/2024 1 :00 PM EDT COMPREHENSIVE ORAL EVALUATION - NEW OR ESTABLISHED PATIENT Routine 07/05/2023 10:00 AM EDT from Last 3 Months or Most Recently Relevant to Health Maintenance Results * Influenza B (ID NOW Rapid Molecular) (11/20/2024 9:11 AM EST) Influenza B Negative Negative, Indeterminate [facility] Swab 11/20/2024 9:11 AM EST us Campos Boswell MD POINT OF CARE TEST ENTER/EDIT OR DERABLES Final Result Performing Organization Address [facility] Phone Number [facility] [address] [place] [phone] * Influenza A (ID NOW Rapid Molecular) (11/20/2024 9:11 AM EST) Influenza A Negative Negative, Indeterminate [facility] Swab 11/20/2024 9:11 AM EST us Campos Boswell MD POINT OF CARE TEST ENTER/EDIT OR DERABLES Final Result Performing Organization Address [facility] Phone Number [facility] [address] [place] [phone] * POCT Rapid COVID Ag (11/20/2024 9:11 AM EST) Rapid COVID Ag Negative [facility] Swab 11/20/2024 9:11 AM EST us Campos Boswell MD POINT OF CARE TEST ENTER/EDIT OR DERABLES Final Result Performing Organization Address [facility] Phone Number [facility] [address] [place] [phone] * BD DEXA Axial (11/01/2024 8:45 AM EST) Anatomical Region Laterality Modality Body Radiographic Ana Rosa ging 11/01/2024 8:45 AM EST Narrative 11/01/2024 9:21 AM EST ? [facility] ? [address] ?[place] [address] ? Mammography Report ? Signed ? Patient: Tapia Castaneda,Sosa ?MR#: [id number] ?? [id number] ? : 1940 ?Acct:[id number] ? Age/Sex: 84 / F ?ADM Date: 11/01/24 ? Loc: HO.MAMMO ? Attending Dr: Silvestre Cummings MD ? Ordering Physician: Silvestre Cummings MD ?Results: ? Date of Service: 11/01/24 ?Follow Up: ? Procedure(s): XR DEXA axial skeleton ?? Accession Number(s): [id number] ? cc: Rosalba Louis MD; Silvestre Cummings MD ? EXAMINATION: ??DXA BONE DENSITY AXIAL ? HISTORY: ??Estrogen deficiency ? TECHNIQUE: iConText Dual energy absorptiometry (DEXA) ?? of the lumbar spine, total left hip, and femoral neck was performed. ? COMPARISON: Comparison is made with the prior examination dated ?? 10/11/2019. ? FINDINGS: ? The bone mineral density of the lumbar spine is 1.036 with a T-score of ?? -1.2, and a Z-score of 0.7. ? This represents a BMD change of 3.6% compared to the prior exam. ??This ?? is statistically significant. ? The bone mineral density of the left total hip is 0.851 with a T-score ?? of -1.2, and a Z-score of 1.1. ? This represents BMD change of -5.0% compared to the prior exam. ??This ?? is statistically significant. ? The bone mineral density of the left femoral neck is 0.781 with a ?? T-score of -1.9, and a Z-score of 0.6. ? This represents BMD change of 2.0% compared to the prior exam. ? MM/XR DEXA axial skeleton ?? IMPRESSION: ?? Based on bone mineral density, and according to World Health ?? Organization (WHO) criteria, the diagnosis is consistent with ?? osteopenia. ? All bone density values are in grams per centimeter squared (g/cm2). ?? Statistically, 68% of repeat scans fall within 1 SD (+/- 0.010 g/cm2 ?? for AP spine L1-L4) and 1 SD (+/- 0.012 g/cm2 for femur total) ?? FRAX is a trademark of the [employer]'s ?? Person for Metabolic Bone Disease, a World Health Organization (WHO) ?? Collaborating Center. ? Electronically signed by: ??Bert Leon MD ??11/01/2024 09:18 AM EST ?? RP ? Dictated By: ?Bert Leon MD ? Signed By: ?<Electronically signed by Bert Leon MD in OV> ?11/01/24 0918 ? DD/ 0845 ? TD/TT: 11/01/24 0850 ? Roller Shop Supervisor: ? Procedure Note Huangter, Image - 11/01/2024 [facility] [address] [place] [address] [place] [address] Mammography Report Signed Patient: Mary Ellen Correa#: [id number] : 8Acct:[id number] Age/Sex: 84 / FADM Date: 11/01/24 Loc: [facility] Attending Dr: Silvestre Cummings MD Ordering Physician: Cummings,Silvestre K. MDResults: Date of Service: 11/01/24Follow Up: Procedure(s): XR DEXA axial skeleton Accession Number(s): [id number] cc: Rosalba Louis MD; Silvestre Cummings MD EXAMINATION: DXA BONE DENSITY AXIAL HISTORY: Estrogen deficiency TECHNIQUE: iConText Dual energy absorptiometry (DEXA) of the lumbar spine, total left hip, and femoral neck was performed. COMPARISON: Comparison is made with the prior examination dated 10/11/2019. FINDINGS: The bone mineral density of the lumbar spine is 1.036 with a T-score of -1.2, and a Z-score of 0.7. This represents a BMD change of 3.6% compared to the prior exam. This is statistically significant. The bone mineral density of the left total hip is 0.851 with a T-score of -1.2, and a Z-score of 1.1. This represents BMD change of -5.0% compared to the prior exam. This is statistically significant. The bone mineral density of the left femoral neck is 0.781 with a T-score of -1.9, and a Z-score of 0.6. This represents BMD change of 2.0% compared to the prior exam. MM/XR DEXA axial skeleton IMPRESSION: Based on bone mineral density, and according to World Health Organization (WHO) criteria, the diagnosis is consistent with osteopenia. All bone density values are in grams per centimeter squared (g/cm2). Statistically, 68% of repeat scans fall within 1 SD (+/- 0.010 g/cm2 for AP spine L1-L4) and 1 SD (+/- 0.012 g/cm2 for femur total) FRAX is a trademark of the [employer]'s Person for Metabolic Bone Disease, a World Health Organization (WHO) Collaborating Center. Electronically signed by: Bert Leon MD 11/01/2024 09:18 AM [facility] Dictated By: Bert Leon MD Signed By: <Electronically signed by Bert Leon MD in OV> 11/01/24917 DD/ TD/TT: 11/01/24 0850 Roller Shop Supervisor: [facility] External Provider IMG DXA PROCEDURES Final Result * (ABNORMAL) POCT HGB A1C (08/28/2024 1:20 PM EST) Hemoglobin A1C 6.1(A) 4.0 - 6.0 % QC Media Lot # [id number] Lot# Expiration Date Blood 08/28/2024 1:20 PM EST Rosalba Louis MD POINT OF CARE TEST ENTER /EDIT ORDERABLES Final Result * POCT Glucose (08/28/2024 1:18 PM EST) Glucose Blood, POC 129 60 - 200 mg/dL QC Media Lot # [id number] Lot# Expiration Date , Blood Capillary blood specimen / Unknown 08/28/2024 1:18 PM EST Rosalba Louis MD POINT OF CARE TEST ENTER /EDIT ORDERABLES Final Result * (ABNORMAL) Lipid Panel, Standard (05/08/2024 4:30 PM EDT) Triglycerides 176(H) <150 mg/dL [facility] Comment:Desirable Triglyceri de: less than 150 mg/dLBorderline High Triglyceride 150-199 mg/dLHigh Triglyceride: 200-499 mg/dLVery High Triglyceride: greater than or equal to 5OO mg/dL Cholesterol 149 <200 mg/dL [facility] Comment:Desirable Cholestero l: less than 200 mg/dLBorderline High Cholesterol: 200-239 mg/dLHigh Cholesterol: greater than 239 mg/dL LDL Cholesterol Calculated 78 <100 mg/dL [facility] Comment:Desirable LDL: less than 100 mg/dLNear Optimal/Above Optimal LDL: 110- 129 mg/dLBorderline High LDL: 130-159 mg/dLHigh LDL: 160-189 mg/dLVery High LDL: greater than or equal to 190 mg/dL HDL Cholesterol 36(L) >40 mg/dL [facility] Comment:Desirable HDL: great er than 40 mg/dL Note: This HDL assay may give artificially low results in patients with liver disease. 05/08/2024 4:30 PM EDT 05/08/2024 5:51 PM EDT us Martha Suazo MD LAB BLOOD ORDERABLES Final Res ult [facility] [address] [place], [place] [phone] from Last 3 Months or Most Recently Relevant to Health Maintenance Insurance [facility] - [facility] Care Teams Silver Brazer Relationship Specialty Start Date End Date Rosalba Louis MD [address] [place] [address] PCP - General Internal Medicine 08/28/24
--- OUTSIDE RECORDS SUMMARY | 2024-11-20 10:23 | XMS_ITS | Encounter Summary ---
Author Organization [facility] Address [address] [place] [address] Phone Care Team Providers Care Cam Maker Name Role Phone Mati Giordano MD Primary Care Provider [phone] Encounter Details Date Type Department Care Team (Late st Contact Info) Description 07/22/2022 Documentation Only [facility] [address] [place] [address] Morenita Leigh PA Social History [...] Visit [facility] [address] [place] [address] Jose Luis Lei MD [address] [place] [address] [place] [address] documented as of this encounter Visit Diagnoses Not on filedocumented in this encounter Care Teams Cam Maker Relationship Specialty Start Date End Date Mati Giordano MD [address] [place] [address] [address] [place], [place] PCP - General Internal Medicine 03/30/23 documented as of this encounter
--- OUTSIDE RECORDS SUMMARY | 2024-11-20 10:23 | XMS_ITS | Encounter Summary ---
Author Organization [facility] [place], Address [address] [place] [address] Phone Care Team Providers Care Billing Customer Service Representative Name Role Phone Mati Giordano MD Primary Care Provider [phone] Reason for Visit * Reason Comments Med Refill Encounter Details Date Type Department Care Team (Late st Contact Info) Description 07/02/2021 Refill [facility] [address] [place] [address] Roger Harrison MD [address] [facility] [place] [address] Social History Tobacco Use Types [...] Office Visit [facility], [address] [facility] [place] [address] Jose Luis Lei MD [address] [facility] [address] [place] [address] documented as of this encounter Visit Diagnoses Not on filedocumented in this encounter Care Teams Billing Customer Service Representative Relationship Specialty Start Date End Date Mati Giordano MD [address] [place] [address], [address] [place], [place] PCP - General Internal Medicine 03/30/23 documented as of this encounter
--- OUTSIDE RECORDS SUMMARY | 2024-11-20 10:23 | XMS_ITS | Clinical Summary ---
Author Organization [facility] [place], Address [address] [facility] [place] [address] Phone Care Team Providers Care Pararescue Craftsman Name Role Phone Mati Giordano MD Primary Care Provider [phone] Allergies No known active allergies Medications ACETAMINOPHEN EXTRA STRENGTH 500 MG tablet TAKE 1 TABLET BY MOUTH EVERY 7 8 HOURS NEEDED, NO MORE THAN 8 TABS DAILY 11/22/2019 Active aspirin (ST ANA) 81 MG EC tablet TAKE 1 TAB BY MOUTH DAILY. 04/06/2018 Active atorvastatin (LIPITOR) 20 MG tablet Take 20 mg by mouth daily 12/05/2019 Active Calcium Carbonate-Vitam in D (CALCIUM-VITAMI N D) 500-200 MG-UNIT tablet Take 500 mg by mouth daily 11/27/2019 Active carvedilol (COREG) 25 MG tablet Take 25 mg by mouth 2 (two) times a day with meals 10/30/2019 Active dilTIAZem (CARDIZEM) 90 MG immediate release tablet Take 90 mg by mouth 4 (four) times a day 12/28/2019 Active ferrous fumarate-vitami n C ER (BIRD-SEQUELS- 65) 65-25 MG CR tablet Take 50 mg by mouth daily Do not crush, chew, or split. 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 CT 12/30/11 Resolved Problems Problem Noted Date Diagnosed Date Resolved Date Edema 09/29/2021 01/05/2022 Gout 01/03/2020 09/29/2021 Hypertensive heart disease w [facility] congestive heart failure 01/03/2020 09/29/2021 Lower urinary [...] Refill [facility] [place], [address] [place] [address] Morenita Legih PA from Last 3 Months Immunizations Name [...] Visit [facility] [place], [address] [place] [address] Jose Luis Lei MD [address] [facility] [address] [place] [id number] Health Maintenance Due Date Last Done Comments [...] PM EDT) Hemoglobin A1C 6.3(H) (4.0-5.6) % [facility] Comment: MONITORING: In known diabetic patients, hemoglobin A1c targets should be discussed with health care provider. DIAGNOSTIC USE: ??The [place] Diabetes Association (ADA) and the World Health [...] Supplement 1 Testing performed or reported by [facility], a Service of [facility], [address] [place] [address] Rc Thomas MD, High Reach Operator [facility]# [id number] Blood (Blood, Venous) 03/30/2023 3:58 PM EDT 03/30/2023 4:00 PM EDT Morenita MORGAN LAB BLOOD ORDERABLES Final Re sult [facility] from Last 3 Months or Most Recently Relevant to Health Maintenance Insurance [employer] D[employer] ([id number]) [place] [id number] Care Teams Pararescue Craftsman Relationship Specialty Start Date End Date Mati Giordano MD [address] [place] [address], [address] [place], [place] PCP - General Internal Medicine 03/30/23
--- OUTSIDE RECORDS SUMMARY | 2024-11-20 10:23 | XMS_ITS | Encounter Summary ---
Author Organization [facility] [place], Address [address] [place] [address] Phone Care Team Providers Care Surgical Processor Name Role Phone Mati Giordano MD Primary Care Provider [phone] Encounter Details Date Type Department Care Team (Late st Contact Info) Description 06/17/2022 Documentation Only [facility] [place], [address] [place] [address] Roger Harrison MD [address] [place] [address] [place] [address] Social History Tobacco Use Types [...] Visit [facility] [address] [place] [address] Jose Luis Lei MD [address] [place] [address] [place] [address] documented as of this encounter Visit Diagnoses Not on filedocumented in this encounter Care Teams Surgical Processor Relationship Specialty Start Date End Date Mati Giordano MD [address] [place] [address], [address] [place], [place] PCP - General Internal Medicine 03/30/23 documented as of this encounter
--- OUTSIDE RECORDS SUMMARY | 2024-11-20 10:23 | XMS_ITS | Encounter Summary ---
Author Organization [employer] Address [address] [place] [address] Care Team Providers Care Teaching Young Name Role Phone Martha Suazo MD Primary Care Provider [phone] Rosalba Louis MD Primary Care Provider + Encounter Details Date Type Department Care Team (Late st Contact Info) Description 07/26/2023 Orders Only [facility] [address] [place], [place] [phone] Martha Suazo MD [address] [place], [place] [phone] Bilateral carotid artery disease, unspecified type (CMS/HCC) (Primary Dx); Stenosis of right renal artery (CMS/HCC); Diastolic dysfunction; Hypertension, unspecified type Social History Tobacco Use Types Packs/Day Years Used Date Smoking Tobacco: Never Smokeless Tobacco: Never Alcohol Use Standard Drinks/Week Comments Never 0 (1 standard drink = 0.6 oz pur e alcohol) PHQ-2 Answer Date Recorded Patient Health Questionnaire-2 Score 0 06/02/2023 Housing Stability Answer Date Recorded What is your housing situation today? I have tiffany marlow 07/05/[address] you li ve. Do you have problems with any of the following? None of the above 07/05/2023 Food Insecurity Answer Date Recorded Within the [...] from getting things needed for daily living? Yes, it has kept me from medical appointments or getting medications. 06/29/2023 Utilities Answer Date Recorded In the past 12 months, has t he electric, gas, oil or water company threatened to shut off services in your home? No 07/05/2023 Depression Answer Date Recorded Patient Health Questionnaire-2 Score 0 06/02/2023 Comments Unknown Sex and Gender Information Value Date Recorded Sex Assigned at Female 07/20/2022 10:15 AM EDT Legal Sex Female 10:15 AM EDT Gender Identity Female 07/20/2022 10:15 AM EDT Sexual Orientation Straight 07/20/2022 10 :15 AM EDT documented as of this encounter Plan of Treatment Upcoming Encounters Date Type Department Care Team (Late st Contact Info) Description 11/29/2024 9:00 AM EDT Office Visit [facility] [address] [place] [phone] Rosalba Louis MD [address] [place] [address] 01/29/2025 9:00 AM EDT Office Visit [facility] [address] [place], [place] [phone] Faith Cardenas [address] [place] [address] documented as of this encounter Visit Diagnoses Diagnosis Bilateral carotid artery disease, unspecified type (CMS/HCC)- Primary Stenosis of right renal artery (CMS/HCC) Diastolic dysfunction Unspecified heart disease Hypertension, unspecified type documented in this encounter Care Teams Teaching Young Relationship Specialty Start Date End Date Martha Suazo MD [address] [place] [address] [id number] PCP - General Family Medicine 06/02/23 08/27/24 Rosalba Louis MD [address] [place] [address] PCP - General Internal Medicine 08/28/24 documented as of this encounter
--- OUTSIDE RECORDS SUMMARY | 2024-11-20 10:23 | XMS_ITS | Encounter Summary ---
Author Organization [facility] [place], Address [address] [place] [address] Phone Care Team Providers Care Railroad Baggage Porter Name Role Phone Mati Giordano MD Primary Care Provider [phone] Encounter Details Date Type Department Care Team (Late st Contact Info) Description 07/26/2024 Documentation Only [facility] [address] [place] [address] Mariah Sal [address] [place] [address] Social History Tobacco Use Types [...] Visit [facility] [address] [place] [address] Jose Luis Lei MD [address] [facility] [address] [place] [address] documented as of this encounter Visit Diagnoses Not on filedocumented in this encounter Care Teams Railroad Baggage Porter Relationship Specialty Start Date End Date Mati Giordano MD [address] [place] [address], [address] [place], [place] PCP - General Internal Medicine 03/30/23 documented as of this encounter
--- OUTSIDE RECORDS SUMMARY | 2024-11-20 10:23 | XMS_ITS | Encounter Summary ---
Author Organization [facility] [place], Address [address] [place] [address] Phone Care Team Providers Care Labor Economist Name Role Phone Mati Giordano MD Primary Care Provider [phone] Encounter Details Date Type Department Care Team (Late st Contact Info) Description 11/10/2023 Documentation Only [facility] [place], [address] [place] [address] Mariah Sal [address] [place] [address] Social History Tobacco Use Types [...] Visit [facility] [address] [place] [address] Jose Luis Lei MD [address] [facility] [place] [address] documented as of this encounter Visit Diagnoses Not on filedocumented in this encounter Care Teams Labor Economist Relationship Specialty Start Date End Date Mati Giordano MD [address] [place] [address], [address] [place], [place] PCP - General Internal Medicine 03/30/23 documented as of this encounter
--- OUTSIDE RECORDS SUMMARY | 2024-11-20 10:23 | XMS_ITS | Encounter Summary ---
Author Organization [facility] Address [address] [place] [address] Phone Care Team Providers Care Weatherization Coordinator Name Role Phone Mati Giordano MD Primary Care Provider [phone] Encounter Details Date Type Department Care Team (Late st Contact Info) Description 08/05/2022 Documentation Only [facility] [address] [place] [address] Morenita Leigh PA Social History [...] Visit [facility] [address] [place] [address] Jose Luis Lei MD [address] [place] [address] [place] [address] documented as of this encounter Visit Diagnoses Not on filedocumented in this encounter Care Teams Weatherization Coordinator Relationship Specialty Start Date End Date Mati Giordano MD [address] [place] [address] [address] [place], [place] PCP - General Internal Medicine 03/30/23 documented as of this encounter
--- OUTSIDE RECORDS SUMMARY | 2024-11-20 10:23 | XMS_ITS | Encounter Summary ---
Author Organization [facility] Address [address] [place] [address] Phone Care Team Providers Care Hunting And Fishing Guide Name Role Phone Mati Giordano MD Primary Care Provider [phone] Encounter Details Date Type Department Care Team (Late st Contact Info) Description 07/07/2022 Documentation Only [facility] [address] [place] [address] Morenita Leigh PA Social History [...] Visit [facility] [address] [place] [address] Jose Luis Lei MD [address] [place] [address] [place] [address] documented as of this encounter Visit Diagnoses Not on filedocumented in this encounter Care Teams Hunting And Fishing Guide Relationship Specialty Start Date End Date Mati Giordano MD [address] [place] [address] [address] [place], [place] PCP - General Internal Medicine 03/30/23 documented as of this encounter
--- OUTSIDE RECORDS SUMMARY | 2024-11-20 10:23 | XMS_ITS | Encounter Summary ---
Author Organization [facility] Address [address] [place] [address] Phone Care Team Providers Care Implementation Project Coordinator Name Role Phone Mati Giordano MD Primary Care Provider [phone] Encounter Details Date Type Department Care Team (Late st Contact Info) Description 07/22/2022 Documentation Only [facility] [address] [place] [address] Morenita Leigh PA Social [...] Visit [facility] [address] [place] [address] Jose Luis Lei MD [address] [place] [address] [place] [address] documented as of this encounter Visit Diagnoses Not on filedocumented in this encounter Care Teams Implementation Project Coordinator Relationship Specialty Start Date End Date Mati Giordano MD [address] [place] [address] [address] [place], [place] PCP - General Internal Medicine 03/30/23 documented as of this encounter
--- OUTSIDE RECORDS SUMMARY | 2024-11-20 10:23 | XMS_ITS | Encounter Summary ---
Author Organization [facility] Address [address] [place] [address] Phone Care Team Providers Care Ecmo Specialist Name Role Phone Mati Giordano MD Primary Care Provider [phone] Encounter Details Date Type Department Care Team (Late st Contact Info) Description 11/02/2022 Documentation Only [facility] [address] [place] [address] Morenita Leigh PA Social History [...] Visit [facility] [address] [place] [address] Jose Luis Lei MD [address] [place] [address] [place] [address] documented as of this encounter Visit Diagnoses Not on filedocumented in this encounter Care Teams Ecmo Specialist Relationship Specialty Start Date End Date Mati Giordano MD [address] [place] [address] [address] [place], [place] PCP - General Internal Medicine 03/30/23 documented as of this encounter
--- OUTSIDE RECORDS SUMMARY | 2024-11-20 10:23 | XMS_ITS | Encounter Summary ---
Author Organization [employer] Address [address] [facility] 7t [place] [address] Care Team Providers Care Saturation Diver Name Role Phone Martha Suazo MD Primary Care Provider [phone] Rosalba Louis MD Primary Care Provider + Reason for Visit * Reason Onset Date Comments ER Follow-up 07/29/2023 Encounter Details Date Type Department Care Team ([facility] st Contact Info) Description 07/29/2023 Telephone [facility] [address] [place], [place] [phone] Martha Suazo MD [address] [place], [place] [phone] ER Follow-up Social History Tobacco Use Types Packs/Day Years [...] AM EDT documented as of this encounter Miscellaneous Notes * Telephone Encounter - Jeana Edgard - 07/29/2023 9:27 AM EST Tc from pt daughter calling to report an ED visit. Pt was admitted at [facility] on 07/27 and discharged the following day 07/28 for Diarrhea, low sodium, and acidosis. Was advised will forward to team nursesfor f/u. Please contact daughter at [phone] documented in this encounter Plan of Treatment Upcoming Encounters Date Type Department Care Team (Late st Contact Info) Description 11/29/2024 9:00 AM EDT Office Visit [facility] [address] [place] [address] Rosalba Louis MD [address] [place] [address] 01/29/2025 9:00 AM EDT Office Visit [facility] [address] [place], [place] [phone] Faith Cardenas [address] [place], [place] [phone] documented as of this encounter Visit Diagnoses Not on filedocumented in this encounter Care Teams Saturation Diver Relationship Specialty Start Date End Date Martha Suazo MD [address] [place] [address] [id number] PCP - General Family Medicine 9/13/23 12/8/24 Rosalba Louis MD [address] [place] [address] PCP - General Internal Medicine 08/28/24 documented as of this encounter
--- OUTSIDE RECORDS SUMMARY | 2024-11-20 10:24 | XMS_ITS | Encounter Summary ---
Author Organization [facility] Address [address] [place] [address] Phone Care Team Providers Care Mobile Web Application Developer Name Role Phone Mati Giordano MD Primary Care Provider [phone] Encounter Details Date Type Department Care Team (Late st Contact Info) Description 10/24/2021 Orders Only [facility] [address] [place] [address] Roger Harrison MD [address] [place] [address] [place] [address] Stage 3a chronic kidney disease [...] [facility] [address] [place] [address] Jose Luis Lei MD [address] [place] [address] [place] [address] documented as of this encounter Visit Diagnoses Diagnosis Stage 3a chronic kidney disease (HCC) documented in this encounter Care Teams Mobile Web Application Developer Relationship Specialty Start Date End Date Mati Giordano MD [address] [place] [address], [address] [place], [place] PCP - General Internal Medicine 03/30/23 documented as of this encounter
--- OUTSIDE RECORDS SUMMARY | 2024-11-20 10:24 | XMS_ITS | Encounter Summary ---
Author Organization [facility] Address [address] [place] [address] Phone Care Team Providers Care Nurse Rn Bsn Name Role Phone Mati Giordano MD Primary Care Provider Encounter Details Date Type Department Care Team (Late st Contact Info) Description 10/03/2021 Orders Only [facility] [address] [place] [address] Roger Harrison MD [address] [place] [address] [place] [address] Stage 3a chronic kidney disease [...] [facility] [address] [place] [address] Jose Luis Lei MD [address] [place] [address] [place] [address] documented as of this encounter Visit Diagnoses Diagnosis Stage 3a chronic kidney disease (HCC) documented in this encounter Care Teams Nurse Rn Bsn Relationship Specialty Start Date End Date Mati Giordano MD [address] [place] [address], [address] [place], [place] PCP - General Internal Medicine 03/30/23 documented as of this encounter
--- OUTSIDE RECORDS SUMMARY | 2024-11-20 10:24 | XMS_ITS | Encounter Summary ---
Author Organization [facility] Address [address] [place] [address] Phone Care Team Providers Care Bias Binding Folder Name Role Phone Mati Giordano MD Primary Care Provider [phone] Encounter Details Date Type Department Care Team (Late st Contact Info) Description 10/31/2021 Orders Only [facility] [address] [place] [address] Roger Harrison MD [address] [place] [address] [place] [address] Stage 3a chronic kidney disease [...] Visit [facility] [address] [place] [address] Jose Luis Lei MD [address] [place] [address] [place] [address] documented as of this encounter Visit Diagnoses Diagnosis Stage 3a chronic kidney disease (HCC) documented in this encounter Care Teams Bias Binding Folder Relationship Specialty Start Date End Date Mati Giordano MD [address] [place] [address], [address] [place], [place] PCP - General Internal Medicine 03/30/23 documented as of this encounter
--- OUTSIDE RECORDS SUMMARY | 2024-11-20 10:24 | XMS_ITS | Encounter Summary ---
Author Organization [facility] Address [address] [place] [address] Phone Care Team Providers Care Mattress Weaver Name Role Phone Mati Giordano MD Primary Care Provider [phone] Encounter Details Date Type Department Care Team (Late st Contact Info) Description 10/10/2021 Orders Only [facility] [address] [place] [address] Roger Harrison MD [address] [place] [address] [place] [address] Stage 3a chronic kidney disease [...] Visit [facility] [address] [place] [address] Jose Luis Lei MD [address] [place] [address] [place] [address] documented as of this encounter Visit Diagnoses Diagnosis Stage 3a chronic kidney disease (HCC) documented in this encounter Care Teams Mattress Weaver Relationship Specialty Start Date End Date Mati Giordano MD [address] [place] [address], [address] [place], [place] PCP - General Internal Medicine 03/30/23 documented as of this encounter
--- OUTSIDE RECORDS SUMMARY | 2024-11-20 10:24 | XMS_ITS | Encounter Summary ---
Author Organization [facility] Address [address] [place] [address] Phone Care Team Providers Care Brusher Hand Name Role Phone Mati Giordano MD Primary Care Provider [phone] Encounter Details Date Type Department Care Team (Late st Contact Info) Description 12/05/2021 Orders Only [facility] [address] [place] [address] Roger Harrison MD [address] [place] [address] [place] [address] Stage 3a chronic kidney disease [...] [facility] [address] [place] [address] Jose Luis Lei MD [address] [place] [address] [place] [address] documented as of this encounter Visit Diagnoses Diagnosis Stage 3a chronic kidney disease (HCC) documented in this encounter Care Teams Brusher Hand Relationship Specialty Start Date End Date Mati Giordano MD [address] [place] [address], [address] [place], [place] PCP - General Internal Medicine 03/30/23 documented as of this encounter
--- OUTSIDE RECORDS SUMMARY | 2024-11-20 10:24 | XMS_ITS | Encounter Summary ---
Author Organization [facility], Address [address] [place] [address] Phone Care Team Providers Care Message Clerk Name Role Phone Mati Giordano MD Primary Care Provider [phone] Encounter Details Date Type Department Care Team (Late st Contact Info) Description 12/16/2021 Documentation Only [facility], [address] [place] [place] [address] Roger Harrison MD [address] [place] [address] [place] [address] Social History Tobacco Use Types [...] Visit [facility] [address] [place] [address] Jose Luis Lei MD [address] [place] [address] [place] [address] documented as of this encounter Visit Diagnoses Not on filedocumented in this encounter Care Teams Message Clerk Relationship Specialty Start Date End Date Mati Giordano MD [address] [place] [address], [address] [place], [place] PCP - General Internal Medicine 03/30/23 documented as of this encounter
--- OUTSIDE RECORDS SUMMARY | 2024-11-20 10:24 | XMS_ITS | Encounter Summary ---
Author Organization [facility] Address [address] [place] [address] Phone Care Team Providers Care Senior Test Analyst Name Role Phone Mati Giordano MD Primary Care Provider Encounter Details Date Type Department Care Team (Late st Contact Info) Description 12/12/2021 Orders Only [facility] [address] [place] [address] Roger Harrison MD [address] [place] [address] [place] [address] Stage 3a chronic kidney disease [...] Visit [facility] [address] [place] [address] Jose Luis Lei MD [address] [place] [address] [place] [address] documented as of this encounter Procedures Procedure Name Priority Date/Time Associated Diagnosis Comments MAGNESIUM Routine 01/01/2022 9:34 AM EDT Stage 3a chronic kidney disease (HCC) RENAL FUNCTION PANEL Routine 01/01/2022 9:34 AM EDT Stage 3a chronic kidney disease (HCC) documented in this encounter Results * Magnesium (01/01/2022 9:34 AM EDT) Magnesium 2.1 (1.6-2.3) mg/dL [facility] Comment: Testing performed or reported by [facility], a Service of [facility], [address] [place] [address] Jena Marte MD, Manager Payment [facility]# [id number] Blood (Blood, Venous) 01/01/2022 9:34 AM EDT 01/01/2022 9:36 AM EDT Roger Harrison MD LAB BLOOD ORDERABLES Final Resul t [facility] * (ABNORMAL) Renal Function Panel (01/01/2022 9:34 AM EDT) Glucose 83 (70-99) MG/DL [facility] BUN 34(H) (8-23) MG/DL [facility] Creatinine 1.6(H) (0.5-1.0) MG/DL [facility] Sodium 141 (133-145) MMOL/L [facility] Potassium 4.5 (3.6-5.2) MMOL/L [facility] Chloride 102 (98-107) MMOL/L [facility] Bicarbonate (CO2) 29 (22-29) MMOL/L [facility] Anion Gap 10 (4-17) [facility] Albumin 4.1 (3.4-4.8) GM/DL [facility] Calcium 9.5 (8.6-10.5) MG/DL [facility] Phosphorus, Serum 4.0 (2.5-4.5) MG/DL [facility] Est GFR Non 33 ML/MIN/1.7 3 M2 [facility] Comment: Creatinine based estimated glomerular filtration (eGFR) in adults is calculated using the National Kidney Foundation recommended 2020 CKD-EPI equation. Estimates GFR from serum creatinine, age and sex. Testing performed or reported by [facility], a Service of [facility], [address] [place] [address] Jena Marte MD, Manager Payment [facility]# [id number] Blood (Blood, Venous) 01/01/2022 9:34 AM EDT 01/01/2022 9:36 AM EDT us Roger [place] MD LAB BLOOD ORDERABLES Final Resul t [facility] documented in this encounter Visit Diagnoses Diagnosis Stage 3a chronic kidney disease (HCC) documented in this encounter Care Teams Senior Test Analyst Relationship Specialty Start Date End Date Mati Giordano MD [address] [place] [address], [address] [place], [place] PCP - General Internal Medicine 03/30/23 documented as of this encounter
--- OUTSIDE RECORDS SUMMARY | 2024-11-20 10:24 | XMS_ITS | Encounter Summary ---
Author Organization [employer] Address [address] [facility] 7[address] [place] [address] Care Team Providers Care Guest House Manager Name Role Phone Rosalba Louis MD Primary Care Provider + Reason for Visit * Reason Comments Med Refill Encounter Details Date Type Department Care Team ([facility] st Contact Info) Description 10/22/2024 Refill [facility] MEDICINE [address] [place], [place] [phone] Martha Suazo MD [address] [place], [place] [phone] Social History Tobacco Use Types Packs/Day Years Used Date Smoking Tobacco: Never Passive Smoke Exposure: Never Smokeless Tobacco: Never Alcohol Use Standard Drinks/Week Comments Never 0 (1 standard drink = 0.6 oz pur e alcohol) PHQ-2 Answer Date Recorded Patient Health Questionnaire-2 Score 0 06/02/2023 Housing Stability Answer Date Recorded What is your housing situation today? I have tiffany kashmir 04/19/[address] you li [...] Description 11/29/2024 9:00 AM EDT Office Visit [facility] MEDICINE [address] [place], [place] [phone] Rosalba Louis MD [address] [place] [phone] 01/29/2025 9:00 AM EDT Office Visit [facility] [address] [place], [place] [phone] Faith Cardenas [address] [place], [place] [phone] documented as of this encounter Goals Goal Patient Goal Type Associated Problems Recent Progress Patient-Stated? Author Blood Pressure < 140/90 Blood Pressure 135/69(2024 8:55 AM EST) No Gypsy Hood Patient will adhere to medication regimen General No Gypsy Hood Hemoglobin A1c < 8 Result Component 6.1( 4 1:20 PM EST) No Gypsy Hood documented as of this encounter Visit Diagnoses Not on filedocumented in this encounter Care Teams Guest House Manager Relationship Specialty Start Date End Date Rosalba Louis MD [address] [place] [phone] PCP - General Internal Medicine 08/28/24 documented as of this encounter
--- OUTSIDE RECORDS SUMMARY | 2024-11-20 10:24 | XMS_ITS | Encounter Summary ---
Author Organization [facility], Address [address] [place] [address] Phone Care Team Providers Care Fire Pilot Name Role Phone Mati Giordano MD Primary Care Provider [phone] Encounter Details Date Type Department Care Team (Late st Contact Info) Description 10/17/2021 Orders Only [facility] [address] [place] [address] Roger Harrison MD [address] [place] [address] [place] [address] Stage 3a chronic kidney disease [...] [facility] [address] [place] [address] Jose Luis Lei MD [address] [place] [address] [place] [address] documented as of this encounter Visit Diagnoses Diagnosis Stage 3a chronic kidney disease (HCC) documented in this encounter Care Teams Fire Pilot Relationship Specialty Start Date End Date Mati Giordano MD [address] [place] [address], [address] [place], [place] PCP - General Internal Medicine 03/30/23 documented as of this encounter
--- OUTSIDE RECORDS SUMMARY | 2024-11-20 10:24 | XMS_ITS | Continuity of Care Document ---
Author Organization [employer] Address [address] [place] [address] Care Team Providers Care Customer Experience Specialist Name Role Phone HIM CCA OTHER Assessment Encounter Date Assessment Date Assessment LastModified by Organization Details LastModified Time 11/06/2024 11/06/2024 I provided real -time medical direction via phone for this encounter and was available for additional phone-based assistance as needed. I have reviewed and agree with the Assessment and Plan as documented by the Lining Ironer. Patient given the opportunity to ask questions. Our service contacted for an assessment of: Viral URI symptoms, poor p.o. intake As per above, patient with approximately several days of viral URI symptoms. Denies fever or chills. Denies chest pain, shortness of breath, dyspnea on exertion. Positive nasal congestion and dry cough. Positive sick contacts. Also with poor p.o. intake due to feeling unwell. Has chronic kidney disease. Review of chart reveals last creatinine was 1.7 in September of 2023. Per residential leasing manager on the scene, vital signs are stable and patient is afebrile. No wheezing heard on exam. COVID and Flu are both negative. No increased work of breathing and no distress. Elected to give 1 L of lactated Ringer's. COVID and flu were both negative. BNP noted with creatinine now of 2.7. Impression: Common cold and viral URI Plan: Continue with [id number] medications to control symptoms. Red flags discussed as to when to seek a higher level care. We will need follow-up with PCP and Nephrology. Suspect her creatinine may be related to progression of disease and also dehydration. Patient tolerated fluids well but will need a recheck and follow-up. Allergies: Reviewed PCP f/u: We discussed the diagnostic uncertainty of home visits and the risk associated with this. In this case, the patient and I felt this to be an acceptable and reasonable amount of risk given the benefit of avoiding an ED visit. We discussed the need to seek care urgently/emergen tly in the setting of any new or worsening serious symptoms, particularly fever [place]ills [place] [phone] Not available 11/06/2024 16:11:39 Plan of Treatment Reminders Order Date Submit Date Provider Last Modified By Organization Details Last Modified Time Details Appointments None recorded. Lab rapid SARS CoV 2 Ag, QL [place], respiratory specimen [address] [place] [address], [id number], 15:56:53 rapid flu (A+B) [address], [id number], 15:56:53 BMP, serum or plasma [address] [place] [address], [id number], 20:43:18 Referral None recorded. Procedures None recorded. Surgeries None recorded. Imaging None recorded. Medication Orders lactated Ringers intravenous solution [address] [place] [address] Pharmacy, [address] [place] [address], [id number], 15:56:53 Patient TargetsNo targets recorded. Patient InstructionsNo instructions recorded. Reason for Referral None Reported. Results Created Date Observation Date Name Description Value Unit Range Abnormal Flag Note LastModifiedBy Organization Detail LastModifiedTime 11/06/1911/06/2024 rapid flu (A+B) Flu negati ve Not Available [address], [address], 11/06/2024 15:45:15 11/06/19 25 11/06/2024 rapid SARS CoV 2 Ag, QL IA, respi rator y speci men rapid SARS CoV 2 Ag, QL IA, respiratory specimen negati ve Not Available [place] [address] [facility] [place], [place], [address], 11/06/2024 15:45:13 Result Notes None recorded. Medical Equipment None [...] Available Not Available No t Available Vitals None Recorded Social History None recorded. Functional Status None recorded. Mental Status None recorded. Family History Nothing Reported. Medical History No medical history recorded. Gynecological HistoryNo gynecological history recorded. Obstetrics History GPAL:G 0 P 0 0 0 0 Past Encounters Encounter ID Performer Location Encounter Start Date Encounter Closed Date Diagnosis/Indication Diagnosis SNOMED-CT Code Diagnosis ICD10 Code Diagnosis Note [id number] Tasia Rhodes MD Main - [address] [phone] 11/06/2024 14:11:56 11/07/2024 08:19:42 Common cold 70088871 J00 Chronic ki dney disease stage 3 591769559 N18.30 Dehydration 41724893 E86 .0 Health Concerns Section Related Observation LastModified by Organization Detai ls LastModified Time None Recorded Concern Status LastModified by Organization Details LastModified Time None Recorded Payers Encounter Date Sequence Insurance Name Policy Number Policy Harrington Covered Member ID Harrington Member ID Guarantor Name 11/06/2024 1 [facility] - DOS ON OR AFTER 2022 - DUAL ELIGIBLE - [facility] OPTIONS AND ONE CARE (MEDICARE REPLACEMENT/ADV ANTAGE - HMO) Sosa Castaneda [id number] Sosa Castaneda Notes Date Note Type Note Provider Name and Address Organization Details Recorded Time 11/06/2024 text/html Lining Ironer Organization Information for [employer] Legal Name: [facility] Transportation Address: [address] [place] [address], [employer]: Anant Giles MD CLIA No.: [id number] Lining Ironer POC Test Results from [employer] (13:42:32) pH: 7.40 pH units pCO2: 40.3 mmHg pO2: 35.7 mmHg Na: 138 mmol/L K: 4.1 mmol/L iCa: 1.26 mmol/L Cl: 102 mmol/L TCO2: 24.2 mEq/L Hct: 33 % Hb: 11.2 g/dL Glu: 74 mg/dL Lac: 1.02 mmol/L Cr: 2.68 mg/dL BUN: 35 mg/dL A Rapid COVID antigen (13:42:46) COVID: - Rapid influenza antigen (13:42:47) Flu: - .................... .................... .................... .................... .................... .................... .................... . Lining Ironer Note From [employer]: This 84-year-old female with a history including but not limited to asthma, HTN, HLD, CKD, GERD requested a visit today to address two days of dry cough, rhinorrhea, fatigue and poor PO intake. Patient is using Robitussin with moderate relief. Patient denies any chest pain, shortness of breath, dyspnea on exertion, headaches, fevers, nausea, vomiting, diarrhea. Patient has an albuterol MDI but has not felt like she needed to use it. Patient presents awake and alert, in no acute distress and speaking full sentences. She is mildly hypotensive, not orthostatic, vital signs are otherwise stable and she is afebrile. Nonfocal neurological exam. Normal gait. No sinus tenderness. Normal oropharynx exam. Lungs are clear throughout auscultation. Abdomen is soft, nontender, nondistended. No lower extremity edema. POC labs are uploaded, creatinine 2.7, BUN 35. Rapid covid and flu testing were both negative. I treated this patient with lactated ringers 1 L IV which resolved the hypotension. We discussed the diagnostic uncertainty of home visits and the risk associated with this. In this case, the patient and I felt this to be an acceptable and reasonable amount of risk given the benefit of avoiding an ED visit. I provided education on the patient's prescription as well as additional OTC/supportive care therapy. I recommend she increase her daily fluid intake, follow up with her primary care physician as well as her fuel conversion technician and present to the emergency department for any new or worsening severe symptoms such as chest pain, severe shortness of breath, high fever, altered mental status. The patient and her daughter were given the opportunity to ask questions and are agreeable to this plan. .................... .................... .................... .................... .................... .................... .................... . [facility] [place] Consulted: Tasia Rhodes .................... .................... .................... .................... .................... .................... .................... . Disposition: Fulfilled Tasia Rhodes MD [address] [facility] [place],[address] [facility], [place], [address], [employer] [facility] 11/06/2024 16:12:03 OBGyn Episode No OBEpisode recorded.
--- OUTSIDE RECORDS SUMMARY | 2024-11-20 10:24 | XMS_ITS | Encounter Summary ---
Author Organization [facility] Address [address] [place] [address] Phone Care Team Providers Care Hub Associate Name Role Phone Mati Giordano MD Primary Care Provider [phone] Encounter Details Date Type Department Care Team (Late st Contact Info) Description 11/21/2021 Orders Only [facility] [address] [place] [address] Roger Harrison MD [address] [place] [address] [place] [address] Stage 3a chronic kidney disease [...] Visit [facility] [address] [place] [address] Jose Luis Lei MD [address] [place] [address] [place] [address] documented as of this encounter Visit Diagnoses Diagnosis Stage 3a chronic kidney disease (HCC) documented in this encounter Care Teams Hub Associate Relationship Specialty Start Date End Date Mati Giordano MD [address] [place] [address], [address] [place], [place] PCP - General Internal Medicine 03/30/23 documented as of this encounter
--- OUTSIDE RECORDS SUMMARY | 2024-11-20 10:24 | XMS_ITS | Encounter Summary ---
Author Organization [facility] Address [address] [place] [address] Phone Care Team Providers Care Plastic Shaper Name Role Phone Mati Giordano MD Primary Care Provider [phone] Encounter Details Date Type Department Care Team (Late st Contact Info) Description 04/15/2023 Documentation Only [facility] [address] [place] [address] Morenita Leigh PA Social History [...] Visit [facility] [address] [place] [address] Jose Luis Lei MD [address] [place] [address] [place] [address] documented as of this encounter Visit Diagnoses Not on filedocumented in this encounter Care Teams Plastic Shaper Relationship Specialty Start Date End Date Mati Giordano MD [address] [place] [address] [address] [place], [place] PCP - General Internal Medicine 03/30/23 documented as of this encounter
--- OUTSIDE RECORDS SUMMARY | 2024-11-20 10:24 | XMS_ITS | Encounter Summary ---
Author Organization [facility] Address [address] [place] [address] Phone Care Team Providers Care Software Project Engineer Name Role Phone Mati Giordano MD Primary Care Provider [phone] Reason for Visit * Reason Comments Med Change Request Encounter Details Date Type Department Care Team (Late st Contact Info) Description 10/24/2021 Refill [facility] [address] [place] [address] Roger Harrison MD [address] [place] [address] [place] [address] Social History Tobacco Use Types [...] Office Visit [facility] [address] [place] [address] Jose Luis Lei MD [address] [facility] [place] [address] documented as of this encounter Visit Diagnoses Not on filedocumented in this encounter Care Teams Software Project Engineer Relationship Specialty Start Date End Date Mati Giordano MD [address] [place] [address], [address] [place], [place] PCP - General Internal Medicine 03/30/23 documented as of this encounter
--- OUTSIDE RECORDS SUMMARY | 2024-11-20 10:24 | XMS_ITS | Clinical Summary ---
Author Organization [facility] Address [address] [place] [address] Phone Care Team Providers Care Urogynecology Physician Name Role Phone Rosalba Louis MD Primary Care Provider Social History Tobacco Use Types Packs/Day Years Used Date Smoking Tobacco: Never Assessed Comments Unknown Sex and Gender Information Value Date Recorded Sex Assigned at Not on file Legal Sex Female 9:07 AM EST Gender Identity Not on file Sexual Orientation Not on file Plan of Treatment Upcoming Encounters Date Type Department Care Team ([facility] Contact Info) Description 12/19/2024 8:30 AM EDT Consult Orthopedic Surgery - [place] [address] [phone] Mekhi Greene, DPM [address] [address] Health Maintenance Due Date Last Done Comments Diabetes: Annual Foot Exam 1950 Diabetes: Annual Retina Eye Exam 1950 DTaP,Tdap,and Td Vaccines (1 - Tdap) 1957 Pneumococcal Vaccine: 50+ Ye ars (1 of 2 - PCV) 1957 Zoster Vaccines (1 of 2) 1988 RSV Immunization Patients 60 + Years Old (1 - 1-dose 75+ series) 2013 COVID-19 Vaccine ( - 2023-2 5 season) 2024 Influenza Vaccine (#1) 2024 Cholesterol Screening (Lipid Panel) 09/06/2024 Depression Screening 09/06/2024 Diabetes: Blood Sugar Contro l Test (HGBA1C) 09/06/2024 Falls Risk Assessment 09/06/2024 Medicare Annual Wellness Visit 09/06/2024 Osteoporosis Screening (Bone Density Screening) 09/06/2024 Social Influencers of Health Screening 09/06/2024 HIB Vaccines Aged Out No longer eligi [...] on patient's age to complete this topic MMR Vaccines Aged Out No longer eligi ble based on patient's age to complete this topic Meningococcal ACWY Vaccine Aged Out N o longer eligible based on patient's age to complete this topic Meningococcal B Vacine Aged Out No lo nger eligible based on patient's age to complete this topic RSV Immunization Patients Un anastacio 20 months Aged Out No longer eligible b ased on patient's age to complete this topic Varicella Vaccines Aged Out No longer eligible based on patient's age to complete this topic Insurance [employer] MEDICARE Member Subscriber Plan / Payer (Ef fective 2019-Present) Name:Sosa Castaneda Relation to Subscriber:Self Name:Sosa Castaneda Payer ID:[id number] Group ID:[id number] Type:Not on file Address: [place] [address] [address] [place] [address] Care Teams Urogynecology Physician Relationship Specialty Start Date End Date Rosalba Louis MD [address] [phone] PCP - General Internal Medicine 09/06/24
--- OUTSIDE RECORDS SUMMARY | 2024-11-20 10:24 | XMS_ITS | Encounter Summary ---
Author Organization [facility] Address [address] [place] [address] Phone Care Team Providers Care Clay Worker Name Role Phone Mati Giordano MD Primary Care Provider [phone] Encounter Details Date Type Department Care Team (Late st Contact Info) Description 11/28/2021 Orders Only [facility] [address] [place] [address] Roger Harrison MD [address] [place] [address] [place] [address] Stage 3a chronic kidney disease [...] Visit [facility] [address] [place] [address] Jose Luis Lei MD [address] [place] [address] [place] [address] documented as of this encounter Visit Diagnoses Diagnosis Stage 3a chronic kidney disease (HCC) documented in this encounter Care Teams Clay Worker Relationship Specialty Start Date End Date Mati Giordano MD [address] [place] [address], [address] [place], [place] PCP - General Internal Medicine 03/30/23 documented as of this encounter
--- OUTSIDE RECORDS SUMMARY | 2024-11-20 10:24 | XMS_ITS | Encounter Summary ---
Author Organization [facility] Address [address] [place] [address] Phone Care Team Providers Care Concrete Plant Laborer Name Role Phone Mati Giordano MD Primary Care Provider [phone] Encounter Details Date Type Department Care Team (Late st Contact Info) Description 11/07/2021 Orders Only [facility] [address] [place] [address] Roger Harrison MD [address] [place] [address] [place] [address] Stage 3a chronic kidney disease [...] Visit [facility] [address] [place] [address] Jose Luis Lei MD [address] [place] [address] [place] [address] documented as of this encounter Visit Diagnoses Diagnosis Stage 3a chronic kidney disease (HCC) documented in this encounter Care Teams Concrete Plant Laborer Relationship Specialty Start Date End Date Mati Giordano MD [address] [place] [address], [address] [place], [place] PCP - General Internal Medicine 03/30/23 documented as of this encounter
--- OUTSIDE RECORDS SUMMARY | 2024-11-20 10:24 | XMS_ITS | Encounter Summary ---
Author Organization [facility] Address [address] [place] [address] Phone Care Team Providers Care Radiology Administrator Name Role Phone Mati Giordano MD Primary Care Provider [phone] Encounter Details Date Type Department Care Team (Late st Contact Info) Description 11/14/2021 Orders Only [facility] [address] [place] [address] Roger Harrison MD [address] [place] [address] Dr. [place] [address] Stage 3a chronic kidney disease [...] [facility] [address] [place] [address] Jose Luis Lei MD [address] [place] [address] Dr[place] [address] documented as of this encounter Visit Diagnoses Diagnosis Stage 3a chronic kidney disease (HCC) documented in this encounter Care Teams Radiology Administrator Relationship Specialty Start Date End Date Mati Giordano MD [address] [place] [address], [address] [place], [place] PCP - General Internal Medicine 03/30/23 documented as of this encounter
--- OUTSIDE RECORDS SUMMARY | 2024-11-20 10:24 | XMS_ITS | Encounter Summary ---
Author Organization [facility] [place], Address [address] [place] [address] Phone Care Team Providers Care Machine Puller And Laster Name Role Phone Mati Giordano MD Primary Care Provider [phone] Encounter Details Date Type Department Care Team (Late st Contact Info) Description 12/17/2021 Documentation Only [facility] [place], [address] [place] [address] Roger Harrison MD [address] [place] [address] [place] [address] Social History Tobacco Use Types [...] Visit [facility] [address] [place] [address] Jose Luis Lei MD [address] [place] [address] [place] [address] documented as of this encounter Visit Diagnoses Not on filedocumented in this encounter Care Teams Machine Puller And Laster Relationship Specialty Start Date End Date Mati iGordano MD [address] [place] [address], [address] [place], [place] PCP - General Internal Medicine 03/30/23 documented as of this encounter
--- OUTSIDE RECORDS SUMMARY | 2024-11-20 10:25 | XMS_ITS | Encounter Summary ---
Author Organization [facility] [place], Address [address] [place] [address] Phone Care Team Providers Care Locomotive Crane Engineer Name Role Phone Mati Giordano MD Primary Care Provider [phone] Encounter Details Date Type Department Care Team (Late st Contact Info) Description 09/30/2021 Documentation Only [facility] [place], [address] [place] [place] [address] Roger Harrison MD [address] [place] [address] [place] [address] Social History Tobacco Use Types [...] Visit [facility] [address] [place] [address] Jose Luis Lei MD [address] [place] [address] [place] [address] documented as of this encounter Visit Diagnoses Not on filedocumented in this encounter Care Teams Locomotive Crane Engineer Relationship Specialty Start Date End Date Mati Giordano MD [address] [place] [address], [address] [place], [place] PCP - General Internal Medicine 03/30/23 documented as of this encounter
--- OUTSIDE RECORDS SUMMARY | 2024-11-20 10:25 | XMS_ITS | Encounter Summary ---
Author Organization [employer] Address [address] [place] [address] Care Team Providers Care Phys Assistant Name Role Phone Rosalba Louis MD Primary Care Provider + Encounter Details Date Type Department Care Team ([facility] st Contact Info) Description 11/01/2024 Orders Only [facility] External Provider, [facility] Social History Tobacco Use Types Packs/Day Years [...] as of this encounter Miscellaneous Notes * Result Encounter Note - Rosalba Louis MD - 11/01/2024 9:21 AM EST Bone density test on 11/01/2024 ordered by industrial waste treatment technician showed osteopenia which was this previous diagnosis that she was carrying. I will follow-up with her at her next appointment on November and decide on additional workup or see if she is still using Prolia documented in this encounter Plan of Treatment Upcoming Encounters Date Type Department Care Team (Late st Contact Info) Description 11/29/2024 9:00 AM EDT Office Visit [facility] [address] [place] [phone] Rosalba Louis MD [address] [place] [address] 01/29/2025 9:00 AM EDT Office Visit [facility] [address] [place], [place] [phone] Faith Cardenas [address] [place], [place] [phone] documented as of this encounter Goals Goal Patient Goal Type Associated Problems Recent Progress Patient-Stated? Author Blood Pressure < 140/90 Blood Pressure 135/69(2024 8:55 AM EST) No Gypsy Hood Patient will adhere to medication regimen General No Gypsy Hood Hemoglobin A1c < 8 Result Component 6.1( 1:20 PM EST) No Gypsy Hood documented as of this encounter Procedures Procedure Name Priority Date/Time Associated Diagnosis Comments BD DEXA AXIAL Routine 11/01/2024 8:45 AM EST documented in this encounter Results * BD DEXA Axial (11/01/2024 8:45 AM EST) Anatomical Region Laterality Modality Body Radiographic Ana Rosa ging 11/01/2024 8:45 AM EST Narrative 11/01/2024 9:21 AM EST ? [facility] ? [address] ?[place] [address] ? Mammography Report ? Signed ? Patient: Tapia Leonel,Sosa ?MR#: [id number] ?? [id number] ? : 1940 ?Acct:[id number] ? Age/Sex: 84 / F ?ADM Date: 11/01/24 ? Loc: HO.MAMMO ? Attending Dr: Silvestre Cummings MD ? Ordering Physician: Silvestre Cummings MD ?Results: ? Date of Service: 11/01/24 ?Follow Up: ? Procedure(s): XR DEXA axial skeleton ?? Accession Number(s): [id number] ? cc: Rosalba Louis MD; Silvestre Cummings MD ? EXAMINATION: ??DXA BONE DENSITY AXIAL ? HISTORY: ??Estrogen deficiency ? TECHNIQUE: Diagonal View Dual energy absorptiometry (DEXA) ?? of the [...] is a trademark of the [employer]'s ?? [place] for Metabolic Bone Disease, a World Health Organization (WHO) ?? Collaborating Center. ? Electronically signed by: ??Bert Leon MD ??11/01/2024 09:18 AM EST ?? RP ? Dictated By: ?Bert Leon MD ? Signed By: ?<Electronically signed by Bert Leon MD in OV> ?11/01/24 0918 ? DD/ 0845 ? TD/TT: 11/01/24 0850 ? Garbage Collector Supervisor: ? Procedure Note Donotuseinterpreter, Image - 11/01/2024 Daily [facility]'s [address] [place], [place] [address] Mammography Report Signed Patient: Mary Ellen Correa#: [id number] : 8Acct:[id number] Age/Sex: 84 / FADM Date: 11/01/24 Loc: HO.MAMMO Attending Dr: Silvestre Cummings MD Ordering Physician: Silvestre Cummingsesults: Date of Service: 11/01/24Follow Up: Procedure(s): XR DEXA axial skeleton Accession Number(s): [id number] cc: Rosalba Louis MD; Silvestre Cummings MD EXAMINATION: DXA BONE DENSITY AXIAL HISTORY: Estrogen deficiency TECHNIQUE: Diagonal View Dual energy absorptiometry (DEXA) of the lumbar [...] is a trademark of the [employer] [place] [facility] Metabolic [employer] Disease, a World Health Organization (WHO) Collaborating Center. Electronically signed by: Bert Leon MD 11/01/2024 09:18 AM [facility] Dictated By: Bert Leon MD Signed By: <Electronically signed by Bert Leon MD in OV> 11/01/2418 DD/ 0845 TD/TT: 11/01/24 0850 Garbage Collector Supervisor: [facility] External Provider IMG DXA PROCEDURES Final Result documented in this encounter Visit Diagnoses Not on filedocumented in this encounter Care Teams Phys Assistant Relationship Specialty Start Date End Date Rosalba Louis MD [address] [place] [address] PCP - General Internal Medicine 08/28/24 documented as of this encounter
--- OUTSIDE RECORDS SUMMARY | 2024-11-20 10:25 | XMS_ITS | Data Portability ---
Author Organization [employer] Address [address] [place] [address] Care Team Providers Care Home Attendant Name Role Phone HIM CCA OTHER Assessment Encounter Date Assessment Date Assessment LastModified by Organization Details LastModified Time 07/27/2023 07/27/2023 I have reviewed and agree with the Assessment and Plan as documented by the Orthotics Prosthetics Assistant. I provided real-time medical direction via phone [...] Assessment and Plan as documented by the Orthotics Prosthetics Assistant. Patient given the opportunity to ask questions. via real estate administrator Advised if develops CP/severe SOB/turning blue/uncontrolle d n/v/d or black/bloody emesis or stool/ AMS/ syncope/severe, uncontrolled leg pain/hi fever unresponsive to APAP to call 911-she verbalized understanding of instructions to the medic. [email or web address] Not available 09/21/2023 22:00:21 11/06/2024 11/06/2024 I provided real -time medical direction via phone for this encounter and was available for additional phone-based assistance as needed. I have reviewed and agree with the Assessment and Plan as documented by the Orthotics Prosthetics Assistant. Patient given the opportunity to ask questions. [...] was 1.7 in September of 2023. Per strand galvanizer on the scene, vital signs are stable and patient is afebrile. No wheezing heard on exam. COVID and Flu are both negative. No increased work of breathing and no distress. Elected to give 1 L of lactated Ringer's. COVID and flu were both negative. BNP noted with creatinine now of 2.7. Impression: Common cold and viral URI Plan: Continue with oqki-qpw-tponoua medications to control symptoms. Red flags discussed [...] or worsening serious symptoms, particularly fever chills [email or web address] Not available 11/06/2024 16:11:39 Plan of Treatment Reminders Order Date Submit Date Provider Last Modified By Organization Details Last Modified Time Details Appointments None recorded. Lab rapid SARS CoV 2 Ag, QL IA, respiratory specimen 2024 [email or web address], [address] [place] [address], [phone], 5 15:56:53 rapid flu (A+B) 2024 025 mirza [facility], [address] [place] [address], [phone], 5 15:56:53 BMP, serum or plasma 2024 025 MARIN [facility], [address] [place] [address], [phone], 5 20:43:18 BMP, serum or plasma 2023 024 [email or web address] 0 [facility], [address] [place] [address], [phone], 4 22:02:09 Referral None recorded. Procedures None recorded. Surgeries None recorded. Imaging None recorded. Medication Orders lactated Ringers intravenous solution 2024 025 [email or web address] [facility], [address] [place] [address], [id number], 5 15:56:53 furosemide 10 mg/mL injection solution 2023 024 [email or web address] 0 Not available 13:59:59 Patient TargetsNo targets recorded. Patient InstructionsNo instructions recorded. Reason for Referral None Reported. Results Created Date Observation Date Name Description Value Unit Range Abnormal Flag Note LastModifiedBy Organization Detail LastModifiedTime 09/21/19 24 09/21/2023 BMP, serum or plasm a BUN 35 Not Available [facility] [address], [address], 09/21/2023 14:00:05 09/21/19 24 09/21/2023 BMP, serum or plasm a Ca Ionize d calciu m 1.17 Not Available [facility] [address], [address], 09/21/2023 14:00:05 09/21/19 24 09/21/2023 BMP, serum or plasm a CI- 104 Not Available [facility] - [facility] [address], [address], 09/21/2023 14:00:05 09/21/19 24 09/21/2023 BMP, serum or plasm a CRE 1.79 Not Available [facility] [address], [address], 09/21/2023 14:00:05 09/21/19 24 09/21/2023 BMP, serum or plasm a GLU 139 Not Available [facility] [address], [address], 09/21/2023 14:00:05 09/21/19 24 09/21/2023 BMP, serum or plasm a K+ 4.4 Not Available [facility] [address], [address], 09/21/2023 14:00:05 09/21/19 24 09/21/2023 BMP, serum or plasm a Na+ 139 Not Available [facility] [address], [address], 09/21/2023 14:00:05 09/21/19 24 09/21/2023 BMP, serum or plasm a tCO2 26 Not Available [facility] [address], [address], 09/21/2023 14:00:05 11/06/19 25 11/06/2024 rapid flu (A+B) Flu negati ve Not Available [facility] [address] [place] [address], [address], 11/06/2024 15:45:15 11/06/19 25 11/06/2024 rapid SARS CoV 2 Ag, QL IA, respi rator y speci men rapid SARS CoV 2 Ag, QL IA, respiratory specimen negati ve Not Available [facility] [address] [place] [address], [address], 11/06/2024 15:45:13 Result Notes None recorded. Medical [...] /min 148 mm[Hg] 90 mm[Hg] Not Available [employer] 3 13:13:03 Date Recorded Oxygen saturation Oxygen saturation in Arterial blood by Pulse oximetry Body height Heart rate Respiratory rate Body weight Body temperature Systolic blood pressure Diastolic blood pressure Provider Name and Address Organization Details Last Updated DateTime 4 96 % 96 % 152.4 cm 78 /min 16 /min 31611.6 4 g 97.7 [degF] 128 mm[Hg] 77 mm[Hg] Not Available [employer] 4 13:57:13 Social History None recorded. Functional Status None recorded. Mental Status None recorded. Family History Nothing Reported. Medical History No medical history recorded. Gynecological HistoryNo gynecological history recorded. Obstetrics History GPAL:G 0 P 0 0 0 0 Past Encounters Encounter ID Performer Location Encounter Start Date Encounter Closed Date Diagnosis/Indication Diagnosis SNOMED-CT Code Diagnosis ICD10 Code Diagnosis Note [id number] Shakeel Knott MD Main - [address] [address] 07/27/2023 13:12:54 09/22/2023 15:34:44 Hyponatremia 80627909 E87.1 [id number] Gilda Roth MD Main - [facility] [address] [place] [address] 09/21/2023 13:57:00 09/22/2023 14:24:43 Peripheral edema 069908957 R60.9 Advised to elevate, resume low-salt diet. [...] if not improving and red flags reviewed [id number] Tasia Rhodes MD Main - [address] [phone] 11/06/2024 14:11:56 11/07/2024 08:19:42 Common cold 44229523 J00 Chronic ki dney disease stage 3 486173433 N18.30 Dehydration 71773292 E86 .0 Health Concerns Section Related Observation LastModified by Organization Detai ls LastModified Time None Recorded Concern Status LastModified by Organization Details LastModified Time None Recorded Advance Directives Directive None Recorded Payers Encounter Date Sequence Insurance Name Policy Number Policy Harrington Covered Member ID Harrington Member ID Guarantor Name 07/27/2023 1 [facility] - DOS ON OR AFTER 2022 - DUAL ELIGIBLE - CARE HOME OPTIONS AND ONE CARE (MEDICARE REPLACEMENT/ADV ANTAGE - HMO) Sosa Castaneda [id number] Sosa Castaneda 09/21/2023 1 [facility] - DOS ON OR AFTER 2022 - DUAL ELIGIBLE - CARE HOME OPTIONS AND ONE CARE (MEDICARE REPLACEMENT/ADV ANTAGE - HMO) Sosa Tapia Castaneda [id number] Sosa Galloarria 11/06/2024 1 [facility] - DOS ON OR AFTER 2022 - DUAL ELIGIBLE - CARE HOME OPTIONS AND ONE CARE (MEDICARE REPLACEMENT/ADV ANTAGE - HMO) Sosa Tapia Leonel [id number] Sosa Tapia Leonel Notes Date Note Type Note Provider Name and Address Organization Details Recorded Time 07/27/2023 text/html HPI: Call to Sosa Tapia Leonel , spoke with Robby who is on [...] more than normal) and age > 70 .................... .................... .................... .................... .................... .................... .................... . CRC Nursing Assessment: Comments: Reviewed. No further information needed to process visit. Shane Boland .................... .................... .................... .................... .................... .................... .................... . Baseline Information: Baseline Hb: 11.3 g/dL Baseline HCt: 34% Baseline Creatinine: 1.59 mg/dL .................... .................... .................... .................... .................... .................... .................... . Orthotics Prosthetics Assistant Note From Cam[employer] Díaz: Pt reports approx 10 episodes of diarrhea since yesterday. Pt denies hematochezia, ABD discomfort, CP, SOB, WRIGHT, f/n/v. Pt is alert, NAD. VSS. Afebrile. Neuro exam and gait morning. Lungs CTA. Benign ABD exam. No ANGELES. Rapid covid and flu negative. POC labs uploaded, Na 126. [facility] contacted and advised the pt be seen in the ED. Care transferred to [facility] ambulance crew. .................... .................... .................... .................... .................... .................... .................... . Disposition: Fulfilled Shakeel Knott MD [address] [facility],[address], [place], [address], [place] - [employer] 09/21/2023 13:35:11 09/21/2023 text/html HPI: Member has bilateral edema , right greater than left. Member denies sob/ chest pain . Member just returned from [place]. 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 .................... .................... .................... .................... .................... .................... . CRC Nurse Triage Notes (Jacklyn Berumen): Comments: CRC RN DID NOT NEED FURTHER INFO .................... .................... .................... .................... .................... .................... .................... . Orthotics Prosthetics Assistant Note From Campos Díaz: Pt reports recent trip to [place] where she didn? t follow her usual [...] worsening sx, which are reviewed with her. .................... .................... .................... .................... .................... .................... .................... . Disposition: Fulfilled Gilda Roth MD [address] [place] [address],[address], [place], [address], [employer] 09/21/2023 22:05:38 11/06/2024 text/html Orthotics Prosthetics Assistant Organization Information for Campos Díaz [employer] Legal Name: [facility] Transportation Address: [address] [place] [address], [place] [address], Radio Interference Expert: Anant Giles MD CLIA No.: [id number] Orthotics Prosthetics Assistant POC Test Results from Campos Díaz [employer] [facility] (13:42:32) pH: 7.40 pH units pCO2: 40.3 [...] .................... .................... .................... .................... .................... .................... . Orthotics Prosthetics Assistant Note From Campos Díaz: This 84-year-old female [...] primary care physician as well as her weight and balance control agent and present to the emergency department for any new or worsening severe symptoms such as chest pain, severe shortness of breath, high fever, altered mental status. The patient and her daughter were given the opportunity to ask questions and are agreeable to this plan. .................... .................... .................... .................... .................... .................... .................... . [facility] Consulted: Tasia Rhodes .................... .................... .................... .................... .................... .................... .................... . Disposition: Fulfilled Tasia Rhodes MD [address] [place] [address],[address], [place], [phone], [employer] 11/06/2024 16:12:03 OBGyn Episode No OBEpisode recorded.
--- OUTSIDE RECORDS SUMMARY | 2024-11-20 10:25 | XMS_ITS | Encounter Summary ---
Author Organization [email or web address] Address [address] [place] [address] Care Team Providers Care Sheep Shearer Name Role Phone Rosalba Louis MD Primary Care Provider + Reason for Visit * Reason Comments Cough Encounter Details Date Type Department Care Team ([facility] st Contact Info) Description 11/20/2024 9:00 AM EST Office Visit [facility] [address] [place], [place] [phone] Acute cough (Primary Dx); Acute URI Social History Tobacco Use Types Packs/Day Years [...] AM EDT documented as of this encounter Last Filed Vital Signs Vital Sign Reading [...] oz) 11/20/2024 8:55 A M EST Height - - Body Mass Index 28.51 08/28/2024 1:17 PM EST documented in this encounter Plan of Treatment Upcoming Encounters Date Type Department Care Team (Late st Contact Info) Description 11/29/2024 9:00 AM EDT Office Visit [facility] [address] [place] [address] Rosalba Louis MD [address] [place] [address] 01/29/2025 9:00 AM EDT Office Visit [facility] [address] [place], [place] [phone] Faith Cardenas [address] [place], [place] [phone] Scheduled Orders Name Type Priority Associated Diagnoses Orde r Schedule XR Chest 2 Views Imaging Routine Acute cough Expected: 11/20/2024, Expires: 11/20/2025 documented as of this encounter Goals Goal [...] Routine 11/20/2024 9:11 AM EST Acute URI documented in this encounter Results * Influenza B (ID NOW Rapid Molecular) (11/20/2024 9:11 AM EST) [facility] Influenza B Negative Negative, Indeterminate [facility] Swab 11/20/2024 9:11 AM EST us Campos Boswell MD POINT OF CARE TEST ENTER/EDIT OR DERABLES Final Result Performing Organization Address [facility] Co de Phone Number [facility] [address] [place] [phone] * Influenza A (ID NOW Rapid Molecular) (11/20/2024 9:11 AM EST) [facility] Influenza A Negative Negative, Indeterminate [facility] Swab 11/20/2024 9:11 AM EST us Campos Boswell MD POINT OF CARE TEST ENTER/EDIT OR DERABLES Final Result Performing Organization Address [facility] Co de Phone Number [facility] [address] [place] [phone] * POCT Rapid COVID Ag (11/20/2024 9:11 AM EST) [facility] Rapid COVID Ag Negative [facility] Swab 11/20/2024 9:11 AM EST us Campos Boswell MD POINT OF CARE TEST ENTER/EDIT OR DERABLES Final Result [facility] [address] [place] [phone] documented in this encounter Visit Diagnoses Diagnosis Acute cough- Primary Acute URI Acute upper respiratory infections of unspecified site documented in this encounter Care Teams Sheep Shearer Relationship Specialty Start Date End Date Rosalba Louis MD [address] [place] [address] PCP - General Internal Medicine 08/28/24 documented as of this encounter
--- OUTSIDE RECORDS SUMMARY | 2024-11-20 10:25 | XMS_ITS | Encounter Summary ---
Author Organization [employer] Address [address] [facility] 7t [place] [address] Care Team Providers Care Flag Signalman Name Role Phone Martha Suazo MD Primary Care Provider [phone] Rosalba Louis MD Primary Care Provider + Reason for Visit * Reason Onset Date Comments FYI 10/21/2023 Encounter Details Date Type Department Care Team ([facility] st Contact Info) Description 10/21/2023 Telephone [facility] MEDICINE [address] [place], [place] [phone] Martha Suazo MD [address] [place], [place] [phone] FYI Social History Tobacco Use Types Packs/Day Years [...] encounter Miscellaneous Notes * Telephone Encounter - Radha Lang RN - 10/21/2023 11:59 AM EST FYI- VNA services discontinued * Telephone Encounter - Kaylah Dawn - 10/21/2023 11:16 AM EST [facility] to inform [facility] pt is getting discharge today 4pt stated don't need them anymore. documented in this encounter Plan of Treatment Upcoming Encounters Date Type Department Care Team (Late st Contact Info) Description 11/29/2024 9:00 AM EDT Office Visit [facility] MEDICINE [address] [place] [address] Rosalba Louis MD [address] [place] [address] 01/29/2025 9:00 AM EDT Office Visit [facility] D[facility] [address] [place], [place] [phone] Faith Cardenas [address] [place], [place] [phone] documented as of this encounter Visit Diagnoses Not on filedocumented in this encounter Care Teams Flag Signalman Relationship Specialty Start Date End Date Martha Suazo MD [address] [place] [address] PCP - General Family Medicine 06/02/23 08/27/24 Rosalba Louis MD [address] [place] [address] PCP - General Internal Medicine 08/28/24 documented as of this encounter
--- OUTSIDE RECORDS SUMMARY | 2024-11-20 10:25 | XMS_ITS | Encounter Summary ---
Author Organization [employer] Address [address] [facility] 7t [place] [address] Care Team Providers Care Instrument Engineer Name Role Phone Martha Suazo MD Primary Care Provider [phone] Rosalba Louis MD Primary Care Provider + Reason for Referral * Consultation (Routine) - Closed Specialty Diagnoses / Procedures Referred By Contac t Referred To Contact Pharmacy Diagnoses Type 2 diabetes mellitus with stage 3 chronic kidney disease, without long-term current use of insulin, unspecified whether stage 3a or 3b CKD (CMS/HCC) Stage 3 chronic kidney disease, unspecified whether stage 3a or 3b CKD (CMS/HCC) Martha Suazo MD [address] [place] [address] Phone: tel: fax: Referral ID Status Reason Start Date Expiration Date V isits Requested Visits Authorized [id number] Closed Continuity of Care 10/06/2023 10/05/2024 1 1 Encounter Details Date Type Department Care Team (Late st Contact Info) Description 10/06/2023 Orders Only [facility] MEDICINE [address] [place] [address] Martha Suazo MD [address] [place], [place] [phone] Type 2 diabetes mellitus with stage 3 chronic kidney disease, without long-term current use of insulin, unspecified whether stage 3a or 3b CKD (CMS/HCC) (Primary Dx); Stage 3 chronic kidney disease, unspecified whether stage 3a or 3b CKD (CMS/HCC) Social History Tobacco Use Types Packs/Day Years [...] Description 11/29/2024 9:00 AM EDT Office Visit [facility] MEDICINE [address] [place] [address] Rosalba Louis MD [address] [place] [address] 01/29/2025 9:00 AM EDT Office Visit [facility] [address] [place] [phone] Faith Cardenas [address] [place] [address] Scheduled Referrals Name Type Priority Associated Diagnoses Orde r Schedule Referral to Pharmacy [facility] Outpatient Referral Routine Type 2 diabetes mellitus with stage 3 chronic kidney disease, without long-term current use of insulin, unspecified whether stage 3a or 3b CKD (CMS/HCC) Stage 3 chronic kidney disease, unspecified whether stage 3a or 3b CKD (CMS/HCC) Ordered: 10/06/2023 documented as of this encounter Visit Diagnoses Diagnosis Type 2 diabetes mellitus with stage 3 chronic kidney disease, without long-term current use of insulin, unspecified whether stage 3a or 3b CKD (CMS/HCC)- Primary Stage 3 chronic kidney disease, unspecified whether stage 3a or 3b CKD (CMS/HCC) documented in this encounter Care Teams Instrument Engineer Relationship Specialty Start Date End Date Martha Suazo MD [address] [place] [address] PCP - General Family Medicine 06/02/23 08/27/24 Rosalba Louis MD [address] [place] [address] PCP - General Internal Medicine 08/28/24 documented as of this encounter
--- OUTSIDE RECORDS SUMMARY | 2024-11-20 10:25 | XMS_ITS | Encounter Summary ---
Author Organization [employer] Address [address] [facility] 7t [place] [address] Care Team Providers Care Laundry Agent Name Role Phone Martha Suazo MD Primary Care Provider [phone] Rosalba Louis MD Primary Care Provider + Reason for Visit * Reason Onset Date Comments Appointment Request 01/28/2024 Encounter Details Date Type Department Care Team ([facility] st Contact Info) Description 01/28/2024 Telephone [facility] MEDICINE [address] [place], [place] [phone] Martha Suazo MD [address] [place], [place] [phone] Appointment Request Social History Tobacco Use Types Packs/Day Years [...] encounter Miscellaneous Notes * Telephone Encounter - Jean Paul Gold - 01/28/2024 9:13 AM EDT Tc from the patients daughter calling to cancel appt for 01/27 and would like a call back to reschedule documented in this encounter Plan of Treatment Upcoming Encounters Date Type Department Care Team (Late st Contact Info) Description 11/29/2024 9:00 AM EDT Office Visit [facility] MEDICINE [address] [place] [address] Rosalba Louis MD [address] [place] [address] 01/29/2025 9:00 AM EDT Office Visit [facility] DENTAL [address] [place] [address] Faith Cardenas 91 [place], [place] [phone] documented as of this encounter Goals Goal Patient Goal Type Associated Problems Recent Progress Patient-Stated? Author Blood Pressure < 140/90 Blood Pressure 135/69(2024 8:55 AM EST) Gypsy Shepard Patient will adhere to medication regimen General No Gypsy Hood Hemoglobin A1c < 8 Result Component 6.1( 1:20 PM EST) No Cardaropoli, Betancur documented as of this encounter Visit Diagnoses Not on filedocumented in this encounter Care Teams Laundry Agent Relationship Specialty Start Date End Date Martha Suazo MD [address] [place] [address] PCP - General Family Medicine 06/02/23 08/27/24 Rosalba Louis MD [address] [place] [address] PCP - General Internal Medicine 08/28/24 documented as of this encounter
--- OUTSIDE RECORDS SUMMARY | 2024-11-20 10:25 | XMS_ITS | Encounter Summary ---
Author Organization [employer] Address [address] [facility] 7t [place] [address] Care Team Providers Care Assistant Designer Name Role Phone Martha Suazo MD Primary Care Provider [phone] Rosalba Louis MD Primary Care Provider + Reason for Visit * Reason Onset Date Comments Durable Medical Equipment 02/24/2024 Encounter Details Date Type Department Care Team ([facility] st Contact Info) Description 02/24/2024 Telephone [facility] MEDICINE [address] [place], [place] [phone] Martha Suazo MD [address] [place], [place] [phone] Durable Medical Equipment Social History Tobacco Use Types Packs/Day Years [...] Miscellaneous Notes * Telephone Encounter - Jeana Rene - 02/24/2024 9:26 AM EDT Tc from [facility] requesting an rx for incontinence supplies. States current one is . documented in this encounter Plan of Treatment Upcoming Encounters Date Type Department Care Team (Late st Contact Info) Description 11/29/2024 9:00 AM EDT Office Visit [facility] MEDICINE [address] [place] [address] Rosalba Louis MD [address] [place] [address] 01/29/2025 9:00 AM EDT Office Visit [facility] D[facility]AL [address] [place] [address] Faith Cardenas [address] [place] [address] documented as of this encounter Goals Goal [...] on filedocumented in this encounter Care Teams Assistant Designer Relationship Specialty Start Date End Date Martha Suazo MD [address] [place] [address] PCP - General Family Medicine 06/02/23 08/27/24 Rosalba Louis MD [address] [place] [address] PCP - General Internal Medicine 08/28/24 documented as of this encounter
== END 2024-11-20 09:27 | disposition home or self-care (01) ==
LOC: HO.HHCX 09:26
PROVIDERS: Visit Provider Emergency Medicine
DX: R05.1 Acute cough (principal)
CPT/HCPCS: 71046

== ENCOUNTER → 2024-11-20 09:27 | Outpatient (BNV) | payer OTHER, SELFPAY | PROVIDERS: Visit Provider Radiology Diagnostic Radiology | DX: R05.1 Acute cough (principal) | CPT/HCPCS: 71046 ==

== ENCOUNTER 2024-11-28 08:26 | Outpatient (REF) | payer OTHER, SELFPAY ==
--- OUTSIDE RECORDS SUMMARY | 2024-11-28 10:23 | XMS_ITS | Clinical Summary ---
Author Organization [employer] Address [address] [facility] 7t [place] [address] Care Team Providers Care Jockey Room Custodian Name Role Phone Rosalba Louis MD Primary [...] Type Department Care Team Description 11/27/2024 Telephone [facility] [address] [place] [address] Rosalba Louis MD Chart prep 11/22/2024 Patient Outreach [facility] [address] [place] [address] Rosalba Louis MD Pre-visit Planning (SDOH negative, Tobacco screening negative. ) 11/20/2024 9:00 AM EST Office Visit [facility] [address] [place] [address] Campos Boswell MD Acute cough (Primary Dx); Acute URI 11/20/2024 Telephone [facility] [address] [address] Campos Boswell MD 11/01/2024 Orders Only [facility] External Provider, [facility] 10/22/2024 Refill [facility] [address] [place] [address] Martha Suazo MD 10/18/2024 Refill [facility] [address] [place] [address] Rosalba Louis MD 09/22/2024 Telephone [facility] [address] [place] [address] Rosalba Louis MD November recall 08/31/2024 Telephone [facility] [address] [place] [address] [phone] Rosalba Louis MD Durable Medical Equipment 08/30/[address] [address] Rosalba Louis MD Housing Form (I called the patient, regarding a reasonable accommodation request from [employer], to have the rugs removed from the patient's apartment. I spoke with Robby, her emergency contact, and informed her that the form cannot be completed, because there is no qualifying diagnosis. Robby stated that the patient is incontinent of urine and feces, and has accidents sometimes, which leaves a bad smell. That is why she does not want an apartment with rugs. [employer] has an apartment av) from Last 3 [...] Description 11/29/2024 9:00 AM EDT Office Visit [facility] [address] [place] [address] Rosalba Louis MD [address] [place], [place] [phone] 01/29/2025 9:00 AM EDT Office Visit [facility] [address] [place], [place] [phone] Faith Cardenas [address] [place], [place] [phone] Health Maintenance Due Date Last Done Comments [...] unspecified whether stage 3a or 3b CKD ([facility]) LIPID PANEL, STANDARD Routine 05/08/2024 4:30 PM [...] AM EST Narrative 11/20/2024 10:51 AM EST ?[facility] ?[address] ?[place] [address] ?XRay Report ? Signed ? Patient: Tapia Castaneda,Sosa ?MR#: [id number] ?? [id number] ? : 1940 ?Acct:[id number] ? Age/Sex: 84 / F ?ADM Date: 03/03/25 ? Loc: HO.HHCX ? Attending Dr: Campos Boswell MD ? Ordering Physician: CAMPOS BOSWELL MD ?? Date of Service: 11/20/24 ?? Procedure(s): XR chest 2V ?? Accession Number(s): [id number] ? cc: CAMPOS BOSWELL MD ? EXAMINATION: [...] DD/ 0927 ? TD/TT: 11/20/24 1000 ? Airport Screener: MSM ? Procedure Note Dontiffter, Image - 11/20/2024 [place] [address] XRay Report Signed Patient: Mary Ellen Correa#: [id number] : 8Acct:[id number] Age/Sex: 84 / FADM Date: 11/20/24 Loc: HO.HHCX Attending Dr: Campos Boswell MD Ordering Physician: CAMPOS BOSWELL MD Date of Service: 11/20/24 Procedure(s): XR chest 2V Accession Number(s): [id number] cc: CAMPOS BOSWELL MD EXAMINATION: XR CHEST [...] 11/20/24 1048 DD/ 0927 TD/TT: 11/20/24 1000 Airport Screener: KIRK us Campos Bowsell MD IMG XR PROCEDURES Final Result * Influenza B (ID NOW Rapid Molecular) (11/20/2024 9:11 AM EST) Influenza B Negative Negative, Indeterminate [facility] Swab 11/20/2024 9:11 AM EST us Campos Boswell MD POINT OF CARE TEST ENTER/EDIT OR DERABLES Final Result Performing Organization Address [facility] Co de Phone Number [facility] [address] [place] [phone] * Influenza A (ID NOW Rapid Molecular) (11/20/2024 9:11 AM EST) Pathologist [facility] Influenza A Negative Negative, Indeterminate [facility] Swab 11/20/2024 9:11 AM EST Campos Boswell MD POINT OF CARE TEST ENTER/EDIT OR DERABLES Final Result Performing Organization Address [facility] Co de Phone Number [facility] [address] [place] [phone] * POCT Rapid COVID Ag (11/20/2024 9:11 AM EST) Rapid COVID Ag Negative [facility] Swab 11/20/2024 9:11 AM EST us Campos Boswell MD POINT OF CARE TEST ENTER/EDIT OR DERABLES Final Result [facility] [address] [place] [address] [phone] * BD DEXA Axial (11/01/2024 8:45 AM EST) Anatomical Region Laterality Modality Body Radiographic Ana Rosa ging 11/01/2024 8:45 AM EST Narrative 11/01/2024 9:21 AM EST ? [facility] ? [address] ?[place] [address] ? Mammography Report ? Signed ? Patient: Sosa Correa ?MR#: MM ?? [id number] ? : 1940 ?Acct:[id number] ? Age/Sex: 84 / F ?ADM Date: 11/01/24 ? Loc: HO.MAMMO ? Attending Dr: Silvestre Cummings MD ? Ordering Physician: Silvestre Cummings MD ?Results: ? Date of Service: 11/01/24 ?Follow Up: ? Procedure(s): XR DEXA axial skeleton ?? Accession Number(s): [id number] ? cc: Rosalba Louis MD; Silvestre Cummings MD ? EXAMINATION: ??DXA BONE DENSITY AXIAL ? HISTORY: ??Estrogen deficiency ? TECHNIQUE: [employer] Dual energy absorptiometry (DEXA) ?? of the [...] is a trademark of the [employer]'s ?? [place] for Metabolic Bone Disease, a World Health Organization (WHO) ?? Collaborating Center. ? Electronically signed by: ??Bert Leon MD ??11/01/2024 09:18 AM EST ?? RP ? Dictated By: ?Bert Leon MD ? Signed By: ?<Electronically signed by Bert Leon MD in OV> ?11/01/24 0918 ? DD/ 0845 ? TD/TT: 11/01/24 0850 ? Airport Screener: ? Procedure Note Donotuseinterpreter, Image - 11/01/2024 [facility] [address] [place] [address] Dr. Ambrosio, SARAH [address] Mammography Report Signed Patient: Ata CorreaR#: [id number] : 8Acct:[id number] Age/Sex: 84 / FADM Date: 11/01/24 Loc: HO.MAMMO Attending Dr: Silvestre Cummings MD Ordering Physician: Silvestre Cummingsults: Date of Service: 11/01/24Follow Up: Procedure(s): XR DEXA axial skeleton Accession Number(s): [id number] cc: Rosalba Louis MD; Silvestre Cummings MD EXAMINATION: DXA BONE DENSITY AXIAL HISTORY: Estrogen deficiency TECHNIQUE: [employer] Dual energy absorptiometry (DEXA) of the lumbar [...] is a trademark of the [employer]'s [place] [employer] Met[employer] Disease, a World Health Organization (WHO) Collaborating Center. Electronically signed by: Bert Leon MD 11/01/2024 09:18 AM EST RP Dictated By: Bert Leon MD Signed By: <Electronically signed by Bert Leon MD in OV> 11/01/24917 DD/ 4 TD/TT: 11/01/24849 Airport Screener: [facility] External Provider IMG DXA PROCEDURES Final Result * (ABNORMAL) POCT HGB A1C (08/28/2024 1:20 PM EST) Pathologist [facility] Hemoglobin A1C 6.1(A) 4.0 - 6.0 % QC Media Lot # [id number] Lot# Expiration Date [id number] Blood 08/28/2024 1:20 PM EST Rosalba Louis MD POINT OF CARE TEST ENTER /EDIT ORDERABLES Final Result * (ABNORMAL) Lipid Panel, Standard (05/08/2024 4:30 PM EDT) Triglycerides 176(H) <150 mg/dL [facility] Comment:Desirable Triglyceri de: less than 150 mg/dLBorderline High Triglyceride 150-199 mg/dLHigh Triglyceride: 200-499 mg/dLVery High Triglyceride: greater than or equal to 5OO mg/dL Cholesterol 149 <200 mg/dL [facility] Comment:Desirable Cholestero l: less than 200 mg/dLBorderline High Cholesterol: 200-239 mg/dLHigh Cholesterol: greater than 239 mg/dL LDL Cholesterol Calculated 78 <100 mg/dL [facility] Comment:Desirable LDL: less than 100 mg/dLNear Optimal/Above Optimal LDL: 110- 129 mg/dLBorderline High LDL: 130-159 mg/dLHigh LDL: 160-189 mg/dLVery High LDL: greater than or equal to 190 mg/dL HDL Cholesterol 36(L) >40 mg/dL [facility] Comment:Desirable HDL: great er than 40 mg/dL Note: This HDL assay may give artificially low results in patients with liver disease. 05/08/2024 4:30 PM EDT 05/08/2024 5:51 PM EDT us Martha Suazo MD LAB BLOOD ORDERABLES Final Res ult [facility] [address] [place] [address] [phone] from Last 3 Months or Most Recently Relevant to Health Maintenance Insurance [facility] Care Teams Jockey Room Custodian Relationship Specialty Start Date End Date Rosalba Louis MD [address] [place] [phone] PCP - General Internal Medicine 08/28/24
--- OUTSIDE RECORDS SUMMARY | 2024-11-28 10:23 | XMS_ITS | Encounter Summary ---
Author Organization [facility], Address [address] [place] [address] Phone Care Team Providers Care Tie Carrier Name Role Phone Mati Giordano MD Primary Care Provider [phone] Encounter Details Date Type Department Care Team (Late st Contact Info) Description 08/25/2021 Documentation Only [facility], [address] [place] [place] [address] Roger Harrison MD [address] [place] [address] [place] [address] Social History Tobacco Use Types [...] Visit [facility] [address] [place] [address] Jose Luis Lei MD [address] [place] [address] [place] [address] documented as of this encounter Visit Diagnoses Not on filedocumented in this encounter Care Teams Tie Carrier Relationship Specialty Start Date End Date Mati Giordano MD [address] [place] [address], [address] [place], [place] PCP - General Internal Medicine 03/30/23 documented as of this encounter
--- OUTSIDE RECORDS SUMMARY | 2024-11-28 10:23 | XMS_ITS | Clinical Summary ---
Author Organization [facility], Address [address] [place] [address] Phone Care Team Providers Care Body Design Checker Name Role Phone Mati Giordano MD Primary Care Provider [phone] Allergies No known active allergies Medications ACETAMINOPHEN [...] Gout 01/03/2020 09/29/2021 Hypertensive heart disease w [facility] congestive heart failure 01/03/2020 09/29/2021 Lower [...] Refill [facility], [address] [place] [address] Morenita Leigh PA from Last [...] Visit [facility], [address] [place] [address] Jose Luis Lei MD [address] [facility] [place] [phone] Health Maintenance Due Date Last Done Comments [...] PM EDT) Hemoglobin A1C 6.3(H) (4.0-5.6) % [facility] Comment: MONITORING: In known diabetic patients, hemoglobin A1c targets should be discussed with health care provider. DIAGNOSTIC USE: ??The [place] Diabetes Association (ADA) and the World Health [...] Supplement 1 Testing performed or reported by [facility], a Service of [facility], [address] [place] [address] Rc Thomas MD, Motorcycle Technician [facility]# [id number] Blood (Blood, Venous) 03/30/2023 3:58 PM EDT 03/30/2023 4:00 PM EDT Morenita MORGAN LAB BLOOD ORDERABLES Final Re sult [facility] from Last 3 Months or Most Recently Relevant to Health Maintenance Insurance [employer] ([id number]) [place] [id number] Care Teams Body Design Checker Relationship Specialty Start Date End Date Mati Giordano MD [address] [place] [address], [address] [place], [place] PCP - General Internal Medicine 03/30/23
--- OUTSIDE RECORDS SUMMARY | 2024-11-28 10:23 | XMS_ITS | Encounter Summary ---
Author Organization [facility] Address [address] [place] [address] Phone Care Team Providers Care Online Marketer Name Role Phone Mati Giordano MD Primary Care Provider [phone] Encounter Details Date Type Department Care Team (Late st Contact Info) Description 11/02/2022 Documentation Only [facility] [address] [place] [address] Morenita Leigh PA Social History [...] Visit [facility] [address] [place] [address] Jose Luis Lei MD [address] [place] [address] [place] [address] documented as of this encounter Visit Diagnoses Not on filedocumented in this encounter Care Teams Online Marketer Relationship Specialty Start Date End Date Mati Giordano MD [address] [place] [address] [address] [place], [place] PCP - General Internal Medicine 03/30/23 documented as of this encounter
--- OUTSIDE RECORDS SUMMARY | 2024-11-28 10:23 | XMS_ITS | Encounter Summary ---
Author Organization [facility] Address [address] [place] [address] Phone Care Team Providers Care Manager Product Design Name Role Phone Mati Giordano MD Primary Care Provider [phone] Encounter Details Date Type Department Care Team (Late st Contact Info) Description 08/05/2022 Documentation Only [facility] [address] [place] [address] Morenita Leigh PA Social History [...] Visit [facility] [address] [place] [address] Jose Luis Lei MD [address] [place] [address] [place] [address] documented as of this encounter Visit Diagnoses Not on filedocumented in this encounter Care Teams Manager Product Design Relationship Specialty Start Date End Date Mati Giordano MD [address] [place] [address] [address] [place], [place] PCP - General Internal Medicine 03/30/23 documented as of this encounter
--- OUTSIDE RECORDS SUMMARY | 2024-11-28 10:23 | XMS_ITS | Encounter Summary ---
Author Organization [employer] Address [address] 7t [place] [address] Care Team Providers Care Cage Tender Name Role Phone Martha Suazo MD Primary Care Provider [phone] Rosalba Louis MD Primary Care Provider + Encounter Details Date Type Department Care Team ([facility] st Contact Info) Description 07/26/2023 Orders Only [facility] [address] [place], [place] [phone] Martha Suazo MD [address] [place], [place] [phone] Bilateral carotid artery disease, unspecified type (CMS/HCC) [...] Description 11/29/2024 9:00 AM EDT Office Visit [facility] [address] [place] [address] [phone] Rosalba Louis MD [address] [place] [address] 01/29/2025 9:00 AM EDT Office Visit [facility] [address] [place], [place] [phone] Faith Cardenas [address] [place] [address] documented as of this encounter Visit Diagnoses Diagnosis Bilateral carotid artery disease, unspecified type (CMS/HCC)- Primary Stenosis of right renal artery (CMS/HCC) Diastolic dysfunction Unspecified heart disease Hypertension, unspecified type documented in this encounter Care Teams Cage Tender Relationship Specialty Start Date End Date Martha Suazo MD [address] [place] [address] [phone] PCP - General Family Medicine 06/02/23 08/27/24 Rosalba Louis MD [address] [place] [address] PCP - General Internal Medicine 08/28/24 documented as of this encounter
--- OUTSIDE RECORDS SUMMARY | 2024-11-28 10:23 | XMS_ITS | Encounter Summary ---
Author Organization [facility] [place], Address [address] [place] [address] Phone Care Team Providers Care Printing Shop Supervisor Name Role Phone Mati Giordano MD Primary Care Provider [phone] Reason for Visit * Reason Comments Med Refill Encounter Details Date Type Department Care Team (Late st Contact Info) Description 07/02/2021 Refill [facility] [address] [place] [address] Roger Harrison MD [address] [facility] [place] [address] Social History Tobacco Use Types [...] Office Visit [facility], [address] [place] [address] Jose Luis Lei MD [address] [facility] [address] [place] [address] documented as of this encounter Visit Diagnoses Not on filedocumented in this encounter Care Teams Printing Shop Supervisor Relationship Specialty Start Date End Date Mati Giordano MD [address] [place] [address], [address] [place], [place] PCP - General Internal Medicine 03/30/23 documented as of this encounter
--- OUTSIDE RECORDS SUMMARY | 2024-11-28 10:23 | XMS_ITS | Encounter Summary ---
Author Organization [facility] [place], Address [address] [place] [address] Phone Care Team Providers Care Quality Assurance Assessor Name Role Phone Mati Giordano MD Primary Care Provider [phone] Encounter Details Date Type Department Care Team (Late st Contact Info) Description 07/26/2024 Documentation Only [facility] [address] [place] [address] Mariah Sal [address] [place] [address] Social History Tobacco Use Types [...] Visit [facility] [address] [place] [address] Jose Luis Lei MD [address] [address] [place] [address] documented as of this encounter Visit Diagnoses Not on filedocumented in this encounter Care Teams Quality Assurance Assessor Relationship Specialty Start Date End Date Mati Giordano MD [address] [place] [address], [address] [place], [place] PCP - General Internal Medicine 03/30/23 documented as of this encounter
--- OUTSIDE RECORDS SUMMARY | 2024-11-28 10:23 | XMS_ITS | Encounter Summary ---
Author Organization [facility] [place], Address [address] [place] [address] Phone Care Team Providers Care Educational Diagnostician Name Role Phone Mati Giordano MD Primary Care Provider [phone] Encounter Details Date Type Department Care Team (Late st Contact Info) Description 08/25/2021 Documentation Only [facility], [address] [place] [address] Roger Harrison MD [address] [place] [address] [place] [address] Social History Tobacco Use Types [...] [facility] [address] [place] [address] Jose Luis Lei MD [address] [place] [address] [place] [address] documented as of this encounter Visit Diagnoses Not on filedocumented in this encounter Care Teams Educational Diagnostician Relationship Specialty Start Date End Date Mati Giordano MD [address] [place] [address], [address] [place], [place] PCP - General Internal Medicine 03/30/23 documented as of this encounter
--- OUTSIDE RECORDS SUMMARY | 2024-11-28 10:23 | XMS_ITS | Encounter Summary ---
Author Organization [facility] [place], Address [address] [place] [address] Phone Care Team Providers Care Justice Of The Peace Name Role Phone Mati Giordano MD Primary Care Provider [phone] Encounter Details Date Type Department Care Team (Late st Contact Info) Description 09/10/2021 Documentation Only [facility], [address] [place] [address] Roger Harrison MD [address] [place] [address] [place] [address] Social History Tobacco Use Types [...] Visit [facility] [address] [place] [address] Jose Luis Lei MD [address] [place] [address] [place] [address] documented as of this encounter Visit Diagnoses Not on filedocumented in this encounter Care Teams Justice Of [employer] Relationship Specialty Start Date End Date Mati Giordano MD [address] [place] [address], [address] [place], [place] PCP - General Internal Medicine 03/30/23 documented as of this encounter
--- OUTSIDE RECORDS SUMMARY | 2024-11-28 10:23 | XMS_ITS | Encounter Summary ---
Author Organization [facility] [place], Address [address] [place] [address] Phone Care Team Providers Care Production Maintenance Technician Name Role Phone Mati Giordano MD Primary Care Provider [phone] Encounter Details Date Type Department Care Team (Late st Contact Info) Description 06/17/2022 Documentation Only [facility] [place], [address] [address] Roger Harrison MD [address] [place] [address] [place] [address] Social History Tobacco Use [...] [facility] [address] [place] [address] Jose Luis Lei MD [address] [place] [address] [place] [address] documented as of this encounter Visit Diagnoses Not on filedocumented in this encounter Care Teams Production Maintenance Technician Relationship Specialty Start Date End Date Mati Giordano MD [address] [place] [address], [address] [place], [place] PCP - General Internal Medicine 03/30/23 documented as of this encounter
--- OUTSIDE RECORDS SUMMARY | 2024-11-28 10:23 | XMS_ITS | Encounter Summary ---
Author Organization [employer] Address [address] [facility] 7t [place] [address] Care Team Providers Care Wool Handler Name Role Phone Martha Suazo MD Primary Care Provider Rosalba Louis MD Primary Care Provider + Reason for Visit * Reason Onset Date Comments ER Follow-up 07/29/2023 Encounter Details Date Type Department Care Team ([facility] st Contact Info) Description 07/29/2023 Telephone [facility] [address] [place], [place] [phone] Martha Suazo MD [address] [place], [place] [phone] ER Follow-up Social History Tobacco Use Types [...] an ED visit. Pt was [facility] [place] 07[place]27 and discharged the following day 07/28 for Diarrhea, low sodium, and acidosis. Was advised will forward to team nursesfor f/u. Please contact daughter at [phone] documented in this encounter Plan of Treatment Upcoming Encounters Date Type Department Care Team (Late st Contact Info) Description 11/29/2024 9:00 AM EDT Office Visit [facility] [address] [place] [address] Rosalba Louis MD [address] [place] [address] 01/29/2025 9:00 AM EDT Office Visit [facility] [address] [place], [place] [phone] Faith Cardenas [address] [place], [place] [phone] documented as of this encounter Visit Diagnoses Not on filedocumented in this encounter Care Teams Wool Handler Relationship Specialty Start Date End Date Martha Suazo MD [address] [place] [address] [phone] PCP - General Family Medicine 9/13/23 12/8/24 Rosalba Louis MD [address] [place] [address] PCP - General Internal Medicine 08/28/24 documented as of this encounter
--- OUTSIDE RECORDS SUMMARY | 2024-11-28 10:23 | XMS_ITS | Encounter Summary ---
Author Organization [facility], Address [address] [place] [address] Phone Care Team Providers Care Director Of Trauma Name Role Phone Mati Giordano MD Primary Care Provider [phone] Encounter Details Date Type Department Care Team (Late st Contact Info) Description 08/04/2021 Documentation Only [facility], [address] [place] [address] Roger [place] MD [address] [place] [address] [place] [address] Social History Tobacco Use Types [...] [facility] [address] [place] [address] Jose Luis Lei MD [address] [place] [address] [place] [address] documented as of this encounter Visit Diagnoses Not on filedocumented in this encounter Care Teams Director Of Trauma Relationship Specialty Start Date End Date Mati Giordano MD [address] [place] [address], [address] [place], [place] PCP - General Internal Medicine 03/30/23 documented as of this encounter
--- OUTSIDE RECORDS SUMMARY | 2024-11-28 10:24 | XMS_ITS | Clinical Summary ---
Author Organization [facility] Address [address] [place] [address] Phone Care Team Providers Care Director Of Operations Support Name Role Phone Rosalba Louis MD Primary Care Provider Social History Tobacco Use Types Packs/Day Years Used Date Smoking Tobacco: Never Assessed Comments Unknown Sex and Gender Information Value Date Recorded Sex Assigned at Not on file Legal Sex Female 9:07 AM EST Gender Identity Not on file Sexual Orientation Not on file Plan of Treatment Upcoming Encounters Date Type Department Care Team ([facility] Contact Info) Description 12/19/2024 8:30 AM EDT Consult Orthopedic Surgery - [place] [address] [id number] Mekhi Greene, DPM [address] [address] Health Maintenance Due Date Last Done Comments [...] ID:[id number] Group ID:[id number] Type:Not on file Address: [place] [address] [place] [address] Care Teams Director Of Operations Support Relationship Specialty Start Date End Date Rosalba Louis MD [address] [address] PCP - General Internal Medicine 09/06/24
--- OUTSIDE RECORDS SUMMARY | 2024-11-28 10:24 | XMS_ITS | Encounter Summary ---
Author Organization [facility] Address [address] [place] [address] Phone Care Team Providers Care Poultry Processing Supervisor Name Role Phone Mati Giordano MD Primary Care Provider Encounter Details Date Type Department Care Team (Late st Contact Info) Description 07/07/2022 Documentation Only [facility] [address] [place] [address] Morenita Leigh PA Social History [...] Visit [facility] [address] [place] [address] Jose Luis Lei MD [address] [place] [address] [place] [address] documented as of this encounter Visit Diagnoses Not on filedocumented in this encounter Care Teams Poultry Processing Supervisor Relationship Specialty Start Date End Date Mati Giordano MD [address] [place] [address] 201 [place], [place] PCP - General Internal Medicine 03/30/23 documented as of this encounter
--- OUTSIDE RECORDS SUMMARY | 2024-11-28 10:24 | XMS_ITS | Encounter Summary ---
Author Organization [facility] Address [address] [place] [address] Phone Care Team Providers Care Sewer Repairer Name Role Phone Mati Giordano MD Primary Care Provider [phone] Encounter Details Date Type Department Care Team (Late st Contact Info) Description 10/24/2021 Orders Only [facility] [address] [place] [address] Roger [place] MD [address] [place] [address] [place] [address] Stage 3a chronic kidney disease [...] Visit [facility] [address] [place] [address] Jose Luis Lei MD [address] [place] [address] [place] [address] documented as of this encounter Visit Diagnoses Diagnosis Stage 3a chronic kidney disease (HCC) documented in this encounter Care Teams Sewer Repairer Relationship Specialty Start Date End Date Mati Giordano MD [address] [place] [address], [address] [place], [place] PCP - General Internal Medicine 03/30/23 documented as of this encounter
--- OUTSIDE RECORDS SUMMARY | 2024-11-28 10:24 | XMS_ITS | Encounter Summary ---
Author Organization [facility] Address [address] [place] [address] Phone Care Team Providers Care Retail Banker Name Role Phone Mati Giordano MD Primary Care Provider [phone] Reason for Visit * Reason Comments Med Change Request Encounter Details Date Type Department Care Team (Late st Contact Info) Description 10/24/2021 Refill [facility] [address] [place] [address] Roger [place] MD [address] [place] [address] [place] [address] Social History Tobacco Use Types [...] Office Visit [facility] [address] [place] [address] Jose Luis Lei MD [address] [facility] [address] [place] [address] documented as of this encounter Visit Diagnoses Not on filedocumented in this encounter Care Teams Retail Banker Relationship Specialty Start Date End Date Mati Giordano MD [address] [place] [address], [address] [place], [place] PCP - General Internal Medicine 03/30/23 documented as of this encounter
--- OUTSIDE RECORDS SUMMARY | 2024-11-28 10:24 | XMS_ITS | Encounter Summary ---
Author Organization [facility] Address [address] [place] [address] Phone Care Team Providers Care Workshop Manager Name Role Phone Mati Giordano MD Primary Care Provider [phone] Encounter Details Date Type Department Care Team (Late st Contact Info) Description 08/03/2022 Documentation Only [facility] [address] [place] [address] Morenita Leigh PA Social History [...] [facility] [address] [place] [address] Jose Luis Lei MD [address] [place] [address] [place] [address] documented as of this encounter Visit Diagnoses Not on filedocumented in this encounter Care Teams Workshop Manager Relationship Specialty Start Date End Date Mati Giordano MD [address] [place] [address] 201 [place], [place] PCP - General Internal Medicine 03/30/23 documented as of this encounter
--- OUTSIDE RECORDS SUMMARY | 2024-11-28 10:24 | XMS_ITS | Encounter Summary ---
Author Organization [facility], Address [address] [place] [address] Phone Care Team Providers Care Antique Clocks Repairer Name Role Phone Mati Giordano MD Primary Care Provider [phone] Encounter Details Date Type Department Care Team (Late st Contact Info) Description 11/02/2023 Documentation Only [facility] [address] [place] [address] Mariah Sal [address] [place] [address] Social History Tobacco Use Types [...] Visit [facility] [address] [place] [address] Jose Luis Lei MD [address] [facility] [place] [address] documented as of this encounter Visit Diagnoses Not on filedocumented in this encounter Care Teams Antique Clocks Repairer Relationship Specialty Start Date End Date Mati Giordano MD [address] [place] [address], [address] [place], [place] PCP - General Internal Medicine 03/30/23 documented as of this encounter
--- OUTSIDE RECORDS SUMMARY | 2024-11-28 10:24 | XMS_ITS | Encounter Summary ---
Author Organization [facility] Address [address] [place] [address] Phone Care Team Providers Care Compliance Attorney Name Role Phone Mati Giordano MD Primary Care Provider [phone] Encounter Details Date Type Department Care Team (Late st Contact Info) Description 11/21/2021 Orders Only [facility] [address] [place] [address] Roger [place] MD [address] [place] [address] [place] [address] Stage 3a chronic kidney disease [...] Visit [facility] [address] [place] [address] Jose Luis Lei MD [address] [place] [address] [place] [address] documented as of this encounter Visit Diagnoses Diagnosis Stage 3a chronic kidney disease (HCC) documented in this encounter Care Teams Compliance Attorney Relationship Specialty Start Date End Date Mati Giordano MD [address] [place] [address], [address] [place], [place] PCP - General Internal Medicine 03/30/23 documented as of this encounter
--- OUTSIDE RECORDS SUMMARY | 2024-11-28 10:24 | XMS_ITS | Encounter Summary ---
Author Organization [facility] [employer] Address [address] [facility] 7[address] [place] [address] Care Team Providers Care Agile Coach Name Role Phone Rosalba Louis MD Primary Care Provider + Reason for Visit * Reason Onset Date Comments Chart prep 11/27/2024 Encounter Details Date Type Department Care Team ([facility] Contact Info) Description 11/27/2024 Telephone [facility] [address] [place], [place] [phone] Rosalba Louis MD [address] [place], [place] [phone] Chart prep Social History Tobacco Use Types [...] Description 11/29/2024 9:00 AM EDT Office Visit [facility] [address] [place] [address] Rosalba Louis MD [address] [place] [address] 01/29/2025 9:00 AM EDT Office Visit [facility] [address] [place] [address] Faith Cardenas [address] [place], [place] [phone] documented as of this encounter Goals Goal [...] on filedocumented in this encounter Care Teams Agile Coach Relationship Specialty Start Date End Date Rosalba Louis MD [address] [place] [address] PCP - General Internal Medicine 08/28/24 documented as of this encounter
--- OUTSIDE RECORDS SUMMARY | 2024-11-28 10:24 | XMS_ITS | Encounter Summary ---
Author Organization [facility] Address [address] [place] [address] Phone Care Team Providers Care Sheet Metal Insulator Name Role Phone Mati Giordano MD Primary Care Provider [phone] Encounter Details Date Type Department Care Team (Late st Contact Info) Description 10/31/2021 Orders Only [facility] [address] [place] [address] Roger [place] MD [address] [place] [address] [place] [address] Stage 3a chronic kidney disease [...] [facility] [address] [place] [address] Jose Luis Lei MD [address] [place] [address] [place] [address] documented as of this encounter Visit Diagnoses Diagnosis Stage 3a chronic kidney disease (HCC) documented in this encounter Care Teams Sheet Metal Insulator Relationship Specialty Start Date End Date Mati Giordano MD [address] [place] [address], [address] [place] PCP - General Internal Medicine 03/30/23 documented as of this encounter
--- OUTSIDE RECORDS SUMMARY | 2024-11-28 10:24 | XMS_ITS | Encounter Summary ---
Author Organization [facility] Address [address] [place] [address] Phone Care Team Providers Care Make Up Man Name Role Phone Mati Giordano MD Primary Care Provider [phone] Encounter Details Date Type Department Care Team (Late st Contact Info) Description 12/12/2021 Orders Only [facility] [address] [place] [address] Roger [place] MD [address] [place] [address] [place] [address] Stage 3a chronic kidney disease [...] [facility] [address] [place] [address] Jose Luis Lei MD [address] [place] [address] [place] [address] documented as of this encounter Procedures Procedure Name Priority Date/Time Associated Diagnosis Comments MAGNESIUM Routine 01/01/2022 9:34 AM EDT Stage 3a chronic kidney disease (HCC) RENAL FUNCTION PANEL Routine 01/01/2022 9:34 AM EDT Stage 3a chronic kidney disease (HCC) documented in this encounter Results * Magnesium (01/01/2022 9:34 AM EDT) Magnesium 2.1 (1.6-2.3) mg/dL [facility] Comment: Testing performed or reported by [facility], a Service of [facility], [address] [place] [address] Jena Marte MD, Knitting Tester [facility]# [id number] Blood (Blood, Venous) 01/01/2022 9:34 AM EDT 01/01/2022 9:36 AM EDT Roger [place] MD LAB BLOOD ORDERABLES Final Resul t [facility] * (ABNORMAL) Renal Function Panel (01/01/2022 9:34 AM EDT) Glucose 83 (70-99) MG/DL [facility] BUN 34(H) (8-23) MG/DL [facility] Creatinine 1.6(H) (0.5-1.0) MG/DL [facility] Sodium 141 (133-145) MMOL/L [facility] Potassium 4.5 (3.6-5.2) MMOL/L [facility] Chloride 102 (98-107) MMOL/L [facility] Bicarbonate (CO2) 29 (22-29) MMOL/L [facility] Anion Gap 10 (4-17) [facility] Albumin 4.1 (3.4-4.8) GM/DL [facility] Calcium 9.5 (8.6-10.5) MG/DL [facility] Phosphorus, Serum 4.0 (2.5-4.5) MG/DL [facility] Est GFR Non 33 ML/MIN/1.7 3 M2 [facility] Comment: Creatinine based estimated glomerular filtration (eGFR) in adults is calculated using the National Kid[employer] recommended 2020 CKD-EPI equation. Estimates GFR from serum creatinine, age and sex. Testing performed or reported by [facility], a Service of [facility], [address] [place] [address] Jena Marte MD, Knitting Tester [facility]# [id number] Blood (Blood, Venous) 01/01/2022 9:34 AM EDT 01/01/2022 9:36 AM EDT us Roger [place] MD LAB BLOOD ORDERABLES Final Resul t [facility] documented in this encounter Visit Diagnoses Diagnosis Stage 3a chronic kidney disease (HCC) documented in this encounter Care Teams Make Up Man Relationship Specialty Start Date End Date Mati Giordano MD [address] [place] [address], [address] [place], [place] PCP - General Internal Medicine 03/30/23 documented as of this encounter
--- OUTSIDE RECORDS SUMMARY | 2024-11-28 10:24 | XMS_ITS | Encounter Summary ---
Author Organization [facility] Address [address] [place] [address] Phone Care Team Providers Care Leather Goods I Assembler Name Role Phone Mati Giordano MD Primary Care Provider [phone] Encounter Details Date Type Department Care Team (Late st Contact Info) Description 07/22/2022 Documentation Only [facility] [address] [place] [address] Morenita Leigh PA Social History [...] Visit [facility] [address] [place] [address] Jose Luis Lei MD [address] [place] [address] [place] [address] documented as of this encounter Visit Diagnoses Not on filedocumented in this encounter Care Teams Leather Goods I Assembler Relationship Specialty Start Date End Date Mati Giordano MD [address] [place] [address] 201 [place], [place] PCP - General Internal Medicine 03/30/23 documented as of this encounter
--- OUTSIDE RECORDS SUMMARY | 2024-11-28 10:24 | XMS_ITS | Encounter Summary ---
Author Organization [facility], Address [address] [place] [address] Phone Care Team Providers Care Process Designer Name Role Phone Mati Giordano MD Primary Care Provider [phone] Encounter Details Date Type Department Care Team (Late st Contact Info) Description 12/16/2021 Documentation Only [facility], [address] [place] [place] [address] Roger [place] MD [address] [place] [address] [place] [address] Social History Tobacco Use Types [...] [facility] [address] [place] [address] Jose Luis Lei MD [address] [place] [address] [place] [address] documented as of this encounter Visit Diagnoses Not on filedocumented in this encounter Care Teams Process Designer Relationship Specialty Start Date End Date Mati Giordano MD [address] [place] [address], [address] [place], [place] PCP - General Internal Medicine 03/30/23 documented as of this encounter
--- OUTSIDE RECORDS SUMMARY | 2024-11-28 10:24 | XMS_ITS | Encounter Summary ---
Author Organization [facility] Address [address] [place] [address] Phone Care Team Providers Care Sea Kayaking Guide Name Role Phone Mati Giordano MD Primary Care Provider [phone] Encounter Details Date Type Department Care Team (Late st Contact Info) Description 07/22/2022 Documentation Only [facility] [address] [place] [address] Morenita Leigh PA Social History [...] [facility] [address] [place] [address] Jose Luis Lei MD [address] [place] [address] [place] [address] documented as of this encounter Visit Diagnoses Not on filedocumented in this encounter Care Teams Sea Kayaking Guide Relationship Specialty Start Date End Date Mati Giordano MD [address] [place] [address] 201 [place], [place] PCP - General Internal Medicine 03/30/23 documented as of this encounter
--- OUTSIDE RECORDS SUMMARY | 2024-11-28 10:24 | XMS_ITS | Encounter Summary ---
Author Organization [facility] Address [address] [place] [address] Phone Care Team Providers Care Green Inspector Name Role Phone Mati Giordano MD Primary Care Provider [phone] Encounter Details Date Type Department Care Team (Late st Contact Info) Description 11/14/2021 Orders Only [facility] [address] [place] [address] Roger [place] MD [address] [place] [address] [place] [address] Stage 3a chronic kidney disease [...] [facility] [address] [place] [address] Jose Luis Lei MD [address] [place] [address] [place] [address] documented as of this encounter Visit Diagnoses Diagnosis Stage 3a chronic kidney disease (HCC) documented in this encounter Care Teams Green Inspector Relationship Specialty Start Date End Date Mati Giordano MD [address] [place] [address], [address] [place], [place] PCP - General Internal Medicine 03/30/23 documented as of this encounter
--- OUTSIDE RECORDS SUMMARY | 2024-11-28 10:24 | XMS_ITS | Encounter Summary ---
Author Organization [facility] Address [address] [place] [address] Phone Care Team Providers Care Environmental Consultant Name Role Phone Mati Giordano MD Primary Care Provider [phone] Encounter Details Date Type Department Care Team (Late st Contact Info) Description 10/10/2021 Orders Only [facility] [address] [place] [address] Roger [place] MD [address] [place] [address] [place] [address] Stage 3a chronic kidney disease [...] Visit [facility] [address] [place] [address] Jose Luis Lei MD [address] [place] [address] [place] [address] documented as of this encounter Visit Diagnoses Diagnosis Stage 3a chronic kidney disease (HCC) documented in this encounter Care Teams Environmental Consultant Relationship Specialty Start Date End Date Mati Giordano MD [address] [place] [address], [address] [place], [place] PCP - General Internal Medicine 03/30/23 documented as of this encounter
--- OUTSIDE RECORDS SUMMARY | 2024-11-28 10:24 | XMS_ITS | Encounter Summary ---
Author Organization [facility] Address [address] [place] [address] Phone Care Team Providers Care Hammer Shop Supervisor Name Role Phone Mati Giordano MD Primary Care Provider [phone] Encounter Details Date Type Department Care Team (Late st Contact Info) Description 11/28/2021 Orders Only [facility] [address] [place] [address] Roger [place] MD [address] [place] [address] [place] [address] Stage 3a chronic kidney disease [...] [facility] [address] [place] [address] Jose Luis Lei MD [address] [place] [address] [place] [address] documented as of this encounter Visit Diagnoses Diagnosis Stage 3a chronic kidney disease (HCC) documented in this encounter Care Teams Hammer Shop Supervisor Relationship Specialty Start Date End Date Mati Giordano MD [address] [place] [address], [address] [place], [place] PCP - General Internal Medicine 03/30/23 documented as of this encounter
--- OUTSIDE RECORDS SUMMARY | 2024-11-28 10:24 | XMS_ITS | Encounter Summary ---
Author Organization [facility] Address [address] [place] [address] Phone Care Team Providers Care Nail Welter Name Role Phone Mati Giordano MD Primary Care Provider [phone] Encounter Details Date Type Department Care Team (Late st Contact Info) Description 12/05/2021 Orders Only [facility] [address] [place] [address] Roger [place] MD [address] [place] [address] [place] [address] Stage 3a chronic kidney disease [...] [facility] [address] [place] [address] Jose Luis Lei MD [address] [place] [address] [place] [address] documented as of this encounter Visit Diagnoses Diagnosis Stage 3a chronic kidney disease (HCC) documented in this encounter Care Teams Nail Welter Relationship Specialty Start Date End Date Mati Giordano MD [address] [place] [address], [address] [place], [place] PCP - General Internal Medicine 03/30/23 documented as of this encounter
--- OUTSIDE RECORDS SUMMARY | 2024-11-28 10:24 | XMS_ITS | Encounter Summary ---
Author Organization [facility] Address [address] [place] [address] Phone Care Team Providers Care Anatomy And Physiology Instructor Name Role Phone Mati Giordano MD Primary Care Provider [phone] Encounter Details Date Type Department Care Team (Late st Contact Info) Description 10/03/2021 Orders Only [facility] [address] [place] [address] Roger Harrison MD [address] [place] [address] [place] [address] Stage 3a chronic kidney disease [...] Visit [facility] [address] [place] [address] Jose Luis Lei MD [address] [place] [address] [place] [address] documented as of this encounter Visit Diagnoses Diagnosis Stage 3a chronic kidney disease (HCC) documented in this encounter Care Teams Anatomy And Physiology Instructor Relationship Specialty Start Date End Date Mati Giordano MD [address] [place] [address], [address] [place], [place] PCP - General Internal Medicine 03/30/23 documented as of this encounter
--- OUTSIDE RECORDS SUMMARY | 2024-11-28 10:24 | XMS_ITS | Encounter Summary ---
Author Organization [facility] [place], Address [address] [place] [address] Phone Care Team Providers Care Materials Tech Name Role Phone Mati Giordano MD Primary Care Provider [phone] Encounter Details Date Type Department Care Team (Late st Contact Info) Description 10/17/2021 Orders Only [facility] [address] [place] [address] Roger Harrison MD [address] [place] [address] [place] [address] Stage 3a chronic kidney disease [...] [facility] [address] [place] [address] Jose Luis Lei MD [address] [place] [address] [place] [address] documented as of this encounter Visit Diagnoses Diagnosis Stage 3a chronic kidney disease (HCC) documented in this encounter Care Teams Materials Tech Relationship Specialty Start Date End Date Mati Giordano MD [address] [place] [address], [address] [place], [place] PCP - General Internal Medicine 03/30/23 documented as of this encounter
--- OUTSIDE RECORDS SUMMARY | 2024-11-28 10:24 | XMS_ITS | Encounter Summary ---
Author Organization [employer] Address [address] [facility] [address] 7t [place] [address] Care Team Providers Care Nutritional Services Director Name Role Phone Rosalba Louis MD Primary Care Provider + Encounter Details Date Type Department Care Team ([facility] st Contact Info) Description 11/20/2024 Telephone [facility] [address] [place], [place] [phone] Campos Boswell MD 230 [place] [address] Social History Tobacco Use Types Packs/Day Years [...] t he electric, gas, oil or water [employer] threatened to shut off services in your [...] PM EST I spoke with Robby, Sosa's [id number] and IGNITION MECHANIC, and notified her of today's chest x-ray reading. documented in this encounter Plan of Treatment Upcoming Encounters Date Type Department Care Team (Late st Contact Info) Description 11/29/2024 9:00 AM EDT Office Visit [facility] 230 [place] [address] Rosalba Louis MD [address] [place] [address] 01/29/2025 9:00 AM EDT Office Visit [facility] [address] [place] [address] Faith Cardenas 91 [place] [address] documented as of this encounter Goals Goal [...] on filedocumented in this encounter Care Teams Nutritional Services Director Relationship Specialty Start Date End Date Rosalba Louis MD [address] [place] [address] PCP - General Internal Medicine 08/28/24 documented as of this encounter
--- OUTSIDE RECORDS SUMMARY | 2024-11-28 10:24 | XMS_ITS | Encounter Summary ---
Author Organization [facility] Address [address] [place] [address] Phone Care Team Providers Care Respiratory Manager Name Role Phone Mati Giordano MD Primary Care Provider [phone] Encounter Details Date Type Department Care Team (Late st Contact Info) Description 04/15/2023 Documentation Only [facility] [address] [place] [address] Morenita Leigh PA Social History [...] Visit [facility] [address] [place] [address] Jose Luis Lei MD [address] [place] [address] [place] [address] documented as of this encounter Visit Diagnoses Not on filedocumented in this encounter Care Teams Respiratory Manager Relationship Specialty Start Date End Date Mati Giordano MD [address] [place] [address] 201 [place], [place] PCP - General Internal Medicine 03/30/23 documented as of this encounter
--- OUTSIDE RECORDS SUMMARY | 2024-11-28 10:24 | XMS_ITS | Encounter Summary ---
Author Organization [facility] Address [address] [place] [address] Phone Care Team Providers Care Senior Auditor Name Role Phone Mati Giordano MD Primary Care Provider [phone] Encounter Details Date Type Department Care Team (Late st Contact Info) Description 11/07/2021 Orders Only [facility] [address] [place] [address] Roger Harrison MD [address] [place] [address] [place] [address] Stage 3a chronic kidney disease [...] [facility] [address] [place] [address] Jose Luis Lei MD [address] [place] [address] [place] [address] documented as of this encounter Visit Diagnoses Diagnosis Stage 3a chronic kidney disease (HCC) documented in this encounter Care Teams Senior Auditor Relationship Specialty Start Date End Date Mati Giordano MD [address] [place] [address], [address] [place], [place] PCP - General Internal Medicine 03/30/23 documented as of this encounter
--- OUTSIDE RECORDS SUMMARY | 2024-11-28 10:24 | XMS_ITS | Encounter Summary ---
Author Organization [facility] [place], Address [address] [place] [address] Phone Care Team Providers Care Battery Technician Name Role Phone Mati Giordano MD Primary Care Provider [phone] Encounter Details Date Type Department Care Team (Late st Contact Info) Description 07/25/2024 Documentation Only [facility] [address] [place] [address] Mariah Sal [address] [place] [address] Social History Tobacco Use Types Packs/Day [...] Visit [facility] [address] [place] [address] Jose Luis Lei MD [address] [facility] [place] [address] documented as of this encounter Visit Diagnoses Not on filedocumented in this encounter Care Teams Battery Technician Relationship Specialty Start Date End Date Mati Giordano MD [address] [place] [address], [address] [place], [place] PCP - General Internal Medicine 03/30/23 documented as of this encounter
--- OUTSIDE RECORDS SUMMARY | 2024-11-28 10:24 | XMS_ITS | Encounter Summary ---
Author Organization [employer] Address [address] [facility] 7t [place] [address] Care Team Providers Care Vibrating Screed Operator Name Role Phone Rosalba Louis MD Primary Care Provider + Reason for Visit * Reason Comments Pre-visit Planning SDOH negative, Tobac co screening negative. Encounter Details Date Type Department Care Team ([facility] Contact Info) Description 11/22/2024 Patient Outreach [facility] [address] [place], [place] [phone] Rosalba Louis MD 230 [place] [address] Pre-visit Planning (SDOH negative, Tobacco screening negative. [...] Visit [facility] 230 [place] [address] Rosalba Louis MD 230 [place] [address] 01/29/2025 9:00 AM EDT Office Visit [facility] 91 [place], [place] [phone] Faith Cardenas 91 [place], [place] [phone] documented as of this encounter Goals Goal [...] on filedocumented in this encounter Care Teams Vibrating Screed Operator Relationship Specialty Start Date End Date Rosalba Louis MD 230 [place] [address] PCP - General Internal Medicine 08/28/24 documented as of this encounter
--- OUTSIDE RECORDS SUMMARY | 2024-11-28 10:24 | XMS_ITS | Encounter Summary ---
Author Organization [facility] [place], Address [address] [place] [address] Phone Care Team Providers Care Bee Tender Name Role Phone Mati Giordano MD Primary Care Provider Encounter Details Date Type Department Care Team (Late st Contact Info) Description 11/10/2023 Documentation Only [facility] [place], [address] [facility] [place] [address] Mariah Sal [address] [place] [address] Social History Tobacco Use Types [...] Visit [facility] [address] [facility] [place] [address] Jose Luis Lei MD [address] [facility] [place] [address] documented as of this encounter Visit Diagnoses Not on filedocumented in this encounter Care Teams Bee Tender Relationship Specialty Start Date End Date Mati Giordano MD [address] [place] [address], [address] [place], [place] PCP - General Internal Medicine 03/30/23 documented as of this encounter
--- OUTSIDE RECORDS SUMMARY | 2024-11-28 10:24 | XMS_ITS | Encounter Summary ---
Author Organization [facility] [place], Address [address] [place] [address] Phone Care Team Providers Care Dramatic Arts Historian Name Role Phone Mati Giordano MD Primary Care Provider [phone] Encounter Details Date Type Department Care Team (Late st Contact Info) Description 12/17/2021 Documentation Only [facility] [place], [address] [place] [address] Roger Harrison MD [address] [place] [address] [place] [address] Social History Tobacco Use Types [...] [facility] [address] [place] [address] Jose Luis Lei MD [address] [place] [address] [place] [address] documented as of this encounter Visit Diagnoses Not on filedocumented in this encounter Care Teams Dramatic Arts Historian Relationship Specialty Start Date End Date Mati Giordano MD [address] [place] [address], [address] [place], [place] PCP - General Internal Medicine 03/30/23 documented as of this encounter
--- OUTSIDE RECORDS SUMMARY | 2024-11-28 10:24 | XMS_ITS | Encounter Summary ---
Author Organization [facility] Address [address] [place] [address] Phone Care Team Providers Care Team Driver Name Role Phone Mati Giordano MD Primary Care Provider [phone] Encounter Details Date Type Department Care Team (Late st Contact Info) Description 08/04/2022 Documentation Only [facility] [address] [place] [address] Morenita Leigh PA Social History [...] Visit [facility] [address] [place] [address] Jose Luis Lei MD [address] [place] [address] [place] [address] documented as of this encounter Visit Diagnoses Not on filedocumented in this encounter Care Teams Team Driver Relationship Specialty Start Date End Date Mati Giordano MD [address] [place] [address] 201 [place], [place] PCP - General Internal Medicine 03/30/23 documented as of this encounter
--- OUTSIDE RECORDS SUMMARY | 2024-11-28 10:25 | XMS_ITS | Encounter Summary ---
Author Organization [employer] Address [address] [facility] 7t [place] [address] Care Team Providers Care Engineer And Geologist Name Role Phone Martha Suazo MD Primary Care Provider [phone] Rosalba Louis MD Primary Care Provider + Reason for Visit * Reason Onset Date Comments Appointment Request 01/28/2024 Encounter Details Date Type Department Care Team ([facility] st Contact Info) Description 01/28/2024 Telephone [facility] 230 [place], [place] [phone] Martha Suazo MD 230 [place], [place] [phone] Appointment Request Social History Tobacco Use Types [...] Description 11/29/2024 9:00 AM EDT Office Visit [facility] 230 [place] [address] Rosalba Louis MD 230 [place] [address] 01/29/2025 9:00 AM EDT Office Visit [facility] 91 [place] [address] Faith Cardenas 91 [place], [place] [phone] documented as of this encounter Goals Goal [...] on filedocumented in this encounter Care Teams Engineer And Geologist Relationship Specialty Start Date End Date Martha Suazo MD 230 [place] [address] PCP - General Family Medicine 06/02/23 08/27/24 Rosalba Louis MD 230 [place] [address] PCP - General Internal Medicine 08/28/24 documented as of this encounter
--- OUTSIDE RECORDS SUMMARY | 2024-11-28 10:25 | XMS_ITS | Encounter Summary ---
Author Organization [employer] Address 75 [facility] 7t [place] [address] Care Team Providers Care Spinner Concrete Pipe Name Role Phone Martha Suazo MD Primary Care Provider [phone] Rosalba Louis MD Primary Care Provider + Reason for Visit * Reason Onset Date Comments FYI 10/21/2023 Encounter Details Date Type Department Care Team ([facility] st Contact Info) Description 10/21/2023 Telephone [facility] 230 [place], [place] [phone] Martha Suazo MD 230 [place], [place] [phone] FYI Social History Tobacco Use Types Packs/Day [...] - 10/21/2023 11:16 AM EST [facility] getting [facility] today 4pt stated don't need them anymore. documented in this encounter Plan of Treatment Upcoming Encounters Date Type Department Care Team (Late st Contact Info) Description 11/29/2024 9:00 AM EDT Office Visit [facility] [address] [place] [address] Rosalba Louis MD 230 [place] [address] 01/29/2025 9:00 AM EDT Office Visit [facility] 91 [place], [place] [phone] Faith aCrdenas 91 [place], [place] [phone] documented as of this encounter Visit Diagnoses Not on filedocumented in this encounter Care Teams Spinner Concrete Pipe Relationship Specialty Start Date End Date Martha Suazo MD 230 [place] [address] PCP - General Family Medicine 06/02/23 08/27/24 Rosalba Louis MD 230 [place] [address] PCP - General Internal Medicine 08/28/24 documented as of this encounter
--- OUTSIDE RECORDS SUMMARY | 2024-11-28 10:25 | XMS_ITS | Encounter Summary ---
Author Organization [employer] Address 75 [facility] 7t [place] [address] Care Team Providers Care Wire Sawyer Name Role Phone Martha Suazo MD Primary Care Provider [phone] Rosalba Louis MD Primary Care Provider + [...] whether stage 3a or 3b CKD (CMS/HCC) Matrha Suazo MD 230 [place] [address] Phone: tel: fax: Referral ID Status Reason Start Date Expiration Date V isits Requested Visits Authorized [id number] Closed Continuity of Care 10/06/2023 10/05/2024 1 1 Encounter Details Date Type Department Care Team (Late st Contact Info) Description 10/06/2023 Orders Only [facility] 230 [place] [address] Martha Suazo MD 230 [place], [place] [phone] Type 2 diabetes mellitus with stage 3 [...] Description 11/29/2024 9:00 AM EDT Office Visit [facility] 230 [place] [address] Rosalba Louis MD 230 [place] [address] 01/29/2025 9:00 AM EDT Office Visit [facility] [address] [place] [address] Faith Cardenas [address] [place] [address] Scheduled Referrals Name Type Priority Associated Diagnoses [...] (CMS/HCC) documented in this encounter Care Teams Wire Sawyer Relationship Specialty Start Date End Date Martha Suazo MD 230 [place] [address] PCP - General Family Medicine 06/02/23 08/27/24 Rosalba Louis MD 230 [place] [address] PCP - General Internal Medicine 08/28/24 documented as of this encounter
--- OUTSIDE RECORDS SUMMARY | 2024-11-28 10:25 | XMS_ITS | Encounter Summary ---
Author Organization [employer] Address 75 [facility] 7t [place] [address] Care Team Providers Care Technical Illustrator Name Role Phone Martha Suazo MD Primary Care Provider [phone] Rosalba Louis MD Primary Care Provider + Reason for Visit * Reason Onset Date Comments Durable Medical Equipment 02/24/2024 Encounter Details Date Type Department Care Team ([facility] st Contact Info) Description 02/24/2024 Telephone [facility] 230 [place], [place] [phone] Martha Suazo MD 230 [place], [place] [phone] Durable Medical Equipment Social History Tobacco Use [...] Tc from [facility] requesting an rx for incontinence supplies. States current one is . documented in this encounter Plan of Treatment Upcoming Encounters Date Type Department Care Team (Late st Contact Info) Description 11/29/2024 9:00 AM EDT Office Visit [facility] 230 [place] [address] Rosalba Louis MD [address] [place] [address] 01/29/2025 9:00 AM EDT Office Visit [facility] 91 [place] [address] Faith Cardenas 91 [place] [address] documented as of this encounter Goals Goal [...] filedocumented in this encounter Care Teams Technical Illustrator Relationship Specialty Start Date End Date Martha Suazo MD 230 [place] [address] PCP - General Family Medicine 06/02/23 08/27/24 Rosalba Louis MD 230 [place] [address] PCP - General Internal Medicine 08/28/24 documented as of this encounter
--- OUTSIDE RECORDS SUMMARY | 2024-11-28 10:25 | XMS_ITS | Encounter Summary ---
Author Organization [facility] [place], Address [address] [place] [address] Phone Care Team Providers Care Outbound Sales Agent Name Role Phone Mati Giordano MD Primary Care Provider [phone] Encounter Details Date Type Department Care Team (Late st Contact Info) Description 09/30/2021 Documentation Only [facility] [place], [address] [place] [address] Roger Harrison MD [address] [place] [address] [place] [address] Social History Tobacco Use Types [...] Visit [facility] [address] [place] [address] Jose Luis Lei MD [address] [place] [address] [place] [address] documented as of this encounter Visit Diagnoses Not on filedocumented in this encounter Care Teams Outbound Sales Agent Relationship Specialty Start Date End Date Mati Giordano MD [address] [place] [address], [address] [place], [place] PCP - General Internal Medicine 03/30/23 documented as of this encounter
--- OUTSIDE RECORDS SUMMARY | 2024-11-28 10:25 | XMS_ITS | Encounter Summary ---
Author Organization [employer] Address [address] [facility] [address] 7t [place] [address] Care Team Providers Care Sales Product Specialist Name Role Phone Rosalba Louis MD Primary Care Provider + Reason for Visit * Reason Comments Cough Encounter Details Date Type Department Care Team ([facility] Contact Info) Description 11/20/2024 9:00 AM EST Office Visit [facility] 230 [place], [place] [phone] Campos Alvarez MD 230 [place] [address] Acute cough (Primary Dx); Acute URI Social [...] DIL who is interpreting and is her BUSINESS QUALITY ASSURANCE ANALYST. HPI Sosa has 3 week h/o cough that was productive, now dry, with occasional SOB, no wheezing. Using albuterol HFA 2-3x/day with some improvement. States several year h/o asthma. No fever, chills, n/v/d. Taking p.o. well. Tried Robutussin, Delsum. Lives alone. Has BUSINESS QUALITY ASSURANCE ANALYST. Never smoked. Patient Active Problem List Diagnosis [...] and Influenza tests. Chest ray done in [facility]. Will call [id number] with report. Prescribed prednisone, acetaminophen, and chamber [...] Description 11/29/2024 9:00 AM EDT Office Visit [facility] 230 [place], [place] [phone] Rosalba Louis MD 230 [place], [place] [phone] 01/29/2025 9:00 AM EDT Office Visit [facility] 91 [place], [place] [phone] Faith Cardenas 91 [place], [place] [phone] documented as of this encounter Goals Goal [...] AM EST Narrative 11/20/2024 10:51 AM EST ?[facility] ?[address] ?[place] [address] ?XRay Report ? Signed ? Patient: Sosa Correa ?MR#: [id number] ?? [id number] ? : 1940 ?Acct:[id number] ? Age/Sex: 84 / F ?ADM Date: 11/20/24 ? Loc: HO.HHCX ? Attending Dr: Campos Alvarez MD ? Ordering Physician: CAMPOS ALVAREZ MD ?? Date of Service: 11/20/24 ?? Procedure(s): XR chest 2V ?? Accession Number(s): [id number] ? cc: CAMPOS ALVAREZ MD ? EXAMINATION: [...] DD/ 6 ? TD/TT: 11/20/24 1000 ? Plate Painter Apprentice: MSM ? Procedure Note Reji, Image - 11/20/2024 [facility] [address] [place] [address] XRay Report Signed Patient: Mary Ellen Correa#: [id number] : 1940Acct:[id number] Age/Sex: 84 / FADM Date: 11/20/24 Loc: HO.HHCX Attending Dr: Campos Alvarez MD Ordering Physician: CAMPOS ALVAREZ MD Date of Service: 11/20/24 Procedure(s): XR chest 2V Accession Number(s): [id number] cc: CAMPOS ALVAREZ MD EXAMINATION: XR CHEST [...] 11/20/24 1048 DD/ 0927 TD/TT: 11/20/24 1000 Plate Painter Apprentice: [facility] Campos Alvarez MD IMG XR PROCEDURES Final Result * Influenza B (ID NOW Rapid Molecular) (11/20/2024 9:11 AM EST) Influenza B Negative Negative, Indeterminate [facility] Swab 11/20/2024 9:11 AM EST Campos Alvarez MD POINT OF CARE TEST ENTER/EDIT OR DERABLES Final Result [facility] [address] [place] [phone] * Influenza A (ID NOW Rapid Molecular) (11/20/2024 9:11 AM EST) Influenza A Negative Negative, Indeterminate [facility] Swab 11/20/2024 9:11 AM EST us Campos Alvarez MD POINT OF CARE TEST ENTER/EDIT OR DERABLES Final Result Performing Organization Address [facility] Co de Phone Number [facility] [address] [place] [address] [phone] * POCT Rapid COVID Ag (11/20/2024 9:11 AM EST) Rapid COVID Ag Negative [facility] Swab 11/20/2024 9:11 AM EST us Campos Alvarez MD POINT OF CARE TEST ENTER/EDIT OR DERABLES Final Result Performing Organization Address [facility] de Phone Number [facility] [address] [place] [phone] documented in this encounter Visit Diagnoses Diagnosis Acute cough- Primary Acute URI Acute upper respiratory infections of unspecified site documented in this encounter Care Teams Sales Product Specialist Relationship Specialty Start Date End Date Rosalba Louis MD [address] [place] [address] PCP - General Internal Medicine 08/28/24 documented as of this encounter
--- OUTSIDE RECORDS SUMMARY | 2024-11-28 10:25 | XMS_ITS | Encounter Summary ---
Author Organization [employer] Address [address] 7t [place] [address] Care Team Providers Care Configuration Consultant Name Role Phone Rosalba Louis MD Primary Care Provider + Encounter Details Date Type Department Care Team ([facility] st Contact Info) Description 11/01/2024 Orders Only [facility] External Provider, [facility] Social History Tobacco Use Types Packs/Day Years [...] Bone density test on 11/01/2024 ordered by channel turner showed osteopenia which was this previous diagnosis that she was carrying. I will follow-up with her at her next appointment on November and decide on additional workup or see if she is still using Prolia documented in this encounter Plan of Treatment Upcoming Encounters Date Type Department Care Team (Late st Contact Info) Description 11/29/2024 9:00 AM EDT Office Visit [facility] MEDICINE [address] [place] [address] [phone] Rosalba Louis MD [address] [place] [address] 01/29/2025 9:00 AM EDT Office Visit [facility] DENTAL [address] [place], [place] [phone] Faith Cardenas 91 [place], [place] [phone] documented as of this encounter Goals Goal [...] EST Narrative 11/01/2024 9:21 AM EST ? [facility] ? [address] ?[place] [address] ? Mammography Report ? Signed ? Patient: Tapia Loenel,Sosa ?MR#: [id number] ?? [id number] ? : 1940 ?Acct:[id number] ? Age/Sex: 84 / F ?ADM Date: 11/01/24 ? Loc: HO.MAMMO ? Attending Dr: Silvestre Cummings MD ? Ordering Physician: Silvestre Cummings MD ?Results: ? Date of Service: 11/01/24 ?Follow Up: ? Procedure(s): XR DEXA axial skeleton ?? Accession Number(s): [id number] ? cc: Rosalba Louis MD; Silvestre Cummings MD ? EXAMINATION: ??DXA BONE DENSITY AXIAL ? HISTORY: ??Estrogen deficiency ? TECHNIQUE: [email or web address] Dual energy absorptiometry (DEXA) ?? of the [...] is a trademark of the [employer]'s ?? [facility] Metabolic Bone Disease, a World Health Organization (WHO) ?? Collaborating Center. ? Electronically signed by: ??Bert Leon MD ??11/01/2024 09:18 AM EST ?? RP ? Dictated By: ?Bert Leon MD ? Signed By: ?<Electronically signed by Bert Leon MD in OV> ?11/01/24 0918 ? DD/ 0845 ? TD/TT: 11/01/24 0850 ? Pattern Chain Builder: ? Procedure Note Donotuseinterpreter, Image - 11/01/2024 Daily [facility] [place] [facility] [address] [place], [place] [address] Mammography Report Signed Patient: Mary Ellen Correa#: [id number] : 8Acct:[id number] Age/Sex: 84 / FADM Date: 11/01/24 Loc: HO.MAMMO Attending Dr: Silvestre Cummings MD Ordering Physician: Silvestre Cummingsesults: Date of Service: 11/01/24Follow Up: Procedure(s): XR DEXA axial skeleton Accession Number(s): [id number] cc: Rosalba Louis MD; Silvestre Cummings MD EXAMINATION: DXA BONE DENSITY AXIAL HISTORY: Estrogen deficiency TECHNIQUE: [email or web address] Dual energy absorptiometry (DEXA) of the lumbar [...] of the [employer] [facility], a World Health Organization (WHO) Collaborating Center. Electronically signed by: Bert Leon MD 11/01/2024 09:18 AM [facility] Dictated By: Bert Leon MD Signed By: <Electronically signed by Bert Leon MD in OV> 11/01/2418 DD/ 0845 TD/TT: 11/01/24 0850 Pattern Chain Builder: [facility] External Provider IMG DXA PROCEDURES Final Result documented in this encounter Visit Diagnoses Not on filedocumented in this encounter Care Teams Configuration Consultant Relationship Specialty Start Date End Date Rosalba Louis MD [address] [place] [address] PCP - General Internal Medicine 08/28/24 documented as of this encounter
[2024-11-28 19:15] LABS: Albumin Level 3.4 g/dL (3.5-5.0); Calcium 9.1 mg/dL (8.4-10.2); Estimated Glomerular Filt Rate 33
[2024-11-28 19:33] LABS: Vitamin D 25-OH Total 69.3 ng/mL (>30)
== END 2024-11-28 08:27 | disposition home or self-care (01) ==
LOC: HO.HKASLDS 08:26
PROVIDERS: Visit Provider Internal Medicine Rheumatology
DX: M81.0 Age-related osteoporosis without current pathological fracture (principal); Z79.899 Other long term (current) drug therapy; Z79.60 Long term (current) use of unspecified immunomodulators and immunosuppressants; M75.81 Other shoulder lesions, right shoulder; M75.82 Other shoulder lesions, left shoulder
CPT/HCPCS: 36415; 82040; 82306; 82310; 82565; 99212

== ENCOUNTER 2024-11-28 08:26 | Outpatient (AMB) | payer OTHER, SELFPAY ==
--- NOTE | 2024-11-28 08:29 | MHC.OFFVIS ---
Vital Signs 11/28/24 08:38 BP 120/82 Blood Pressure Location Rt brachial Position Sitting Pulse 76 Pulse Source Pulse Oximeter Pulse Oximetry (%) 99 Oxygen Delivery Method Room Air Intake Visit Reasons: 3 mo follow up Intake Note: Patient presents for follow up on osteoporosis. Prolia injection Allergies No Known Allergies [No Known Allergies*] Allergy (Verified 11/28/24 08:34) HPI HPI 3 mo follow up: Details: Denies fractures or plans for dental work. She has dentures. She has teeth and lower jaw and is trying to hold off on extractions. She takes calcium vitamin-D supplement daily. [facility] Medical History Breast CA Vertigo Diabetes HTN (hypertension) CKD (chronic kidney disease) Breast CA Vertigo Diabetes HTN (hypertension) CKD (chronic kidney disease) Breast cancer Depression Hypertension Bilateral knee pain Surgical History History of partial mastectomy of right breast Hx of cataract surgery Family History Father No problems noted. Mother No problems noted. Social History Household Members: None Housing: Apartment Do you presently have visiting nurse or other home services: Yes (judge clerk services) Alcohol intake: never Patient Tobacco Use Status: Never used Tobacco e-Cigarette/Vaping Use: Never Used service: No Current occupational status: retired Physical Exam Vital Signs: Last Vital Signs Pulse 76 11/28/24 08:38 BP 120/82 11/28/24 08:38 Pulse Ox 99 11/28/24 08:38 Oxygen Delivery Method Room Air 11/28/24 08:38 Const Other: General: Comfortable Skin: No lesions seen MSK: She has limited range of motion of her shoulders actively 90 degrees bilateral with limited internal external rotation. Passive abduction is 170 degrees right and 180 degrees left. She has normal passive range of motion. Good lumbar flexion, rotation of cervical spine, flexion-extension of cervical spine. Results Reviewed Results Reviewed: Bone density October 2022 and 11/01/2024 Assessment & Plan Assessment & Plan (1) Osteoporosis: Comment: Patient initially diagnosed with osteopenia with high fracture restarted on Prolia 10/09/2021 then developed osteoporosis. She recently received Prolia 05/09/2024. Recent bone density reveals improvement of T-score left femoral neck from -2.7 10/2022 to -1.9. Code(s): M81.0 - Age-related osteoporosis without current pathological fracture Category: Medical Plan: Continue Prolia. PA and process. She prefers to be scheduled in [facility] for nurse visit for Prolia when approved Labs prior to Prolia ordered Continue calcium and vitamin-D supplement daily. 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 Code(s): M75.81 - Other shoulder lesions, right shoulder; M75.82 - Other shoulder lesions, left shoulder Category: Medical Plan: PT ordered to improve range of motion I recommend that she participate in exercise programs offered at the [facility] Orders: Orders Vitamin D 25-OH Total Today M81.0 - Age-related osteoporosis without current pathological fracture Creatinine Today M81.0 - Age-related osteoporosis without current pathological fracture PT Evaluation and Treatment Today M75.81 - Other shoulder lesions, right shoulder, M75.82 - Other shoulder lesions, left shoulder Calcium Today M81.0 - Age-related osteoporosis without current pathological fracture Albumin Level Today M81.0 - Age-related osteoporosis without current pathological fracture Coding Level of Care Code Est Pt Level 4 (74955) Complex EM visit Add On G2211 Diagnoses Osteoporosis M81.0 Tendinitis of both rotator cuffs M75.81; M75.82
[2024-11-28 08:38] VITALS: BP 120/82; PULSE 76; O2SAT 99
--- OUTSIDE RECORDS SUMMARY | 2024-11-28 09:06 | XMS_ITS | Encounter Summary ---
Author Organization [facility], Address [address] [place] [address] Phone Care Team Providers Care Windows Systems Administrator Name Role Phone Mati Giordano MD Primary Care Provider [phone] Reason for Visit * Reason Comments Med Refill Encounter Details Date Type Department Care Team (Late st Contact Info) Description 07/02/2021 Refill [facility] [address] [place] [address] Roger Harrison MD [address] [address] [place] [address] Social History Tobacco Use Types [...] Office Visit [facility], [address] [address] Jose Luis Lei MD [address] [address] [place] [address] documented as of this encounter Visit Diagnoses Not on filedocumented in this encounter Care Teams Windows Systems Administrator Relationship Specialty Start Date End Date Mati Giordano MD [address] [place] [address], [address] [place], [place] PCP - General Internal Medicine 03/30/23 documented as of this encounter
--- OUTSIDE RECORDS SUMMARY | 2024-11-28 09:06 | XMS_ITS | Encounter Summary ---
Author Organization [employer] Address [address] 7t [place] [address] Care Team Providers Care Medical Educator Name Role Phone Martha Suazo MD Primary Care Provider [phone] Rosalba Louis MD Primary Care Provider + Encounter Details Date Type Department Care Team ([facility] st Contact Info) Description 07/26/2023 Orders Only [facility] MEDICINE [address] [place], [place] [phone] Martha Suazo MD [address] [place], [place] [phone] Bilateral carotid artery disease, unspecified type (CMS/HCC) [...] Description 11/29/2024 9:00 AM EDT Office Visit [facility] MEDICINE [address] [place] [address] [phone] Rosalba Louis MD [address] [place] [address] 01/29/2025 9:00 AM EDT Office Visit [facility] DENTAL [address] [place], [place] [phone] Faith Cardenas [address] [place] [address] documented as of this encounter Visit Diagnoses Diagnosis Bilateral carotid artery disease, unspecified type (CMS/HCC)- Primary Stenosis of right renal artery (CMS/HCC) Diastolic dysfunction Unspecified heart disease Hypertension, unspecified type documented in this encounter Care Teams Medical Educator Relationship Specialty Start Date End Date Martha Suazo MD [address] [place] [address] [phone] PCP - General Family Medicine 06/02/23 08/27/24 Rosalba Louis MD [address] [place] [address] PCP - General Internal Medicine 08/28/24 documented as of this encounter
--- OUTSIDE RECORDS SUMMARY | 2024-11-28 09:06 | XMS_ITS | Encounter Summary ---
Author Organization [facility], Address [address] [place] [address] Phone Care Team Providers Care Castables Worker Name Role Phone Mati Giordano MD Primary Care Provider [phone] Encounter Details Date Type Department Care Team (Late st Contact Info) Description 09/10/2021 Documentation Only [facility], [address] [place] [address] Roger Harrison MD [address] [place] [address] [place] [address] Social History Tobacco Use Types [...] [facility] [address] [place] [address] Jose Luis Lei MD [address] [place] [address] [place] [address] documented as of this encounter Visit Diagnoses Not on filedocumented in this encounter Care Teams Castables Worker Relationship Specialty Start Date End Date Mati Giordano MD [address] [place] [address], [address] [place], [place] PCP - General Internal Medicine 03/30/23 documented as of this encounter
--- OUTSIDE RECORDS SUMMARY | 2024-11-28 09:06 | XMS_ITS | Encounter Summary ---
Author Organization [employer] Address [address] [facility] 7t [place] [address] Care Team Providers Care Traveling Storekeeper Name Role Phone Martha Suazo MD Primary Care Provider [phone] Rosalba Louis MD Primary Care Provider + Reason for Visit * Reason Onset Date Comments ER Follow-up 07/29/2023 Encounter Details Date Type Department Care Team ([facility] st Contact Info) Description 07/29/2023 Telephone [facility] [address] [place], [place] [phone] Martha Suazo MD [address] [place], [place] [phone] ER Follow-up Social History Tobacco Use Types [...] an ED visit. Pt was admitted at [facility] 07/27 and discharged the following day 07/28 for Diarrhea, low sodium, and acidosis. Was advised will forward to team nursesfor f/u. Please contact daughter at [phone] documented in this encounter Plan of Treatment Upcoming Encounters Date Type Department Care Team (Late st Contact Info) Description 11/29/2024 9:00 AM EDT Office Visit [facility] [address] [place] [address] Rosalba Louis MD [address] [place] [address] 01/29/2025 9:00 AM EDT Office Visit [facility] [address] [place], [place] [phone] Faith Cardenas [address] [place], [place] [phone] documented as of this encounter Visit Diagnoses Not on filedocumented in this encounter Care Teams Traveling Storekeeper Relationship Specialty Start Date End Date Martha Suazo MD [address] [place] [address] [phone] PCP - General Family Medicine 9/13/23 12/8/24 Rosalba Louis MD [address] [place] [address] PCP - General Internal Medicine 08/28/24 documented as of this encounter
--- OUTSIDE RECORDS SUMMARY | 2024-11-28 09:06 | XMS_ITS | Encounter Summary ---
Author Organization [facility], Address [address] [place] [address] Phone Care Team Providers Care Dividing Machine Operator Helper Name Role Phone Mati Giordano MD Primary Care Provider [phone] Encounter Details Date Type Department Care Team (Late st Contact Info) Description 08/25/2021 Documentation Only [facility], [address] [place] [address] Roger Harrison MD [address] [place] [address] [place] [address] Social History Tobacco Use Types [...] [facility] [address] [place] [address] Jose Luis Lei MD [address] [place] [address] [place] [address] documented as of this encounter Visit Diagnoses Not on filedocumented in this encounter Care Teams Dividing Machine Operator Helper Relationship Specialty Start Date End Date Mati Giordano MD [address] [place] [address], [address] [place], [place] PCP - General Internal Medicine 03/30/23 documented as of this encounter
--- OUTSIDE RECORDS SUMMARY | 2024-11-28 09:06 | XMS_ITS | Clinical Summary ---
Author Organization [facility], Address [address] [place] [address] Phone Care Team Providers Care Performing Arts Road Manager Name Role Phone Mati Giordano MD Primary Care Provider [phone] Allergies No known active allergies Medications ACETAMINOPHEN [...] 09/29/2021 Hypertensive heart disease w [facility] congestive heart failure 01/03/2020 09/29/2021 Lower [...] Refill [facility], [address] [place] [address] Morenita Leigh PA from Last 3 [...] Visit [facility], [address] [place] [address] Jose Luis Lei MD [address] [place] [phone] Health Maintenance Due Date Last Done Comments [...] PM EDT) Hemoglobin A1C 6.3(H) (4.0-5.6) % [facility] Comment: MONITORING: In known diabetic patients, hemoglobin A1c targets should be discussed with health care provider. DIAGNOSTIC USE: ??The [place] Diabetes Association (ADA) and the World Health [...] Supplement 1 Testing performed or reported by [facility], a Service of [facility], [address] [place] [address] Rc Thomas MD, Deputy Of Counter Intelligence [facility]# [id number] Blood (Blood, Venous) 03/30/2023 3:58 PM EDT 03/30/2023 4:00 PM EDT Morenita MORGAN LAB BLOOD ORDERABLES Final Re sult [facility] from Last 3 Months or Most Recently Relevant to Health Maintenance Insurance [employer] SNP ([id number]) [place] [id number] Manager Relationship Specialty Start Date End Date Mati Giordano MD [address] [place] [address], [address] [place], [place] PCP - General Internal Medicine 03/30/23
--- OUTSIDE RECORDS SUMMARY | 2024-11-28 09:06 | XMS_ITS | Clinical Summary ---
Author Organization [employer] Address [address] [facility] 7t [place] [address] Care Team Providers Care Jewelry Polisher Name Role Phone Rosalba Louis MD Primary [...] EVENING 90 tablet 3 10/23/19 25 Active Spacer/Aero-H olding Chambers (OptiChamber Genny) misc 1 each every 4 (four) hours if needed (asthma). 1 each 11/21/19 25 Active acetaminophen (Tylenol) 500 MG tablet TAKE 2 TABLETS BY MOUTH EVERY 6 HOURS IF NEEDED FOR MODERATE PAIN OR FEVER. 90 tablet 11/21/19 25 Active acetaminophen (Tylenol) 500 MG tablet TAKE 2 TABLETS BY MOUTH EVERY 6 HOURS IF NEEDED FOR MODERATE PAIN OR FEVER. 90 tablet 08/28/20 24 025 Discontinued(Re order (will not trigger notification to Pharmacy)) predniSONE (Deltasone) 20 MG tablet Take 2 tablets (40 mg) by mouth Once per day for 5 days. 10 tablet 11/21/19 25 025 Active Problems Problem Noted Date Diagnosed Date [...] persistently over 200 Fu with PCP in Dec CKD (chronic kidney disease) stage 3, GFR [...] Encounters Date Type Department Care Team Description 11/27/2024 Telephone [facility] MEDICINE [address] [place] [phone] Rosalba Louis MD Chart prep 11/22/2024 Patient Outreach [facility] [address] [place] [address] Rosalba Louis MD Pre-visit Planning (SDOH negative, Tobacco screening negative. ) 11/20/2024 9:00 AM EST Office Visit [facility] WALK[facility]IN CENTER [address] [place] [address] Campos Boswell MD Acute cough (Primary Dx); Acute URI 11/20/2024 Telephone [facility] WALK-IN [address] [address] Campos Boswell MD 11/01/2024 Orders Only [facility] External Provider, [facility] 10/22/2024 Refill [facility] MEDICINE [address] [place] [address] Martha Suazo MD 10/18/2024 Refill [facility] MED[facility]INE [address] [place] [address] Rosalba Louis MD 09/22/2024 Telephone [facility] MEDICINE [address] [place] [address] Rosalba Louis MD November recall 08/31/2024 Telephone [facility] MEDICINE [address] [place] [address] [phone] Rosalba Louis MD Durable Medical Equipment 08/30/[address] [address] Rosalba Louis MD Housing Form (I called the patient, regarding a reasonable accommodation request from [employer], to have the rugs removed from the patient's apartment. I spoke with Robby, her emergency contact, and informed her that the form cannot be completed, because there is no qualifying diagnosis. Robby stated that the patient is incontinent of urine and feces, and has accidents sometimes, which leaves a bad smell. That is why she does not want an apartment with rugs. [employer] has an apartment av) from Last 3 Months Immunizations Name Administration [...] housing situation today? I have tiffany marlow 11/22/[address] you li ve. Do you have problems with any of the following? None of the above 11/22/2024 Food Insecurity Answer Date Recorded Within the [...] Access Answer Date Recorded Internet Access Q1 Yes 11/22/2024 Internet Access Q2 I cannot afford it 11/22/2024 Comments No Sex and Gender Information Value [...] 11/29/2024 9:00 AM EDT Office Visit [facility] MEDICINE [address] [place] [address] Rosalba Louis MD [address] [place], [place] [phone] 01/29/2025 9:00 AM EDT Office Visit [facility] [address] [place], [place] [phone] Faith Cardenas [address] [place], [place] [phone] Health Maintenance Due Date Last Done Comments Dental X-Ray: Bitewings 1940 Dental X-Ray: Full Mouth 1940 Alcohol/Substance Use Screening 1950 Zoster Vaccines (1 of 2) 1988 RSV Patients and Patients Aged 60 years or older (1 - 1-dose 75+ series) 2013 Pneumococcal Vaccine: 50+ Years (2 of 2 - PCV) 03/09/2017 03/09/2016, 06/22/2014 Dental Oral Exam 01/05/2024 07/05/2023 COVID-19 Vaccine ( season) 2024 Influenza Vaccine (#1) 2024 06/22/2014 Depression Screening 06/02/2024 06/02/2023, 06/02/20 Dental Prophylaxis 09/15/2024 03/15/2024, 07/05/2023 Diabetes: Hemoglobin A1C 02/26/2025 024, 10/25/2023, 07/09/2023, Additional history exists Lipid Panel 05/08/2025 05/08/2024, 05/16/2020 Diabetes: Foot Exam 08/28/2025 08/28/2024, 08/28/2024, 08/28/2024, Additional history exists Tobacco Screening 11/20/2025 11/20/2024 SDOH Screening 11/22/2025 11/22/2024 DTaP/Tdap/Td Vaccines (2 - Td or Tdap) [...] 4 1:20 PM EST) No Gypsy Hood Procedures Procedure Name Priority Date/Time Associated Diagnosis Comments XR CHEST 2 VIEWS Routine 11/20/2024 9:27 AM EST Acute cough POCT INFLUENZA B (ID NOW RAPID MOLECULAR) [...] unspecified whether stage 3a or 3b CKD ([facility]) LIPID PANEL, STANDARD Routine 05/08/2024 4:30 PM EDT PROPHYLAXIS - ADULT Routine 03/15/2024 1 :00 PM EDT COMPREHENSIVE ORAL EVALUATION - NEW OR ESTABLISHED PATIENT Routine 07/05/2023 10:00 AM EDT from Last 3 Months or Most Recently Relevant to Health Maintenance Results * XR Chest 2 Views (11/20/2024 9:27 AM EST) Anatomical Region Laterality Modality Chest Radiographic Ana Rosa ging 11/20/2024 9:27 AM EST Narrative 11/20/2024 10:51 AM EST ?[facility] ?[address] ?[place] [address] ?XRay Report ? Signed ? Patient: Tapia Castaneda,Sosa ?MR#: [id number] ?? [id number] ? : 1940 ?Acct:[id number] ? Age/Sex: 84 / F ?ADM Date: 03/03/25 ? Loc: HO.HHCX ? Attending Dr: Campos Boswell MD ? Ordering Physician: CAMPOS BOSWELL MD ?? Date of Service: 11/20/24 ?? Procedure(s): XR chest 2V ?? Accession Number(s): [id number] ? cc: CAMPOS BOSWELL MD ? EXAMINATION: ?? XR CHEST ? CLINICAL INFORMATION: ?? cough for 3 weeks ? COMPARISON: ?? Chest x-ray 09/25/2023 ? TECHNIQUE: ?? 2 views of the chest were obtained. ? FINDINGS: ?? The lungs are well-expanded with prominent interstitial markings in ?? both bases likely chronic. No acute consolidation, pleural effusion or ?? pneumothorax. Heart size is normal. Pulmonary vascularity is normal. ?? There is mild scoliosis mid dorsal spine. ? XR/XR chest 2V ?? IMPRESSION: ?? No acute pulmonary process. Prominent interstitial markings in ?? bilateral lower lobes likely chronic changes. No acute consolidation ?? seen. ? Electronically signed by: ??Hugh Sandoval MD ??11/20/2024 10:48 AM EST RP ? Dictated By: ?Hugh Sandoval MD ? Signed By: ?<Electronically signed by Hugh Sandoval MD in OV> ?11/20/24 1048 ? DD/ 0927 ? TD/TT: 11/20/24 1000 ? Indexer: MSM ? Procedure Note Dontiffter, Image - 11/20/2024 [place] [address] XRay Report Signed Patient: Mary Ellen Correa#: [id number] : 8Acct:[id number] Age/Sex: 84 / FADM Date: 11/20/24 Loc: HO.HHCX Attending Dr: Campos Boswell MD Ordering Physician: CAMPOS BOSWELL MD Date of Service: 11/20/24 Procedure(s): XR chest 2V Accession Number(s): [id number] cc: CAMPOS BOSWELL MD EXAMINATION: XR CHEST CLINICAL INFORMATION: cough for 3 weeks COMPARISON: Chest x-ray 09/25/2023 TECHNIQUE: 2 views of the chest were obtained. FINDINGS: The lungs are well-expanded with prominent interstitial markings in both bases likely chronic. No acute consolidation, pleural effusion or pneumothorax. Heart size is normal. Pulmonary vascularity is normal. There is mild scoliosis mid dorsal spine. XR/XR chest 2V IMPRESSION: No acute pulmonary process. Prominent interstitial markings in bilateral lower lobes likely chronic changes. No acute consolidation seen. Electronically signed by: Hugh Sandoval MD 11/20/2024 10:48 AM EST RP Dictated By: Hugh Sandoval MD Signed By: <Electronically signed by Hugh Sandoval MD in OV> 11/20/24 1048 DD/ 0927 TD/TT: 11/20/24 1000 Indexer: KIRK us Campos Boswell MD IMG XR PROCEDURES Final Result * Influenza B (ID NOW Rapid Molecular) (11/20/2024 9:11 AM EST) Influenza B Negative Negative, Indeterminate [facility] Swab 11/20/2024 9:11 AM EST us Campos Boswell MD POINT OF CARE TEST ENTER/EDIT OR DERABLES Final Result Performing Organization Address [facility] Co de Phone Number [facility] [address] [place] [phone] * Influenza A (ID NOW Rapid Molecular) (11/20/2024 9:11 AM EST) Pathologist [facility] Influenza A Negative Negative, Indeterminate [facility] Swab 11/20/2024 9:11 AM EST Campos Boswell MD POINT OF CARE TEST ENTER/EDIT OR DERABLES Final Result Performing Organization Address [facility] Co de Phone Number [facility] [address] [place] [phone] * POCT Rapid COVID Ag (11/20/2024 9:11 AM EST) Rapid COVID Ag Negative [facility] Swab 11/20/2024 9:11 AM EST us Campos Boswell MD POINT OF CARE TEST ENTER/EDIT OR DERABLES Final Result [facility] [address] [place] [address] [phone] * BD DEXA Axial (11/01/2024 8:45 AM EST) Anatomical Region Laterality Modality Body Radiographic Ana Rosa ging 11/01/2024 8:45 AM EST Narrative 11/01/2024 9:21 AM EST ? [facility] [place] ? [address] ?[place] [address] ? Mammography Report ? Signed ? Patient: Sosa Correa ?MR#: MM ?? [id number] ? : 1940 ?Acct:[id number] ? Age/Sex: 84 / F ?ADM Date: 11/01/24 ? Loc: HO.MAMMO ? Attending Dr: Silvestre Cummings MD ? Ordering Physician: Silvestre Cummings MD ?Results: ? Date of Service: 11/01/24 ?Follow Up: ? Procedure(s): XR DEXA axial skeleton ?? Accession Number(s): [id number] ? cc: Rosalba Louis MD; Silvestre Cummings MD ? EXAMINATION: ??DXA BONE DENSITY AXIAL ? HISTORY: ??Estrogen deficiency ? TECHNIQUE: Terapeak Dual energy absorptiometry (DEXA) ?? of the [...] is a trademark of the [employer]'s ?? [employer] for Metabolic Bone Disease, a World Health Organization (WHO) ?? Collaborating Center. ? Electronically signed by: ??Bert Leon MD ??11/01/2024 09:18 AM EST ?? RP ? Dictated By: ?Bert Leon MD ? Signed By: ?<Electronically signed by Bert Leon MD in OV> ?11/01/24 0918 ? DD/ 0845 ? TD/TT: 11/01/24 0850 ? Indexer: ? Procedure Note Donotuseinterpreter, Image - 11/01/2024 [facility] [address] [place] [address] Dr. Ambrosio, [place]AH [address] Mammography Report Signed Patient: Ata CorreaR#: [id number] : 8Acct:[id number] Age/Sex: 84 / FADM Date: 11/01/24 Loc: HO.MAMMO Attending Dr: Silvestre Cummings MD Ordering Physician: Silvestre Cummingsults: Date of Service: 11/01/24Follow Up: Procedure(s): XR DEXA axial skeleton Accession Number(s): [id number] cc: Rosalba Louis MD; Silvestre Cummings MD EXAMINATION: DXA BONE DENSITY AXIAL HISTORY: Estrogen deficiency TECHNIQUE: Terapeak Dual energy absorptiometry (DEXA) of the lumbar [...] is a trademark of the [employer]'s [employer] Disease, a World Health Organization (WHO) Collaborating Center. Electronically signed by: Bert Leon MD 11/01/2024 09:18 AM EST RP Dictated By: Bert Leon MD Signed By: <Electronically signed by Bert Leon MD in OV> 11/01/[address] DD/ 4 TD/TT: 11/01/24849 Indexer: [facility] External Provider IMG DXA PROCEDURES Final Result * (ABNORMAL) POCT HGB A1C (08/28/2024 1:20 PM EST) Pathologist [facility] Hemoglobin A1C 6.1(A) 4.0 - 6.0 % QC Media Lot # [id number] Lot# Expiration Date [id number] Blood 08/28/2024 1:20 PM EST Rosalba Louis MD POINT OF CARE TEST ENTER /EDIT ORDERABLES Final Result * (ABNORMAL) Lipid Panel, Standard (05/08/2024 4:30 PM EDT) Triglycerides 176(H) <150 mg/dL [facility] Comment:Desirable Triglyceri de: less than 150 mg/dLBorderline High Triglyceride 150-199 mg/dLHigh Triglyceride: 200-499 mg/dLVery High Triglyceride: greater than or equal to 5OO mg/dL Cholesterol 149 <200 mg/dL [facility] Comment:Desirable Cholestero l: less than 200 mg/dLBorderline High Cholesterol: 200-239 mg/dLHigh Cholesterol: greater than 239 mg/dL LDL Cholesterol Calculated 78 <100 mg/dL [facility] Comment:Desirable LDL: less than 100 mg/dLNear Optimal/Above Optimal LDL: 110- 129 mg/dLBorderline High LDL: 130-159 mg/dLHigh LDL: 160-189 mg/dLVery High LDL: greater than or equal to 190 mg/dL HDL Cholesterol 36(L) >40 mg/dL [facility] Comment:Desirable HDL: great er than 40 mg/dL Note: This HDL assay may give artificially low results in patients with liver disease. 05/08/2024 4:30 PM EDT 05/08/2024 5:51 PM EDT us Martha Suazo MD LAB BLOOD ORDERABLES Final Res ult [facility] [address] [place] [address] [phone] from Last 3 Months or Most Recently Relevant to Health Maintenance Insurance [facility] - [facility] Care Teams Jewelry Polisher Relationship Specialty Start Date End Date Rosalba Louis MD [address] [place] [address] PCP - General Internal Medicine 08/28/24
--- OUTSIDE RECORDS SUMMARY | 2024-11-28 09:06 | XMS_ITS | Encounter Summary ---
Author Organization [facility], Address [address] [place] [address] Phone Care Team Providers Care Cook Chill Technician Name Role Phone Mati Giordano MD Primary Care Provider [phone] Encounter Details Date Type Department Care Team (Late st Contact Info) Description 08/04/2021 Documentation Only [facility], [address] [place] [address] Roger Harrison MD [address] [place] [address] [place] [address] Social History Tobacco Use Types [...] [facility] [address] [place] [address] Jose Luis Lei MD [address] [place] [address] [place] [address] documented as of this encounter Visit Diagnoses Not on filedocumented in this encounter Care Teams Cook Chill Technician Relationship Specialty Start Date End Date Mati Giordano MD [address] [place] [address], [address] [place], [place] PCP - General Internal Medicine 03/30/23 documented as of this encounter
--- OUTSIDE RECORDS SUMMARY | 2024-11-28 09:06 | XMS_ITS | Encounter Summary ---
Author Organization [facility], Address [address] [place] [address] Phone Care Team Providers Care Technical Recruiter Name Role Phone Mati Giordano MD Primary Care Provider [phone] Encounter Details Date Type Department Care Team (Late st Contact Info) Description 08/25/2021 Documentation Only [facility], [address] [place] [address] Roger Harrison MD [address] [place] [address] [place] [address] Social History Tobacco Use [...] [facility] [address] [place] [address] Jose Luis Lei MD [address] [place] [address] [place] [address] documented as of this encounter Visit Diagnoses Not on filedocumented in this encounter Care Teams Technical Recruiter Relationship Specialty Start Date End Date Mati Giordano MD [address] [place] [address], [address] [place], [place] PCP - General Internal Medicine 03/30/23 documented as of this encounter
--- OUTSIDE RECORDS SUMMARY | 2024-11-28 09:06 | XMS_ITS | Encounter Summary ---
Author Organization [facility] [place], Address [address] [place] [address] Phone Care Team Providers Care Railroad Passenger Agent Name Role Phone Mati Giordano MD Primary Care Provider [phone] Encounter Details Date Type Department Care Team (Late st Contact Info) Description 07/26/2024 Documentation Only [facility] [address] [place] [address] Mariah Sal [address] [place] [address] Social History Tobacco Use Types [...] Visit [facility] [address] [place] [address] Jose Luis Lei MD [address] [place] [address] documented as of this encounter Visit Diagnoses Not on filedocumented in this encounter Care Teams Railroad Passenger Agent Relationship Specialty Start Date End Date Mati Giordano MD [address] [place] [address], [address] [place], [place] PCP - General Internal Medicine 03/30/23 documented as of this encounter
--- OUTSIDE RECORDS SUMMARY | 2024-11-28 09:07 | XMS_ITS | Encounter Summary ---
Author Organization [facility] Address [address] [place] [address] Phone Care Team Providers Care Reel Film Inspector Name Role Phone Mati Giordano MD Primary Care Provider [phone] Encounter Details Date Type Department Care Team (Late st Contact Info) Description 10/31/2021 Orders Only [facility] [address] [place] [address] Roger Harrison MD [address] [place] [address] [place] [address] Stage 3a chronic kidney disease [...] Visit [facility] [address] [place] [address] Jose Luis Lei MD [address] [place] [address] [place] [address] documented as of this encounter Visit Diagnoses Diagnosis Stage 3a chronic kidney disease (HCC) documented in this encounter Care Teams Reel Film Inspector Relationship Specialty Start Date End Date Mati Giordano MD [address] [place] [address], [address] [place], [place] PCP - General Internal Medicine 03/30/23 documented as of this encounter
--- OUTSIDE RECORDS SUMMARY | 2024-11-28 09:07 | XMS_ITS | Encounter Summary ---
Author Organization [facility], Address [address] [place] [address] Phone Care Team Providers Care Solar Energy Systems Designer Name Role Phone Mati Giordano MD Primary Care Provider [phone] Encounter Details Date Type Department Care Team (Late st Contact Info) Description 11/10/2023 Documentation Only [facility], [address] [place] [address] Mariah Sal [address] [place] [address] Social History Tobacco Use Types [...] Visit [facility] [address] [place] [address] Jose Luis Lei MD [address] [facility] [address] [facility] [place] [address] documented as of this encounter Visit Diagnoses Not on filedocumented in this encounter Care Teams Solar Energy Systems Designer Relationship Specialty Start Date End Date Mati Giordano MD [address] [place] [address], [address] [place], [place] PCP - General Internal Medicine 03/30/23 documented as of this encounter
--- OUTSIDE RECORDS SUMMARY | 2024-11-28 09:07 | XMS_ITS | Encounter Summary ---
Author Organization [employer] Address [address] [facility] [address] [place] [address] Care Team Providers Care Repairer Auto Clocks Name Role Phone Rosalba Louis MD Primary Care Provider + Reason for Visit * Reason Onset Date Comments Chart prep 11/27/2024 Encounter Details Date Type Department Care Team ([facility] Contact Info) Description 11/27/2024 Telephone [facility] MEDICINE [address] [place], [place] [phone] Rosalba Louis MD [address] [place], [place] [phone] Chart prep Social History Tobacco Use Types Packs/Day Years [...] encounter Miscellaneous Notes * Telephone Encounter - Michelle Alvarez [place] - 11/27/2024 12:53 PM EDT Chart Prep Labs: done Images: done Vaccines due: yes Referrals: pending appt Screenings: Up to date Overdue care gaps: Glucose, PHQ-9 documented in this encounter Plan of Treatment Upcoming Encounters Date Type Department Care Team (Late st Contact Info) Description 11/29/2024 9:00 AM EDT Office Visit [facility] MED[facility] [address] [place] [address] Rosalba Louis MD [address] [place] [address] 01/29/2025 9:00 AM EDT Office Visit [facility] [address] [place] [address] Faith Cardenas [address] [place], [place] [phone] documented as of this encounter Goals Goal Patient Goal Type Associated Problems Recent Progress Patient-Stated? Author Blood Pressure < 140/90 Blood Pressure 135/69(2024 8:55 AM EST) No Gypsy Hood Patient will adhere to medication regimen General No Gypsy Hood Hemoglobin A1c < 8 Result Component 6.1(12/09/202 4 1:20 PM EST) No Gypsy Hood documented as of this encounter Visit Diagnoses Not on filedocumented in this encounter Care Teams Repairer Auto Clocks Relationship Specialty Start Date End Date Rosalba Louis MD [address] [place] [address] PCP - General Internal Medicine 08/28/24 documented as of this encounter
--- OUTSIDE RECORDS SUMMARY | 2024-11-28 09:07 | XMS_ITS | Encounter Summary ---
Author Organization [facility] Address [address] [place] [address] Phone Care Team Providers Care Computer Software Engineer Name Role Phone Mati Giordano MD Primary Care Provider [phone] Encounter Details Date Type Department Care Team (Late st Contact Info) Description 07/07/2022 Documentation Only [facility] [address] [place] [address] Morenita Leigh PA Social History [...] Visit [facility] [address] [place] [address] Jose Luis Lei MD [address] [place] [address] [place] [address] documented as of this encounter Visit Diagnoses Not on filedocumented in this encounter Care Teams Computer Software Engineer Relationship Specialty Start Date End Date Mati Giordano MD [address] [place] [address] [address] [place], [place] PCP - General Internal Medicine 03/30/23 documented as of this encounter
--- OUTSIDE RECORDS SUMMARY | 2024-11-28 09:07 | XMS_ITS | Encounter Summary ---
Author Organization [facility] Address [address] [place] [address] Phone Care Team Providers Care Clinic Mgr Name Role Phone Mati Giordano MD Primary Care Provider [phone] Encounter Details Date Type Department Care Team (Late st Contact Info) Description 08/05/2022 Documentation Only [facility] [address] [place] [address] Morenita Leigh PA Social History [...] [facility] [address] [place] [address] Jose Luis Lei MD [address] [place] [address] [place] [address] documented as of this encounter Visit Diagnoses Not on filedocumented in this encounter Care Teams Clinic Mgr Relationship Specialty Start Date End Date Mati Giordano MD [address] [place] [address] [address] [place], [place] PCP - General Internal Medicine 03/30/23 documented as of this encounter
--- OUTSIDE RECORDS SUMMARY | 2024-11-28 09:07 | XMS_ITS | Encounter Summary ---
Author Organization [facility], Address [address] [place] [address] Phone Care Team Providers Care Lead Qa Analyst Name Role Phone Mati Giordano MD Primary Care Provider [phone] Encounter Details Date Type Department Care Team (Late st Contact Info) Description 12/16/2021 Documentation Only [facility] [place], [address] [place] [address] Roger Harrison MD [address] [place] [address] [place] [address] Social History Tobacco Use Types [...] Visit [facility] [address] [place] [address] Jose Luis Lei MD [address] [place] [address] [place] [address] documented as of this encounter Visit Diagnoses Not on filedocumented in this encounter Care Teams Lead Qa Analyst Relationship Specialty Start Date End Date Mati Giordano MD [address] [place] [address], [address] [place], [place] PCP - General Internal Medicine 03/30/23 documented as of this encounter
--- OUTSIDE RECORDS SUMMARY | 2024-11-28 09:07 | XMS_ITS | Encounter Summary ---
Author Organization [facility] Address [address] [place] [address] Phone Care Team Providers Care Occupational Therapist Home Based Name Role Phone Mati Giordano MD Primary Care Provider [phone] Encounter Details Date Type Department Care Team (Late st Contact Info) Description 12/05/2021 Orders Only [facility] [address] [place] [address] Roger Harrison MD [address] [place] [address] [place] [address] Stage 3a chronic kidney disease [...] Visit [facility] [address] [place] [address] Jose Luis Lei MD [address] [place] [address] [place] [address] documented as of this encounter Visit Diagnoses Diagnosis Stage 3a chronic kidney disease (HCC) documented in this encounter Care Teams Occupational Therapist Home Based Relationship Specialty Start Date End Date Mati Giordano MD [address] [place] [address], [address] [place], [place] PCP - General Internal Medicine 03/30/23 documented as of this encounter
--- OUTSIDE RECORDS SUMMARY | 2024-11-28 09:07 | XMS_ITS | Encounter Summary ---
Author Organization [facility] Address [address] [place] [address] Phone Care Team Providers Care Waiter And Cashier Name Role Phone Mati Giordano MD Primary Care Provider Encounter Details Date Type Department Care Team (Late st Contact Info) Description 10/24/2021 Orders Only [facility] [address] [place] [address] Roger Harrison MD [address] [place] [address] [place] [address] Stage 3a chronic kidney disease [...] [facility] [address] [place] [address] Jose Luis Lei MD [address] [place] [address] [place] [address] documented as of this encounter Visit Diagnoses Diagnosis Stage 3a chronic kidney disease (HCC) documented in this encounter Care Teams Waiter And Cashier Relationship Specialty Start Date End Date Mati Giordano MD [address] [place] [address], [address] [place], [place] PCP - General Internal Medicine 03/30/23 documented as of this encounter
--- OUTSIDE RECORDS SUMMARY | 2024-11-28 09:07 | XMS_ITS | Encounter Summary ---
Author Organization [facility] Address [address] [place] [address] Phone Care Team Providers Care Dispatcher Refinery Name Role Phone Mati Giordano MD Primary Care Provider [phone] Encounter Details Date Type Department Care Team (Late st Contact Info) Description 11/21/2021 Orders Only [facility] [address] [place] [address] Roger Harrison MD [address] [place] [address] [place] [address] Stage 3a chronic kidney disease [...] Visit [facility] [address] [place] [place] [address] Jose Luis Lei MD [address] [place] [address] [place] [address] documented as of this encounter Visit Diagnoses Diagnosis Stage 3a chronic kidney disease (HCC) documented in this encounter Care Teams Dispatcher Refinery Relationship Specialty Start Date End Date Mati Giordano MD [address] [place] [address], [address] [place], [place] PCP - General Internal Medicine 03/30/23 documented as of this encounter
--- OUTSIDE RECORDS SUMMARY | 2024-11-28 09:07 | XMS_ITS | Encounter Summary ---
Author Organization [facility] Address [address] [place] [address] Phone Care Team Providers Care Script Worker Name Role Phone Mati Giordano MD Primary Care Provider [phone] Reason for Visit * Reason Comments Med Change Request Encounter Details Date Type Department Care Team (Late st Contact Info) Description 10/24/2021 Refill [facility] [address] [facility] [address] Roger Harrison MD [address] [place] [address] [place] [address] Social History Tobacco Use Types [...] Office Visit [facility] [address] [facility] [address] Jose Luis Lei MD [address] [facility] [place] [address] documented as of this encounter Visit Diagnoses Not on filedocumented in this encounter Care Teams Script Worker Relationship Specialty Start Date End Date Mati Giordano MD [address] [place] [address], [address] [place], [place] PCP - General Internal Medicine 03/30/23 documented as of this encounter
--- OUTSIDE RECORDS SUMMARY | 2024-11-28 09:07 | XMS_ITS | Encounter Summary ---
Author Organization [employer] Address [address] 7[address] [place] [address] Care Team Providers Care Inspector Multifocal Lens Name Role Phone Rosalba Louis MD Primary Care Provider + Encounter Details Date Type Department Care Team ([facility] st Contact Info) Description 11/20/2024 Telephone [facility] [address] [place], [place] [phone] Campos Boswell MD [address] [place] [address] Social History Tobacco Use Types Packs/Day Years [...] t he electric, gas, oil or water [employer] threatened to shut off services in your [...] encounter Miscellaneous Notes * Telephone Encounter - Campos Boswell MD - 11/20/2024 4:45 PM EST I spoke with Robby, Sosa's [id number] and MANAGER SAP, and notified her of today's chest x-ray reading. documented in this encounter Plan of Treatment Upcoming Encounters Date Type Department Care Team (Late st Contact Info) Description 11/29/2024 9:00 AM EDT Office Visit [facility] [address] [place] [address] Rosalba Lousi MD [address] [place] [address] 01/29/2025 9:00 AM EDT Office Visit [facility] [address] [place] [address] Faith Cardenas [address] [place] [address] documented as of this encounter Goals Goal [...] on filedocumented in this encounter Care Teams Inspector Multifocal Lens Relationship Specialty Start Date End Date Rosalba Louis MD [address] [place] [address] PCP - General Internal Medicine 08/28/24 documented as of this encounter
--- OUTSIDE RECORDS SUMMARY | 2024-11-28 09:07 | XMS_ITS | Encounter Summary ---
Author Organization [facility] Address [address] [place] [address] Phone Care Team Providers Care Lead Printer Name Role Phone Mati Giordano MD Primary Care Provider [phone] Encounter Details Date Type Department Care Team (Late st Contact Info) Description 11/28/2021 Orders Only [facility] [address] [place] [address] Roger Harrison MD [address] [place] [address] [place] [address] Stage 3a chronic kidney disease [...] Visit [facility] [address] [place] [address] Jose Luis Lei MD [address] [place] [address] [place] [address] documented as of this encounter Visit Diagnoses Diagnosis Stage 3a chronic kidney disease (HCC) documented in this encounter Care Teams Lead Printer Relationship Specialty Start Date End Date Mati Giordano MD [address] [place] [address], [address] [place], [place] PCP - General Internal Medicine 03/30/23 documented as of this encounter
--- OUTSIDE RECORDS SUMMARY | 2024-11-28 09:07 | XMS_ITS | Encounter Summary ---
Author Organization [facility] Address [address] [place] [address] Phone Care Team Providers Care Meteorology Instructor Name Role Phone Mati Giordano MD Primary Care Provider [phone] Encounter Details Date Type Department Care Team (Late st Contact Info) Description 08/04/2022 Documentation Only [facility] [address] [place] [address] Morenita Leigh PA Social History [...] [facility] [address] [place] [address] Jose Luis Lei MD [address] [place] [address] [place] [address] documented as of this encounter Visit Diagnoses Not on filedocumented in this encounter Care Teams Meteorology Instructor Relationship Specialty Start Date End Date Mati Giordano MD [address] [place] [address] [address] [place], [place] PCP - General Internal Medicine 03/30/23 documented as of this encounter
--- OUTSIDE RECORDS SUMMARY | 2024-11-28 09:07 | XMS_ITS | Encounter Summary ---
Author Organization [facility] Address [address] [place] [address] Phone Care Team Providers Care Embedded Software Architect Name Role Phone Mati Giordano MD Primary Care Provider [phone] Encounter Details Date Type Department Care Team (Late st Contact Info) Description 11/14/2021 Orders Only [facility] [address] [place] [address] Roger Harrison MD [address] [place] [address] [place] [address] Stage 3a chronic kidney disease [...] [facility] [address] [place] [address] Jose Luis Lei MD [address] [place] [address] [place] [address] documented as of this encounter Visit Diagnoses Diagnosis Stage 3a chronic kidney disease (HCC) documented in this encounter Care Teams Embedded Software Architect Relationship Specialty Start Date End Date Mati Giordano MD [address] [place] [address], [address] [place], [place] PCP - General Internal Medicine 03/30/23 documented as of this encounter
--- OUTSIDE RECORDS SUMMARY | 2024-11-28 09:07 | XMS_ITS | Encounter Summary ---
Author Organization [facility] [place], Address [address] [place] [address] Phone Care Team Providers Care Ordnance Artificer Helper Name Role Phone Mati Giordano MD Primary Care Provider [phone] Encounter Details Date Type Department Care Team (Late st Contact Info) Description 11/02/2023 Documentation Only [facility] [address] [place] [address] Mariah Sal [address] [place] [address] Social History Tobacco Use Types [...] Visit [facility] [address] [address] Jose Luis Lei MD [address] [facility] [place] [address] documented as of this encounter Visit Diagnoses Not on filedocumented in this encounter Care Teams Ordnance Artificer Helper Relationship Specialty Start Date End Date Mati Giordano MD [address] [place] [address], [address] [place], [place] PCP - General Internal Medicine 03/30/23 documented as of this encounter
--- OUTSIDE RECORDS SUMMARY | 2024-11-28 09:07 | XMS_ITS | Continuity of Care Document ---
Author Organization [employer] Address [address] [place] [address] Care Team Providers Care Scraper Hand Name Role Phone HIM CCA OTHER Assessment Encounter Date Assessment Date Assessment LastModified by Organization Details LastModified Time 11/06/2024 11/06/2024 I provided real -time medical direction via phone for this encounter and was available for additional phone-based assistance as needed. I have reviewed and agree with the Assessment and Plan as documented by the Call Circuit Worker. Patient given the opportunity to ask questions. [...] was 1.7 in September of 2023. Per bioprocess engineer on the scene, vital signs are stable and patient is afebrile. No wheezing heard on exam. COVID and Flu are both negative. No increased work of breathing and no distress. Elected to give 1 L of lactated Ringer's. COVID and flu were both negative. BNP noted with creatinine now of 2.7. Impression: Common cold and viral URI Plan: Continue with hgoe-uvm-hothfvb medications to control symptoms. Red flags discussed [...] or worsening serious symptoms, particularly fever [place] [address] Not available 11/06/2024 16:11:39 Plan of Treatment Reminders Order Date Submit Date Provider Last Modified By Organization Details Last Modified Time Details Appointments None recorded. Lab rapid SARS CoV 2 Ag, QL [place], respiratory specimen [address] [place] [address], [id number], 15:56:53 rapid flu (A+B) [address], [phone], 15:56:53 BMP, serum or plasma [address] [place] [address], [id number], 20:43:18 Referral None recorded. Procedures None recorded. Surgeries None recorded. Imaging None recorded. Medication Orders lactated Ringers intravenous solution [address] [place] [address] Pharmacy, [address] [place] [address], [id number], 15:56:53 Patient TargetsNo targets recorded. Patient InstructionsNo instructions recorded. Reason for Referral None Reported. Results Created Date Observation Date Name Description Value Unit Range Abnormal Flag Note LastModifiedBy Organization Detail LastModifiedTime 11/06/1911/06/2024 rapid flu (A+B) Flu negati ve Not Available [address], [address], 11/06/2024 15:45:15 11/06/19 25 11/06/2024 rapid SARS CoV 2 Ag, QL IA, respi rator y speci men rapid SARS CoV 2 Ag, QL IA, respiratory specimen negati ve Not Available [place] [address] [facility], [place], [address], 11/06/2024 15:45:13 Result Notes None recorded. Medical [...] SNOMED-CT Code Diagnosis ICD10 Code Diagnosis Note [id number] Tasia Rhodes MD Main - [address] [address] 11/06/2024 14:11:56 11/07/2024 08:19:42 Common cold 26676125 J00 Chronic ki dney disease stage 3 334091406 N18.30 Dehydration 77551019 E86 .0 Health Concerns Section Related Observation LastModified by Organization Detai ls LastModified Time None Recorded Concern Status LastModified by Organization Details LastModified Time None Recorded Payers Encounter Date Sequence Insurance Name Policy Number Policy Harrington Covered Member ID Harrington Member ID Guarantor Name 11/06/2024 1 [facility] - DOS ON OR AFTER 2022 - DUAL ELIGIBLE - LONG TERM OPTIONS AND ONE CARE (MEDICARE REPLACEMENT/ADV ANTAGE - HMO) Sosa Castaneda [id number] Sosa Castaneda Notes Date Note Type Note Provider Name and Address Organization Details Recorded Time 11/06/2024 text/html Call Circuit Worker Organization Information for [employer] Legal Name: [facility] Address: [address] [place] [address], Customer Service Representative Teller: Anant Giles MD CLIA No.: [id number] Call Circuit Worker POC Test Results from [employer] [facility] (13:42:32) pH: 7.40 pH units pCO2: 40.3 [...] .................... .................... .................... .................... .................... .................... . Call Circuit Worker Note From [employer]: This 84-year-old female [...] primary care physician as well as her drying machine receiver and present to the emergency department for any new or worsening severe symptoms such as chest pain, severe shortness of breath, high fever, altered mental status. The patient and her daughter were given the opportunity to ask questions and are agreeable to this plan. .................... .................... .................... .................... .................... .................... .................... . [facility] Consulted: Tasia Rhodes .................... .................... .................... .................... .................... .................... .................... . Disposition: Fulfilled Tasia Rhodes MD [address] [facility],[address] [facility], [place], [address], [employer] [facility] 11/06/2024 16:12:03 OBGyn Episode No OBEpisode recorded.
--- OUTSIDE RECORDS SUMMARY | 2024-11-28 09:07 | XMS_ITS | Encounter Summary ---
Author Organization [facility] Address [address] [place] [address] Phone Care Team Providers Care Student Support Services Director Name Role Phone Mati Giordano MD Primary Care Provider [phone] Encounter Details Date Type Department Care Team (Late st Contact Info) Description 08/03/2022 Documentation Only [facility] [address] [place] [address] Morenita Leigh PA Social History [...] Visit [facility] [address] [place] [address] Jose Luis Lei MD [address] [place] [address] [place] [address] documented as of this encounter Visit Diagnoses Not on filedocumented in this encounter Care Teams Student Support Services Director Relationship Specialty Start Date End Date Mati Giordano MD [address] [place] [address] [address] [place], [place] PCP - General Internal Medicine 03/30/23 documented as of this encounter
--- OUTSIDE RECORDS SUMMARY | 2024-11-28 09:07 | XMS_ITS | Encounter Summary ---
Author Organization [employer] Address [address] [facility] 7t [place] [address] Care Team Providers Care Hat Blocking Operator Name Role Phone Rosalba Louis MD Primary Care Provider + Reason for Visit * Reason Comments Pre-visit Planning SDOH negative, Tobac co screening negative. Encounter Details Date Type Department Care Team ([facility] Contact Info) Description 11/22/2024 Patient Outreach [facility] [address] [place], [place] [id number] Rosalba Louis MD [address] [place] [address] Pre-visit Planning (SDOH negative, Tobacco screening negative. ) Social History Tobacco Use Types Packs/Day Years [...] AM EDT documented as of this encounter Progress Notes * Vera Cole - 11/22/2024 12:52 PM EST CC Vera Gunter placed successful outbound call to patient for pre-visit planning. Patient name and confirmed. Patient confirms appt date and time, and has transportation arrangements. Biggest concern for appointment at this time is no concerns. Appropriate screenings completed in anticipation ofappointment. documented in this encounter Plan of Treatment Upcoming Encounters Date Type Department Care Team (Late st Contact Info) Description 11/29/2024 9:00 AM EDT Office Visit [facility] [address] [place] [address] Rosalba Louis MD [address] [place] [address] 01/29/2025 9:00 AM EDT Office Visit [facility] [address] [place], [place] [id number] Faith Cardenas [address] [place], [place] [phone] documented as of this encounter Goals Goal [...] on filedocumented in this encounter Care Teams Hat Blocking Operator Relationship Specialty Start Date End Date Rosalba Louis MD [address] [place] [address] PCP - General Internal Medicine 08/28/24 documented as of this encounter
--- OUTSIDE RECORDS SUMMARY | 2024-11-28 09:07 | XMS_ITS | Encounter Summary ---
Author Organization [facility] [place], Address [address] [place] [address] Phone Care Team Providers Care Veterinary Physiologist Name Role Phone Mati Giordano MD Primary Care Provider [phone] Encounter Details Date Type Department Care Team (Late st Contact Info) Description 06/17/2022 Documentation Only [facility], [address] [place] [address] Roger Harrison MD [address] [place] [address] [place] [address] Social History Tobacco Use Types [...] Visit [facility] [address] [place] [address] Jose Luis Lei MD [address] [place] [address] [place] [address] documented as of this encounter Visit Diagnoses Not on filedocumented in this encounter Care Teams Veterinary Physiologist Relationship Specialty Start Date End Date Mati Giordano MD [address] [place] [address], [address] [place], [place] PCP - General Internal Medicine 03/30/23 documented as of this encounter
--- OUTSIDE RECORDS SUMMARY | 2024-11-28 09:07 | XMS_ITS | Encounter Summary ---
Author Organization [facility] Address [address] [place] [address] Phone Care Team Providers Care Frame Bander Name Role Phone Mati Giordano MD Primary Care Provider [phone] Encounter Details Date Type Department Care Team (Late st Contact Info) Description 11/02/2022 Documentation Only [facility] [address] [place] [address] Morenita Leigh PA Social History [...] [facility] [address] [place] [address] Jose Luis Lei MD [address] [place] [address] [place] [address] documented as of this encounter Visit Diagnoses Not on filedocumented in this encounter Care Teams Frame Bander Relationship Specialty Start Date End Date Mati Giordano MD [address] [place] [address] [address] [place], [place] PCP - General Internal Medicine 03/30/23 documented as of this encounter
--- OUTSIDE RECORDS SUMMARY | 2024-11-28 09:07 | XMS_ITS | Encounter Summary ---
Author Organization [facility] Address [address] [place] [address] Phone Care Team Providers Care Networking Technology Instructor Name Role Phone Mati Giordano MD Primary Care Provider [phone] Encounter Details Date Type Department Care Team (Late st Contact Info) Description 07/22/2022 Documentation Only [facility] [address] [place] [address] Morenita Leigh PA Social History [...] Visit [facility] [address] [place] [address] Jose Luis Lei MD [address] [place] [address] [place] [address] documented as of this encounter Visit Diagnoses Not on filedocumented in this encounter Care Teams Networking Technology Instructor Relationship Specialty Start Date End Date Mati Giordano MD [address] [place] [address] [address] [place], [place] PCP - General Internal Medicine 03/30/23 documented as of this encounter
--- OUTSIDE RECORDS SUMMARY | 2024-11-28 09:07 | XMS_ITS | Encounter Summary ---
Author Organization [facility] Address [address] [place] [address] Phone Care Team Providers Care Scalp Treatment Specialist Name Role Phone Mati Giordano MD Primary Care Provider [phone] Encounter Details Date Type Department Care Team (Late st Contact Info) Description 04/15/2023 Documentation Only [facility] [address] [place] [address] Morenita Leigh PA Social History [...] [facility] [address] [place] [address] Jose Luis Lei MD [address] [place] [address] [place] [address] documented as of this encounter Visit Diagnoses Not on filedocumented in this encounter Care Teams Scalp Treatment Specialist Relationship Specialty Start Date End Date Mati Giordano MD [address] [place] [address] [address] [place], [place] PCP - General Internal Medicine 03/30/23 documented as of this encounter
--- OUTSIDE RECORDS SUMMARY | 2024-11-28 09:07 | XMS_ITS | Encounter Summary ---
Author Organization [facility] [place], Address [address] [place] [address] Phone Care Team Providers Care Sports Media Name Role Phone Mati Giordano MD Primary Care Provider [phone] Encounter Details Date Type Department Care Team (Late st Contact Info) Description 07/25/2024 Documentation Only [facility] [employer] [address] [place] [address] Mariah Sal [address] [place] [address] Social History Tobacco Use Types Packs/Day [...] Visit [facility] [employer] [address] [place] [address] Jose Luis Lei MD [address] [facility] [place] [address] documented as of this encounter Visit Diagnoses Not on filedocumented in this encounter Care Teams Sports Media Relationship Specialty Start Date End Date Mati Giordano MD [address] [place] [address], [address] [place], [place] PCP - General Internal Medicine 03/30/23 documented as of this encounter
--- OUTSIDE RECORDS SUMMARY | 2024-11-28 09:07 | XMS_ITS | Encounter Summary ---
Author Organization [facility] Address [address] [place] [address] Phone Care Team Providers Care Fire Coordinator Name Role Phone Mati Giordano MD Primary Care Provider [phone] Encounter Details Date Type Department Care Team (Late st Contact Info) Description 11/07/2021 Orders Only [facility] [address] [place] [address] Roger Harrison MD [address] [place] [address] [place] [address] Stage 3a chronic kidney disease [...] [facility] [address] [place] [address] Jose Luis Lei MD [address] [place] [address] [place] [address] documented as of this encounter Visit Diagnoses Diagnosis Stage 3a chronic kidney disease (HCC) documented in this encounter Care Teams Fire Coordinator Relationship Specialty Start Date End Date Mati Giordano MD [address] [place] [address], [address] [place] PCP - General Internal Medicine 03/30/23 documented as of this encounter
--- OUTSIDE RECORDS SUMMARY | 2024-11-28 09:07 | XMS_ITS | Encounter Summary ---
Author Organization [facility] [place], Address [address] [place] [address] Phone Care Team Providers Care Dye Range Operator Cloth Name Role Phone Mati Giordano MD Primary Care Provider [phone] Encounter Details Date Type Department Care Team (Late st Contact Info) Description 12/17/2021 Documentation Only [facility], [address] [place] [address] Roger Harrison MD [address] [place] [address] [place] [address] Social History Tobacco Use Types [...] [facility] [address] [place] [address] Jose Luis Lei MD [address] [place] [address] [place] [address] documented as of this encounter Visit Diagnoses Not on filedocumented in this encounter Care Teams Dye Range Operator Cloth Relationship Specialty Start Date End Date Mati Giordano MD [address] [place] [address], [address] [place], [place] PCP - General Internal Medicine 03/30/23 documented as of this encounter
--- OUTSIDE RECORDS SUMMARY | 2024-11-28 09:07 | XMS_ITS | Clinical Summary ---
Author Organization [facility] Address [address] [place] [address] Phone Care Team Providers Care Aws Consultant Name Role Phone Rosalba Louis MD Primary Care Provider Social History Tobacco Use Types Packs/Day Years Used Date Smoking Tobacco: Never Assessed Comments Unknown Sex and Gender Information Value Date Recorded Sex Assigned at Not on file Legal Sex Female 9:07 AM EST Gender Identity Not on file Sexual Orientation Not on file Plan of Treatment Upcoming Encounters Date Type Department Care Team ([facility] Contact Info) Description 12/19/2024 8:30 AM EDT Consult Orthopedic Surgery - [place] [address] [phone] Mekhi Greene, DPM [address] [address] Health Maintenance Due Date Last Done Comments [...] ID:[id number] Group ID:[id number] Type:Not on file Address: [place] [address] [place] [address] Care Teams Aws Consultant Relationship Specialty Start Date End Date Rosalba Louis MD [address] [address] PCP - General Internal Medicine 09/06/24
--- OUTSIDE RECORDS SUMMARY | 2024-11-28 09:07 | XMS_ITS | Encounter Summary ---
Author Organization [facility] Address [address] [place] [address] Phone Care Team Providers Care Range Mechanic Name Role Phone Mati Giordano MD Primary Care Provider [phone] Encounter Details Date Type Department Care Team (Late st Contact Info) Description 07/22/2022 Documentation Only [facility] [address] [place] [address] Morenita Leigh PA Social History [...] [facility] [address] [place] [address] Jose Luis Lei MD [address] [place] [address] [place] [address] documented as of this encounter Visit Diagnoses Not on filedocumented in this encounter Care Teams Range Mechanic Relationship Specialty Start Date End Date Mati Giordano MD [address] [place] [address] [address] [place] PCP - General Internal Medicine 03/30/23 documented as of this encounter
--- OUTSIDE RECORDS SUMMARY | 2024-11-28 09:08 | XMS_ITS | Encounter Summary ---
Author Organization [employer] Address [address] [facility] [address] [place] [address] Care Team Providers Care Rn Endocrinology Name Role Phone Martha Suazo MD Primary Care Provider [phone] Rosalba Louis MD Primary Care Provider + Reason for Visit * Reason Onset Date Comments Durable Medical Equipment 02/24/2024 Encounter Details Date Type Department Care Team ([facility] st Contact Info) Description 02/24/2024 Telephone [facility] [address] [place], [place] [phone] Martha Suazo MD 230 [place], [place] [phone] Durable Medical Equipment Social History Tobacco Use [...] 9:26 AM EDT Tc from [facility] requesting an rx for incontinence supplies. States current one is . documented in this encounter Plan of Treatment Upcoming Encounters Date Type Department Care Team (Late st Contact Info) Description 11/29/2024 9:00 AM EDT Office Visit [facility] [address] [place] [address] Rosalba Louis MD 230 [place] [address] 01/29/2025 9:00 AM EDT Office Visit [facility] [address] [place] [address] Faith Cardenas [address] [place] [address] documented as of this encounter Goals Goal [...] on filedocumented in this encounter Care Teams Rn Endocrinology Relationship Specialty Start Date End Date Martha Suazo MD 230 [place] [address] PCP - General Family Medicine 06/02/23 08/27/24 Rosalba Louis MD 230 [place] [address] PCP - General Internal Medicine 08/28/24 documented as of this encounter
--- OUTSIDE RECORDS SUMMARY | 2024-11-28 09:08 | XMS_ITS | Encounter Summary ---
Author Organization [employer] Address [address] 7[address] [place] [address] Care Team Providers Care Superintendent Storage Area Name Role Phone Rosalba Louis MD Primary Care Provider + Encounter Details Date Type Department Care Team ([facility] st Contact Info) Description 11/01/2024 Orders Only [facility] External Provider, [facility] Social History Tobacco Use Types Packs/Day [...] Bone density test on 11/01/2024 ordered by branch coordinator showed osteopenia which was this previous diagnosis that she was carrying. I will follow-up with her at her next appointment on November and decide on additional workup or see if she is still using Prolia documented in this encounter Plan of Treatment Upcoming Encounters Date Type Department Care Team (Late st Contact Info) Description 11/29/2024 9:00 AM EDT Office Visit [facility] [address] [place] [phone] Rosalba Louis MD [address] [place] [address] 01/29/2025 9:00 AM EDT Office Visit [facility] [address] [place], [place] [phone] Faith Cardenas [address] [place], [place] [phone] documented as of this encounter Goals Goal [...] EST Narrative 11/01/2024 9:21 AM EST ? [facility] [place] ? [address] ?[place] [address] ? Mammography Report ? Signed ? Patient: Tapia Leonel,Sosa ?MR#: [id number] ?? [id number] ? : 1940 ?Acct:[id number] ? Age/Sex: 84 / F ?ADM Date: 11/01/24 ? Loc: HO.MAMMO ? Attending Dr: Silvestre Cummings MD ? Ordering Physician: Silvestre Cummings MD ?Results: ? Date of Service: 11/01/24 ?Follow Up: ? Procedure(s): XR DEXA axial skeleton ?? Accession Number(s): [id number] ? cc: Rosalba Louis MD; Silvestre Cummings MD ? EXAMINATION: ??DXA BONE DENSITY AXIAL ? HISTORY: ??Estrogen deficiency ? TECHNIQUE: [employer]ch Dual energy absorptiometry (DEXA) ?? of the [...] is a trademark of the [employer]'s ?? [place] for Metabolic Bone Disease, a World Health Organization (WHO) ?? Collaborating Center. ? Electronically signed by: ??Bert Leon MD ??11/01/2024 09:18 AM EST ?? RP ? Dictated By: ?Bert Leon MD ? Signed By: ?<Electronically signed by Bert Leon MD in OV> ?11/01/24 0918 ? DD/ 0845 ? TD/TT: 11/01/24 0850 ? Employee Benefits Coordinator: ? Procedure Note Donotuseinterpreter, Image - 11/01/2024 Daily [facility] [address] [place], [place] [address] Mammography Report Signed Patient: Mary Ellen Correa#: [id number] : 8Acct:[id number] Age/Sex: 84 / FADM Date: 11/01/24 Loc: HO.MAMMO Attending Dr: Silvestre Cummings MD Ordering Physician: Silvestre Cummingsesults: Date of Service: 11/01/24Follow Up: Procedure(s): XR DEXA axial skeleton Accession Number(s): [id number] cc: Rosalba Louis MD; Silvestre Cummings MD EXAMINATION: DXA BONE DENSITY AXIAL HISTORY: Estrogen deficiency TECHNIQUE: HealthSynch Dual energy absorptiometry (DEXA) of the lumbar [...] of the [employer]'s [place] for Metabolic Bone Disease, a World Health Organization (WHO) Collaborating Center. Electronically signed by: Bert Leon MD 11/01/2024 09:18 AM [facility] Dictated By: Bert Leon MD Signed By: <Electronically signed by Bert Leon MD in OV> 11/01/2418 DD/ 0845 TD/TT: 11/01/24 0850 Employee Benefits Coordinator: [facility] External Provider IMG DXA PROCEDURES Final Result documented in this encounter Visit Diagnoses Not on filedocumented in this encounter Care Teams Superintendent Storage Area Relationship Specialty Start Date End Date Rosalba Louis MD [address] [place] [address] PCP - General Internal Medicine 08/28/24 documented as of this encounter
--- OUTSIDE RECORDS SUMMARY | 2024-11-28 09:08 | XMS_ITS | Encounter Summary ---
Author Organization [facility] [place], Address [address] [place] [address] Phone Care Team Providers Care Clinical Laboratory Scientist Name Role Phone Mati Giordano MD Primary Care Provider [phone] Encounter Details Date Type Department Care Team (Late st Contact Info) Description 09/30/2021 Documentation Only [facility] [place], [address] [place] [address] Roger Harrison MD [address] [place] [address] [place] [address] Social History Tobacco Use Types [...] Visit [facility] [address] [place] [address] Jose Luis Lei MD [address] [place] [address] [place] [address] documented as of this encounter Visit Diagnoses Not on filedocumented in this encounter Care Teams Clinical Laboratory Scientist Relationship Specialty Start Date End Date Mati Giordano MD [address] [place] [address], [address] [place], [place] PCP - General Internal Medicine 03/30/23 documented as of this encounter
--- OUTSIDE RECORDS SUMMARY | 2024-11-28 09:08 | XMS_ITS | Encounter Summary ---
Author Organization [facility] Address [address] [place] [address] Phone Care Team Providers Care Director Of Procurement Name Role Phone Mati Giordano MD Primary Care Provider [phone] Encounter Details Date Type Department Care Team (Late st Contact Info) Description 10/10/2021 Orders Only [facility] [address] [place] [address] Roger Harrison MD [address] [place] [address] [place] [address] Stage 3a chronic kidney disease [...] Visit [facility] [address] [place] [address] Jose Luis Lei MD [address] [place] [address] [place] [address] documented as of this encounter Visit Diagnoses Diagnosis Stage 3a chronic kidney disease (HCC) documented in this encounter Care Teams Director Of Procurement Relationship Specialty Start Date End Date Mati Giordano MD [address] [place] [address], [address] [place], [place] PCP - General Internal Medicine 03/30/23 documented as of this encounter
--- OUTSIDE RECORDS SUMMARY | 2024-11-28 09:08 | XMS_ITS | Encounter Summary ---
Author Organization [facility] Address [address] [place] [address] Phone Care Team Providers Care Soldering Machine Setter Name Role Phone Mati Giordano MD Primary Care Provider [phone] Encounter Details Date Type Department Care Team (Late st Contact Info) Description 12/12/2021 Orders Only [facility] [address] [place] [address] Roger Harrison MD [address] [place] [address] [place] [address] Stage 3a chronic kidney disease [...] [facility] [address] [place] [address] Jose Luis Lei MD [address] [place] [address] [place] [address] documented as of this encounter Procedures Procedure Name Priority Date/Time Associated Diagnosis Comments MAGNESIUM Routine 01/01/2022 9:34 AM EDT Stage 3a chronic kidney disease (HCC) RENAL FUNCTION PANEL Routine 01/01/2022 9:34 AM EDT Stage 3a chronic kidney disease (HCC) documented in this encounter Results * Magnesium (01/01/2022 9:34 AM EDT) Magnesium 2.1 (1.6-2.3) mg/dL [facility] Comment: Testing performed or reported by [facility], a Service of [facility], [address] [place] [address] Jena Marte MD, Lubrication Technician [facility]# [id number] Blood (Blood, Venous) 01/01/2022 9:34 AM EDT 01/01/2022 9:36 AM EDT Roger Harrison MD LAB BLOOD ORDERABLES Final Resul t [facility] * (ABNORMAL) Renal Function Panel (01/01/2022 9:34 AM EDT) Glucose 83 (70-99) MG/DL [facility] BUN 34(H) (8-23) MG/DL [facility] Creatinine 1.6(H) (0.5-1.0) MG/DL [facility] Sodium 141 (133-145) MMOL/L [facility] Potassium 4.5 (3.6-5.2) MMOL/L [facility] Chloride 102 (98-107) MMOL/L [facility] Bicarbonate (CO2) 29 (22-29) MMOL/L [facility] Anion Gap 10 (4-17) [facility] Albumin 4.1 (3.4-4.8) GM/DL [facility] Calcium 9.5 (8.6-10.5) MG/DL [facility] Phosphorus, Serum 4.0 (2.5-4.5) MG/DL [facility] Est GFR Non 33 ML/MIN/1.7 3 M2 [facility] Comment: Creatinine based estimated glomerular filtration (eGFR) in adults is calculated using the National Kidney Foundation recommended 2020 CKD-EPI equation. Estimates GFR from serum creatinine, age and sex. Testing performed or reported by [facility], a Service of [facility], [address] [place] [address] Jena Marte MD, Lubrication Technician [facility]# [id number] Blood (Blood, Venous) 01/01/2022 9:34 AM EDT 01/01/2022 9:36 AM EDT us Roger Harrison MD LAB BLOOD ORDERABLES Final Resul t [facility] documented in this encounter Visit Diagnoses Diagnosis Stage 3a chronic kidney disease (HCC) documented in this encounter Care Teams Soldering Machine Setter Relationship Specialty Start Date End Date Mati Giordano MD [address] [place] [address], [address] [place], [place] PCP - General Internal Medicine 03/30/23 documented as of this encounter
--- OUTSIDE RECORDS SUMMARY | 2024-11-28 09:08 | XMS_ITS | Encounter Summary ---
Author Organization [facility] Address [address] [place] [address] Phone Care Team Providers Care Rock Climbing Team Member Name Role Phone Mati Giordano MD Primary Care Provider [phone] Encounter Details Date Type Department Care Team (Late st Contact Info) Description 10/03/2021 Orders Only [facility] [address] [place] [address] Roger Harrison MD [address] [place] [address] [place] [address] Stage 3a chronic kidney disease [...] Visit [facility] [address] [place] [address] Jose Luis Lei MD [address] [place] [address] [place] [address] documented as of this encounter Visit Diagnoses Diagnosis Stage 3a chronic kidney disease (HCC) documented in this encounter Care Teams Rock Climbing Team Member Relationship Specialty Start Date End Date Mati Giordano MD [address] [place] [address], [address] [place], [place] PCP - General Internal Medicine 03/30/23 documented as of this encounter
--- OUTSIDE RECORDS SUMMARY | 2024-11-28 09:08 | XMS_ITS | Encounter Summary ---
Author Organization [facility] [place], Address [address] [place] [address] Phone Care Team Providers Care Care Program Director Name Role Phone Mati Giordano MD Primary Care Provider [phone] Encounter Details Date Type Department Care Team (Late st Contact Info) Description 10/17/2021 Orders Only [facility] [address] [place] [address] Roger Harrison MD [address] [place] [address] [place] [address] Stage 3a chronic kidney disease [...] [facility] [address] [place] [address] Jose Luis Lei MD [address] [place] [address] [place] [address] documented as of this encounter Visit Diagnoses Diagnosis Stage 3a chronic kidney disease (HCC) documented in this encounter Care Teams Care Program Director Relationship Specialty Start Date End Date Mati Giordano MD [address] [place] [address], [address] [place], [place] PCP - General Internal Medicine 03/30/23 documented as of this encounter
--- OUTSIDE RECORDS SUMMARY | 2024-11-28 09:08 | XMS_ITS | Data Portability ---
Author Organization [employer] Locate Address [address] [place] [address] Care Team Providers Care Gaming Cashier Name Role Phone HIM CCA OTHER Assessment Encounter Date Assessment Date Assessment LastModified by Organization Details LastModified Time 07/27/2023 07/27/2023 I have reviewed and agree with the Assessment and Plan as documented by the Screen Printing Supervisor. I provided real-time medical direction via phone [...] Assessment and Plan as documented by the Screen Printing Supervisor. Patient given the opportunity to ask questions. via area supervisor Advised if develops CP/severe SOB/turning blue/uncontrolle d n/v/d or black/bloody emesis or stool/ AMS/ syncope/severe, uncontrolled leg pain/hi fever unresponsive to APAP to call 911-she verbalized understanding of instructions to the medic. [email or web address] Not available 09/21/2023 22:00:21 11/06/2024 11/06/2024 I provided real -time medical direction via phone for this encounter and was available for additional phone-based assistance as needed. I have reviewed and agree with the Assessment and Plan as documented by the Screen Printing Supervisor. Patient given the opportunity to ask questions. [...] was 1.7 in September of 2023. Per director general on the scene, vital signs are stable and patient is afebrile. No wheezing heard on exam. COVID and Flu are both negative. No increased work of breathing and no distress. Elected to give 1 L of lactated Ringer's. COVID and flu were both negative. BNP noted with creatinine now of 2.7. Impression: Common cold and viral URI Plan: Continue with [id number] medications to control symptoms. Red flags discussed [...] Ag, QL IA, respiratory specimen 2024 [facility]25 [facility], [address] [place] [address], [phone], 5 15:56:53 rapid flu (A+B) 2024 025 mirza [facility], [address] [place] [address], [phone], 5 15:56:53 BMP, serum or plasma 2024 025 MARIN [facility], [address] [place] [address], [phone], 5 20:43:18 BMP, serum or plasma 2023 024 [email or web address] 0 [facility], [address] [place] [address], [phone], 4 22:02:09 Referral None recorded. Procedures None recorded. Surgeries None recorded. Imaging None recorded. Medication Orders lactated Ringers intravenous solution 2024 025 [email or web address] [facility], [address] [place] [address], [phone], 5 15:56:53 furosemide 10 mg/mL injection solution 2023 024 [email or web address] 0 Not available 13:59:59 Patient TargetsNo targets recorded. Patient InstructionsNo instructions recorded. Reason for Referral None Reported. Results Created Date Observation Date Name Description Value Unit Range Abnormal Flag Note LastModifiedBy Organization Detail LastModifiedTime 09/21/19 24 09/21/2023 BMP, serum or plasm a BUN 35 Not Available [facility] [address], [address], 09/21/2023 14:00:05 09/21/19 24 09/21/2023 BMP, serum or plasm a Ca Ionize d calciu m 1.17 Not Available [facility] [address], [address], 09/21/2023 14:00:05 09/21/19 24 09/21/2023 BMP, serum or plasm a CI- 104 Not Available [facility] [address], [address], 09/21/2023 14:00:05 09/21/19 24 09/21/2023 BMP, serum or plasm a CRE 1.79 Not Available [facility] [address], [address], 09/21/2023 14:00:05 09/21/19 24 09/21/2023 BMP, serum or plasm a GLU 139 Not Available [facility] [address], [address], 09/21/2023 14:00:05 09/21/19 24 09/21/2023 BMP, serum or plasm a K+ 4.4 Not Available [facility] [address], [address], 09/21/2023 14:00:05 09/21/19 24 09/21/2023 BMP, serum or plasm a Na+ 139 Not Available [facility] [address], [address], 09/21/2023 14:00:05 09/21/19 24 09/21/2023 BMP, serum or plasm a tCO2 26 Not Available [facility] [address], [address], 09/21/2023 14:00:05 11/06/19 25 11/06/2024 rapid flu (A+B) Flu negati ve Not Available [facility] [address] [place] [address], [phone], 11/06/2024 15:45:15 11/06/19 25 11/06/2024 rapid SARS CoV 2 Ag, QL IA, respi rator y speci men rapid SARS CoV 2 Ag, QL IA, respiratory specimen negati ve Not Available [facility] [address] [place] [address], [phone], 11/06/2024 15:45:13 Result Notes None recorded. Medical [...] /min 148 mm[Hg] 90 mm[Hg] Not Available [employer] 3 13:13:03 Date Recorded Oxygen saturation Oxygen saturation in Arterial blood by Pulse oximetry Body height Heart rate Respiratory rate Body weight Body temperature Systolic blood pressure Diastolic blood pressure Provider Name and Address Organization Details Last Updated DateTime 4 96 % 96 % 152.4 cm 78 /min 16 /min 24370.6 4 g 97.7 [degF] 128 mm[Hg] 77 mm[Hg] Not Available [employer] 4 13:57:13 Social History None recorded. Functional Status None recorded. Mental Status None recorded. Family History Nothing Reported. Medical History No medical history recorded. Gynecological HistoryNo gynecological history recorded. Obstetrics History GPAL:G 0 P 0 0 0 0 Past Encounters Encounter ID Performer Location Encounter Start Date Encounter Closed Date Diagnosis/Indication Diagnosis SNOMED-CT Code Diagnosis ICD10 Code Diagnosis Note [id number] Shakeel Knott MD Main - [address] [address] 07/27/2023 13:12:54 09/22/2023 15:34:44 Hyponatremia 50510215 E87.1 [id number] Gilda Roth MD Main - instED [address] [place] [address] 09/21/2023 13:57:00 09/22/2023 14:24:43 Peripheral edema 447247578 R60.9 Advised to elevate, resume low-salt diet. [...] if not improving and red flags reviewed [id number] Tasia Rhodes MD Main - [address] [address] 11/06/2024 14:11:56 11/07/2024 08:19:42 Common cold 26432389 J00 Chronic ki dney disease stage 3 321996653 N18.30 Dehydration 35004650 E86 .0 Health Concerns Section Related Observation LastModified by Organization Detai ls LastModified Time None Recorded Concern Status LastModified by Organization Details LastModified Time None Recorded Advance Directives Directive None Recorded Payers Encounter Date Sequence Insurance Name Policy Number Policy Harrington Covered Member ID Harrington Member ID Guarantor Name 07/27/2023 1 [facility] - DOS ON OR AFTER 2022 - DUAL ELIGIBLE - SNF OPTIONS AND ONE CARE (MEDICARE REPLACEMENT/ADV ANTAGE - HMO) Sosa Castaneda [id number] Sosa Castaneda 09/21/2023 1 [facility] - DOS ON OR AFTER 2022 - DUAL ELIGIBLE - SNF OPTIONS AND ONE CARE (MEDICARE REPLACEMENT/ADV ANTAGE - HMO) Sosa Tapia Castaneda [id number] Sosa Galloarria 11/06/2024 1 [facility] - DOS ON OR AFTER 2022 - DUAL ELIGIBLE - SNF OPTIONS AND ONE CARE (MEDICARE REPLACEMENT/ADV ANTAGE - HMO) Sosa Tapia Leonel [id number] Sosa Tapia Leonel Notes Date Note Type [...] .................... .................... .................... .................... .................... .................... . Screen Printing Supervisor Note From Campos Díaz: Pt reports approx 10 episodes of diarrhea since yesterday. Pt denies hematochezia, ABD discomfort, CP, SOB, WIRGHT, f/n/v. Pt is alert, NAD. VSS. Afebrile. Neuro exam and gait morning. Lungs CTA. Benign ABD exam. No ANGELES. Rapid covid and flu negative. POC labs uploaded, Na 126. [facility] contacted and advised the pt be seen in the ED. Care transferred to [facility]. .................... .................... .................... .................... .................... .................... .................... . Disposition: Fulfilled Shakeel Knott MD [address] [facility],[address], [place], [address], SARAH - [employer] 09/21/2023 13:35:11 09/21/2023 text/html HPI: Member has bilateral edema , right greater than left. Member denies sob/ chest pain . Member just returned from [place]. 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 .................... .................... .................... .................... .................... .................... . CRC Nurse Triage Notes (Jacklyn Berumen): Comments: CRC RN DID NOT NEED FURTHER INFO .................... .................... .................... .................... .................... .................... .................... . Screen Printing Supervisor Note From Campos Díaz: Pt reports recent trip to [place] where she didn? t follow her usual [...] .................... . Disposition: Fulfilled Gilda Roth MD [address] [place] [address],[address], [place], [address], [employer] 09/21/2023 22:05:38 11/06/2024 text/html Screen Printing Supervisor Organization Information for Campos Díaz [email or web address] Legal Name: [facility] Transportation Address: [address] [place] [address], [place] [address], Security Sales Manager: Anant Giles MD CLIA No.: [id number] Screen Printing Supervisor POC Test Results from Campos Díaz [employer] [facility] (13:42:32) pH: 7.40 pH units [...] .................... .................... .................... .................... .................... .................... . Screen Printing Supervisor Note From Campos Díaz: This 84-year-old female [...] primary care physician as well as her director geothermal operations and present to the emergency department for any new or worsening severe symptoms such as chest pain, severe shortness of breath, high fever, altered mental status. The patient and her daughter were given the opportunity to ask questions and are agreeable to this plan. .................... .................... .................... .................... .................... .................... .................... . [facility] Consulted: Tasia Rhodes .................... .................... .................... .................... .................... .................... .................... . Disposition: Fulfilled Tasia Rhodes MD [address] [place] [address],[address], [place], [address], [employer] 11/06/2024 16:12:03 OBGyn Episode No OBEpisode recorded.
--- OUTSIDE RECORDS SUMMARY | 2024-11-28 09:08 | XMS_ITS | Encounter Summary ---
Author Organization [employer] Address [address] [facility] 7[address] [place] [address] Care Team Providers Care Helicopter Utility Aircrewman Name Role Phone Martha Suazo MD Primary Care Provider [phone] Rosalba Louis MD Primary Care Provider + Reason for Visit * Reason Onset Date Comments Appointment Request 01/28/2024 Encounter Details Date Type Department Care Team ([facility] st Contact Info) Description 01/28/2024 Telephone [facility] [address] [place], [place] [phone] Martha Suazo MD [address] [place], [place] [phone] Appointment Request Social History Tobacco Use Types [...] Description 11/29/2024 9:00 AM EDT Office Visit [facility] [address] [place] [address] Rosalba Louis MD [address] [place] [address] 01/29/2025 9:00 AM EDT Office Visit [facility] [address] [place] [address] Faith Cardenas [address] [place], [place] [phone] documented as of this encounter Goals Goal [...] on filedocumented in this encounter Care Teams Helicopter Utility Aircrewman Relationship Specialty Start Date End Date Martha Suazo MD [address] [place] [address] PCP - General Family Medicine 06/02/23 08/27/24 Rosalba Louis MD [address] [place] [address] PCP - General Internal Medicine 08/28/24 documented as of this encounter
--- OUTSIDE RECORDS SUMMARY | 2024-11-28 09:08 | XMS_ITS | Encounter Summary ---
Author Organization [employer] Address [address] [facility] [address]t [place] [address] Care Team Providers Care Can Marker Name Role Phone Rosalba Louis MD Primary Care Provider + Reason for Visit * Reason Comments Cough Encounter Details Date Type Department Care Team ([facility] Contact Info) Description 11/20/2024 9:00 AM EST Office Visit [facility] [address] [place], [place] [phone] Campos Alvarez MD [address] [place] [address] Acute cough (Primary Dx); Acute URI Social [...] your housing situation today? I have tiffany amrlow 04/19/[address] you li [...] 1:17 PM EST documented in this encounter Progress Notes * Campos Alvarez MD - 11/20/2024 9:00 AM EST Subjective Patient ID: Sosa Castaneda is a 84 y.o. female. Here with DIL who is interpreting and is her POSSUM TRAPPER. HPI Sosa has 3 week h/o cough that was productive, now dry, with occasional SOB, no wheezing. Using albuterol HFA 2-3x/day with some improvement. States several year h/o asthma. No fever, chills, n/v/d. Taking p.o. well. Tried Robutussin, Delsum. Lives alone. Has POSSUM TRAPPER. Never smoked. 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 (CMS/HCC) Diastolic dysfunction Diverticulosis of colon Hypertensive disorder Metatarsus valgus, acquired Microalbuminuria Osteopenia Personal history of breast cancer Right kidney stone RUQ pain CKD (chronic kidney disease) stage 3, GFR 30-59 ml/min (CMS/HCC) Stenosis of right renal artery (CMS/HCC) Type 2 diabetes mellitus (CMS/HCC) Urinary frequency Diarrhea Dermatitis exfoliativa Ingrown toenail of left foot The following portions of the chart were reviewed this encounter and updated as appropriate: Tobacco Allergies Meds Problems Med Hx Surg Hx Fam Hx Review of Systems Constitutional: Negative for fever. Respiratory: Positive for cough and shortness of breath. Negative for wheezing. Cardiovascular: Negative for chest pain. Gastrointestinal: Negative for abdominal pain. Skin: Negative for rash. Neurological: Negative for headaches. Objective Physical Exam Constitutional: Appearance: Normal appearance. Comments: Appears comfortable, has congested cough. HENT: Right Ear: Tympanic membrane, ear canal and external ear normal. Left Ear: Tympanic membrane, ear canal and external ear normal. Nose: Nose normal. Mouth/Throat: Mouth: Mucous membranes are moist. Pharynx: Oropharynx is clear. Eyes: Conjunctiva/sclera: Conjunctivae normal. Pupils: Pupils are equal, round, and reactive to light. Cardiovascular: Rate and Rhythm: Normal rate and regular rhythm. Heart sounds: No murmur heard. Pulmonary: Effort: Pulmonary effort is normal. Breath sounds: Normal breath sounds. Musculoskeletal: General: Normal range of motion. Cervical back: No tenderness. Skin: Findings: No rash. Neurological: Mental Status: She is alert. Gait: Gait is intact. Psychiatric: Mood and Affect: Mood normal. Behavior: Behavior normal. Procedures Assessment/Plan Diagnoses and all orders for this visit: Acute cough Negative rapid Covid and Influenza tests. Chest ray done in [facility]. Will call [id number] with report. Prescribed prednisone, acetaminophen, and chamber for her albuterol HFA which she can use every 4 hours as needed. Return to clinic if not improving. - XR Chest 2 Views; Future - POCT Rapid COVID Ag - Influenza A (ID NOW Rapid Molecular) - Influenza B (ID NOW Rapid Molecular) Other orders - predniSONE (Deltasone) 20 MG tablet; Take 2 tablets (40 mg) by mouth Once per day for 5 days. - Spacer/Aero-Holding Chambers (OptiChamber Genny) misc; 1 each every 4 (four) hours if needed (asthma). - acetaminophen (Tylenol) 500 MG tablet; TAKE 2 TABLETS BY MOUTH EVERY 6 HOURS IF NEEDED FOR MODERATE PAIN OR FEVER. documented in this encounter Plan of Treatment Upcoming Encounters Date Type Department Care Team (Late st Contact Info) Description 11/29/2024 9:00 AM EDT Office Visit [facility] [address] [place], [place] [phone] Rosalba Louis MD [address] [place], [place] [phone] 01/29/2025 9:00 AM EDT Office Visit [facility] [address] [place], [place] [phone] Faith Cardenas [address] [place], [place] [phone] documented as of this encounter Goals Goal [...] URI documented in this encounter Results * XR Chest 2 Views (11/20/2024 9:27 AM EST) Anatomical Region Laterality Modality Chest Radiographic Ana Rosa ging 11/20/2024 9:27 AM EST Narrative 11/20/2024 10:51 AM EST ?[facility] ?[address] ?[place] [address] ?XRay Report ? Signed ? Patient: Sosa Correa ?MR#: [id number] ?? [id number] ? : 1940 ?Acct:[id number] ? Age/Sex: 84 / F ?ADM Date: 11/20/24 ? Loc: HO.HHCX ? Attending Dr: Campos Alvarez MD ? Ordering Physician: CAMPOS ALVAREZ MD ?? Date of Service: 11/20/24 ?? Procedure(s): XR chest 2V ?? Accession Number(s): [id number] ? cc: CAMPOS ALVAREZ MD ? EXAMINATION: ?? XR CHEST ? [...] ?? seen. ? Electronically signed by: ??Hugh Lori MD ??11/20/2024 10:48 AM EST RP ? Dictated By: ?Lori,Hugh S MD ? Signed By: ?<Electronically signed by Hugh S Lori, MD in OV> ?11/20/24 1048 ? DD/ 6 ? TD/TT: 11/20/24 1000 ? Kennel Assistant: MSM ? Procedure Note Reji, Image - 11/20/2024 [facility] [address] [place] [address] XRay Report Signed Patient: Mary Ellen Correa#: [id number] : 1940Acct:[id number] Age/Sex: 84 / FADM Date: 11/20/24 Loc: HO.HHCX Attending Dr: Campos Alvarez MD Ordering Physician: CAMPOS ALVAREZ MD Date of Service: 11/20/24 Procedure(s): XR chest 2V Accession Number(s): [id number] cc: CAMPOS ALVAREZ MD EXAMINATION: XR CHEST CLINICAL INFORMATION: cough [...] Hugh Sandoval MD 11/20/2024 10:48 AM EST Dictated By: Hugh Sandoval MD Signed By: <Electronically signed by Hugh Sandoval MD in OV> 11/20/24 1048 DD/ 0927 TD/TT: 11/20/24 1000 Kennel Assistant: [facility] Campos Alvarez MD IMG XR PROCEDURES Final Result * Influenza B (ID NOW Rapid Molecular) (11/20/2024 9:11 AM EST) Influenza B Negative Negative, Indeterminate [facility] Swab 11/20/2024 9:11 AM EST Campos Alvarez MD POINT OF CARE TEST ENTER/EDIT OR DERABLES Final Result [facility] [address] [place] [phone] * Influenza A (ID NOW Rapid Molecular) (11/20/2024 9:11 AM EST) Influenza A Negative Negative, Indeterminate [facility] Swab 11/20/2024 9:11 AM EST us Campos Alvarez MD POINT OF CARE TEST ENTER/EDIT OR DERABLES Final Result Performing Organization Address [facility] Co de Phone Number [facility] [address] [place] [address] [phone] * POCT Rapid COVID Ag (11/20/2024 9:11 AM EST) Rapid COVID Ag Negative [facility] Swab 11/20/2024 9:11 AM EST us Campos Alvarez MD POINT OF CARE TEST ENTER/EDIT OR DERABLES Final Result Performing Organization Address [facility] de Phone Number [facility] [address] [place] [phone] documented in this encounter Visit Diagnoses Diagnosis Acute cough- Primary Acute URI Acute upper respiratory infections of unspecified site documented in this encounter Care Teams Can Marker Relationship Specialty Start Date End Date Rosalba Louis MD [address] [place] [address] PCP - General Internal Medicine 08/28/24 documented as of this encounter
--- OUTSIDE RECORDS SUMMARY | 2024-11-28 09:08 | XMS_ITS | Encounter Summary ---
Author Organization [employer] Address [address] [facility] 7t [place] [address] Care Team Providers Care Underwater Photographer Name Role Phone Martha Suazo MD Primary Care Provider [phone] Rosalba Louis MD Primary Care Provider + Reason for Visit * Reason Onset Date Comments FYI 10/21/2023 Encounter Details Date Type Department Care Team ([facility] st Contact Info) Description 10/21/2023 Telephone [facility] [address] [place], [place] [phone] Martha Suazo MD [address] [place], [place] [phone] FYI Social History Tobacco Use Types Packs/Day [...] - 10/21/2023 11:16 AM EST [facility] getting [facility] today 4pt stated don't need them anymore. documented in this encounter Plan of Treatment Upcoming Encounters Date Type Department Care Team (Late st Contact Info) Description 11/29/2024 9:00 AM EDT Office Visit [facility] [address] [place] [address] Rosalba Louis MD [address] [place] [address] 01/29/2025 9:00 AM EDT Office Visit [facility] [address] [place], [place] [phone] Faith Cardenas [address] [place], [place] [phone] documented as of this encounter Visit Diagnoses Not on filedocumented in this encounter Care Teams Underwater Photographer Relationship Specialty Start Date End Date Martha Suazo MD [address] [place] [address] PCP - General Family Medicine 06/02/23 08/27/24 Rosalba Louis MD [address] [place] [address] PCP - General Internal Medicine 08/28/24 documented as of this encounter
--- OUTSIDE RECORDS SUMMARY | 2024-11-28 09:08 | XMS_ITS | Encounter Summary ---
Author Organization [employer] Address [address] [facility] 7t [place] [address] Care Team Providers Care Cutter Aluminum Sheet Name Role Phone Martha Suazo MD Primary Care Provider [phone] Rosalba Louis MD Primary Care Provider + [...] 3b CKD (CMS/HCC) Martha Suazo MD [address] [place] [address] Phone: tel: fax: Referral ID Status Reason Start Date Expiration Date V isits Requested Visits Authorized [id number] Closed Continuity of Care 10/06/2023 10/05/2024 1 1 Encounter Details Date Type Department Care Team (Late st Contact Info) Description 10/06/2023 Orders Only [facility] [address] [place] [address] Martha Suazo MD [address] [place], [place] [phone] Type 2 diabetes mellitus with stage 3 [...] 11/29/2024 9:00 AM EDT Office Visit [facility] [address] [place] [address] Rosalba Louis MD [address] [place] [address] 01/29/2025 9:00 AM EDT Office Visit [facility] [address] [place] [phone] Faith Cardenas [address] [place] [phone] Scheduled Referrals Name Type Priority Associated Diagnoses [...] (CMS/HCC) documented in this encounter Care Teams Cutter Aluminum Sheet Relationship Specialty Start Date End Date Martha Suazo MD [address] [place] [address] PCP - General Family Medicine 06/02/23 08/27/24 Rosalba Louis MD [address] [place] [address] PCP - General Internal Medicine 08/28/24 documented as of this encounter
== END 2024-11-28 08:58 | disposition home or self-care (01) ==
LOC: HO.RHES 08:26
PROVIDERS: Visit Provider Internal Medicine Rheumatology
DX: M81.0 Age-related osteoporosis without current pathological fracture (principal); M75.81 Other shoulder lesions, right shoulder; M75.82 Other shoulder lesions, left shoulder
CPT/HCPCS: 99214; G2211

== ENCOUNTER 2024-12-08 09:51 | Outpatient (AMB) | payer OTHER, SELFPAY ==
[2024-12-08 09:57] VITALS: BP 124/64; PULSE 64; BMI 26.3
--- NOTE | 2024-12-08 09:57 | MHC.OFFVIS ---
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/Diastolic dysfunction Formulation Technician Required: Yes Formulation Technician Services: Formulation Technician Offered & Declined Accompanied by: Daughter Allergies No Known Allergies [No Known Allergies*] Allergy (Verified 11/28/24 08:34) Medication List - Last Reconciled 12/08/24 by Gato Zazueta MD acetaminophen 650 mg PO Q6H PRN albuterol sulfate 90 mcg/actuation (ProAir HFA) 2 puffs inhalation Q6H PRN atorvastatin 20 mg PO DAILY blood sugar diagnostic As directed calcium carbonate-vitamin D3 600 mg-25 mcg (1,000 unit) 1 cap PO DAILY carvedilol 25 mg PO BID diltiazem HCl 90 mg PO TID empagliflozin (Jardiance) 10 mg PO DAILY fluticasone propionate 50 mcg/actuation (Allergy Relief (fluticasone)) 1 spray intranasal DAILY PRN lancets As directed lisinopril 40 mg PO DAILY meclizine 12.5 mg PO DAILY PRN pantoprazole 20 mg PO DAILY HPI Comments Details: Thank you for referring Sosa in cardiology consultation today for echo finding of diastolic dysfunction. She is a pleasant 84 year female who presents here with her daughter who acts as hose tender. They declined a certified hose tender. Patient was longstanding history of hypertension which was difficult control in the past and he has to see a foundation coordinator. However on current medications with carvedilol diltiazem and lisinopril her blood pressures been well controlled. She was also used to get a lot of symptoms of palpitation which are now controlled. Patient has limited activity level and walks with a walker around the house but not for any sustained period of time. She is able to do her daily activities of living. She denies any orthopnea, PND. Very seldom she gets symptoms of what she feels like elevated blood pressure and occasionally feels palpitation in his chest but last for a very short period of time and happens every few months. She denies any lightheadedness, syncope. Denies any orthopnea, PND, leg edema. She denies any exertional chest pain at current functional level. Her recent echocardiogram shows normal LV ejection fraction with impaired relaxation filling pattern with elevated filling pressures. [facility] Medical History Breast CA Vertigo Diabetes HTN (hypertension) CKD (chronic kidney disease) Breast CA Vertigo Diabetes HTN (hypertension) CKD (chronic kidney disease) Breast cancer Depression Hypertension Bilateral knee pain Surgical History History of partial mastectomy of right breast Hx of cataract surgery Family History Father No problems noted. Mother No problems noted. Social History Household Members: None Housing: Apartment Do you presently have visiting nurse or other home services: Yes (glaz[employer] furniture services) Alcohol intake: never Patient Tobacco Use Status: Never used Tobacco e-Cigarette/Vaping Use: Never Used service: No Current occupational status: retired Review of Systems Const Denies weakness ENT Denies dizziness Card Denies chest pain, Denies chest pain with activity, Denies syncope, Denies rapid heart rate, Denies pedal edema, Denies edema, Denies leg edema, Denies lightheadedness, Denies palpitations, Denies dyspnea, Denies dyspnea on exertion and Denies orthopnea Resp Denies cough, Denies dyspnea and Denies dyspnea on exertion GI Denies hematochezia and Denies change in stool character Musc Denies abnormal gait, Denies muscle cramps, Denies muscle weakness, Denies numbness, Denies radiating pain into limb and Denies tingling Neuro Denies abnormal gait, Denies dizziness, Denies syncope, Denies numbness, Denies tingling and Denies weakness Endo Denies palpitations Physical Exam Vital Signs: Last Vital Signs Pulse 64 12/08/24 09:57 BP 124/64 12/08/24 09:57 BMI result Body Mass Index 26.3 Const General: cooperative, comfortable, no acute distress, alert and awake Nutritional Appearance: overweight Orientation/consciousness: patient oriented x3 Limitations: ambulation with walker HEENT Head: Yes normocephalic and Yes atraumatic Neck Neck: Yes trachea midline, Yes supple and Yes no JVD Resp Effort & Inspection: normal respiratory effort Auscultation: clear to auscultation bilaterally Cardio Jugular venous distension: no JVD Palpation: normal PMI Rate: regular rate Rhythm: regular rhythm Heart sounds: S1 normal heart sound present, S2 normal heart sound present, no click, no gallops and no murmurs GI Auscultation: normal bowel sounds Skin General skin exam: no rashes or lesions noted Neuro General: patient oriented x3 and no focal motor deficits Extrem General: Yes no clubbing, cyanosis or edema Psych Appearance: grossly normal Office Procedures EKG Details: EKG shows normal sinus rhythm normal EKG. 01308-[id number], Complete Assessment & Plan Assessment & Plan (1) Diastolic dysfunction: Code(s): I51.89 - Other ill-defined heart diseases Category: Medical Plan: Patient with echo findings suggestive of diastolic dysfunction with elevated filling pressures most likely related to longstanding hypertension as well as aging. Clinically she was no signs of fluid overload or congestive heart failure or no symptoms suggestive of the same. It is possible this is related to Jardiance therapy. I would continue the same. Findings of diastolic dysfunction possible development of heart failure in the future was discussed with patient patient's daughter. Advised to monitor daily weights and advised for signs and symptoms of heart failure and report to us. For now there was no direct treatment for diastolic dysfunction and I have advised continued aggressive blood pressure control which is currently well optimized. Importance of this was discussed. Low-salt diet was discussed. She is encouraged to increase activity level gradually. Otherwise no other treatment alterations. Will follow up in the clinic in 1 year's time, sooner p.r.n.. Thank you for allowing me to partake in his care Coding Level of Care Code New Pt Level 4 (93343) Complex EM visit Add On G2211 Diagnoses Diastolic dysfunction I51.89 CPT Codes EKG - CPT: 48900-[id number], Complete ([id number])
== END 2024-12-08 10:31 | disposition home or self-care (01) ==
LOC: HO.HCS 09:52
PROVIDERS: PCP General Practice; Visit Provider Internal Medicine Cardiovascular Disease
DX: I11.9 Hypertensive heart disease without heart failure (principal)
CPT/HCPCS: 93010; 99214; G2211

== ENCOUNTER → 2024-12-08 09:51 | Outpatient (BNVA) | payer OTHER, SELFPAY | PROVIDERS: PCP General Practice; Visit Provider Internal Medicine Cardiovascular Disease | DX: I51.89 Other ill-defined heart diseases (principal) | CPT/HCPCS: 93005; 99212 ==

== ENCOUNTER 2025-07-18 09:19 | Outpatient (REF) | payer OTHER, SELFPAY ==
--- OUTSIDE RECORDS SUMMARY | 2025-07-18 10:44 | XMS_ITS | Clinical Summary ---
Author Organization [address] [facility] Address [address] [place] [address] Phone Care Team Providers Care Machine Carton Marker Name Role Phone Rsoalba Louis MD Primary Care Provider [phone] Allergies No known active allergies Medications ammonium lactate (AmLactin) 12 % lotion Apply topically if needed for dry skin. 400 g 5 12/20/19 26 Active Social History Tobacco Use Types Packs/Day Years Used Date Smoking Tobacco: Never Assessed Comments Unknown Sex and Gender Information Value Date Recorded Sex Assigned at Not on file Legal Sex Female 9:07 AM EST Gender Identity Not on file Sexual Orientation Not on file Last Filed Vital Signs Vital Sign Reading Time Taken Comments Blood Pressure - - Pulse - - Temperature - - Respiratory Rate - - Oxygen Saturation - - Inhaled Oxygen Concentration - - Weight 65.8 kg (145 lb) 12/19/2024 9:09 AM EDT Height 144.8 cm (4' 9 ) 12/19/2024 9:09 AM EDT Body Mass Index 31.38 12/19/2024 9:09 AM EDT Plan of Treatment Health Maintenance Due Date Last Done Comments COVID-19 Vaccine (#1) 1943 Diabetes: Annual Foot Exam 1948 Diabetes: Annual Retina Eye Exam 1948 Zoster Vaccines (1 of 2) 1957 RSV Immunization Adult Patients (1 - 1-dose 75+ series) 2013 Pneumococcal Vaccine: 50+ Years (2 of 2 - PCV) 03/09/2017 03/09/2016, 06/22/2014 Falls Risk Assessment 09/06/2024 Medicare Annual Wellness Visit 09/06/2024 Social Influencers of Health Screening 09/06/2024 Depression Screening 09/20/2024 Hypertension/CHF/CAD Annual BMP Blood Test 12/18/2024 Diabetes: Blood Sugar Contro l Test (HGBA1C) 02/26/2025 08/28/2024, 03/30/2023 Influenza Vaccine (#1) 2025 06/22/2014 DTaP,Tdap,and Td Vaccines (3 - Td or Tdap) 03/09/2026 03/09/2016, 03/09/2016 Cholesterol Screening (Lipid Panel) 05/08/2029 05/08/2024 Osteoporosis Screening (Bone Density Screening) 11/01/2034 11/01/2024 HIB Vaccines Aged Out No longer eligi [...] age to complete this topic Meningococcal B Vaccine Aged Out No l onger eligible based on patient's age to complete this topic RSV Immunization Patients Under 20 months Aged Out No longer eligible b ased on patient's age to complete this topic Varicella Vaccines Aged Out No longer eligible based on patient's age to complete this topic Insurance [facility] MEDICARE Member Subscriber Plan / Payer (Ef fective 2019-Present) Name:Sosa Correa Relation to Subscriber:Self Name:Sosa Castaneda Payer ID:[id number] Group ID:[id number] Type:Not on file Address: [facility] [address] [id number] Care Teams Machine Carton Marker Relationship Specialty Start Date End Date Rosalba Louis MD [address] [facility] [address] [place] [address] PCP - General Internal Medicine 09/06/24
--- OUTSIDE RECORDS SUMMARY | 2025-07-18 10:44 | XMS_ITS | Encounter Summary ---
Author Organization [employer] Address [address] [facility] 7t [place] [address] Care Team Providers Care Shank Sorter Name Role Phone Rosalba Louis MD Primary Care Provider + Reason for Visit * Reason Onset Date Comments on insurance 02/05/2025 Encounter Details Date Type Department Care Team ([facility] st Contact Info) Description 02/05/2025 Telephone [facility] DENTAL [address] [place], [place] [phone] Faith Cadrenas [address] [place], [place] [phone] on insurance Social History Tobacco Use Types Packs/Day Years [...] encounter Miscellaneous Notes * Telephone Encounter - Ambar Bain - 02/05/2025 9:52 AM EDT Date of is listed on [facility] as 1940. not the 1940 although the 1940 is her date of . [facility] has been contacted by daughter of amado and has been unsuccessful in squaring awaywith [facility] DR documented in this encounter Plan of Treatment Upcoming Encounters Date Type Department Care Team (Late st Contact Info) Description 08/01/2025 2:30 PM EST Office Visit [facility] OPTOMETRY [address] [place] [address] Kenneth, Mariella, OD [address] [place] [address] 08/14/2025 11:15 AM EST Office Visit [facility] MEDICINE [address] [place] [address] Rosalba Louis MD [address] [place] [address] 09/26/2025 10:00 AM EST Office Visit [facility] DENTAL [address] [place], [place] [phone] Faith Cardenas [address] [place], [place] [phone] documented as of this encounter Goals Goal Patient Goal Type Associated Problems Recent Progress Patient-Stated? Author Blood Pressure < 140/90 Blood Pressure 142/70(2024 10:28 AM EDT) No Gypsy Hood Patient will adhere to medication regimen General No Gypsy Hood Hemoglobin A1c < 8 Result Component 6.4( 11:32 AM EDT) No Gypsy Hood documented as of this encounter Visit Diagnoses Not on filedocumented in this encounter Care Teams Shank Sorter Relationship Specialty Start Date End Date Rosalba Louis MD [address] [place] [address] PCP - General Internal Medicine 08/28/24 documented as of this encounter
--- OUTSIDE RECORDS SUMMARY | 2025-07-18 10:44 | XMS_ITS | Encounter Summary ---
Author Organization [employer] [facility] Address [address] [facility] 7t [place] [address] Care Team Providers Care Supervisor Specialty Plant Name Role Phone Martha Suazo MD Primary Care Provider [phone] Rosalba Louis MD Primary Care Provider + Reason for Referral * Consultation (Routine) - Closed Specialty Diagnoses / Procedures Referred By Contac t Referred To Contact Pharmacy Diagnoses Type 2 diabetes mellitus with stage 3 chronic kidney disease, without long-term current use of insulin, unspecified whether stage 3a or 3b CKD (HCC) Stage 3 chronic kidney disease, unspecified whether stage 3a or 3b CKD (CMS/HCC) (HCC) Martha Suazo MD [address] [place] [address] Phone: tel: fax: Referral ID Status Reason Start Date Expiration Date V isits Requested Visits Authorized [id number] Closed Continuity of Care 10/06/2023 10/05/2024 1 1 Encounter Details Date Type Department Care Team (Late st Contact Info) Description 10/06/2023 Orders Only [facility] MEDICINE [address] [place] [address] Martha Suazo MD [address] [place], [place] [phone] Type 2 diabetes mellitus with stage 3 [...] Description 08/01/2025 2:30 PM EST Office Visit [facility] OPTOMETRY [address] [place] [address] Mariella Cooper, STEFANIE [address] [place] [address] 08/14/2025 11:15 AM EST Office Visit [facility] MEDICINE [address] [place] [address] Rosalba Louis MD [address] [place] [address] 09/26/2025 10:00 AM EST Office Visit [facility] DENTAL [address] [place], [place] [phone] TheresaFaith [address] [place], [place] [phone] Scheduled Referrals Name Type Priority Associated Diagnoses Orde r Schedule Referral to Pharmacy [facility] Outpatient Referral Routine Type 2 diabetes mellitus [...] unspecified whether stage 3a or 3b CKD (HCC)- Primary Stage 3 chronic kidney disease, unspecified whether stage 3a or 3b CKD (CMS/HCC) (HCC) documented in this encounter Care Teams Supervisor Specialty Plant Relationship Specialty Start Date End Date Martha Suazo MD [address] [place] [address] PCP - General Family Medicine 06/02/23 08/27/24 Rosalba Louis MD [address] [place] [address] PCP - General Internal Medicine 08/28/24 documented as of this encounter
--- OUTSIDE RECORDS SUMMARY | 2025-07-18 10:44 | XMS_ITS | Encounter Summary ---
Author Organization [employer] Address [address] [facility] 7t [place] [address] Care Team Providers Care Depot Agent Name Role Phone Martha Suazo MD Primary Care Provider [phone] Rosalba Louis MD Primary Care Provider + Reason for Visit * Reason Onset Date Comments ER Follow-up 07/29/2023 Encounter Details Date Type Department Care Team ([facility] Contact Info) Description 07/29/2023 Telephone [facility] MEDICINE [address] [place], [place] [phone] Martha Suazo MD [address] [place], [place] [phone] ER Follow-up Social History Tobacco Use Types [...] an ED visit. Pt was admitted at [facility] on 07/27 and discharged the following day 07/28 for Diarrhea, low sodium, and acidosis. Was advised will forward to team nursesfor f/u. Please contact daughter at [phone] documented in this encounter Plan of Treatment Upcoming Encounters Date Type Department Care Team (Late st Contact Info) Description 08/01/2025 2:30 PM EST Office Visit [facility] OPTOMETRY [address] [place] [address] Kenneth, Mariella, OD [address] [place] [address] 08/14/2025 11:15 AM EST Office Visit [facility] MEDICINE [address] [place] [address] Rosalba Louis MD [address] [place] [address] 09/26/2025 10:00 AM EST Office Visit [facility] DENTAL [address] [place], [place] [phone] Faith Cardenas 91 [place], [place] [phone] documented as of this encounter Visit Diagnoses Not on filedocumented in this encounter Care Teams Depot Agent Relationship Specialty Start Date End Date Martha Suazo MD [address] [place] [address] PCP - General Family Medicine 06/02/23 08/27/24 Rosalba Louis MD [address] [place] [address] PCP - General Internal Medicine 08/28/24 documented as of this encounter
--- OUTSIDE RECORDS SUMMARY | 2025-07-18 10:44 | XMS_ITS | Encounter Summary ---
Author Organization [employer] Address [address] [facility] 7t [place] [address] Care Team Providers Care Tire Rebuilder Name Role Phone Martha Suazo MD Primary Care Provider [phone] Rosalba Louis MD Primary Care Provider + Reason for Visit * Reason Onset Date Comments Durable Medical Equipment 02/24/2024 Encounter Details Date Type Department Care Team ([facility] st Contact Info) Description 02/24/2024 Telephone [facility] MEDICINE [address] [place], [place] [phone] Martha Suazo MD [address] [place], [place] [phone] Durable Medical Equipment Social History Tobacco Use [...] 9:26 AM EDT Tc from [facility] requesting an rx for incontinence supplies. States current one is . documented in this encounter Plan of Treatment Upcoming Encounters Date Type Department Care Team (Late st Contact Info) Description 08/01/2025 2:30 PM EST Office Visit [facility] OPTOMETRY [address] [place] [address] Mariella Cooper, OD [address] [place] [address] 08/14/2025 11:15 AM EST Office Visit [facility] MEDICINE [address] [place] [address] Rosalba Louis MD [address] [place] [address] 09/26/2025 10:00 AM EST Office Visit [facility] DENTAL [address] [place], [place] [phone] Faith Cardenas 91 [place], [place] [phone] documented as of this encounter Goals Goal Patient Goal Type Associated Problems Recent Progress Patient-Stated? Author Blood Pressure < 140/90 Blood Pressure 142/70(2024 10:28 AM EDT) No Gypsy Hood Patient will adhere to medication regimen General No SunithaGypsy lara Hemoglobin A1c < 8 Result Component 6.4( 11:32 AM EDT) No Gypsy Hood documented as of this encounter Visit Diagnoses Not on filedocumented in this encounter Care Teams Tire Rebuilder Relationship Specialty Start Date End Date Martha uSazo MD [address] [place] [address] PCP - General Family Medicine 06/02/23 08/27/24 Rosalba Louis MD [address] [place] [address] PCP - General Internal Medicine 08/28/24 documented as of this encounter
--- OUTSIDE RECORDS SUMMARY | 2025-07-18 10:44 | XMS_ITS | Encounter Summary ---
Author Organization [facility] Address [address] [facility] 7t [place] [address] Care Team Providers Care Litigation Examiner Name Role Phone Martha Suazo MD Primary Care Provider [phone] Rosalba Louis MD Primary Care Provider + Reason for Visit * Reason Onset Date Comments Appointment Request 01/28/2024 Encounter Details Date Type Department Care Team ([facility] st Contact Info) Description 01/28/2024 Telephone [facility] MEDICINE [address] [place], [place] [phone] Martha Suazo MD [address] [place], [place] [phone] Appointment Request Social History Tobacco Use Types [...] Description 08/01/2025 2:30 PM EST Office Visit [facility] OPTOMETRY [address] [place] [address] Mariella Cooper, OD 230 [place] [address] 08/14/2025 11:15 AM EST Office Visit [facility] MEDICINE [address] [place] [address] Rosalba Louis MD [address] [place] [address] 09/26/2025 10:00 AM EST Office Visit [facility] DENTAL [address] [place], [place] [phone] Faith Cardenas 91 [place], [place] [phone] documented as of this encounter Goals Goal Patient Goal Type Associated Problems Recent Progress Patient-Stated? Author Blood Pressure < 140/90 Blood Pressure 142/70(2024 10:28 AM EDT) No Gypsy Hood Patient will adhere to medication regimen General No Gypsy Hood Hemoglobin A1c < 8 Result Component 6.4( 11:32 AM EDT) No MaryGypsy segal documented as of this encounter Visit Diagnoses Not on filedocumented in this encounter Care Teams Litigation Examiner Relationship Specialty Start Date End Date Martha Suazo MD [address] [place] [address] PCP - General Family Medicine 06/02/23 08/27/24 Rosalba Louis MD [address] [place] [address] PCP - General Internal Medicine 08/28/24 documented as of this encounter
--- OUTSIDE RECORDS SUMMARY | 2025-07-18 10:44 | XMS_ITS | Encounter Summary ---
Author Organization [employer] Address [address] [facility] 7t [place] [address] Care Team Providers Care Acds Block 1 Operator Name Role Phone Martha Suazo MD Primary Care Provider [phone] Rosalba Louis MD Primary Care Provider + Encounter Details Date Type Department Care Team ([facility] st Contact Info) Description 07/26/2023 Orders Only [facility] MEDICINE [address] [place], [place] [phone] Martha Suazo MD 230 [place], [place] [phone] Bilateral carotid artery disease, unspecified type (CMS/HCC) [...] Office Visit [facility] OPTOMETRY [address] [place], [place] [phone] Mariella Cooper, OD 230 [place] [address] 08/14/2025 11:15 AM EST Office Visit [facility] MED[facility] [address] [place] [address] Rosalba Louis MD 230 [place] [address] 09/26/2025 10:00 AM EST Office Visit [facility] [address] [place], [place] [phone] Faith Cardenas [address] [place] [address] documented as of this encounter Visit Diagnoses Diagnosis Bilateral carotid artery disease, unspecified type- Primary Stenosis of right renal artery Diastolic dysfunction Unspecified heart disease Hypertension, unspecified type documented in this encounter Care Teams Acds Block 1 Operator Relationship Specialty Start Date End Date Martha Suazo MD [address] [place] [address] PCP - General Family Medicine 06/02/23 08/27/24 Rosalba Louis MD [address] [place] [phone] PCP - General Internal Medicine 08/28/24 documented as of this encounter
--- OUTSIDE RECORDS SUMMARY | 2025-07-18 10:44 | XMS_ITS | Encounter Summary ---
Author Organization [employer] Address [address] [facility] 7t [place] [address] Care Team Providers Care Personnel Generalist Manager Name Role Phone Martha Suazo MD Primary Care Provider [phone] Rosalba Louis MD Primary Care Provider + Reason for Visit * Reason Onset Date Comments FYI 10/21/2023 Encounter Details Date Type Department Care Team ([facility] st Contact Info) Description 10/21/2023 Telephone [facility] MED[facility]INE [address] [place], [place] [phone] Martha Suazo MD 230 [place], [place] [phone] FYI Social History Tobacco Use Types Packs/Day [...] - 10/21/2023 11:16 AM EST [facility] pt is getting discharge today 4pt stated don't need them anymore. documented in this encounter Plan of Treatment Upcoming Encounters Date Type Department Care Team (Late st Contact Info) Description 08/01/2025 2:30 PM EST Office Visit [facility] OPTOMETRY [address] [place] [address] Mariella Cooper, OD [address] [place] [address] 08/14/2025 11:15 AM EST Office Visit [facility] MEDICINE [address] [place] [address] Rosalba Louis MD 230 [place] [address] 09/26/2025 10:00 AM EST Office Visit [facility] DENTAL [address] [place] [phone] Faith Cardenas 91 [place] [address] documented as of this encounter Visit Diagnoses Not on filedocumented in this encounter Care Teams Personnel Generalist Manager Relationship Specialty Start Date End Date Martha Suazo MD [address] [place] [address] PCP - General Family Medicine 06/02/23 08/27/24 Rosalba Louis MD [address] [place] [address] PCP - General Internal Medicine 08/28/24 documented as of this encounter
--- OUTSIDE RECORDS SUMMARY | 2025-07-18 10:44 | XMS_ITS | Clinical Summary ---
Author Organization [employer] Address 75 [facility] [address] [place] [address] Care Team Providers Care Mechanic And Welder Name Role Phone Rosalba Louis MD Primary [...] MORNING 90 tablet 3 05/01/20 24 Active levocetirizine (Xyzal) 5 MG tablet Take 1 tablet (5 mg) by mouth in the evening. 30 tablet 1 05/08/20 24 Active Polyvinyl Alcohol-Povido ne 5-6 MG/ML solution 1 drop each eye tid 30 mL 05/08/20 24 Active Zinc Oxide (Desitin Rapid Relief) 13 % creamIndicatio ns:Dermatitis of vulva Apply to vulva every night until symptoms resolved. May use once or twice during the day as needed also. 113 g 1 06/06/20 24 Active dilTIAZem (Cardizem) 90 MG immediate release tablet TAKE 1 TABLET BY MOUTH THREE TIMES DAILY IN THE MORNING, EVENING, AND BEDTIME 270 tablet 3 08/11/20 24 Active pantoprazole (ProtoNix) 40 MG EC tablet TAKE 1 TABLET EVERY MORNING BEFORE BREAKFAST 90 tablet 3 08/25/20 24 Active neomycin-bacit racin-polymyxi n (Neosporin) 5-400-5000 ointment Apply topically 3 times daily. 14.2 g 08/28/20 24 Active albuterol 108 (90 Base) MCG/ACT inhaler INHALE 2 PUFFS BY MOUTH EVERY 6 HOURS 18 g 3 10/18/19 25 Active atorvastatin (Lipitor) 20 MG tablet TAKE 1 TABLET BY MOUTH EVERY EVENING 90 tablet 3 10/23/19 25 Active Spacer/Aero-Ho lding Chambers (OptiChamber Genny) misc 1 each every 4 (four) hours if needed (asthma). 1 each 11/21/19 25 Active acetaminophen (Tylenol) 500 MG tablet TAKE 1- 2 TABLETS BY MOUTH EVERY 6 HOURS IF NEEDED FOR MODERATE PAIN OR FEVER. 90 tablet 3 11/30/19 25 Active Blood Pressure Monitoring (Blood Pressure Cuff) misc Use daily as prescribed 1 each 11/30/19 25 Active meclizine (Antivert) 25 MG tablet TAKE 1 PILL IN THE MORNING, AT NOON, AND AT BEDTIME NEED FOR DIZZINESS 30 tablet 12/15/19 25 Active triamcinolone (Kenalog) 0.1 % cream Apply topically if needed in the morning and at bedtime (pain and swelling). Mix with equal part of cerave cream and apply to affecetd area bid prn rash 80 g 1 05/10/20 25 Active Emollient (CeraVe Diabetics Dry Skin) cream Apply 1 Application topically if needed each day (Dry skin). 236 mL 3 05/10/20 25 Active ketoconazole (NIZOral) 2 % shampooIndicat ions:Seborrhei c dermatitis Apply topically 2 (two) times a week. 120 mL 06/18/20 25 Active ketoconazole (NIZOral) 2 % creamIndicatio ns:Seborrheic dermatitis Apply topically twice a day to the affected area the neck and behind the ears 15 g 06/18/20 25 Active ciclopirox (Penlac) 8 % solutionIndica tions:Fungal infection of nail Apply to finger nails on both hands at bed time x 3 months 6 mL 3 06/18/20 25 Active carvedilol (Coreg) 25 MG tablet TAKE 1 TABLET BY MOUTH TWICE DAILY IN THE MORNING AND IN THE EVENING 180 tablet 3 06/27/20 25 Active carvedilol (Coreg) 25 MG tablet TAKE 1 TABLET BY MOUTH TWICE DAILY IN THE MORNING AND IN THE EVENING 180 tablet 3 07/10/20 24 025 Discontinued Active Problems Problem Noted Date Diagnosed Date Parent refuses immunizations 05/10/2025 Assessment & Plan (05/10/2025 4:10 PM EDT): We have discussed importance of disease/infection prevention by up-to-date vaccination that will prevent severe disease, associated morbidity and mortality. She refuses zoster, PCV, RSV and COVID immunization. She has refused influenza immunization for more than 3 years now. Intrinsic eczema 05/10/2025 Assessment & Plan (05/10/2025 4:11 PM EDT): On elbows and flanks mainly. Use triamcinolone cream mixed with moisturizing cream on equal parts and apply to affected area twice daily Overweight 11/29/2024 Assessment & Plan (11/29/2024 12:16 PM EDT): Discussed re weight reduction options including exercise, life style modifications, diet. Patient has very limited mobility but she walks daily inside the house. Recommended to decrease soda and sugary beverage consumption, increase protein intake with meals (at least 1 portion of protein with each meal) to assist with satiety, increase dietary fiber Follow-up in 6 months Ingrown toenail of left foot 08/28/2024 Assessment & Plan (08/28/2024 5:45 PM EST): Soak foot on warm water with Epson salt and apply Neosporin cream Refer to podiatry Diarrhea 08/06/2023 Assessment & Plan (08/06/2023 2:23 PM EST): Resolved. 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 Worsened by previously uncontrolled DM, now better controlled. Take tylenol prn, didn't tolerate gabapentin due to dizziness. Urinary incontinence 08/05/2018 Assessment & Plan (11/29/2024 12:13 PM EDT): Uses pull-ups and urinary incontinence supplies. No UTI symptoms H/O: hysterectomy 04/22/2018 History of right mastectomy [...] Overview (10/25/2023): Moderate. Noted on CT 12/30/11 Assessment & Plan (11/29/2024 9:23 AM EDT): Asymptomatic, seen by renal Dr. Lei, has appointment in 2 months. Type 2 diabetes mellitus 05/29/2016 Assessment & Plan (06/18/2025 4:44 PM EDT): Orders: POCT glucose manually resulted Assessment & Plan (05/10/2025 4:08 PM EDT): Controlled. A1c is at goal. Continue on dietary rx (takes Jardiance for CKD ) Counseled re more frequent low calorie/carb meals. Check fgtsk prn DM/hypoglycemia sxs only Encouraged physical activity as tolerated. FU in 3-4 months. Declined Influenza / PCV Has appointment with ophthalmology valuation in 2 weeks She is seen by mechanical design engineer Dr. Greene every 4 months, Assessment & Plan (11/29/2024 9:24 AM EDT): Controlled. A1c is at goal. Continue on dietary rx (takes Jardiance for CKD ) Counseled re more frequent low calorie/carb meals. Check fgtsk prn DM/hypoglycemia sxs only Encouraged physical activity as tolerated. FU in 3-4 months. Declined Influenza / PCV Optimal evaluation of today by March 2024 Has appointment with mechanical design engineer on December 19. Assessment & Plan (08/28/2024 5:41 PM EST): [...] kidney disease) stage 3, GFR 30-59 ml/min ([facility]) 03/04/2016 Hyperlipidemia 02/24/2016 Chronic low back pain 03/09/2013 Assessment & Plan (05/10/2025 4:10 PM EDT): Agreed to PT referral Continue Tylenol as needed and start diclofenac gel as needed Continue relation with a cane and walker as needed Depressive disorder 03/09/2013 Hypertensive disorder 01/06/2013 Assessment & Plan (05/10/2025 4:07 PM EDT): Controlled. Compliant w/meds Continue lisinopril, lasix and diltiazem. Follow-up with renal Counseled re low salt diet/increase moderate physical activity. Check home BP BIW and prn CP/MANCUSO/WRIGHT Non smoking patient. Assessment & Plan (11/29/2024 9:25 AM EDT): Controlled. Compliant w/meds Continue lisinopril, lasix and diltiazem. Follow-up with renal Counseled re low salt diet/increase moderate physical activity. Check home BP BIW and prn CP/MANCUSO/WRIGHT Non smoking patient. 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 Obesity (BMI 30.0-34.9) 08/05/201811/18 Encounters Date Type Department Care Team Description 06/26/[address] [address] Rosalba Louis MD Appointment Request 06/26/[address] [address] Martha Suazo MD 06/18/2025 10:15 AM EDT Office Visit [address] [address] Ne Corbin FNP Seborrheic dermatitis (Primary Dx); Type 2 diabetes mellitus with stage 3 chronic kidney disease, without long-term current use of insulin, unspecified whether stage 3a or 3b CKD (CMS/HCC); Fungal infection of nail 06/18/2025 Travel 06/15/[address] [address] Anuel Lema [place] chart prep 06/15/[address] [address] Rosalba Louis MD Nurse Triage 05/10/2025 11:15 AM EDT Office Visit [address] [address] Rosalba Louis MD Primary hypertension (Primary Dx); Type 2 diabetes mellitus with stage 3 chronic kidney disease, without long-term current use of insulin, unspecified whether stage 3a or 3b CKD (CMS/HCC); Dermatitis exfoliativa; Parent refuses immunizations; Chronic bilateral low back pain with bilateral sciatica; Intrinsic eczema 05/10/2025 Travel 05/08/[address] [phone] Rosalba Louis MD Chart Prep from Last 3 Months Immunizations Immunization Administration Dates Next Due Influenza, IIV3, injectable [...] drink = 0.6 oz pur e alcohol) Depression Answer Date Recorded Patient Health Questionnaire-9 Score 0 05/10/2025 Patient Health Questionnaire-9 Score 0 05/10/2025 Last PHQ-9: Questionnaire Data Not on file 0 05/10/2025 Housing Stability Answer Date Recorded What is [...] Date Recorded Patient Health Questionnaire-2 Score 0 05/10/2025 Internet Access Answer Date Recorded Internet Access Q1 Yes 04/21/2025 Internet Access Q2 Not on file 04/21/2025 Comments No Sex and Gender Information Value Date Recorded Sex Assigned at Female 07/20/2022 10:15 AM EDT Legal Sex Female 10:15 AM EDT Gender Identity Female 07/20/2022 10:15 AM EDT Sexual Orientation Straight 07/20/2022 10 :15 AM EDT Last Filed Vital Signs Vital Sign Reading Time Taken Comments Blood Pressure 142/70 06/18/2025 10:28 AM EDT Pulse 76 06/18/2025 10:28 AM EDT Temperature 36 C (96.8 F) 06/18/2025 10:28 AM EDT Respiratory Rate 12 06/18/2025 10:28 AM EDT Oxygen Saturation 97% 06/18/2025 10:28 AM EDT Inhaled Oxygen Concentration - - Weight 60.9 kg (134 lb 3.2 oz) 06/18/2025 10:28 AM EDT Height 147.3 cm (4' 10 ) 05/10/2025 11:21 AM EDT Body Mass Index 28.05 05/10/2025 11:21 AM EDT Plan of Treatment Upcoming Encounters Date Type Department Care Team (Late st Contact Info) Description 08/01/2025 2:30 PM EST Office Visit [facility] OPTOMETRY [address] [place] [address] Mariella Cooper, OD [address] [place] [address] 08/14/2025 11:15 AM EST Office Visit [facility] MEDICINE [address] [place] [address] Rosalba Louis MD 230 [place] [address] 09/26/2025 10:00 AM EST Office Visit [facility] 91 [place], [place] [phone] Faith Cardenas 91 [place], [place] [phone] Health Maintenance Due Date Last Done Comments Dental X-Ray: Bitewings 1938 Dental X-Ray: Full Mouth 1938 Alcohol/Substance Use Screening 1950 Zoster Vaccines (1 of 2) 1988 RSV Patients and Patients Aged 60 years or older (1 - 1-dose 75+ series) 2013 Pneumococcal Vaccine: 50+ Years (2 of 2 - PCV) 03/09/2017 03/09/2016, 06/22/2014 Dental Oral Exam 01/05/2024 07/05/2023 Dental Prophylaxis 09/15/2024 03/15/2024, 07/05/2023 Lipid Panel 05/08/2025 05/08/2024, 05/16/2020 COVID-19 Vaccine ( season) 2025 Influenza Vaccine (#1) 2025 06/22/2014 Diabetes: Hemoglobin A1C 11/10/2025 025, 08/28/2024, 10/25/2023, Additional history exists SDOH Screening 11/22/2025 11/22/2024 Diabetes: Foot Exam 11/29/2025 11/29/2024, 11/29/2024, 11/29/2024, Additional history exists DTaP/Tdap/Td Vaccines (2 - Td or Tdap) 03/09/2026 03/09/2016, 03/09/2016 Eye Exam 04/13/2026 04/13/2024, 03/21, 04/13/2024, Additional history exists Depression Screening 05/10/2026 05/10/2025, 05/10/20 Tobacco Screening 05/10/2026 05/10/2025 HIB Vaccines Aged Out No longer eligi [...] 140/90 Blood Pressure 142/70(2024 10:28 AM EDT) Gypsy Shepard Patient will adhere to medication regimen General No Gypsy Hood Hemoglobin A1c < 8 Result Component 6.4( 11:32 AM EDT) No Gypsy Hood Procedures Procedure Name Priority Date/Time Associated Diagnosis Comments POCT GLUCOSE Routine 06/18/2025 10:27 AM EDT Type 2 diabetes mellitus with stage 3 chronic kidney disease, without long-term current use of insulin, unspecified whether stage 3a or 3b CKD ([facility]) POCT GLUCOSE Routine 05/10/2025 11:32 AM EDT Type 2 diabetes mellitus with stage 3 chronic kidney disease, without long-term current use of insulin, unspecified whether stage 3a or 3b CKD ([facility]) POCT GLYCATED HEMOGLOBIN, TOTAL Routine 05/10/2025 11:32 AM EDT Type 2 diabetes mellitus with stage 3 chronic kidney disease, without long-term current use of insulin, unspecified whether stage 3a or 3b CKD ([facility]) LIPID PANEL, STANDARD Routine 05/08/2024 4:30 PM EDT PROPHYLAXIS - ADULT Routine 03/15/2024 1 :00 PM EDT COMPREHENSIVE ORAL EVALUATION - NEW OR ESTABLISHED PATIENT Routine 07/05/2023 10:00 AM EDT from Last 3 Months or Most Recently Relevant to Health Maintenance Results * POCT glucose manually resulted (06/18/2025 10:27 AM EDT) Only the most recent of2 resultswithin the time period is included. Pathologist [facility] Glucose Blood, POC 108 60 - 200 mg/dL QC Media Lot # [id number] Lot# Expiration Date [id number] Blood Capillary blood specimen / Unknown 06/18/2025 10:27 AM EDT Ne Corbin DEPUTY OF COUNTER INTELLIGENCE POINT OF CARE TEST ENTER/EDIT ORDERABLES Final Result * (ABNORMAL) POCT HGB A1C (05/10/2025 11:32 AM EDT) Pathologist [facility] Hemoglobin A1C 6.4(A) 4.0 - 5.7 % QC Media Lot # [id number] Lot# Expiration Date [id number] Blood 05/10/2025 11:3 2 AM EDT us Rosalba Louis MD POINT OF CARE TEST ENTER /EDIT ORDERABLES Final Result * (ABNORMAL) Lipid Panel, Standard (05/08/2024 4:30 PM EDT) Triglycerides 176(H) <150 mg/dL [facility] Comment:Desirable Triglyceri de: less than 150 mg/dLBorderline High Triglyceride 150-199 mg/dLHigh Triglyceride: 200-499 mg/dLVery High Triglyceride: greater than or equal to 5OO mg/dL Cholesterol 149 <200 mg/dL [facility] Comment:Desirable Cholestero l: less than 200 mg/dLBorderline High Cholesterol: 200-239 mg/dLHigh Cholesterol: greater than 239 mg/dL LDL Cholesterol Calculated 78 <100 mg/dL [facility] Comment:Desirable LDL: less than 100 mg/dLNear Optimal/Above Optimal LDL: 110- 129 mg/dLBorderline High LDL: 130-159 mg/dLHigh LDL: 160-189 mg/dLVery High LDL: greater than or equal to 190 mg/dL HDL Cholesterol 36(L) >40 mg/dL [facility] Comment:Desirable HDL: great er than 40 mg/dL Note: This HDL assay may give artificially low results in patients with liver disease. 05/08/2024 4:30 PM EDT 05/08/2024 5:51 PM EDT us Martha Suazo MD LAB BLOOD ORDERABLES Final Res ult [facility] [address] [place] [phone] from Last 3 Months or Most Recently Relevant to Health Maintenance Insurance [facility] [employer] OPTIONS (HMO D-SNP) DENTAL - [facility] Care Teams Mechanic And Welder Relationship Specialty Start Date End Date Rosalba Louis MD [address] [place] [phone] PCP - General Internal Medicine 08/28/24
== END 2025-07-18 09:20 | disposition home or self-care (01) ==
LOC: HO.MAMMO 09:19
PROVIDERS: PCP Internal Medicine; Visit Provider Internal Medicine
DX: Z12.31 Encounter for screening mammogram for malignant neoplasm of breast (principal)
CPT/HCPCS: 77063; 77067

== ENCOUNTER → 2025-07-18 09:30 | Outpatient (BNV) | payer OTHER, SELFPAY | PROVIDERS: PCP Internal Medicine; Visit Provider Internal Medicine | DX: Z12.31 Encounter for screening mammogram for malignant neoplasm of breast (principal) | CPT/HCPCS: 77063; 77067 ==

== ENCOUNTER 2025-07-24 09:42 | Outpatient (REF) | payer OTHER, SELFPAY ==
--- NOTE | ~2025-07-24 | XR_ITS ---
EXAMINATION: XR CERVICAL SPINE CLINICAL INFORMATION: PAIN COMPARISON: None available. TECHNIQUE: AP lateral and atlantoodontoid views FINDINGS: Craniocervical junction is intact. Degenerative changes in the periodontal C1 region. Multilevel marginal osteophyte formation and endplate sclerosis, subchondral cyst formation, decreased intervertebral disc height throughout the axial skeleton pronounced at C5-6 and C6-7 levels. Reverse curvature with a kyphotic deformity apex at C5-6. No gross malalignment. No acute cortical disruption. No lytic or blastic lesions. Calcifications in the soft tissues of the right neck likely vascular. XR/XR cervical spine 3V IMPRESSION: Elizabeth deformity and multilevel moderate to severe cervical spondylosis, C3 T1 pronounced at C5-6 and C6-7. Electronically signed by: Oswaldo Marshall MD 07/24/2025 10:10 AM [facility]
--- OUTSIDE RECORDS SUMMARY | 2025-07-24 09:20 | XMS_ITS | Encounter Summary ---
Author Organization [facility] Address [address] [facility] 7t [place] [address] Care Team Providers Care Bee Breeder Name Role Phone Rosalba Louis MD Primary Care Provider + Reason for Referral * Consultation (Routine) - Pending Review Specialty Diagnoses / Procedures Referred By Lam alberto Referred To Contact Physical Therapy Diagnoses Muscle spasms of neck Marilu Greenfield MD [address] [place] [phone] Phone: tel: fax: Referral ID Status Reason Start Date Expiration Date Visits Requested Visits Authorized [id number] Pending Review Specialty Services Required 07/24/2025 07/24/2026 1 1 Reason for Visit * Reason Comments bilteral Shoulder pain Encounter Details Date Type Department Care Team ([facility] st Contact Info) Description 07/24/2025 9:20 AM EST Office Visit [facility] [address] [place] [phone] Marilu Greenfield MD [address] [place] [phone] Muscle spasms of neck (Primary Dx) Social History Tobacco Use Types Packs/Day Years [...] Sign Reading Time Taken Comments Blood Pressure 157/81 07/24/2025 9:08 AM EST Pulse 86 07/24/2025 9:08 AM EST Temperature 36.4 C (97.6 F) 07/24/2025 9:08 AM EST Respiratory Rate 20 07/24/2025 9:08 AM EST Oxygen Saturation 97% 07/24/2025 9:08 AM EST Inhaled Oxygen Concentration - - Weight 60.6 kg (133 lb 9.6 oz) 07/24/2025 9:08 A M EST Height - - Body Mass Index 27.92 05/10/2025 11:21 AM EDT documented in this encounter Progress Notes * Marilu Greenfield MD - 07/24/2025 9:20 AM EST Images from the original note were not included. Subjective Sosa Castaneda, 85 year old women with past medical history type 2 diabetes who presents to [facility] presents with acute neck pain that radiates down shoulders. She is specifically requesting prednisone burst which helped similar symptoms several months ago. Shoulder Pain/neck pain - Pain in both shoulders, more pronounced on the right side - Onset approximately one week prior to visit, following an accident - Previous similar episodes that resolved, but current pain has persisted - Described as throbbing pain with associated sensation of inflammation - No explicit denial of other symptoms Objective Blood pressure (!) 157/81, pulse 86, temperature 97.6 ??F (36.4 ??C), temperature source Temporal, resp. rate 20, weight 133 lb 9.6 oz (60.6 kg), SpO2 97%. Physical Exam Neck: Comments: Neck ROM: normal flex, limited extension, normal rotation to right, limited rotation to left. Palpable muscle spasm bilateral upper trapezius. Limited forward flexion of arms due to pain. 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 Assessment & Plan Muscle spasms of neck No focal motor or neruo deficits. She requests prednisone burst which helped similar symptoms months ago. A1c 6.4. Risks discussed Rx prednisone burst x 5 days, Acetaminophen, diclofenac prn, Warm compress and physical therapy referral. Will check c spine films given limited extension of c spine. Pt agrees with the plan. Orders: predniSONE (Deltasone) 20 MG tablet; 2 tabs po daily for 5 days acetaminophen (Tylenol) 500 MG tablet; TAKE 1- 2 TABLETS BY MOUTH EVERY 6 HOURS IF NEEDED FOR MODERATE PAIN OR FEVER. Diclofenac Sodium 1 % gel; Apply topically tid prn pain Referral to Physical Therapy; Future XR CERVICAL SPINE 3V; Future This note was drafted using Ambient (AI) technology. The patient/patient's guardian has been informed and has consented to the use of this technology: Yes documented in this encounter Plan of Treatment Upcoming Encounters Date Type Department Care Team (Late st Contact Info) Description 08/01/2025 2:30 PM EST Office Visit [facility] [address] [place] [phone] Mariella Cooper, OD [address] [place] [address] 08/14/2025 11:15 AM EST Office Visit [facility] [address] [place] [address] Rosalba Louis MD [address] [place], [place] [phone] 09/26/2025 10:00 AM EST Office Visit [facility] [address] [place], [place] [phone] Faith Cardenas [address] [place], [place] [phone] Scheduled Orders Name Type Priority Associated Diagnoses Orde r Schedule XR CERVICAL SPINE 3V Imaging Routine Muscle spasms of neck Expected: 07/24/2025, Expires: 07/24/2026 Scheduled Referrals Name Type Priority Associated Diagnoses Orde r Schedule Referral to Physical Therapy Outpatient Referral Routine Muscle spasms of neck Expected: 07/24/2025 (Approximate), Expires: 07/24/2026 documented as of this encounter Goals Goal Patient Goal Type Associated Problems Recent Progress Patient-Stated? Author Blood Pressure < 140/90 Blood Pressure 157/81(2024 9:08 AM EST) No Gypsy Hood Patient will adhere to medication regimen General No Gypsy Hood Hemoglobin A1c < 8 Result Component 6.4( 11:32 AM EDT) No Gypsy Hood documented as of this encounter Visit Diagnoses Diagnosis Muscle spasms of neck- Primary documented in this encounter Additional Health Concerns Assessment Noted Time PHQ-9 Depression Total Score: 0 05/10/20 25 11:31 AM EDT documented as of this encounter Care Teams Bee Breeder Relationship Specialty Start Date End Date Rosalba Louis MD [address] [place], [place] [phone] PCP - General Internal Medicine 08/28/24 documented as of this encounter
--- OUTSIDE RECORDS SUMMARY | 2025-07-24 11:01 | XMS_ITS | Encounter Summary ---
Author Organization [employer] Address [address] [facility] 7t [place] [address] Care Team Providers Care President & Founder Name Role Phone Rosalba Louis MD Primary Care Provider + Reason for Visit * Reason Onset Date Comments on insurance 02/05/2025 Encounter Details Date Type Department Care Team ([facility] st Contact Info) Description 02/05/2025 Telephone [facility] [address] [place], [place] [phone] Fatih Cardenas [address] [place], [place] [phone] on insurance Social History Tobacco Use Types [...] EDT Date of is listed on [facility] as 1940. not the 1938 although the 1940 is her date of . [facility] has been contacted by daughter of amado and has been unsuccessful in squaring awaywith [facility] DR documented in this encounter Plan of Treatment Upcoming Encounters Date Type Department Care Team (Late st Contact Info) Description 08/01/2025 2:30 PM EST Office Visit [facility] [address] [place] [address] Kenneth, Mariella, OD 230 [place] [address] 08/14/2025 11:15 AM EST Office Visit [facility] 230 [place] [address] Rosalba Louis MD 230 [place] [address] 09/26/2025 10:00 AM EST Office Visit [facility] [address] [place], [place] [phone] Faith Cardenas [address] [place], [place] [phone] documented as of this encounter Goals Goal [...] on filedocumented in this encounter Care Teams President & Founder Relationship Specialty Start Date End Date Rosalba Louis MD [address] [place] [address] PCP - General Internal Medicine 08/28/24 documented as of this encounter
--- OUTSIDE RECORDS SUMMARY | 2025-07-24 11:01 | XMS_ITS | Encounter Summary ---
Author Organization [facility], Address [address] [place] [address] Phone Care Team Providers Care Sales Account Associate Name Role Phone Rosalba Louis MD Primary Care Provider + [phone] Encounter Details Date Type Department Care Team (Late Contact Info) Description 07/22/2022 Documentation Only [facility] [address] [place] [address] Morenita Leigh PA [address] [place] [address] [place] [address] Social History Tobacco Use Types Packs/Day Years [...] Care Team (Late st Contact Info) Description 01/08/2026 1:30 PM EDT Office Visit [facility] [address] [place] [address] Roger Harrison MD [address] [place] [address] [place] [address] documented as of this encounter Visit Diagnoses Not on filedocumented in this encounter Care Teams Sales Account Associate Relationship Specialty Start Date End Date Rosalba Louis MD [address] [place] [address] PCP - General Internal Medicine 05/08/25 documented as of this encounter
--- OUTSIDE RECORDS SUMMARY | 2025-07-24 11:01 | XMS_ITS | Encounter Summary ---
Author Organization [facility], Address [address] [place] [address] Phone Care Team Providers Care Laboratory Apparatus Glass Grinder Name Role Phone Rosalba Louis MD Primary Care Provider + [phone] Encounter Details Date Type Department Care Team (Late Contact Info) Description 11/10/2023 Documentation Only [facility], [address] [place] [address] Mariah Sal [address] [place] [phone] Social History Tobacco Use Types Packs/Day [...] Visit [facility] [address] [place] [address] Roger Harrison MD [address] [place] [address] [place] [address] documented as of this encounter Visit Diagnoses Not on filedocumented in this encounter Care Teams Laboratory Apparatus Glass Grinder Relationship Specialty Start Date End Date Rosalba Louis MD 230 [place] [address] PCP - General Internal Medicine 05/08/25 documented as of this encounter
--- OUTSIDE RECORDS SUMMARY | 2025-07-24 11:01 | XMS_ITS | Encounter Summary ---
Author Organization [facility], Address [address] [place] [address] Phone Care Team Providers Care Top Installer Name Role Phone Rosalba Louis MD Primary Care Provider + [phone] Encounter Details Date Type Department Care Team (Late Contact Info) Description 07/22/2022 Documentation Only [facility] [address] [place] [address] Morenita Leigh PA [address] [place] [address] [place] [address] Social History Tobacco Use Types [...] Visit [facility] [address] [place] [address] Roger Harrison MD [address] [place] [address] [place] [address] documented as of this encounter Visit Diagnoses Not on filedocumented in this encounter Care Teams Top Installer Relationship Specialty Start Date End Date Rosalba Louis MD [address] [place] [address] PCP - General Internal Medicine 05/08/25 documented as of this encounter
--- OUTSIDE RECORDS SUMMARY | 2025-07-24 11:01 | XMS_ITS | Encounter Summary ---
Author Organization [employer] Address [address] [facility] 7t [place] [address] Care Team Providers Care Big Data Analytics Lead Name Role Phone Rosalba Louis MD Primary Care Provider + Encounter Details Date Type Department Care Team (Latest Contact Info) Description 07/24/2025 Travel Social History Tobacco Use Types Packs/Day Years [...] Description 08/01/2025 2:30 PM EST Office Visit [facility] [address] [place] [address] Mariella Cooper, OD 230 [place] [address] 08/14/2025 11:15 AM EST Office Visit [facility] 230 [place] [address] Rosalba Louis MD 230 [place] [address] 09/26/2025 10:00 AM EST Office Visit [facility] 91 [place], [place] [phone] Faith Cardenas 91 [place] [address] documented as of this encounter Goals Goal [...] Diagnoses Not on filedocumented in this encounter Additional Health Concerns Assessment Noted Time PHQ-9 Depression Total Score: 0 05/10/20 25 11:31 AM EDT documented as of this encounter Care Teams Big Data Analytics Lead Relationship Specialty Start Date End Date Rosalba Louis MD 230 [place] [address] PCP - General Internal Medicine 08/28/24 documented as of this encounter
--- OUTSIDE RECORDS SUMMARY | 2025-07-24 11:01 | XMS_ITS | Encounter Summary ---
Author Organization [facility], Address [address] [place] [address] Phone Care Team Providers Care Estate Tax Examiner Name Role Phone Rosalba Louis MD Primary Care Provider + [phone] Encounter Details Date Type Department Care Team (Late Contact Info) Description 06/17/2022 Documentation Only [facility], [address] [place] [address] Roger Harrison MD [address] [place] [address] [place] [address] Social History Tobacco Use Types [...] Visit [facility] [address] [place] [address] Roger Harrison MD [address] [place] [address] [place] [address] documented as of this encounter Visit Diagnoses Not on filedocumented in this encounter Care Teams Estate Tax Examiner Relationship Specialty Start Date End Date Rosalba Louis MD [address] [place] [address] PCP - General Internal Medicine 05/08/25 documented as of this encounter
--- OUTSIDE RECORDS SUMMARY | 2025-07-24 11:01 | XMS_ITS | Encounter Summary ---
Author Organization [facility], Address [address] [place] [address] Phone Care Team Providers Care Manager Etl Name Role Phone Rosalba Louis MD Primary Care Provider + [phone] Encounter Details Date Type Department Care Team (Late Contact Info) Description 08/25/2021 Documentation Only [facility], [address] [place] [address] Roger Harrison MD [address] [place] [address] [place] [address] Social History Tobacco Use Types [...] Visit [facility] [address] [place] [address] Roger Harrison MD [address] [place] [address] [place] [address] documented as of this encounter Visit Diagnoses Not on filedocumented in this encounter Care Teams Manager Etl Relationship Specialty Start Date End Date Rosalba Louis MD [address] [place] [address] PCP - General Internal Medicine 05/08/25 documented as of this encounter
--- OUTSIDE RECORDS SUMMARY | 2025-07-24 11:01 | XMS_ITS | Encounter Summary ---
Author Organization [employer] Address [address] [facility] 7t [place] [address] Care Team Providers Care Magnetic Observer Name Role Phone Rosalba Louis MD Primary Care Provider + Reason for Visit * Reason Comments Med Refill Encounter Details Date Type Department Care Team ([facility] st Contact Info) Description 07/20/2025 Refill [facility] [address] [place], [place] [phone] Martha Suazo MD [address] [place], [place] [phone] Social History Tobacco Use Types Packs/Day Years [...] Description 08/01/2025 2:30 PM EST Office Visit [facility] [address] [place] [address] Mariella Cooper, OD 230 [place] [address] 08/14/2025 11:15 AM EST Office Visit [facility] 230 [place] [address] Rosalba Louis MD 230 [place] [address] 09/26/2025 10:00 AM EST Office Visit [facility] 91 [place], [place] [phone] Faith Cardenas 91 [place] [address] documented as of this encounter Goals Goal [...] documented as of this encounter Care Teams Magnetic Observer Relationship Specialty Start Date End Date Rosalba Louis MD 230 [place] [address] PCP - General Internal Medicine 08/28/24 documented as of this encounter
--- OUTSIDE RECORDS SUMMARY | 2025-07-24 11:01 | XMS_ITS | Encounter Summary ---
Author Organization [facility] [place], Address [address] [place] [address] Phone Care Team Providers Care Brass Cutter Name Role Phone Rosalba Louis MD Primary Care Provider + [phone] Encounter Details Date Type Department Care Team (Late Contact Info) Description 11/02/2022 Documentation Only [facility] [address] [place] [address] Morenita Leigh PA [address] [place] [address] [place] [address] Social History Tobacco Use Types [...] Visit [facility] [address] [place] [address] Roger Harrison MD [address] [place] [address] [place] [address] documented as of this encounter Visit Diagnoses Not on filedocumented in this encounter Care Teams Brass Cutter Relationship Specialty Start Date End Date Rosalba Louis MD [address] [place] [address] PCP - General Internal Medicine 05/08/25 documented as of this encounter
--- OUTSIDE RECORDS SUMMARY | 2025-07-24 11:01 | XMS_ITS | Encounter Summary ---
Author Organization [facility], Address [address] [place] [address] Phone Care Team Providers Care Inventory Management Specialist Name Role Phone Rosalba Louis MD Primary Care Provider + [phone] Encounter Details Date Type Department Care Team (Late Contact Info) Description 11/02/2023 Documentation Only [facility] [address] [place] [address] Mariah Sal [address] [place] [phone] Social History Tobacco Use Types Packs/Day [...] Visit [facility] [address] [place] [address] Roger Harrison MD [address] [place] [address] [place] [address] documented as of this encounter Visit Diagnoses Not on filedocumented in this encounter Care Teams Inventory Management Specialist Relationship Specialty Start Date End Date Rosalba Louis MD 230 [place] [address] PCP - General Internal Medicine 05/08/25 documented as of this encounter
--- OUTSIDE RECORDS SUMMARY | 2025-07-24 11:01 | XMS_ITS | Encounter Summary ---
Author Organization [employer] Address [address] [facility] 7t [place] [address] Care Team Providers Care Clinic Director Name Role Phone Martha Suazo MD Primary Care Provider [phone] Rosalba Louis MD Primary Care Provider + Encounter Details Date Type Department Care Team ([facility] st Contact Info) Description 07/26/2023 Orders Only [facility] [address] [place], [place] [phone] Martha Suazo MD 230 [place], [place] [phone] Bilateral carotid artery disease, unspecified type (CMS/HCC) [...] Description 08/01/2025 2:30 PM EST Office Visit [facility] [address] [place], [place] [phone] Mariella Cooper, OD 230 [place] [address] 08/14/2025 11:15 AM EST Office Visit [facility] [address] [place] [address] Rosalba Louis MD 230 [place] [address] 09/26/2025 10:00 AM EST Office Visit [facility] 91 [place], [place] [phone] Faith Cardenas 91 [place] [address] documented as of this encounter Visit Diagnoses Diagnosis Bilateral carotid artery disease, unspecified type- Primary Stenosis of right renal artery Diastolic dysfunction Unspecified heart disease Hypertension, unspecified type documented in this encounter Care Teams Clinic Director Relationship Specialty Start Date End Date Martha Suazo MD 230 [place] [address] PCP - General Family Medicine 06/02/23 08/27/24 Rosalba Louis MD [address] [place] [address] PCP - General Internal Medicine 08/28/24 documented as of this encounter
--- OUTSIDE RECORDS SUMMARY | 2025-07-24 11:01 | XMS_ITS | Encounter Summary ---
Author Organization [facility] [place], Address [address] [place] [address] Phone Care Team Providers Care Gas Collection System Operator Name Role Phone Rosalba Louis MD Primary Care Provider + [phone] Encounter Details Date Type Department Care Team (Late Contact Info) Description 07/26/2024 Documentation Only [facility] [address] [place] [address] Mariah Sal [address] [place] [phone] Social History Tobacco Use Types Packs/Day [...] [facility] [address] [place] [address] Roger Harrison MD [address] [place] [address] [place] [address] documented as of this encounter Visit Diagnoses Not on filedocumented in this encounter Care Teams Gas Collection System Operator Relationship Specialty Start Date End Date Rosalba Louis MD 230 [place] [address] PCP - General Internal Medicine 05/08/25 documented as of this encounter
--- OUTSIDE RECORDS SUMMARY | 2025-07-24 11:01 | XMS_ITS | Clinical Summary ---
Author Organization [employer] Address [address] [facility] 7t [place] [address] Care Team Providers Care Board Finisher Name Role Phone Rosalba Louis MD Primary [...] MORNING 90 tablet 3 05/01/20 24 Active levocetirizin e (Xyzal) 5 MG tablet Take 1 tablet (5 mg) by mouth in the evening. 30 tablet 1 05/08/20 24 Active Polyvinyl Alcohol-Povid one 5-6 MG/ML solution [...] BREAKFAST 90 tablet 3 08/25/20 24 Active neomycin-baci tracin-polymy danny (Neosporin) 5-400-5000 [...] needed (asthma). 1 each 11/21/19 25 Active Blood Pressure Monitoring (Blood Pressure [...] 05/10/20 25 Active ketoconazole (NIZOral) 2 % shampooIndica tions:Seborrh eic dermatitis Apply topically 2 (two) times a week. 120 mL 06/18/20 25 Active ketoconazole (NIZOral) 2 % creamIndicati ons:Seborrhei c dermatitis Apply topically twice a day to the affected area the neck and behind the ears 15 g 06/18/20 25 Active ciclopirox (Penlac) 8 % solutionIndic ations:Fungal infection of nail Apply to finger nails on both hands at bed time x 3 months 6 mL 3 06/18/20 25 Active carvedilol (Coreg) 25 MG tablet TAKE 1 TABLET BY MOUTH TWICE DAILY IN THE MORNING AND IN THE EVENING 180 tablet 3 06/27/20 25 Active predniSONE (Deltasone) 20 MG tabletIndicat ions:Muscle spasms of neck 2 tabs po daily for 5 days 10 tablet 07/24/20 25 Active acetaminophen (Tylenol) 500 MG tabletIndicat ions:Muscle spasms of neck TAKE 1- 2 TABLETS BY MOUTH EVERY 6 HOURS IF NEEDED FOR MODERATE PAIN OR FEVER. 90 tablet 3 07/24/20 25 Active Diclofenac Sodium 1 % gelIndication s:Muscle spasms of neck Apply topically tid prn pain 50 g 1 07/24/20 25 Active carvedilol (Coreg) 25 MG tablet TAKE 1 TABLET BY MOUTH TWICE DAILY IN THE MORNING AND IN THE EVENING 180 tablet 3 07/10/20 24 025 Discontinued acetaminophen (Tylenol) 500 MG tablet TAKE 1- 2 TABLETS BY MOUTH EVERY 6 HOURS IF NEEDED FOR MODERATE PAIN OR FEVER. 90 tablet 3 11/30/19 25 025 Discontinued(Re order (will not trigger notification [...] in 2 weeks She is seen by patternmaker bench Dr. Greene every 4 months, Assessment & Plan (11/29/2024 9:24 AM EDT): Controlled. A1c is at goal. Continue on dietary rx (takes Jardiance for CKD ) Counseled re more frequent low calorie/carb meals. Check fgtsk prn DM/hypoglycemia sxs only Encouraged physical activity as tolerated. FU in 3-4 months. Declined Influenza / PCV Optimal evaluation of today by March 2024 Has appointment with patternmaker bench on December 19. Assessment & Plan (08/28/2024 [...] kidney disease) stage 3, GFR 30-59 ml/min ([facility]) 03/04/2016 Hyperlipidemia 02/24/2016 Chronic low back pain [...] Encounters Date Type Department Care Team Description 07/24/2025 9:20 AM EST Office Visit [facility] [address] [place] [address] Marilu Greenfield MD Muscle spasms of neck (Primary Dx) 07/24/2025 Travel 07/20/2025 Refill [facility] [address] [place] [address] Martha Suazo MD 06/26/2025 Telephone [facility] [address] [place] [address] Rosalba Louis MD Appointment Request 06/26/2025 Refill [facility] [address] [place] [address] Martha Suazo MD 06/18/2025 10:15 AM EDT Office Visit [facility] [address] [place] [address] Ne Corbin FNP Seborrheic dermatitis (Primary Dx); Type 2 diabetes mellitus with stage 3 chronic kidney disease, without long-term current use of insulin, unspecified whether stage 3a or 3b CKD ([facility]); Fungal infection of nail 06/18/2025 Travel 06/15/[address] [address] Anuel Lema [place] chart prep 06/15/[address] [address] Rosalba Louis MD Nurse Triage 05/10/2025 11:15 AM EDT Office Visit [address] [phone] Rosalba Louis MD Primary hypertension (Primary Dx); Type 2 diabetes mellitus with stage 3 chronic kidney disease, without long-term current use of insulin, unspecified whether stage 3a or 3b CKD (CMS/HCC); Dermatitis exfoliativa; Parent refuses immunizations; Chronic bilateral low back pain with bilateral sciatica; Intrinsic eczema 05/10/2025 Travel 05/08/[address] [phone] Rosalba Louis MD Chart Prep from Last [...] oz) 07/24/2025 9:08 A M EST Height 147.3 cm (4' 10 ) 05/10/2025 11:21 AM EDT Body Mass Index 27.92 05/10/2025 11:21 AM EDT Plan of Treatment Upcoming Encounters Date Type Department Care Team (Late st Contact Info) Description 08/01/2025 2:30 PM EST Office Visit [facility] [address] [place] [address] Kenneth, Mariella, OD 230 [place] [address] 08/14/2025 11:15 AM EST Office Visit [facility] 230 [place], [place] [phone] Rosalba Louis MD 230 [place], [place] [phone] 09/26/2025 10:00 AM EST Office Visit [facility] 91 [place], [place] [phone] Faith Cardenas 91 [place] [address] Health Maintenance Due Date Last Done Comments [...] Depression Screening 05/10/2026 05/10/2025, 05/10/20 Tobacco Screening 07/24/2026 07/24/2025 HIB Vaccines Aged Out No longer eligi [...] unspecified whether stage 3a or 3b CKD ([facility]) POCT GLUCOSE Routine 05/10/2025 11:32 AM EDT Type 2 diabetes mellitus with stage 3 chronic kidney disease, without long-term current use of insulin, unspecified whether stage 3a or 3b CKD (CMS/HCC) POCT GLYCATED HEMOGLOBIN, TOTAL Routine 05/10/2025 11:32 [...] of2 resultswithin the time period is included. Glucose Blood, POC 108 60 - 200 mg/dL QC [employer] Lot # [id number] Lot# Expiration Date Blood Capillary blood specimen / Unknown 06/18/2025 10:27 AM EDT Ne [facility] POINT OF CARE TEST ENTER/EDIT ORDERABLES Final Result * (ABNORMAL) POCT HGB A1C (05/10/2025 11:32 AM EDT) Hemoglobin A1C 6.4(A) 4.0 - 5.7 % QC [facility] Lot # [id number] Lot# Expiration Date , Blood 05/10/2025 11:3 2 AM EDT Rosalba Louis MD POINT OF CARE TEST ENTER /EDIT ORDERABLES Final Result * (ABNORMAL) Lipid Panel, Standard (05/08/2024 4:30 PM EDT) Triglycerides 176(H) <150 mg/dL [facility] Comment:Desirable Triglyceri de: less than 150 mg/dLBorderline High Triglyceride 150-199 mg/dLHigh Triglyceride: 200-499 mg/dLVery High Triglyceride: greater than or equal to 5OO mg/dL Cholesterol 149 <200 mg/dL [facility] Comment:Desirable Cholestero l: less than 200 mg/dLBorderline High Cholesterol: 200-239 mg/dLHigh Cholesterol: greater than 239 mg/dL LDL Cholesterol Calculated 78 <100 mg/dL [facility] Comment:Desirable LDL: less than 100 mg/dLNear Optimal/Above Optimal LDL: 110- 129 mg/dLBorderline High LDL: 130-159 mg/dLHigh LDL: 160-189 mg/dLVery High LDL: greater than or equal to 190 mg/dL HDL Cholesterol 36(L) >40 mg/dL [facility] Comment:Desirable HDL: great er than 40 mg/dL Note: This HDL assay may give artificially low results in patients with liver disease. 05/08/2024 4:30 PM EDT 05/08/2024 5:51 PM EDT us Martha Suazo MD LAB BLOOD ORDERABLES Final Res ult [facility] [address] [place] [address] [phone] from Last 3 Months or Most Recently Relevant to Health Maintenance Insurance [facility] Member Subscriber Plan / Payer (Ef fective 2019-Present) Name:Sosa Correa Relation to Subscriber:Self Name:Sosa Correa Payer ID:Not on file Group ID:[id number] Type:Not on file Address: [address] CARE [facility] OPTIONS (O D-SNP) DENTAL - [facility] Care Teams Board Finisher Relationship Specialty Start Date End Date Rosalba Louis MD [address] [place] [phone] PCP - General Internal Medicine 08/28/24
--- OUTSIDE RECORDS SUMMARY | 2025-07-24 11:01 | XMS_ITS | Encounter Summary ---
Author Organization [facility], Address [address] [place] [address] Phone Care Team Providers Care Bone Char Operator Name Role Phone Rosalba Louis MD Primary Care Provider + [phone] Encounter Details Date Type Department Care Team (Late Contact Info) Description 09/10/2021 Documentation Only [facility], [address] [place] [address] Roger Harrison MD [address] [place] [address] [place] [address] Social History Tobacco Use Types [...] Visit [facility] [address] [place] [address] Roger Harrison MD [address] [place] [address] [place] [address] documented as of this encounter Visit Diagnoses Not on filedocumented in this encounter Care Teams Bone Char Operator Relationship Specialty Start Date End Date Rosalba Louis MD [address] [place] [address] PCP - General Internal Medicine 05/08/25 documented as of this encounter
--- OUTSIDE RECORDS SUMMARY | 2025-07-24 11:01 | XMS_ITS | Encounter Summary ---
Author Organization [facility], Address [address] [place] [address] Phone Care Team Providers Care Rotary Drier Feeder Name Role Phone Rosalba Louis MD Primary Care Provider + [phone] Encounter Details Date Type Department Care Team (Late Contact Info) Description 08/25/2021 Documentation Only [facility], [address] [place] [address] Roger Harrison MD [address] [place] [address] [place] [address] Social History Tobacco Use Types [...] Visit [facility] [address] [place] [address] Roger Harrison MD [address] [place] [address] [place] [address] documented as of this encounter Visit Diagnoses Not on filedocumented in this encounter Care Teams Rotary Drier Feeder Relationship Specialty Start Date End Date Rosalba Louis MD [address] [place] [address] PCP - General Internal Medicine 05/08/25 documented as of this encounter
--- OUTSIDE RECORDS SUMMARY | 2025-07-24 11:01 | XMS_ITS | Encounter Summary ---
Author Organization [facility], Address [address] [place] [address] Phone Care Team Providers Care Flight Instructor Name Role Phone Rosalba Louis MD Primary Care Provider + [phone] Encounter Details Date Type Department Care Team (Late Contact Info) Description 08/04/2022 Documentation Only [facility] [address] [place] [address] Morenita Leigh PA [address] [place] [address] [place] [address] Social History Tobacco Use Types [...] Visit [facility] [address] [place] [address] Roger Harrison MD [address] [place] [address] [place] [address] documented as of this encounter Visit Diagnoses Not on filedocumented in this encounter Care Teams Flight Instructor Relationship Specialty Start Date End Date Rosalba Louis MD [address] [place] [address] PCP - General Internal Medicine 05/08/25 documented as of this encounter
--- OUTSIDE RECORDS SUMMARY | 2025-07-24 11:01 | XMS_ITS | Encounter Summary ---
Author Organization [facility], Address [address] [place] [address] Phone Care Team Providers Care Clinical Resource Coordinator Name Role Phone Rosalba Louis MD Primary Care Provider + [phone] Reason for Visit * Reason Comments Med Refill Encounter Details Date Type Department Care Team ([facility] Contact Info) Description 07/02/2021 Refill [facility] [address] [place] [address] Roger Harrison MD [address] [place] [address] [place] [address] Social History Tobacco Use Types [...] Encounters Date Type Department Care Team (Late Contact Info) Description 01/08/2026 1:30 PM EDT Office Visit [facility], [address] [place] [address] Roger Harrison MD [address] [place] [address] [place] [address] documented as of this encounter Visit Diagnoses Not on filedocumented in this encounter Care Teams Clinical Resource Coordinator Relationship Specialty Start Date End Date Rosalba Louis MD [address] [place] [address] PCP - General Internal Medicine 05/08/25 documented as of this encounter
--- OUTSIDE RECORDS SUMMARY | 2025-07-24 11:01 | XMS_ITS | Encounter Summary ---
Author Organization [employer] Address [address] [place] [address] Care Team Providers Care Sumatra Opener Name Role Phone Martha Suazo MD Primary Care Provider [phone] Rosalba Louis MD Primary Care Provider + Reason for Visit * Reason Onset Date Comments ER Follow-up 07/29/2023 Encounter Details Date Type Department Care Team ([facility] Contact Info) Description 07/29/2023 Telephone [facility] MEDICINE [address] [place], [place] [phone] Martha Suazo MD [address] [place], [place] [phone] ER Follow-up Social History Tobacco Use Types [...] an ED visit. Pt was admitted at [facility] on 07/27 and discharged the following day 07/28 for Diarrhea, low sodium, and acidosis. Was advised will forward to team nursesfor f/u. Please contact daughter at [phone] documented in this encounter Plan of Treatment Upcoming Encounters Date Type Department Care Team (Late st Contact Info) Description 08/01/2025 2:30 PM EST Office Visit [facility] OPTOMETRY [address] [place] [address] Kenneth, Mariella, OD [address] [place] [address] 08/14/2025 11:15 AM EST Office Visit [facility] MEDICINE [address] [place] [address] Rosalba Louis MD [address] [place] [address] 09/26/2025 10:00 AM EST Office Visit [facility] [address] [place], [place] [phone] Faith Cardenas [address] [place], [place] [phone] documented as of this encounter Visit Diagnoses Not on filedocumented in this encounter Care Teams Sumatra Opener Relationship Specialty Start Date End Date Martha Suazo MD [address] [place] [address] PCP - General Family Medicine 06/02/23 08/27/24 Rosalba Louis MD [address] [place] [address] PCP - General Internal Medicine 08/28/24 documented as of this encounter
--- OUTSIDE RECORDS SUMMARY | 2025-07-24 11:01 | XMS_ITS | Data Portability ---
Author Organization [employer] [facility], [facility] [place] [facility] Address [address] [place] [address] Care Team Providers Care Proof Plate Maker Name Role Phone HIM CCA OTHER Assessment Encounter Date Assessment Date Assessment LastModified by Organization Details LastModified Time 07/27/2023 07/27/2023 I have reviewed and agree with the Assessment and Plan as documented by the [employer] Dean. I provided real-time medical direction via phone [...] Assessment and Plan as documented by the [employer] Dean. Patient given the opportunity to ask questions. via utility helicopter repairer Advised if develops CP/severe SOB/turning blue/uncontrolle d n/v/d or black/bloody emesis or stool/ AMS/ syncope/severe, uncontrolled leg pain/hi fever unresponsive to APAP to call 911-she verbalized understanding of instructions to the medic. [email or web address] Not available 09/21/2023 22:00:21 11/06/2024 11/06/2024 I provided real -time medical direction via phone for this encounter and was available for additional phone-based assistance as needed. I have reviewed and agree with the Assessment and Plan as documented by the [employer] Dean. Patient given the opportunity to ask questions. [...] was 1.7 in September of 2023. Per log hauler on the scene, vital signs are stable and patient is afebrile. No wheezing heard on exam. COVID and Flu are both negative. No increased work of breathing and no distress. Elected to give 1 L of lactated Ringer's. COVID and flu were both negative. BNP noted with creatinine now of 2.7. Impression: Common cold and viral URI Plan: Continue with [id number] medications to control symptoms. Red flags discussed [...] or worsening serious symptoms, particularly fever chills [email or web address] Not available 11/06/2024 16:11:39 Plan of Treatment Reminders Order Date Submit Date Provider Last Modified By Organization Details Last Modified Time Details Appointments None recorded. Lab rapid SARS CoV 2 Ag, QL IA, respiratory specimen [address], [address] [place] [address], [id number] 5 15:56:53 rapid flu (A+B) 2024 025 [email or web address] [facility], [address] [place] [address], [id number] 5 15:56:53 BMP, serum or plasma 2024 025 MARIN [facility], [address] [place] [address], [id number] 5 20:43:18 BMP, serum or plasma 2023 024 [email or web address] 0 Main - [facility], [address] [place] [address], [id number] 4 22:02:09 Referral None recorded. Procedures None recorded. Surgeries None recorded. Imaging None recorded. Medication Orders lactated Ringers intravenous solution 2024 025 [email or web address] [facility], [address] [place] [address], [place], [place], [id number], 5 15:56:53 furosemide 10 mg/mL injection solution 2023 024 [email or web address] 0 Not available 4 13:59:59 Patient TargetsNo targets recorded. Patient InstructionsNo instructions recorded. Reason for Referral None Reported. Results Created Date Observation Date Name Description Value Unit Range Abnormal Flag Note LastModifiedBy Organization Detail LastModifiedTime 09/21/1909/21/2023 BMP, serum or plasm a BUN 35 Not Available Main - [facility] [address], [address] [place] [address] 09/21/2023 14:00:05 09/21/1909/21/2023 BMP, serum or plasm a Ca Ionize d calciu m 1.17 Not Available [facility] - [address], [address] [place] [address] 09/21/2023 14:00:05 09/21/1909/21/2023 BMP, serum or plasm a CI- 104 Not Available Main - [facility] [address], [address] [place] [address] 09/21/2023 14:00:05 09/21/1909/21/2023 BMP, serum or plasm a CRE 1.79 Not Available Main - [facility] [address], [address] [place] [address] 09/21/2023 14:00:05 09/21/1909/21/2023 BMP, serum or plasm a GLU 139 Not Available Main - [facility] [address], [address] [place] [address] 09/21/2023 14:00:05 09/21/19 24 09/21/2023 BMP, serum or plasm a K+ 4.4 Not Available [facility] - [address], [address] 09/21/2023 14:00:05 01/02/20 24 09/21/2023 BMP, serum or plasm a Na+ 139 Not Available Main - [facility] [address], [address] 09/21/2023 14:00:05 09/21/19 24 09/21/2023 BMP, serum or plasm a tCO2 26 Not Available Main - [facility] [address], [address] [place] [address] 09/21/2023 14:00:05 11/06/19 25 11/06/2024 rapid flu (A+B) Flu negati ve Not Available Main - [facility] ed [address] [place] [address], [address] [place] [address] 11/06/2024 15:45:15 11/06/19 25 11/06/2024 rapid SARS CoV 2 Ag, QL IA, respi rator y speci men rapid SARS CoV 2 Ag, QL IA, respiratory specimen negati ve Not Available [facility] - [facility] ed [address] [place] [address], [id number] 11/06/2024 15:45:13 Result Notes None recorded. Medical [...] Respiratory rate Body weight Body temperature Systolic And Diastolic Provider Name and Address Organization Details Last Updated DateTime 4 96 % 96 % 152.4 cm 78 /min 16 /min 25936.6 4 g 97.7 [degF] 128/77 mm[Hg] Not Available [employer] 4 13:57:13 Date Recorded Oxygen saturation Oxygen saturation in Arterial blood by Pulse oximetry Respiratory rate Body temperature Heart rate Systolic And Diastolic Provider Name and Address Organization Details Last Updated DateTime 3 98 % 98 % 14 /min 97.9 [degF] 78 /min 148/90 mm[Hg] Not Available [employer] 3 13:13:03 Social History None recorded. Functional Status None recorded. Mental Status None recorded. Family History Nothing Reported. Medical History No medical history recorded. Gynecological HistoryNo gynecological history recorded. Obstetrics History GPAL:G 0 P 0 0 0 0 Past Encounters Encounter ID Performer Location Encounter Start Date Encounter Closed Date Diagnosis/Indication Diagnosis SNOMED-CT Code Diagnosis ICD10 Code Diagnosis IMO Codes Diagnosis Note [id number] Shakeel Knott MD Main - [address] [address] 07/27/2023 13:12:54 09/22/2023 15:34:44 Hyponatremia 03240207 E87.1 [id number] Gilda Roth MD Main - [address] [address] 09/21/2023 13:57:00 09/22/2023 14:24:43 Peripheral edema 837821921 R60.9 Advised to elevate, resume low-salt diet. [...] if not improving and red flags reviewed [id number] Tasia Rhodes MD Main - [facility] [address] [place] [address] 11/06/2024 14:11:56 11/07/2024 08:19:42 Common cold 93743025 J00 Chronic ki dney disease stage 3 014888074 N18.30 Dehydration 49312265 E86 .0 Health Concerns Section Related Observation LastModified by Organization Detai ls LastModified Time None Recorded Concern Status LastModified by Organization Details LastModified Time None Recorded Advance Directives Directive None Recorded Payers Insurance Date Sequence Insurance Name Policy Number Policy Harrington Covered Member ID Harrington Member ID Guarantor Name 11/06/2024 1 [facility] - DOS ON OR AFTER 2022 - DUAL ELIGIBLE - [employer] OPTIONS AND ONE CARE (MEDICARE REPLACEMENT/ADV ANTAGE - HMO) Sosa Castaneda [id number] Sosa Castaneda Notes Date Note Type Note Provider Name and Address Organization Details Recorded Time 07/27/2023 text/html HPI: Call to Sosa Castaneda , spoke with Robby who is [...] .................... .................... .................... .................... .................... .................... . [employer] Dean Note From Campos Díaz: Pt reports approx 10 episodes of diarrhea since yesterday. Pt denies hematochezia, ABD discomfort, CP, SOB, WRIGHT, f/n/v. Pt is alert, NAD. VSS. Afebrile. Neuro exam and gait morning. Lungs CTA. Benign ABD exam. No ANGELES. Rapid covid and flu negative. POC labs uploaded, Na 126. [facility] contacted and advised the pt be seen in the ED. Care transferred to [facility] crew. .................... .................... .................... .................... .................... .................... .................... . Disposition: Fulfilled Shakeel Knott MD [address] [place] [address],[address], [place], [address], [employer] 09/21/2023 13:35:11 09/21/2023 text/html ROS as noted in the HPI HPI: Member has bilateral edema , right greater than left. Member denies sob/ chest pain . Member just returned from [place]. 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 .................... .................... .................... .................... .................... .................... . [facility] Nurse Triage Notes (Jacklyn Berumen): Comments: [facility] RN DID NOT NEED FURTHER INFO .................... .................... .................... .................... .................... .................... .................... . [employer] Dean Note From Campos Díaz: Pt reports recent trip to [place] where she didn t follow her usual low sodium diet. [...] .................... . Disposition: Fulfilled Gilda Roth MD [address] [facility],[address], [place], [address], SARAH - [employer] 09/21/2023 22:05:38 11/06/2024 text/html [employer] Dean Organization Information for Campos Díaz Business Legal Name: [facility] Transportation Address: [address] [place] [address], SARAH Benítez [address], [employer]ismic Prospect[employer] Supervisor: Anant HERNÁNDEZ No.: [id number] [employer] Dean POC Test Results from Campos Díaz epo (13:42:32) pH: 7.40 pH units pCO2: 40.3 [...] .................... .................... .................... .................... .................... .................... . [employer] Dean Note From Campos Díaz: This 84-year-old female [...] primary care physician as well as her nanotechnology engineering technologist and present to the emergency department for any new or worsening severe symptoms such as chest pain, severe shortness of breath, high fever, altered mental status. The patient and her daughter were given the opportunity to ask questions and are agreeable to this plan. .................... .................... .................... .................... .................... .................... .................... . [facility] Consulted: Tasia Rhodes .................... .................... .................... .................... .................... .................... .................... . Disposition: Fulfilled Tasia Rhodes MD [address] [facility],[address], [place], [address], ASRAH - [employer] 11/06/2024 16:12:03 OBGyn Episode No OBEpisode recorded.
--- OUTSIDE RECORDS SUMMARY | 2025-07-24 11:01 | XMS_ITS | Encounter Summary ---
Author Organization [facility], Address [address] [place] [address] Phone Care Team Providers Care Bar Host Name Role Phone Rosalba Louis MD Primary Care Provider + [phone] Encounter Details Date Type Department Care Team (Late Contact Info) Description 07/25/2024 Documentation Only [facility] [address] [place] [address] Mariah Sal [address] [place] [address] Social History Tobacco Use Types Packs/Day [...] Visit [facility] [address] [place] [address] Roger Harrison MD [address] [place] [address] [place] [address] documented as of this encounter Visit Diagnoses Not on filedocumented in this encounter Care Teams Bar Host Relationship Specialty Start Date End Date Rosalba Louis MD [address] [place] [address] PCP - General Internal Medicine 05/08/25 documented as of this encounter
--- OUTSIDE RECORDS SUMMARY | 2025-07-24 11:01 | XMS_ITS | Encounter Summary ---
Author Organization [facility], Address [address] [place] [address] Phone Care Team Providers Care Qa Automation Engineer Name Role Phone Rosalba Louis MD Primary Care Provider + [phone] Encounter Details Date Type Department Care Team (Late Contact Info) Description 08/04/2021 Documentation Only [facility], [address] [place] [address] Roger Harrison MD [address] [place] [address] [place] [address] Social History Tobacco Use Types [...] Visit [facility] [address] [place] [address] Roger Harrison MD [address] [place] [address] [place] [address] documented as of this encounter Visit Diagnoses Not on filedocumented in this encounter Care Teams Qa Automation Engineer Relationship Specialty Start Date End Date Rosalba Louis MD [address] [place] [address] PCP - General Internal Medicine 05/08/25 documented as of this encounter
--- OUTSIDE RECORDS SUMMARY | 2025-07-24 11:01 | XMS_ITS | Clinical Summary ---
Author Organization [facility] [place], Address [address] [place] [address] [place] [address] Phone Care Team Providers Care Physician Office Assistant Name Role Phone Rosalba Louis MD Primary Care Provider + [phone] Allergies No known active allergies Medications ACETAMINOPHEN EXTRA STRENGTH 500 MG tablet TAKE 1 TABLET BY MOUTH EVERY 7 8 HOURS NEEDED, NO MORE THAN 8 TABS DAILY 11/22/2019 Active aspirin (ST ANA) 81 MG EC tablet TAKE 1 TAB BY MOUTH DAILY. 04/06/2018 Active atorvastatin (LIPITOR) 20 MG tablet Take 20 mg by mouth daily 12/05/2019 Active Calcium Carbonate-Vitami n D (CALCIUM-VITAMIN D) 500-200 MG-UNIT tablet Take 500 mg by mouth daily 11/27/2019 Active carvedilol (COREG) 25 MG tablet Take 25 mg by mouth 2 (two) times a day with meals 10/30/2019 Active dilTIAZem (CARDIZEM) 90 MG immediate release tablet Take 90 mg by mouth 4 (four) times a day 12/28/2019 Active ferrous fumarate-vitamin C ER (EWEOJ-GEFEXKV-7 5) 65-25 MG CR tablet Take 50 mg [...] needed (edema) 30 tablet 3 03/30/2023 Active Empagliflozin (Jardiance) 25 MG tablet Take 25 mg by mouth in the morning. 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 CT 12/30/11 Resolved Problems Problem Noted Date Diagnosed Date Resolved Date Edema 09/29/2021 01/05/2022 Gout 01/03/2020 09/29/2021 Hypertensive heart disease w [facility] congestive heart failure 01/03/2020 09/29/2021 Lower [...] intervertebral disc 6 01/03/2020 Diverticulosis of colon 05/29/2016 0401/2020 Microalbuminuria 05/29/2016 04/21/2021 Personal history of breast cancer 05/29/2016 01/03/2020 Overview (01/03/2020): Lumpectomy & axillary nodes removed. Radiation therapy Renal stone 05/29/2016 04/21/2021 Type 2 diabetes mellitus 05/29/201610/2020 Essential (primary) hypertension 03/04/2016 04/21/2021 Essential hypertension 02/24/201604/21 Hyperlipidemia 02/24/2016 01/03/2020 Encounters Date Type Department Care Team Description 05/08/2025 3:30 PM EDT Office Visit [facility] [address] [place] [address] Roger Harrison MD Stage 3b chronic kidney disease (HCC) (Primary Dx); Renal disorder due to type 2 diabetes mellitus <Other diabetic kidney complication> (HCC); Hypertensive disorder from Last 3 Months Immunizations Immunization Administration Dates Next Due Pneumococcal Polysaccharide 03/09/2016 [...] Visit [facility] [place] [facility], [address] [place] [address] Roger Harrison MD [address] [place] [id number] Health Maintenance Due Date Last Done Comments Pneumococcal Vaccine: 50+ Years (2 of 2 - PCV) 03/09/2017 03/09/2016 Diabetes: Ophthalmology Exam 12/22/2019 Diabetes: Pedal Pulse Checked 12/22/2019 Diabetes: Sensory Foot Exam 12/22/2019 Diabetes: Visual Foot Exam 12/22/2019 Diabetes: Hemoglobin A1C 11/26/2024 024, 10/25/2023, 03/30/2023, Additional history exists Influenza Vaccine (#1) 2025 Pneumococcal Vaccine: Peds (0 to 5 Years) and At-Risk Patients (6 to 49 Years) Discontinued 03/09/2016 Hepatitis B Vaccine Aged Out No longe [...] PM EDT) Hemoglobin A1C 6.3(H) (4.0-5.6) % [facility] Comment: MONITORING: In known diabetic patients, hemoglobin A1c targets should be discussed with health care provider. DIAGNOSTIC USE: The [place] [employer] (ADA) and the World Health [...] Supplement 1 Testing performed or reported by [facility] [employer], a Service of [facility], [address] [place] [address] Rc Thomas MD, Home Service Advisor CLIA# [id number] Blood specimen (specimen) Venous blood / Unknown 03/30/2023 3:58 PM EDT 03/30/2023 4:00 PM EDT Morenita MORGAN LAB BLOOD ORDERABLES Final Re sult [facility] from Last 3 Months or Most Recently Relevant to Health Maintenance Insurance [facility] One Care Dual SNP ([id number]) CATHY CHEEK [id number] Care Teams Physician Office Assistant Relationship Specialty Start Date End Date Rosalba Louis MD [address] [place] [address] PCP - General Internal Medicine 05/08/25
--- OUTSIDE RECORDS SUMMARY | 2025-07-24 11:01 | XMS_ITS | Encounter Summary ---
Author Organization [facility] [place], Address [address] [place] [address] Phone Care Team Providers Care Electric Motor Winders Assembler Name Role Phone Rosalba Louis MD Primary Care Provider + [phone] Encounter Details Date Type Department Care Team (Late Contact Info) Description 07/07/2022 Documentation Only [facility] [address] [place] [address] Morenita Leigh PA [address] [place] [address] [place] [address] Social History Tobacco Use Types [...] Of [facility] [address] [place] [address] Roger Harrison MD [address] [place] [address] [place] [address] documented as of this encounter Visit Diagnoses Not on filedocumented in this encounter Care Teams Electric Motor Winders Assembler Relationship Specialty Start Date End Date Rosalba Louis MD [address] [place] [address] PCP - General Internal Medicine 05/08/25 documented as of this encounter
--- OUTSIDE RECORDS SUMMARY | 2025-07-24 11:01 | XMS_ITS | Encounter Summary ---
Author Organization [facility] [place], Address [address] [place] [address] Phone Care Team Providers Care Supervisor Ovens Name Role Phone Rosalba Louis MD Primary Care Provider + [phone] Encounter Details Date Type Department Care Team (Late Contact Info) Description 08/05/2022 Documentation Only [facility] [address] [place] [address] Morenita Leigh PA [address] [place] [address] [place] [address] Social History Tobacco Use Types [...] Visit [facility] [address] [place] [address] oRger Harrison MD [address] [place] [address] [place] [address] documented as of this encounter Visit Diagnoses Not on filedocumented in this encounter Care Teams Supervisor Ovens Relationship Specialty Start Date End Date Rosalba Louis MD [address] [place] [address] PCP - General Internal Medicine 05/08/25 documented as of this encounter
--- OUTSIDE RECORDS SUMMARY | 2025-07-24 11:01 | XMS_ITS | Encounter Summary ---
Author Organization [facility] [place], Address [address] [place] [address] Phone Care Team Providers Care Fraternity House Cook Name Role Phone Rosalba Louis MD Primary Care Provider + [phone] Encounter Details Date Type Department Care Team (Late Contact Info) Description 08/03/2022 Documentation Only [facility] [address] [place] [address] Morenita Leigh PA [address] [place] [address] [place] [address] Social History Tobacco Use Types [...] Visit [facility] [address] [place] [address] Roger Harrison MD [address] [place] [address] [place] [address] documented as of this encounter Visit Diagnoses Not on filedocumented in this encounter Care Teams Fraternity House Cook Relationship Specialty Start Date End Date Rosalba Louis MD [address] [place] [address] PCP - General Internal Medicine 05/08/25 documented as of this encounter
--- OUTSIDE RECORDS SUMMARY | 2025-07-24 11:02 | XMS_ITS | Encounter Summary ---
Author Organization [facility] [place], Address [address] [place] [address] Phone Care Team Providers Care Regulatory Coordinator Name Role Phone Rosalba Louis MD Primary Care Provider + [phone] Encounter Details Date Type Department Care Team (Late Contact Info) Description 10/31/2021 Orders Only [facility] [place], [address] [place] [address] Roger Harrison MD [address] [place] [address] Stage 3a chronic kidney disease [...] Visit [facility] [address] [place] [address] Roger Harrison MD [address] [place] [address] documented as of this encounter Visit Diagnoses Diagnosis Stage 3a chronic kidney disease (HCC) documented in this encounter Care Teams Regulatory Coordinator Relationship Specialty Start Date End Date Rosalba Louis MD [address] [place] [address] PCP - General Internal Medicine 05/08/25 documented as of this encounter
--- OUTSIDE RECORDS SUMMARY | 2025-07-24 11:02 | XMS_ITS | Encounter Summary ---
Author Organization [facility] [place], Address [address] [place] [address] Phone Care Team Providers Care Analysis Or Research Safety Inspector Name Role Phone Rosalba Louis MD Primary Care Provider + [phone] Encounter Details Date Type Department Care Team (Late Contact Info) Description 11/21/2021 Orders Only [facility] [address] [place] [address] Roger Harrison MD [address] [facility] [place] [address] Stage 3a chronic kidney disease [...] Visit [facility] [address] [place] [address] Roger Harrison MD [address] [facility] [place] [address] documented as of this encounter Visit Diagnoses Diagnosis Stage 3a chronic kidney disease (HCC) documented in this encounter Care Teams Analysis Or Research Safety Inspector Relationship Specialty Start Date End Date Rosalba Louis MD [address] [place] [address] PCP - General Internal Medicine 05/08/25 documented as of this encounter
--- OUTSIDE RECORDS SUMMARY | 2025-07-24 11:02 | XMS_ITS | Encounter Summary ---
Author Organization [employer] [facility] Address [address] [facility] 7t [place] [address] Care Team Providers Care Womens Volleyball Coach Name Role Phone Martha Suazo MD Primary Care Provider [phone] Rosalba Louis MD Primary Care Provider + [...] CKD (CMS/HCC) (HCC) Martha Suazo MD [address] [place] [address] Phone: tel: fax: Referral ID Status Reason Start Date Expiration Date V isits Requested Visits Authorized [id number] Closed Continuity of Care 10/06/2023 10/05/2024 1 1 Encounter Details Date Type Department Care Team (Late st Contact Info) Description 10/06/2023 Orders Only [facility] [address] [place] [address] Martha Suazo MD [address] [place], [place] [phone] Type 2 diabetes mellitus with stage 3 [...] Description 08/01/2025 2:30 PM EST Office Visit [facility] OPTOMETRY [address] [place] [address] Mariella Cooper, STEFANIE [address] [place] [address] 08/14/2025 11:15 AM EST Office Visit [facility] [address] [place] [address] Rosalba Louis MD [address] [place] [address] 09/26/2025 10:00 AM EST Office Visit [facility] [address] [place], [place] [phone] TheresaFaith [address] [place], [place] [phone] Scheduled Referrals Name Type Priority Associated Diagnoses Orde r Schedule Referral to Pharmacy [facility] Outpatient Referral Routine Type 2 diabetes mellitus [...] (HCC) documented in this encounter Care Teams Womens Volleyball Coach Relationship Specialty Start Date End Date Martha Suazo MD [address] [place] [address] PCP - General Family Medicine 06/02/23 08/27/24 Rosalba Louis MD [address] [place] [address] PCP - General Internal Medicine 08/28/24 documented as of this encounter
--- OUTSIDE RECORDS SUMMARY | 2025-07-24 11:02 | XMS_ITS | Encounter Summary ---
Author Organization [employer] Address [address] [facility] 7t [place] [address] Care Team Providers Care Cracker Sprayer Name Role Phone Martha Suazo MD Primary Care Provider [phone] Rosalba Louis MD Primary Care Provider + Reason for Visit * Reason Onset Date Comments FYI 10/21/2023 Encounter Details Date Type Department Care Team ([facility] st Contact Info) Description 10/21/2023 Telephone [facility]INE [address] [place], [place] [phone] Martha Suazo MD [address] [place], [place] [phone] FYI Social History Tobacco Use Types Packs/Day [...] - 10/21/2023 11:16 AM EST Tc from [facility] calling to inform PCP pt is getting discharge today 4pt stated don't need them anymore. documented in this encounter Plan of Treatment Upcoming Encounters Date Type Department Care Team (Late st Contact Info) Description 08/01/2025 2:30 PM EST Office Visit [facility] OPTOMETRY [address] [place] [address] Mariella Cooper, OD [address] [place] [address] 08/14/2025 11:15 AM EST Office Visit [facility] MEDICINE [address] [place] [address] Rosalba Louis MD [address] [place] [address] 09/26/2025 10:00 AM EST Office Visit [facility] D[facility] [address] [place] [address] Faith Cardenas [address] [place] [address] documented as of this encounter Visit Diagnoses Not on filedocumented in this encounter Care Teams Cracker Sprayer Relationship Specialty Start Date End Date Martha Suazo MD [address] [place] [address] PCP - General Family Medicine 06/02/23 08/27/24 Rosalba Louis MD [address] [place] [address] PCP - General Internal Medicine 08/28/24 documented as of this encounter
--- OUTSIDE RECORDS SUMMARY | 2025-07-24 11:02 | XMS_ITS | Encounter Summary ---
Author Organization [facility], Address [address] [place] [address] Phone Care Team Providers Care Cinder Worker Name Role Phone Rosalba Louis MD Primary Care Provider + [phone] Encounter Details Date Type Department Care Team (Late Contact Info) Description 09/30/2021 Documentation Only [facility] [place], [address] [place] [address] Roger Harrison MD [address] [place] [address] [place] [address] Social History Tobacco Use Types [...] Visit [facility] [address] [place] [address] Roger Harrison MD [address] [place] [address] [place] [address] documented as of this encounter Visit Diagnoses Not on filedocumented in this encounter Care Teams Cinder Worker Relationship Specialty Start Date End Date Rosalba Louis MD [address] [place] [address] PCP - General Internal Medicine 05/08/25 documented as of this encounter
--- OUTSIDE RECORDS SUMMARY | 2025-07-24 11:02 | XMS_ITS | Encounter Summary ---
Author Organization [facility] [place], Address [address] [place] [address] Phone Care Team Providers Care Clinical Nursing Professor Name Role Phone Rosalba Louis MD Primary Care Provider + [phone] Encounter Details Date Type Department Care Team (Late Contact Info) Description 10/17/2021 Orders Only [facility] [place], [address] [place] [address] Roger Harrison MD [address] [facility] [place] [address] Stage 3a chronic kidney disease [...] Visit [facility] [address] [place] [address] Roger Harrison MD [address] [facility] [place] [address] documented as of this encounter Visit Diagnoses Diagnosis Stage 3a chronic kidney disease (HCC) documented in this encounter Care Teams Clinical Nursing Professor Relationship Specialty Start Date End Date Rosalba Louis MD [address] [place] [address] PCP - General Internal Medicine 05/08/25 documented as of this encounter
--- OUTSIDE RECORDS SUMMARY | 2025-07-24 11:02 | XMS_ITS | Encounter Summary ---
Author Organization [facility] [place], Address [address] [place] [address] Phone Care Team Providers Care Terry Cloth Cutter Hand Name Role Phone Rosalba Louis MD Primary Care Provider + [phone] Encounter Details Date Type Department Care Team (Late Contact Info) Description 12/17/2021 Documentation Only [facility] [place], [address] [place] [place] [address] Roger Harrison MD [address] [place] [address] [place] [address] Social History Tobacco Use Types [...] Visit [facility] [address] [place] [address] Roger Harrison MD [address] [place] [address] [place] [address] documented as of this encounter Visit Diagnoses Not on filedocumented in this encounter Care Teams Terry Cloth Cutter Hand Relationship Specialty Start Date End Date Rosalba Louis MD [address] [place] [address] PCP - General Internal Medicine 05/08/25 documented as of this encounter
--- OUTSIDE RECORDS SUMMARY | 2025-07-24 11:02 | XMS_ITS | Encounter Summary ---
Author Organization [employer] Address [address] [facility] 7t [place] [address] Care Team Providers Care Lead Software Tester Name Role Phone Martha Suazo MD Primary Care Provider [phone] Rosalba Louis MD Primary Care Provider + Reason for Visit * Reason Onset Date Comments Appointment Request 01/28/2024 Encounter Details Date Type Department Care Team ([facility] st Contact Info) Description 01/28/2024 Telephone [facility] MEDICINE [address] [place], [place] [phone] Martha Suazo MD [address] [place], [place] [phone] Appointment Request Social History Tobacco Use Types [...] Description 08/01/2025 2:30 PM EST Office Visit [facility] OPTOMETRY [address] [place] [address] Mariella Cooper, OD [address] [place] [address] 08/14/2025 11:15 AM EST Office Visit [facility] [address] [place] [address] Rosalba Louis MD [address] [place] [address] 09/26/2025 10:00 AM EST Office Visit [facility] [address] [place], [place] [phone] Faith Cardenas [address] [place], [place] [phone] documented as of this encounter Goals Goal Patient Goal Type Associated Problems Recent Progress Patient-Stated? Author Blood Pressure < 140/90 Blood Pressure 157/81(2024 9:08 AM EST) No Gypsy Hood Patient will adhere to medication regimen General No SunithaGypsy lara Hemoglobin A1c < 8 Result Component 6.4( 11:32 AM EDT) No Maryluzma Betancur documented as of this encounter Visit Diagnoses Not on filedocumented in this encounter Care Teams Lead Software Tester Relationship Specialty Start Date End Date Martha Suazo MD [address] [place] [address] PCP - General Family Medicine 06/02/23 08/27/24 Rosalba Louis MD [address] [place] [address] PCP - General Internal Medicine 08/28/24 documented as of this encounter
--- OUTSIDE RECORDS SUMMARY | 2025-07-24 11:02 | XMS_ITS | Encounter Summary ---
Author Organization [facility] [place], Address [address] [place] [address] Phone Care Team Providers Care Continuous Improvement Black Belt Name Role Phone Rosalba Louis MD Primary Care Provider + [phone] Encounter Details Date Type Department Care Team (Late Contact Info) Description 11/28/2021 Orders Only [facility] [address] [place] [address] Roger Harrison MD [address] [facility] [place] [address] Stage 3a chronic kidney disease [...] Visit [facility] [address] [place] [address] Roger Harrison MD [address] [facility] [place] [address] documented as of this encounter Visit Diagnoses Diagnosis Stage 3a chronic kidney disease (HCC) documented in this encounter Care Teams Continuous Improvement Black Belt Relationship Specialty Start Date End Date Rosalba Louis MD [address] [place] [address] PCP - General Internal Medicine 05/08/25 documented as of this encounter
--- OUTSIDE RECORDS SUMMARY | 2025-07-24 11:02 | XMS_ITS | Encounter Summary ---
Author Organization [facility] [place], Address [address] [place] [address] Phone Care Team Providers Care Errand Runner Name Role Phone Rosalba Louis MD Primary Care Provider + [phone] Encounter Details Date Type Department Care Team (Late Contact Info) Description 11/14/2021 Orders Only [facility] [place], [address] [facility] [address] Roger Harrison MD [address] [facility] [place] [address] Stage 3a chronic kidney disease [...] Visit [facility] [address] [address] Roger Harrison MD [address] [facility] [place] [address] documented as of this encounter Visit Diagnoses Diagnosis Stage 3a chronic kidney disease (HCC) documented in this encounter Care Teams Errand Runner Relationship Specialty Start Date End Date Rosalba Louis MD [address] [place] [address] PCP - General Internal Medicine 05/08/25 documented as of this encounter
--- OUTSIDE RECORDS SUMMARY | 2025-07-24 11:02 | XMS_ITS | Encounter Summary ---
Author Organization [facility] [place], Address [address] [place] [address] Phone Care Team Providers Care Ice Cream Scooper Name Role Phone Rosalba Louis MD Primary Care Provider + [phone] Encounter Details Date Type Department Care Team (Late Contact Info) Description 12/16/2021 Documentation Only [facility] [place], [address] [place] [address] Roger Harrison MD [address] [place] [address] [place] [address] Social History Tobacco Use [...] Visit [facility] [address] [place] [address] Roger Harrison MD [address] [place] [address] [place] [address] documented as of this encounter Visit Diagnoses Not on filedocumented in this encounter Care Teams Ice Cream Scooper Relationship Specialty Start Date End Date Rosalba Louis MD [address] [place] [address] PCP - General Internal Medicine 05/08/25 documented as of this encounter
--- OUTSIDE RECORDS SUMMARY | 2025-07-24 11:02 | XMS_ITS | Encounter Summary ---
Author Organization [facility], Address [address] [place] [address] Phone Care Team Providers Care Golf Starter And Ranger Name Role Phone Rosalba Louis MD Primary Care Provider + [phone] Encounter Details Date Type Department Care Team (Late Contact Info) Description 12/12/2021 Orders Only [facility], [address] [place] [address] Roger Harrison MD [address] [place] [address] Stage 3a chronic kidney disease [...] Visit [facility] [address] [place] [address] Roger Harrison MD [address] [place] [address] documented as of this encounter Procedures Procedure Name Priority Date/Time Associated Diagnosis Comments MAGNESIUM Routine 01/01/2022 9:34 AM EDT Stage 3a chronic kidney disease (HCC) RENAL FUNCTION PANEL Routine 01/01/2022 9:34 AM EDT Stage 3a chronic kidney disease (HCC) documented in this encounter Results * Magnesium (01/01/2022 9:34 AM EDT) Magnesium 2.1 (1.6-2.3) mg/dL [facility] Comment: Testing performed or reported by [facility], a Service of [facility], [address] [place] [address] Jena Marte MD, Publishing Editor [facility]# [id number] Blood specimen (specimen) Venous blood / Unknown 01/01/2022 9:34 AM EDT 01/01/2022 9:36 AM EDT us Roger Harrison MD LAB BLOOD ORDERABLES Final Resul t [facility] * (ABNORMAL) Renal Function Panel (01/01/2022 9:34 AM EDT) Glucose 83 (70-99) MG/DL [facility] BUN 34(H) (8-23) MG/DL [facility] Creatinine 1.6(H) (0.5-1.0) MG/DL [facility] Sodium 141 (133-145) MMOL/L [facility] Potassium 4.5 (3.6-5.2) MMOL/L [facility] Chloride 102 (98-107) MMOL/L [facility] Bicarbonate (CO2) 29 (22-29) MMOL/L [facility] Anion Gap 10 (4-17) [facility] Albumin 4.1 (3.4-4.8) GM/DL [facility] Calcium 9.5 (8.6-10.5) MG/DL [facility] Phosphorus, Serum 4.0 (2.5-4.5) MG/DL [facility] Est GFR Non 33 ML/MIN/1.7 3 M2 [facility] Comment: Creatinine based estimated glomerular filtration (eGFR) in adults is calculated using the National [employer] recommended 2020 CKD-EPI equation. Estimates GFR from serum creatinine, age and sex. Testing performed or reported by [facility], a Service of [facility], [address] [place] [address] Jena Marte MD, Publishing Editor [facility]# [id number] Blood specimen (specimen) Venous blood / Unknown 01/01/2022 9:34 AM EDT 01/01/2022 9:36 AM EDT us Roger Harrison MD LAB BLOOD ORDERABLES Final Resul t [facility] documented in this encounter Visit Diagnoses Diagnosis Stage 3a chronic kidney disease (HCC) documented in this encounter Care Teams Golf Starter And Ranger Relationship Specialty Start Date End Date Rosalba Louis MD [address] [place] [address] PCP - General Internal Medicine 05/08/25 documented as of this encounter
--- OUTSIDE RECORDS SUMMARY | 2025-07-24 11:02 | XMS_ITS | Encounter Summary ---
Author Organization [facility] Address [address] [facility] 7[address] [place] [address] Care Team Providers Care Crutching Contractor Name Role Phone Martha Suazo MD Primary Care Provider [phone] Rosalba Louis MD Primary Care Provider + Reason for Visit * Reason Onset Date Comments Durable Medical Equipment 02/24/2024 Encounter Details Date Type Department Care Team ([facility] st Contact Info) Description 02/24/2024 Telephone [facility] MEDICINE [address] [place], [place] [phone] Martha Suazo MD [address] [place], [place] [phone] Durable Medical Equipment Social History Tobacco Use [...] - 02/24/2024 9:26 AM EDT Tc from [facility] requesting an rx for incontinence supplies. States current one is . documented in this encounter Plan of Treatment Upcoming Encounters Date Type Department Care Team (Late st Contact Info) Description 08/01/2025 2:30 PM EST Office Visit [facility] OPTOMETRY [address] [place], [place] [phone] Mariella Cooper, OD [address] [place] [address] 08/14/2025 11:15 AM EST Office Visit [facility] MEDICINE [address] [place] [address] Rosalba Louis MD [address] [place] [address] 09/26/2025 10:00 AM EST Office Visit [facility] DENTAL [address] [place], [place] [phone] Faith Cardenas [address] [place], [place] [phone] documented as of this encounter Goals Goal Patient Goal Type Associated Problems Recent Progress Patient-Stated? Author Blood Pressure < 140/90 Blood Pressure 157/81(2024 9:08 AM EST) No Cardaropoli, Betancur Patient will adhere to medication regimen General No KeshiaGypsy hutson Hemoglobin A1c < 8 Result Component 6.4( 11:32 AM EDT) No Gypsy Hood documented as of this encounter Visit Diagnoses Not on filedocumented in this encounter Care Teams Crutching Contractor Relationship Specialty Start Date End Date Martha Suazo MD [address] [place] [address] PCP - General Family Medicine 06/02/23 08/27/24 Rosalba Louis MD [address] [place] [address] PCP - General Internal Medicine 08/28/24 documented as of this encounter
--- OUTSIDE RECORDS SUMMARY | 2025-07-24 11:02 | XMS_ITS | Encounter Summary ---
Author Organization [facility], Address [address] [place] [address] Phone Care Team Providers Care Store Shopper Name Role Phone Rosalba Louis MD Primary Care Provider + [phone] Encounter Details Date Type Department Care Team (Late Contact Info) Description 04/15/2023 Documentation Only [facility] [address] [place] [address] Morenita Leigh PA [address] [place] [address] [place] [address] Social History Tobacco Use Types [...] Visit [facility] [address] [place] [address] Roger Harrison MD [address] [place] [address] [place] [address] documented as of this encounter Visit Diagnoses Not on filedocumented in this encounter Care Teams Store Shopper Relationship Specialty Start Date End Date Rosalba Louis MD [address] [place] [address] PCP - General Internal Medicine 05/08/25 documented as of this encounter
--- OUTSIDE RECORDS SUMMARY | 2025-07-24 11:02 | XMS_ITS | Encounter Summary ---
Author Organization [facility], Address [address] [place] [address] Phone Care Team Providers Care Appian Developer Name Role Phone Rosalba Louis MD Primary Care Provider + [phone] Encounter Details Date Type Department Care Team (Late Contact Info) Description 10/10/2021 Orders Only [facility], [address] [place] [address] Roger Harrison MD [address] [place] [address] Stage 3a chronic kidney disease [...] Visit [facility] [address] [place] [address] Roger Harrison MD [address] [place] [address] documented as of this encounter Visit Diagnoses Diagnosis Stage 3a chronic kidney disease (HCC) documented in this encounter Care Teams Appian Developer Relationship Specialty Start Date End Date Rosalba Louis MD [address] [place] [address] PCP - General Internal Medicine 05/08/25 documented as of this encounter
--- OUTSIDE RECORDS SUMMARY | 2025-07-24 11:02 | XMS_ITS | Encounter Summary ---
Author Organization [facility], Address [address] [place] [address] Phone Care Team Providers Care Electromyographic Technician Name Role Phone Rosalba Louis MD Primary Care Provider + [phone] Encounter Details Date Type Department Care Team (Late Contact Info) Description 10/24/2021 Orders Only [facility], [address] [place] [address] Roger Harrison MD [address] [place] [address] Stage 3a chronic kidney disease [...] Visit [facility] [address] [place] [address] Roger Harrison MD [address] [place] [address] documented as of this encounter Visit Diagnoses Diagnosis Stage 3a chronic kidney disease (HCC) documented in this encounter Care Teams Electromyographic Technician Relationship Specialty Start Date End Date Rosalba Louis MD [address] [place] [address] PCP - General Internal Medicine 05/08/25 documented as of this encounter
--- OUTSIDE RECORDS SUMMARY | 2025-07-24 11:02 | XMS_ITS | Encounter Summary ---
Author Organization [facility], Address [address] [place] [address] Phone Care Team Providers Care Director Mba Name Role Phone Rosalba Louis MD Primary Care Provider + [phone] Reason for Visit * Reason Comments Med Change Request Encounter Details Date Type Department Care Team (Late Contact Info) Description 10/24/2021 Refill [facility] [address] [place] [address] Roger Harrison MD [address] [place] [address] [place] [address] Social History Tobacco Use Types [...] [facility] [address] [place] [address] Roger Harrison MD [address] [place] [address] [place] [address] documented as of this encounter Visit Diagnoses Not on filedocumented in this encounter Care Teams Director Mba Relationship Specialty Start Date End Date Rosalba Louis MD [address] [place] [address] PCP - General Internal Medicine 05/08/25 documented as of this encounter
--- OUTSIDE RECORDS SUMMARY | 2025-07-24 11:02 | XMS_ITS | Encounter Summary ---
Author Organization [facility], Address [address] [place] [address] Phone Care Team Providers Care Commercial Credit Portfolio Manager Name Role Phone Rosalba Louis MD Primary Care Provider + [phone] Encounter Details Date Type Department Care Team (Late Contact Info) Description 11/07/2021 Orders Only [facility], [address] [place] [address] Roger Harrison MD [address] [place] [address] Stage 3a chronic kidney disease [...] [facility] [address] [place] [address] Roger Harrison MD [address] [place] [address] documented as of this encounter Visit Diagnoses Diagnosis Stage 3a chronic kidney disease (HCC) documented in this encounter Care Teams Commercial Credit Portfolio Manager Relationship Specialty Start Date End Date Rosalba Louis MD [address] [place] [address] PCP - General Internal Medicine 05/08/25 documented as of this encounter
--- OUTSIDE RECORDS SUMMARY | 2025-07-24 11:02 | XMS_ITS | Encounter Summary ---
Author Organization [facility], Address [address] [place] [address] Phone Care Team Providers Care Slurry Control Tender Name Role Phone Rosalba Louis MD Primary Care Provider + [phone] Encounter Details Date Type Department Care Team (Late Contact Info) Description 10/03/2021 Orders Only [facility], [address] [place] [address] Roger Harrison MD [address] [place] [address] Stage 3a chronic kidney disease [...] Visit [facility] [address] [place] [address] Roger Harrison MD [address] [place] [address] documented as of this encounter Visit Diagnoses Diagnosis Stage 3a chronic kidney disease (HCC) documented in this encounter Care Teams Slurry Control Tender Relationship Specialty Start Date End Date Rosalba Louis MD [address] [place] [address] PCP - General Internal Medicine 05/08/25 documented as of this encounter
--- OUTSIDE RECORDS SUMMARY | 2025-07-24 11:02 | XMS_ITS | Clinical Summary ---
Author Organization [facility] Address [address] [place] [address] Phone Care Team Providers Care Diecast Machine Operator Name Role Phone Rosalba Louis MD Primary Care Provider [phone] Allergies No known active allergies Medications ammonium [...] patient's age to complete this topic Insurance [facility] MEDICARE Member Subscriber Plan / Payer (Ef fective 2019-Present) Name:Sosa Correa Relation to Subscriber:Self Name:Sosa Castaneda Payer ID:[id number] Group ID:[id number] Type:Not on file Address: [facility] [address] [place] [address] Care Teams Diecast Machine Operator Relationship Specialty Start Date End Date Rosalba Louis MD [address] [place] [phone] PCP - General Internal Medicine 09/06/24
--- OUTSIDE RECORDS SUMMARY | 2025-07-24 11:02 | XMS_ITS | Encounter Summary ---
Author Organization [facility], Address [address] [place] [address] Phone Care Team Providers Care Greeter Name Role Phone Rosalba Louis MD Primary Care Provider + [phone] Encounter Details Date Type Department Care Team (Late Contact Info) Description 12/05/2021 Orders Only [facility], [address] [place] [address] Roger Harrison MD [address] [place] [address] Stage 3a chronic kidney disease [...] [facility] [address] [place] [address] Roger Harrison MD [address] [place] [address] documented as of this encounter Visit Diagnoses Diagnosis Stage 3a chronic kidney disease (HCC) documented in this encounter Care Teams Greeter Relationship Specialty Start Date End Date Rosalba Louis MD [address] [place] [address] PCP - General Internal Medicine 05/08/25 documented as of this encounter
== END 2025-07-24 09:43 | disposition home or self-care (01) ==
LOC: HO.HHCX 09:42
PROVIDERS: Visit Provider Family Medicine
DX: M62.838 Other muscle spasm (principal); M54.2 Cervicalgia
CPT/HCPCS: 72040

== ENCOUNTER → 2025-07-24 10:00 | Outpatient (BNV) | payer OTHER, SELFPAY | PROVIDERS: Visit Provider Radiology Diagnostic Radiology | DX: R52 Pain, unspecified (principal) | CPT/HCPCS: 72040 ==

== ENCOUNTER 2025-08-06 08:47 | Outpatient (RCR) | payer OTHER, SELFPAY ==
[2025-08-06 09:01] VITALS: BP 151/67; PULSE 84
--- NOTE | 2025-08-06 09:53 | MHC.PT.EP ---
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 She reports of having back pain for several years. She denies any trauma or falls. On PT examination she reports of having 10/10 with standing, walking, water/wastewater project engineer and sleeping, TTP over B lumbar paraspinals, L4-5 segment and B SI, decreased lumbar ROM, decreased B LE strength, difficulty activating core, altered posture and gait. She lives alone and has ASIAN STUDIES PROFESSOR to assist her with all ADLS. She would benefit from skilled PT to address the aforementioned impairments and improve tolerance to functional activities. PT RECOMMENDED 1-2/WEEK HOWEVER PT STATED THAT SHE DOES NOT WANT TO COME BACK AND JUST DO THE EXERCISE GIVEN TODAY AT HOME Frequency and Duration: The patient will be seen 2/week for 5 weeks Short Term Goals: 1. Pt will have 50% decrease in pain which will enable her to sleep through the night in 2 weeks 2. Pt will be able to move her trunk through all plane of motion with pain no more than 3/10 which will enable her to participate in dressing lower body in 3 weeks. Fdc Goals: 1. Pt will demonstrate an increase in muscle strength by 1 grade which will enable her to part take more with ADLs in 5 weeks. 2. Pt will be independent with HEP for symptom management and maintenance following d/c in 5 weeks. Treatment Plan: Modalities to reduce pain, spasms and effusion. Manual therapy to restore motion and function. Therapeutic exercise to improve strength and flexibility. Neuromuscular re-education for posture and balance. Therapeutic activities to return to functional activities of daily living. Electronically signed by: Heidy Yip PT DPT Please sign and return to therapist. Thank you for your referral.
--- NOTE | 2025-08-21 11:18 | MHC.PT.DC ---
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 Pt recommended coming to PT 1-2/week however she stated she did not want come due to the cold weather and just wants to do HEP. She is therefore being d/c from PT. Electronically signed by: Heidy Yip, PT DPT Please sign and return to therapist. Thank you for your referral.
== END 2025-08-21 11:19 | disposition home or self-care (01) ==
LOC: HO.PT 08:47
PROVIDERS: PCP Internal Medicine; Visit Provider Internal Medicine
DX: M54.42 Lumbago with sciatica, left side (principal); M54.41 Lumbago with sciatica, right side; G89.29 Other chronic pain
CPT/HCPCS: 97112; 97161